=== PATIENT | female | born 1945 | race African-American/Black ===

== ENCOUNTER 2021-09-18 12:33 | Outpatient (REF) | payer MEDICARE, MEDICAID, SELFPAY ==
--- NOTE | ~2021-09-18 | XR_ITS ---
EXAMINATION: XR CHEST CLINICAL INFORMATION: Cough. COMPARISON: None TECHNIQUE: 2 views of the chest were obtained. FINDINGS: No significant abnormality is noted involving the heart, lungs, mediastinum, bony thorax or soft tissues. XR/XR chest 2V IMPRESSION: Unremarkable chest examination.
== END 2021-09-18 12:34 | disposition home or self-care (01) ==
LOC: HO.XRAY 12:33
PROVIDERS: PCP Internal Medicine; Visit Provider Nurse Practitioner Family
DX: R06.2 Wheezing (principal); R05.8 Other specified cough
CPT/HCPCS: 71046

== ENCOUNTER → 2021-10-18 09:46 | Outpatient (BNVA) | payer MEDICARE, MEDICAID, SELFPAY | PROVIDERS: PCP Internal Medicine; Referring Provider Internal Medicine; Visit Provider Internal Medicine Cardiovascular Disease | DX: I42.1 Obstructive hypertrophic cardiomyopathy (principal); I10 Essential (primary) hypertension; R06.02 Shortness of breath | CPT/HCPCS: 93005; 99212 ==

== ENCOUNTER 2021-11-29 10:54 | Outpatient (REF) | payer MEDICARE, MEDICAID, SELFPAY ==
[2021-11-29 11:15] LABS: MANUAL DIFF FLAG NO
[2021-11-29 12:16] LABS: Basophils Absolute Auto 0.1 X10*3/uL (0.0-0.2); Basophils Percent Auto 0.8 % (0-2); Eosinophils Absolute Auto 0.2 X10*3/uL (0.0-0.4); Eosinophils Percent Auto 2.6 % (0-4); Hematocrit 37.2 % (37.0-47.0); Hemoglobin 11.7 g/dl (12.0-16.0); Imm Gran Abs Auto 0.03 X10*3/uL (0.00-0.03); Imm Gran Pct Auto 0.3 % (0.0-0.4); Lymphocytes Absolute Auto 3.6 X10*3/uL (1.2-4.9); Lymphocytes Percent Auto 39.6 % (20-40); Mean Corpuscular HGB Conc 31.5 g/dl (31.0-35.0); Mean Corpuscular Volume 95.4 fL (80.0-98.0); Mean Platelet Volume 10.6 fL (9.4-12.3); Monocytes Absolute Auto 0.7 X10*3/uL (0.1-1.2); Monocytes Percent Auto 7.7 % (2-11); Neutrophils Absolute Auto 4.5 x10*3/uL (2.0-8.3); Platelet Count 288 X10*3/uL (160-400); Red Cell Distribution Width 12.4 % (11.0-16.0); White Blood Count 9.1 X10*3/uL (4.8-10.8)
[2021-11-29 12:46] LABS: Anion Gap 13 (12-20); Blood Urea Nitrogen 21 mg/dL (9-16); Calcium 9.8 mg/dL (8.4-10.2); Carbon Dioxide 27 mmol/L (22-29); Chloride 106 mmol/L (96-108); Estimated Glomerular Filt Rate 57; Glucose Random 111 mg/dL (60-115); Sodium 142 mmol/L (135-145)
[2021-11-29 12:59] LABS: Thyroid Stimulating Hormone 1.14 uIU/mL (0.32-4.0)
== END 2021-11-29 10:55 | disposition home or self-care (01) ==
LOC: HO.LAB 10:54
PROVIDERS: PCP Internal Medicine; Visit Provider Internal Medicine
DX: R51.9 Headache, unspecified (principal); E03.9 Hypothyroidism, unspecified; Z13.0 Encounter for screening for diseases of the blood and blood-forming organs and certain disorders involving the immune mechanism
CPT/HCPCS: 36415; 80048; 84443; 85025

== ENCOUNTER → 2021-12-04 09:09 | Outpatient (REF) | payer MEDICARE, MEDICAID, SELFPAY ==
--- NOTE | 2021-12-04 09:13 | CA_ITS ---
Transthoracic Echocardiogram Patient (Last, First, Middle): Sara Deluna L Gender: Female Date of : 1945 Age: 76 Procedure Date: 12/04/2021 Procedure Type: Transthoracic Echocardiogram Location: OP Height: 167.64 cm Weight: 102.06 kg BSA: 2.10 m2 Heart Rate: 71 bpm BP: 156 / 78 mmHg Meat Molder: NETO Referring MD: Varinder Joshi MD Research Intern: Varinder Joshi MD Symptoms: I42.1 - Obstructive hypertrophic cardiomyopathy Study Quality: Adequate ECG Rhythm: Sinus Conclusions: - 1. Normal LV systolic function with mild LVH with impaired relaxation filling pattern 2. Mildly dilated left atrium 3. Trivial aortic regurgitation mild mitral regurgitation 4. Upper limits of normal RV systolic pressure 5. No gross pericardial effusion Findings Left Ventricle Normal left ventricular size and systolic function. There is mildly increased left ventricular wall thickness. The visually estimated ejection fraction is between 55-60%. Spectral Doppler is indicative of an impaired relaxation filling pattern. E/E prime ratio is between 8 and 15 consistent with indeterminate filling pressures. Right Ventricle Normal right ventricular cavity size and systolic function. Atria The left atrium is mildly dilated. There is lipomatous hypertrophy of the interatrial septum. There is no evidence of interatrial shunt. The right atrium is normal in size. Aortic Valve There is mild calcification of the aortic valve. There is no aortic valve stenosis. There is trace (trivial) aortic valve regurgitation. Mitral Valve There is mild anterior and posterior mitral leaflet thickening. There is mild mitral valve regurgitation. There is no mitral valve stenosis. Pulmonic Valve The pulmonic valve was not well visualized. Tricuspid Valve Normal tricuspid valve structure. There is mild tricuspid valve regurgitation. The right ventricular systolic pressure is normal. Normal right atrial pressure. There is no evidence of pulmonary hypertension. Great Vessels All visible segments of the aorta are normal in size. The pulmonary artery was not well visualized. Venous The inferior vena cava is normal in size and collapses greater than 50% with inspiration. Pericardium/Pleural There is no evidence of pericardial effusion. Measurements 2D Linear Measurements IVSd: 1.38 0.6-0.9/0.6-1.0 cm LVIDd: 4.72 3.9-5.3/4.2-5.9 cm LVIDd Index: 2.25 2.4-3.2/2.2-3.1 cm/m2 LVIDs: 3.25 2.0-3.6 cm LVPWd: 1.05 0.7-1.1 cm LA Diam: 4.30 2.7-3.8/3.0-4.0 cm LAIDs Index: 2.05 1.5-2.3 cm/m2 LV Mass: 270.79 67-162/88-224 g LV Mass Index: 128.95 43-95/49-115 g/m2 LVOT Diam: 1.80 3.0+(-)1.3 cm 2D Systolic Function EF 4C: 59.90 >55% Mitral Valve MV Pk E: 0.93 MV PK A: 0.97 MV Decel Time: 227.00 E/A: 1.00 E'Lateral: 7.07 E'Medial: 7.83 E/E' Med: 11.90 E/E' Lat: 13.20 PHT: 67.00 MVA PHT: 3.28 Decel Sabine: 4.11 Aortic Valve AoV Pk Elkin: 1.58 AoV Mn Elkin: 1.11 AoV VTI: 0.36 AoV Pk Grad: 10.00 Aov Mn Grad: 6.00 GINA Cont.VTI: 2.34 LVOT LVOT Pk Elkin: 1.50 LVOT Mn Elkin: 1.13 LVOT VTI: 0.33 LVOT Pk Grad: 9.00 LVOT Mn Grad: 6.00 LVOT Diam: 1.80 LVOT Area: 2.54 Diastolic Function MV Pk E: 0.93 MV Pk A: 0.97 E/A: 1.00 E'Medial: 7.83 E/E' Med: 11.90 E' Laterial: 7.07 E/E' Lat: 13.20 Right Ventricle TAPSE (mm): 32.30 TVS' Elkin: 11.50 Tricuspid Valve TR Pk Elkin: 2.95 TR Pk Grad: 35.00 RA Press: 3.00 RVSP: 38.00 Great Vessels Aorta Sinus of Valsalva: 3.00 2.0-3.5 cm Ao Asc: 3.40 2.1-3.4 cm Pulmonary Veins Pulm Vein S/D 1.10 Pulmonary Valve PV Pk Elkin: 1.22 Peak PV Grad: 6.00 Updated in Other Vendor System with Status of Final Varinder Joshi MD electronically signed on 12/05/2021 4:15:59 PM with status of Final
== END ==
LOC: HO.CARD 09:09
PROVIDERS: Visit Provider Internal Medicine Cardiovascular Disease
DX: I42.1 Obstructive hypertrophic cardiomyopathy (principal)
CPT/HCPCS: 93306

== ENCOUNTER 2022-01-08 19:40 | Inpatient (IN) | payer MEDICARE, MEDICAID, SELFPAY ==
--- NOTE | ~2022-01-08 | XR_ITS ---
EXAMINATION: XR CHEST CLINICAL INFORMATION: Shortness of breath, wheezing. COMPARISON: 09/18/2021 chest radiographs. TECHNIQUE: Frontal view of the chest was obtained. FINDINGS: No significant abnormality is noted involving the heart, lungs, mediastinum, bony thorax or soft tissues. XR/XR chest 1V IMPRESSION: No acute cardiopulmonary process.
--- NOTE | ~2022-01-08 | CT_ITS ---
EXAMINATION: CT HEAD WITHOUT CONTRAST CLINICAL INFORMATION: Headache COMPARISON: 06.18.2015 TECHNIQUE: Contiguous axial imaging was performed from the skull base to vertex without intravenous administration of contrast. This CT examination was performed using dose optimization techniques as appropriate, variously including the following: *Automated exposure control *Adjustment of mA and/or kV according to patient size (this includes techniques or standardized protocols for targeted exams where dose is matched to indication/reason for exam; i.e. extremities or head) *Use of iterative reconstruction technique DLP: 894 mGy-cm FINDINGS: There is no evidence of acute intracranial hemorrhage or territorial infarction. No abnormal mass effect or midline shift is seen. [place] to white matter differentiation is well preserved. No extra-axial fluid collections are identified. The ventricles are normal in size. There is no abnormal attenuation within the brain parenchyma. The osseous structures and soft tissues are normal. The mastoid air cells and visualized portions of the paranasal sinuses are well aerated. There are stable calcifications associated with the lens of the left globe. CT/CT head/brain wo con IMPRESSION: No acute intracranial pathology.
--- NOTE | ~2022-01-08 | CT_ITS ---
EXAMINATION: CT SOFT TISSUE NECK WITHOUT CONTRAST CLINICAL INFORMATION: Stridor. Lump in throat. COMPARISON: CT facial bones dated 08/22/2019 TECHNIQUE: Helical imaging was performed in the axial plane with generation of coronal and sagittal reformatted images. This CT examination was performed using dose optimization techniques as appropriate, variously including the following: *Automated exposure control *Adjustment of mA and/or kV according to patient size (this includes techniques or standardized protocols for targeted exams where dose is matched to indication/reason for exam; i.e. extremities or head) *Use of iterative reconstruction technique DLP: 693 mGy-cm FINDINGS: Mild prominence of the bilateral palatine tonsils, and nasopharyngeal tonsillar tissue as well as fullness of the soft palate narrowing the nasopharyngeal airway. Oropharynx widely patent. Epiglottis is thin. Partial effacement of the right pyriform sinus which appears to be related to a retropharyngeal right internal carotid artery. Appearance is unchanged from prior. Larynx and laryngeal structures are unremarkable. Subglottic trachea widely patent, although there is respiratory motion artifact within the upper thoracic trachea. No cervical adenopathy is identified. The parotid glands are homogeneous in attenuation. The submandibular glands are normal. No contour abnormality or pathologic enhancement is seen within the oral cavity or pharyngeal mucosal space. The parapharyngeal fat is preserved. No extra mucosal soft tissue mass or fluid collection is seen. No retropharyngeal fluid collection is seen. The thyroid gland is normal. The superior mediastinum is unremarkable. The lung apices are clear. The temporomandibular joints are normal. . No acute osseous abnormalities are seen. CT/CT soft tissue neck wo con IMPRESSION: * No neck mass. * There is prominence of the palatine tonsils, nasopharyngeal tonsillar tissue and soft palate similar appearance to prior. * Laryngeal structures and airway widely patent.
--- NOTE | ~2022-01-08 | CT_ITS ---
EXAMINATION: CT ABDOMEN AND PELVIS WITHOUT CONTRAST CLINICAL INFORMATION: Middle and lower abdominal pain/tenderness COMPARISON: CTA chest 11/04/2017 TECHNIQUE: Multidetector volumetric imaging was performed from the superior aspect of the liver through the pubic symphysis. Sagittal and coronal reformatted images were obtained on the technologist's workstation. This CT examination was performed using dose optimization techniques as appropriate, variously including the following: *Automated exposure control *Adjustment of mA and/or kV according to patient size (this includes techniques or standardized protocols for targeted exams where dose is matched to indication/reason for exam; i.e. extremities or head) *Use of iterative reconstruction technique DLP: 704 mGy-cm FINDINGS: LUNG BASES: 1.7 cm groundglass nodule in the right lower lobe abutting the major fissure (series 4 image 17), appears slightly more conspicuous compared to CT of the chest from 2017. Small pericardial fluid. LIVER, GALLBLADDER, AND BILIARY TREE: The liver is normal in size, shape, and attenuation. No focal hepatic lesion or biliary ductal dilatation is present. The gallbladder is unremarkable with no evidence of radiopaque gallstones, gallbladder wall thickening, or obvious pericholecystic inflammatory changes. PANCREAS: Unremarkable. SPLEEN: Unremarkable. ADRENAL GLANDS: Unremarkable. KIDNEYS AND URETERS: The kidneys are normal in size, shape, and attenuation. No hydronephrosis, hydroureter, or calculi seen. No perinephric stranding. BLADDER: Unremarkable. GASTROINTESTINAL TRACT: Sigmoid diverticulosis. Normal caliber of the large and small bowel. The appendix is unremarkable. ABDOMINAL WALL: No significant hernia is appreciated. LYMPH NODES: Normal. VASCULAR: Unremarkable. PELVIC VISCERA: Partially calcified fibroid near the uterine fundus. OSSEOUS STRUCTURES: No acute osseous abnormality. Lower lumbar facet arthropathy. CT/CT abdomen pelvis wo con IMPRESSION: 1. No acute abnormality in the abdomen or pelvis. 2. 1.7 cm pulmonary groundglass nodule in the right lower lobe appears more conspicuous compared to CT of the chest from 11/04/2017 and is suspicious for a low-grade neoplastic process. Recommend repeat CT of the chest in 6-12 months. 3. Fundal uterine fibroid 4. Sigmoid diverticulosis without evidence of diverticulitis
[2022-01-08 20:52] VITALS: BP 219/87; PULSE 73; RESP 15; TEMP 36.4; O2SAT 91; BMI 34.4
[2022-01-08 21:00] VITALS: PULSE 73; RESP 18; O2SAT 96
--- NOTE | 2022-01-08 21:10 | ECG_ITS ---
Test Reason : SOB Blood Pressure : / mmHG Vent. Rate : 076 BPM Atrial Rate : 076 BPM P-R Int : 162 ms QRS Dur : 088 ms QT Int : 386 ms P-R-T Axes : 066 060 108 degrees QTc Int : 434 ms Normal sinus rhythm Nonspecific ST and T wave abnormality Abnormal ECG When compared with ECG of 22-AUG-2019 19:08, Premature atrial complexes are no longer Present Referred By: Kia Eckert Electronically Signed By:DEMETRIO CADE
[2022-01-08 21:25] LABS: COVID-19 Test Negative (Negative)
[2022-01-08] MEDS: Albuterol Sulfate (0.083%) 2.5 MG/3 ML VIAL.NEB 10 MG INHALE ×3 (21:25→23:22)
[2022-01-08 21:26] VITALS: PULSE 76; RESP 20; O2SAT 98
--- NOTE | 2022-01-08 21:27 | ED.SOB ---
HPI - SOB/Dyspnea General Chief Complaint: Dyspnea Stated Complaint: asthma, dr clifford Time Seen by Provider: 01/08/22 21:09 Source: patient and RN notes reviewed Mode of arrival: ambulatory Limitations: no limitations History of Present Illness HPI Narrative: This is a 76-year-old female, with a past medical history of asthma, hypertension, hypertensive heart disease, mild hypertrophic obstructive cardiomyopathy, premature atrial contraction, who presents to the emergency department with complaints of shortness of breath and wheezing x3 days. She has been around her grandchildren who have been sick recently. She denies known history of heart failure. She reports that she has been using her albuterol inhaler and nebulizers without relief. She reports that she developed chest pain yesterday. She endorses a headache since yesterday, which she reports is on the crown of her head. She denies any fevers or chills. Denies any weakness, nausea, vomiting or diarrhea. She states that she also has had left sided abdominal pain. No bloody or black stool. No other complaints or concerns at this time. MD elicited complaint: shortness of breath, cough, chest pain and asthma attack Pertinent past history: asthma Onset (ago): day(s) Timing: constant and progressively worsening Severity: moderate Exacerbating factors: nothing Relieving factors: nothing Known history of: asthma Associated symptoms: chest pain, cough and wheezing Treatment prior to arrival: none Related Data Home oxygen amount: none Previous Rx's Medication Instructions Recorded ipratropium 0.5 mg-albuterol 3 mg 3 ml inhalation Q4H PRN DX: 11/22/20 (2.5 mg base)/3 mL nebulization wheezing R06.2 Asthma J45.909 #90 soln mL fluticasone propionate 50 1 spray intranasal DAILY #16 mL 07/03/21 mcg/actuation nasal spray,suspension paroxetine HCl 40 mg tablet 40 mg PO DAILY #90 tabs 07/10/21 Ventolin HFA 90 mcg/actuation 2 puff inhalation Q4-6H PRN 08/02/21 aerosol inhaler (albuterol sulfate) shortness of breath or wheezing #18 grams lorazepam 1 mg tablet 1 mg PO BID PRN anxiety #60 tabs 08/23/21 albuterol sulfate 1.25 mg/3 mL 1.25 mg (3 mL) inhalation QID #75 09/18/21 solution for nebulization mL tramadol 50 mg tablet 50 mg PO BID PRN pain #60 tabs 10/30/21 diltiazem HCl 360 mg capsule,24 360 mg PO DAILY 30 days #30 caps 11/05/21 hr,extended release hydralazine 100 mg tablet 100 mg PO BID #60 tabs 11/05/21 docusate sodium 100 mg capsule 100 mg PO DAILY #90 caps 11/26/21 fluticasone 500 mcg-salmeterol 50 1 ea inhalation BID #180 ea 11/26/21 mcg/dose blistr powdr for inhalation (Advair Diskus) methylprednisolone 4 mg tablets in See Rx Instructions PO PER PKG DIR 11/29/21 a dose pack (Medrol (Owen)) #21 ea blood pressure test kit-large #1 ea 11/30/21 ([employer] Arm BP Monitor kit) omeprazole 20 mg capsule,delayed 20 mg PO QAM #90 caps 12/11/21 release Allergies Allergy/AdvReac Type Severity Reaction Status Date / Time Penicillins [PENICILLINS] Allergy Mild ITCHINESS Verified 11/29/21 10:24 aspirin [ASPIRIN] Allergy Unknown VOMITING Verified 11/29/21 10:24 Review of Systems Review of Systems: Constitutional: No Fever, No Chills ENT/Mouth: No sore throat, No Rhinorrhea, No Swallowing Difficulty Eyes: No Eye Pain, No Swelling, No Redness Cardiovascular: +Chest Pain, +SOB, No Orthopnea, No Edema Respiratory:+Cough, No Sputum, +Wheezing, + dyspnea Gastrointestinal: No Nausea, No Vomiting, No Diarrhea, No abdominal Pain, No Hematochezia, No Melena Genitourinary: No Dysuria, No Urinary Frequency, No Hematuria Musculoskeletal: No joint pain, No Myalgias Skin: No Skin Lesions, No rash Neuro: No Weakness, No Numbness, No Dizziness, No Headache Psych: No Anxiety/Panic, No Depression Heme/Lymph: No Bruising, No Lymphadenopathy Endocrine: No Polyuria, No Polydipsia PMFSH Past Medical History Medical History Asthma Fatigue HTN (hypertension) Hypertensive heart disease Mild HOCM (hypertrophic obstructive cardiomyopathy) PAC (premature atrial contraction) Surgical History History of left cataract surgery History of tubal ligation History of umbilical hernia repair Family History Family History Father No problems noted. Mother No problems noted. Social History Social History Housing: Apartment Alcohol intake: never Patient Tobacco Use Status: Never used Tobacco e-Cigarette/Vaping Use: Never Used Second Hand Smoke Exposure: No Advance Directives: No Advance Directives Information Provided: No service: No Current occupational status: retired Cognitive needs: No Hearing needs: No Vision needs: No Physical Exam Vital Signs: Vital Signs: Last Vital Signs Temp 97.5 F 01/08/22 20:52 Pulse 63 01/08/22 23:20 Resp 20 01/09/22 00:10 BP 166/59 H 01/08/22 21:55 Pulse Ox 96 01/08/22 21:55 O2 Del Method 01/08/22 20:52 BMI result Body Mass Index 34.4 Appearance: Alert. Oriented X3. Audible wheezing, appears uncomfortable, in distress. Eyes: Pupils equal, round and reactive to light. ENT: Pharynx normal. No tonsillar erythema edema or exudates. Tolerating oral secretions. No trismus, or drooling. Neck: Normal inspection. Neck supple. CVS: Normal heart rate and rhythm. Pulses normal. S1S2 regular. Respiratory: In respiratory distress, only able to speak in 2-3 word sentences. Tight, expiratory wheezes heard throughout all anterior and posterior lung esteves bilaterally Abdomen: Soft and nontender. +BS x4 Skin: Skin warm and dry. Normal skin color. Normal skin turgor. No rashes. Extremities: No lower extremity edema. Neuro: Oriented X 3. No motor deficit. No sensory deficit. Course Course Course Narrative: 76-year-old female, with a past medical history of asthma, presenting today with 3 day history of shortness of breath and wheezing. Patient is hypertensive at 219/86, reports that she took her hydrochlorothiazide today. Oxygen saturation 91% on room air. Patient has audible wheezes and have tight expiratory wheezes throughout all lung esteves. Respiratory paged, albuterol 10mg nebulizer, magnesium 2g ml IV and solumedrol 125mg IV ordered. Lebatalol 20mg IV ordered. Differential diagnoses include asthma exacerbation, pneumonia, COVID-19, ACS, CHF. EKG, chest x-ray, BMP, BNP, VBG, COVID-19, CBC, liver panel, magnesium, troponin ordered. Reevaluation(s) Reevaluation #1: Patient re-evaluated. Blood pressure improved to 166/59. O2 saturation 96% on room air. 10 mg albuterol updraft has been completed, patient still has audible wheezes at bedside, with prolonged expiratory wheezes in all lung esteves. Second albuterol 10mg updraft ordered. Chest x-ray reviewed as no acute cardiopulmonary process. CBC shows no leukocytosis, Venous blood gas pH 7.44, otherwise unremarkable, chemistry shows mild hypernatremia at 146 and a BUN at 18 otherwise unremarkable. Troponin is less than 3.5, BNP is 10. COVID-19 testing is negative. EKG is still pending. No current chest pain. Time: 23:09 Reevaluation #2: Patient getting another nebulizer. Continues to saturate well but have diffuse expiratory wheezing throughout. ?stridor with audible upper airway sounds. She admits to sensation of right sided neck swelling, for a long time. She is also now c/o middle and lower abdominal pain. She is tender on examination. BP back up to 240 systolic. Continues to report mild headache. Will treat with additional IV labetalol and dose of her home PO hydralazine. Will plan to get CT scans of her neck, abdomen and head as well. Plan for admission once imaging is back. Daughter updated with plan of care. Time: 00:04 MDM - SOB/Dyspnea Lab Data Result diagrams: 01/08/22 21:23 01/08/22 21:23 Labs: Lab Results 01/08/22 01/08/22 01/08/22 Range/Units 21:02 21:23 21:23 WBC 8.4 (4.8-10.8) X10*3/uL RBC 4.40 (4.20-5.50) X10*6/uL Hgb 12.8 (12.0-16.0) g/dl Hct 40.8 (37.0-47.0) % MCV 92.7 (80.0-98.0) fL MCH 29.1 (27.0-33.0) pg MCHC 31.4 (31.0-35.0) g/dl RDW 12.4 (11.0-16.0) % Plt Count 273 (160-400) X10*3/uL MPV 9.7 (9.4-12.3) fL Immature Gran % (Auto) 0.2 (0.0-0.4) % Neut % (Auto) 56.2 (45-73) % Lymph % (Auto) 31.7 (20-40) % [place] % (Auto) 8.1 (2-11) % Eos % (Auto) 3.3 (0-4) % Baso % (Auto) 0.5 (0-2) % Lymph # (Auto) 2.7 (1.2-4.9) X10*3/uL [place] # (Auto) 0.7 (0.1-1.2) X10*3/uL Eos # (Auto) 0.3 (0.0-0.4) X10*3/uL Baso # (Auto) 0.0 (0.0-0.2) X10*3/uL Abs Immat Gran (auto) 0.02 (0.00-0.03) X10*3/uL Absolute Neuts (auto) 4.7 (2.0-8.3) x10*3/uL Absolute Nucleated RBC 0.000 (0.0-0.012) X10*3/uL Nucleated RBC % (auto) 0.0 (0.0-0.2) /100WBC VBG pH (7.32-7.43) VBG pCO2 mmHg VBG pO2 mmHg VBG HCO3 (22-26) mmol/L VBG O2 Saturation % VBG Base Excess mmol/L Sodium 146 H (135-145) mmol/L Potassium 4.3 (3.3-5.1) mmol/L Chloride 108 (96-108) mmol/L Carbon Dioxide 29 (22-29) mmol/L Anion Gap 13 (12-20) BUN 18 H (9-16) mg/dL Creatinine 0.98 (0.5-1.4) mg/dL Estim Creat Clear Calc 59.2 Estimated GFR 55 Random Glucose 113 (60-115) mg/dL Calcium 9.6 (8.4-10.2) mg/dL Magnesium 2.2 (1.6-2.6) mg/dL Total Bilirubin 0.3 (0.0-1.0) mg/dL Direct Bilirubin 0.2 (0.0-0.5) mg/dL AST 13 (5-31) U/L ALT 14 (0-31) U/L Alkaline Phosphatase 89 (39-117) U/L Troponin I High Sens (<3.5-17.0) ng/L B-Natriuretic Peptide (<100) pg/mL Total Protein 7.7 (6.5-8.0) g/dL Albumin 4.6 (3.5-5.0) g/dL Lipase 19 (8-78) U/L COVID-19 (BOBBY) Negative (Negative) COVID-19 Clin Com See Note 01/08/22 01/08/22 01/08/22 Range/Units 21:23 21:23 21:39 WBC (4.8-10.8) X10*3/uL RBC (4.20-5.50) X10*6/uL Hgb (12.0-16.0) g/dl Hct (37.0-47.0) % MCV (80.0-98.0) fL MCH (27.0-33.0) pg MCHC (31.0-35.0) g/dl RDW (11.0-16.0) % Plt Count (160-400) X10*3/uL MPV (9.4-12.3) fL Immature Gran % (Auto) (0.0-0.4) % Neut % (Auto) (45-73) % Lymph % (Auto) (20-40) % [place] % (Auto) (2-11) % Eos % (Auto) (0-4) % Baso % (Auto) (0-2) % Lymph # (Auto) (1.2-4.9) X10*3/uL [place] # (Auto) (0.1-1.2) X10*3/uL Eos # (Auto) (0.0-0.4) X10*3/uL Baso # (Auto) (0.0-0.2) X10*3/uL Abs Immat Gran (auto) (0.00-0.03) X10*3/uL Absolute Neuts (auto) (2.0-8.3) x10*3/uL Absolute Nucleated RBC (0.0-0.012) X10*3/uL Nucleated RBC % (auto) (0.0-0.2) /100WBC VBG pH 7.44 H (7.32-7.43) VBG pCO2 39 mmHg VBG pO2 102 mmHg VBG HCO3 26 (22-26) mmol/L VBG O2 Saturation 99.0 % VBG Base Excess 2.6 mmol/L Sodium (135-145) mmol/L Potassium (3.3-5.1) mmol/L Chloride (96-108) mmol/L Carbon Dioxide (22-29) mmol/L Anion Gap (12-20) BUN (9-16) mg/dL Creatinine (0.5-1.4) mg/dL Estim Creat Clear Calc Estimated GFR Random Glucose (60-115) mg/dL Calcium (8.4-10.2) mg/dL Magnesium (1.6-2.6) mg/dL Total Bilirubin (0.0-1.0) mg/dL Direct Bilirubin (0.0-0.5) mg/dL AST (5-31) U/L ALT (0-31) U/L Alkaline Phosphatase (39-117) U/L Troponin I High Sens < 3.5 (<3.5-17.0) ng/L B-Natriuretic Peptide 10 (<100) pg/mL Total Protein (6.5-8.0) g/dL Albumin (3.5-5.0) g/dL Lipase (8-78) U/L COVID-19 (BOBBY) (Negative) COVID-19 Clin Com Critical Care Time Critical Care Time Critical Care Time: Yes Total Critical Care Time: 44 Attestation: I have personally provided critical care time exclusive of time spent on separately billable procedures. Time includes review of lab data, radiology results, discussion with consultants, and monitoring for potential decompensation. Intervention performed as documented. Discharge Plan Discharge Clinical Impression: Acute asthma exacerbation, Hypertensive urgency Patient Disposition: Admitted As Inpatient
[2022-01-08 21:28] LABS: MANUAL DIFF FLAG NO
[2022-01-08 21:29] LABS: Basophils Percent Auto 0.5 % (0-2); Eosinophils Absolute Auto 0.3 X10*3/uL (0.0-0.4); Eosinophils Percent Auto 3.3 % (0-4); Hematocrit 40.8 % (37.0-47.0); Hemoglobin 12.8 g/dl (12.0-16.0); Imm Gran Abs Auto 0.02 X10*3/uL (0.00-0.03); Imm Gran Pct Auto 0.2 % (0.0-0.4); Lymphocytes Absolute Auto 2.7 X10*3/uL (1.2-4.9); Lymphocytes Percent Auto 31.7 % (20-40); Mean Corpuscular HGB Conc 31.4 g/dl (31.0-35.0); Mean Corpuscular Hemoglobin 29.1 pg (27.0-33.0); Mean Corpuscular Volume 92.7 fL (80.0-98.0); Mean Platelet Volume 9.7 fL (9.4-12.3); Monocytes Absolute Auto 0.7 X10*3/uL (0.1-1.2); Monocytes Percent Auto 8.1 % (2-11); Neutrophils Absolute Auto 4.7 x10*3/uL (2.0-8.3); Neutrophils Percent Auto 56.2 % (45-73); Platelet Count 273 X10*3/uL (160-400); Red Cell Distribution Width 12.4 % (11.0-16.0); White Blood Count 8.4 X10*3/uL (4.8-10.8)
[2022-01-08] MEDS: methylPREDNISolone Sod Succ 125 MG/2 ML VIAL IVPUSH (21:37)
[2022-01-08] MEDS: Magnesium Sulfate/H2O 2 GM/50 ML PIGGYBACK IV (21:37)
[2022-01-08 21:43] LABS: VBG Base Excess 2.6 mmol/L; VBG HCO3 26 mmol/L (22-26); VBG pCO2 39 mmHg; VBG pH 7.44 (7.32-7.43); VBG pO2 102 mmHg
[2022-01-08 21:44] LABS: Alanine Aminotransferase 14 U/L (0-31); Albumin Level 4.6 g/dL (3.5-5.0); Alkaline Phosphatase 89 U/L (39-117); Anion Gap 13 (12-20); Aspartate Amino Transferase 13 U/L (5-31); Bilirubin Direct 0.2 mg/dL (0.0-0.5); Bilirubin Total 0.3 mg/dL (0.0-1.0); Blood Urea Nitrogen 18 mg/dL (9-16); Calcium 9.6 mg/dL (8.4-10.2); Carbon Dioxide 29 mmol/L (22-29); Chloride 108 mmol/L (96-108); Creatinine Clr Calc Pharmacy 59.2; Estimated Glomerular Filt Rate 55; Glucose Random 113 mg/dL (60-115); Magnesium 2.2 mg/dL (1.6-2.6); Potassium 4.3 mmol/L (3.3-5.1); Sodium 146 mmol/L (135-145); Total Protein 7.7 g/dL (6.5-8.0)
[2022-01-08 21:45] LABS: Venous Blood Gas Refer to POC result
[2022-01-08 21:50] LABS: B Type Natriuretic Peptide 10 pg/mL (<100)
[2022-01-08 21:55] VITALS: BP 166/59; PULSE 63; RESP 18; O2SAT 96
[2022-01-08 22:21] LABS: Troponin-I High Sensitivity < 3.5 ng/L (<3.5-17.0)
[2022-01-08 23:20] VITALS: PULSE 63; RESP 18; O2SAT 97
[2022-01-09] VITALS (24 sets, daily range): BP systolic 147–245; BP diastolic 47–103; PULSE 72–98; RESP 14–22; TEMP 36.7–37.1; O2SAT 92–98
[2022-01-09] MEDS: fentaNYL citrate/PF 100 MCG/2 ML VIAL 50 MCG IVPUSH ×2 (00:10→04:28)
[2022-01-09 00:24] LABS: Lipase 19 U/L (8-78)
[2022-01-09] MEDS: hydrALAZINE HCl 50 MG TABLET 100 MG PO (00:24)
--- NOTE | 2022-01-09 01:11 | PC.NURSE ---
RN to RN report given to Lionel. Relocated to ED Bed 9 from EM 4. Plan for admission. Medication reconciliation completed.
[2022-01-09] MEDS: hydrALAZINE HCl 20 MG/ML VIAL 5 MG IVPUSH (04:28)
--- NOTE | 2022-01-09 04:40 | PC.NURSE ---
RN to bedside to medicate pt with stat dose of fentanyl and PRN dose of hydralazine per MAR. Pt found to be more hypertensive than before with BP 240/90 (Right) and 219/71 (Left). Pt continues to endorse presence of frontal headache with blurred vision, conversing in full and complete sentences without distress noted. Pt's neuro's are intact. Both ER MD and Hospitalist made aware; new orders obtained from Dr Fleming with request to hold admission while she speaks with ICU team.
--- NOTE | 2022-01-09 04:55 | PC.NURSE ---
ICU provider at bedside upon RN's arrival to medicate with 20mg Labetolol per AUG. Per ICU provider, plan is to hold off on IVP labetolol at this time. RN will continue to monitor
--- NOTE | 2022-01-09 05:29 | P.HPCC_ITS ---
History of Present Illness Date of Service: 01/09/22 Attending physician on admission: Franki Edouard Chief Complaint: Shortness of breath The patient is a 76 -year-old female with past medical history of hypertension, hypertrophic obstructive cardiomyopathy, asthma, hyperlipidemia, anxiety/de pression, and obesity Stented to the emergency room with shortness of breath and wheezing x3 days.? ? She reported using her rescue inhaler? in the last few days without relief, as well as exposure to grand kids who were sick recently.? She also stated chest pain? that started yesterday? as well as headache. She denies any fevers or chills.? Denies any weakness, nausea, vomiting or diarrhea. She s tates that she also has had left sided abdominal pain. No bloody or black stool.? In the? emergency room? initial blood pressure was 245/103.? Laboratory data with no significant? abnormality. Head/ Abdominal CT with no significant findings.? Patient reports compliance with medication regimen at home, but from previous office visits? patient has had poor? blood? pressure control in the past year.? She received total of 30 labetalol and IV and po hydralazine in the ED with no significant improvement in BP.? patient will be admitted to the ICU for blood pressure management requiring? Guero dean Review of Systems Constitutional: Constitutional: Reports as per HPI ENT: Reports as per HPI Cardiovascular: Cardiovascular: Reports as per HPI, Reports no additional cardiovascular complaints and Reports dyspnea Respiratory: Respiratory: Reports as per HPI, Reports cough and Reports dyspnea Musculoskeletal: Musculoskeletal: Reports no additional musculoskeletal complaints Neurologic: Reports system reviewed and no additional complaints, except as documented PMF Past Medical History Medical History Asthma Fatigue HTN (hypertension) Hypertensive heart disease Mild HOCM (hypertrophic obstructive cardiomyopathy) PAC (premature atrial contraction) Family History Family History Father No problems noted. Mother No problems noted. Surgical History Surgical History History of left cataract surgery History of tubal ligation History of umbilical hernia repair Social History Social History Housing: Apartment Alcohol intake: never Patient Tobacco Use Status: Never used Tobacco e-Cigarette/Vaping Use: Never Used Second Hand Smoke Exposure: No Advance Directives: No Advance Directives Information Provided: No service: No Current occupational status: retired Cognitive needs: No Hearing needs: No Vision needs: No Meds Allergies Allergy/AdvReac Type Severity Reaction Status Date / Time Penicillins [PENICILLINS] Allergy Mild ITCHINESS Verified 01/09/22 01:15 aspirin [ASPIRIN] Allergy Unknown VOMITING Verified 01/09/22 01:15 Active Medications: Current Medications Acetaminophen (Acetaminophen 325 Mg Tablet) 650 mg PO Q6H PRN PRN Reason: Pain, Mild (Pain Scale 1-3) Albuterol/Ipratropium (Albuterol/Iprat 2.5/0.5mg 3 Ml Ampul.Neb) 3 ml INHALE RQ4H PRN PRN Reason: Shortness of Breath/Wheezing Albuterol/Ipratropium (Albuterol/Iprat 2.5/0.5mg 3 Ml Ampul.Neb) 3 ml INHALE RQ4H WHILE AWAKE MILDRED Docusate Sodium (Docusate Sodium 100 Mg Capsule) 100 mg PO DAILY PRN PRN Reason: Constipation Enoxaparin Sodium (Enoxaparin Sodium 40 Mg/0.4 Ml Syringe) 40 mg SUBCUT Q24H MILDRED Nicardipine HCl 25 mg/ Sodium (Chloride) 260 mls @ 0 mls/hr IVCONT .Q0M MILDRED; Protocol Methylprednisolone Sodium Succinate (Methylprednisolone Sod Succ 40 Mg/Ml Vial) 40 mg IVPUSH Q12H MILDRED Ondansetron HCl (Ondansetron Hcl 4 Mg/2 Ml Vial) 4 mg IVPUSH Q8H PRN PRN Reason: Nausea and Vomiting Pharmacy Consult (Consult Rx Perform Med Rec) 1 each MISCELLANE ONCE PRN PRN Reason: Consult order Home Medications Medication Instructions Recorded Confirmed Last Taken Type albuterol sulfate 1.25 mg/3 mL 3 ml inhalation QID 01/09/22 01/09/22 01/08/22 History solution for nebulization albuterol sulfate 90 mcg/actuation 2 puff PO Q4-6H PRN wheezing 01/09/22 01/09/22 01/08/22 History aerosol inhaler (Ventolin HFA) diltiazem HCl 360 mg capsule,24 1 cap PO DAILY PRN Hypertension 01/09/22 01/09/22 01/08/22 History hr,extended release (Tiadylt ER) docusate sodium 100 mg capsule 1 cap PO DAILY 01/09/22 01/09/22 01/08/22 History fluticasone 500 mcg-salmeterol 50 1 puff inhalation BID 01/09/22 01/09/22 01/08/22 History mcg/dose blistr powdr for inhalation (Advair Diskus) fluticasone propionate 50 1 spray intranasal DAILY 01/09/22 01/09/22 01/08/22 History mcg/actuation nasal spray,suspension hydralazine 100 mg tablet 1 tab PO BID 01/09/22 01/09/22 01/08/22 History hydrochlorothiazide 25 mg tablet 1 tab PO DAILY 01/09/22 01/09/22 01/08/22 History lorazepam 1 mg tablet 1 tab PO BID PRN anxiety 01/09/22 01/09/22 01/08/22 History lovastatin 20 mg tablet 1 tab PO BEDTIME 01/09/22 01/09/22 01/08/22 History omeprazole 20 mg capsule,delayed 1 cap PO QAM 01/09/22 01/09/22 01/08/22 History release tramadol 50 mg tablet 1 tab PO BID PRN pain 01/09/22 01/09/22 01/08/22 History Physical Exam Vital Signs: Vital Signs: Last Vital Signs Temp 97.5 F 01/08/22 20:52 Pulse 92 01/09/22 04:34 Resp 16 01/09/22 04:34 BP 219/71 H 01/09/22 04:34 Pulse Ox 98 01/09/22 04:34 O2 Del Method 01/09/22 04:34 O2 Flow Rate 4 01/09/22 00:00 BMI result Body Mass Index 34.4 Constitutional: Alert, in no distress. Sitting comfortably on the hospital bed. Mental Status: Oriented to person, place and time. Head: Normocephalic. Eyes: Right eye twitching and eye floaters (chronic), Pupils are equal, round and reactive to light. Extraocular muscles intact. Ear, Nose and Throat: Oropharynx clear, mucous membranes moist Trachea midline. Neck: Supple, Full range of motion. Respiratory: Significant exp wheezesin upper lobes. satting 93% on room air. Cardiovascular: Sinus. S1 S2 regular. No murmurs, rubs or gallops. Gastrointestinal: Abdomen soft, non-tender, non-distended. Normal bowel sounds. No pulsatile mass. No hepatosplenomegaly. Genitourinary: No costovertebral angle tenderness. Neurologic: No focal neurological deficits. Moves all extremities spontaneously. Sensation intact bilaterally. Skin: No rashes or lesions. No petechiae or purpura. Trace pitting edema BLE Musculoskeletal: No cyanosis or clubbing.? Normal range of motion. Psychiatric: Normal mood and affect Results Labs CBC and Chem 7: 01/08/22 21:23 01/08/22 21:23 Labs: Laboratory Results - last 24 hr 01/08/22 01/08/22 01/08/22 21:02 21:23 21:23 MCV 92.7 MCH 29.1 MCHC 31.4 RDW 12.4 Plt Count 273 MPV 9.7 Immature Gran % (Auto) 0.2 Neut % (Auto) 56.2 Lymph % (Auto) 31.7 [place] % (Auto) 8.1 Eos % (Auto) 3.3 Baso % (Auto) 0.5 Lymph # (Auto) 2.7 [place] # (Auto) 0.7 Eos # (Auto) 0.3 Baso # (Auto) 0.0 Abs Immat Gran (auto) 0.02 Absolute Neuts (auto) 4.7 Absolute Nucleated RBC 0.000 Nucleated RBC % (auto) 0.0 VBG pH VBG pCO2 VBG pO2 VBG HCO3 VBG O2 Saturation VBG Base Excess Anion Gap 13 Estim Creat Clear Calc 59.2 Estimated GFR 55 Random Glucose 113 Calcium 9.6 Magnesium 2.2 Total Bilirubin 0.3 Direct Bilirubin 0.2 AST 13 ALT 14 Alkaline Phosphatase 89 B-Natriuretic Peptide Total Protein 7.7 Albumin 4.6 Lipase 19 COVID-19 (BOBBY) Negative COVID-19 Clin Com See Note 01/08/22 01/08/22 21:23 21:39 MCV MCH MCHC RDW Plt Count MPV Immature Gran % (Auto) Neut % (Auto) Lymph % (Auto) [place] % (Auto) Eos % (Auto) Baso % (Auto) Lymph # (Auto) [place] # (Auto) Eos # (Auto) Baso # (Auto) Abs Immat Gran (auto) Absolute Neuts (auto) Absolute Nucleated RBC Nucleated RBC % (auto) VBG pH 7.44 H VBG pCO2 39 VBG pO2 102 VBG HCO3 26 VBG O2 Saturation 99.0 VBG Base Excess 2.6 Anion Gap Estim Creat Clear Calc Estimated GFR Random Glucose Calcium Magnesium Total Bilirubin Direct Bilirubin AST ALT Alkaline Phosphatase B-Natriuretic Peptide 10 Total Protein Albumin Lipase COVID-19 (BOBBY) COVID-19 Clin Com Imaging Radiologist's Impressions: Impressions Chest X-Ray 01/08/22 22:02 IMPRESSION: No acute cardiopulmonary process. Head CT 01/09/22 00:55 IMPRESSION: No acute intracranial pathology. Soft Tissue Neck CT 01/09/22 00:55 IMPRESSION: * No neck mass. * There is prominence of the palatine tonsils, nasopharyngeal tonsillar tissue and soft palate similar appearance to prior. * Laryngeal structures and airway widely patent. Abdomen/Pelvis CT 01/09/22 01:03 IMPRESSION: 1. No acute abnormality in the abdomen or pelvis. 2. 1.7 cm pulmonary groundglass nodule in the right lower lobe appears more conspicuous compared to CT of the chest from 11/04/2017 and is suspicious for a low-grade neoplastic process. Recommend repeat CT of the chest in 6-12 months. 3. Fundal uterine fibroid 4. Sigmoid diverticulosis without evidence of diverticulitis Assessment and Plan (1) Hypertensive emergency: Status: Acute (2) Acute asthma exacerbation: Status: Acute Plan 76-year-old female with history of poorly controlled hypertension, hypertrophic obstructive cardiomyopathy, hyperlipidemia, asthma, anxiety/depression, and obesity who admotted for? hypertension? emergency? and asthma exacerbation?? Neuro:? No acute issues? Cardiac:??? Hypertensive Emergency-? patient reports? compliance with blood pressure? medication,? but unsure as to what medication she takes at home,? states her son helps her? with medications.? EKG and troponin negative.? Abdominal CT with no evidence of dissection. Will start patient on cardene drip. SBP goal <180.? Avoid? dropping blood pressure quickly.? Pulmonary:?? ?Asthma? exacerbation-? patient with significant wheezing,? reports improvement after hour long treatment,? Solu-Medrol and magnesium. This is likely to viral source.?Will add viral panel. Will continue systemic glucocorticoids and nebulized bronchodilators? Renal: No acute issues.?? ID: No acute issues.?? GI:? No acute issues.?? Heme/Onc:? No acute issues. Psych:? No acute issues. Miscellaneous:? No acute issues. ? Prophylaxis: ? Lovenox,? does not require GI prophylaxis Diet: ? Cardiac diet CODE: FULL code Critical care time:? x 60 minutes Critical Care Time Critical Care Time (minutes): 60
[2022-01-09] MEDS: methylPREDNISolone Sod Succ 40 MG/ML VIAL IVPUSH (06:00)
[2022-01-09] MEDS: niCARdipine HCL 25 MG in 0.9 % Sodium Chloride 250 ML 52 MG IVCONT (06:02)
[2022-01-09 06:04] LABS: MANUAL DIFF FLAG NO
[2022-01-09 06:06] LABS: Basophils Percent Auto 0.3 % (0-2); Hematocrit 41.2 % (37.0-47.0); Hemoglobin 13.1 g/dl (12.0-16.0); Imm Gran Abs Auto 0.11 X10*3/uL (0.00-0.03); Lymphocytes Absolute Auto 1.2 X10*3/uL (1.2-4.9); Lymphocytes Percent Auto 10.5 % (20-40); Mean Corpuscular HGB Conc 31.8 g/dl (31.0-35.0); Mean Corpuscular Volume 91.2 fL (80.0-98.0); Mean Platelet Volume 10.2 fL (9.4-12.3); Monocytes Absolute Auto 0.1 X10*3/uL (0.1-1.2); Monocytes Percent Auto 0.5 % (2-11); Neutrophils Absolute Auto 9.8 x10*3/uL (2.0-8.3); Neutrophils Percent Auto 87.7 % (45-73); Platelet Count 296 X10*3/uL (160-400); Red Blood Count 4.52 X10*6/uL (4.20-5.50); Red Cell Distribution Width 12.5 % (11.0-16.0); White Blood Count 11.2 X10*3/uL (4.8-10.8)
--- NOTE | 2022-01-09 06:08 | PC.NURSE ---
Pt reports continued headache 02/23 despite previous emt/paramedic. RN to make ICU dr aware and request additional pain medication
[2022-01-09] MEDS: Enoxaparin Sodium 40 MG/0.4 ML SYRINGE SUBCUT (06:27)
[2022-01-09] MEDS: Acetaminophen 325 MG TABLET 650 MG PO ×3 (06:28→21:58)
--- NOTE | 2022-01-09 07:15 | PHA.MEDREC ---
Pharmacy Consult ? Medication Reconciliation Pharmacy has reviewed the medication reconciliation completed by Dolly. Per RN patient reports taking dilitiazem PRN while the prescription states daily. Ora Rock, WuD
[2022-01-09 08:18] LABS: Anion Gap 17 (12-20); Blood Urea Nitrogen 19 mg/dL (9-16); Calcium 9.7 mg/dL (8.4-10.2); Carbon Dioxide 23 mmol/L (22-29); Chloride 108 mmol/L (96-108); Creatinine Clr Calc Pharmacy 63.8; Estimated Glomerular Filt Rate > 60; Glucose Random 181 mg/dL (60-115); Magnesium 2.4 mg/dL (1.6-2.6); Phosphorus 1.8 mg/dL (2.7-4.5); Potassium 4.1 mmol/L (3.3-5.1); Sodium 144 mmol/L (135-145)
[2022-01-09] MEDS: Albuterol/Iprat 2.5/0.5MG 3 ML AMPUL.NEB INHALE ×3 (08:30→18:53)
[2022-01-09] MEDS: niCARdipine HCL 25 MG in 0.9 % Sodium Chloride 250 ML 125.01 MG IVCONT (08:44)
--- NOTE | 2022-01-09 10:06 | MHC.CM.PN ---
Met with pt to discuss d/c planning: pt resides with her adult grandson who assists her with transportation, housekeeping and appointments. She also has a dtr nearby. Pt does not have services at this time. She uses a cane and feels she would benefit from home O2. IMM in chart, HCP offered but declined: [facility] x 3. Grandson to transport home: New [facility] referral placed for likely home O2 and skilled assessments. CM to follow.
[2022-01-09] MEDS: fentaNYL citrate/PF 100 MCG/2 ML VIAL 25 MCG IVPUSH (10:46)
[2022-01-09] MEDS: Lactulose 20 GM/30 ML SOLUTION 30 GM PO ×2 (10:47→20:56)
[2022-01-09] MEDS: predniSONE 20 MG TABLET 40 MG PO (10:47)
[2022-01-09] MEDS: lisinopriL 20 MG TABLET PO ×2 (10:47→12:50)
[2022-01-09] MEDS: amLODIPine Besylate 10 MG TABLET PO (10:47)
--- NOTE | 2022-01-09 15:12 | PM.EVENT ---
Event Note Date of Service: 01/09/22 Event Note: Chart reviewed patient examined discussed with ICU attending. Will assume care on telemetry. Assessment unchanged since a.m.
[2022-01-09] MEDS: Spironolactone 25 MG TABLET PO (17:04)
--- NOTE | 2022-01-09 17:21 | PC.NURSE ---
1645-report given to EUGENIA Saenz 1718-[place] transferred [place] [facility] [place] Personal belongings with pt upon transport. pt on hospital monitor.
[2022-01-09] MEDS: hydrALAZINE HCl 20 MG/ML VIAL 10 MG IVPUSH (21:58)
[2022-01-10] VITALS (8 sets, daily range): BP systolic 160–188; BP diastolic 58–76; PULSE 84–103; RESP 16–20; TEMP 36.6–36.9; O2SAT 96–99
[2022-01-10] MEDS: hydrALAZINE HCl 50 MG TABLET 100 MG PO ×3 (00:35→20:28)
[2022-01-10] MEDS: LORazepam 1 MG TABLET PO ×2 (00:38→20:37)
[2022-01-10 06:02] LABS: MANUAL DIFF FLAG NO
[2022-01-10 06:04] LABS: Basophils Percent Auto 0.1 % (0-2); Hemoglobin 12.2 g/dl (12.0-16.0); Imm Gran Abs Auto 0.15 X10*3/uL (0.00-0.03); Imm Gran Pct Auto 0.8 % (0.0-0.4); Lymphocytes Absolute Auto 1.7 X10*3/uL (1.2-4.9); Lymphocytes Percent Auto 8.7 % (20-40); Mean Corpuscular HGB Conc 32.1 g/dl (31.0-35.0); Mean Corpuscular Hemoglobin 29.8 pg (27.0-33.0); Mean Corpuscular Volume 92.9 fL (80.0-98.0); Mean Platelet Volume 10.4 fL (9.4-12.3); Monocytes Absolute Auto 1.2 X10*3/uL (0.1-1.2); Monocytes Percent Auto 6.1 % (2-11); Neutrophils Absolute Auto 16.7 x10*3/uL (2.0-8.3); Neutrophils Percent Auto 84.3 % (45-73); Platelet Count 274 X10*3/uL (160-400); Red Blood Count 4.09 X10*6/uL (4.20-5.50); White Blood Count 19.8 X10*3/uL (4.8-10.8)
[2022-01-10] MEDS: Omeprazole 20 MG CAPSULE.DR PO (06:04)
[2022-01-10] MEDS: Enoxaparin Sodium 40 MG/0.4 ML SYRINGE SUBCUT (06:04)
[2022-01-10 06:36] LABS: Venous Blood Gas Refer to POC result
[2022-01-10 06:37] LABS: VBG Base Excess 2.5 mmol/L; VBG HCO3 26 mmol/L (22-26); VBG pCO2 36 mmHg; VBG pH 7.46 (7.32-7.43); VBG pO2 80 mmHg
[2022-01-10 06:58] LABS: Albumin Level 4.1 g/dL (3.5-5.0); Anion Gap 16 (12-20); Blood Urea Nitrogen 24 mg/dL (9-16); Calcium 9.5 mg/dL (8.4-10.2); Carbon Dioxide 21 mmol/L (22-29); Chloride 108 mmol/L (96-108); Creatinine Clr Calc Pharmacy 68.3; Estimated Glomerular Filt Rate > 60; Glucose Random 124 mg/dL (60-115); Magnesium 2.3 mg/dL (1.6-2.6); Phosphorus 3.1 mg/dL (2.7-4.5); Potassium 4.5 mmol/L (3.3-5.1); Sodium 140 mmol/L (135-145)
[2022-01-10] MEDS: Albuterol/Iprat 2.5/0.5MG 3 ML AMPUL.NEB INHALE ×3 (07:41→19:37)
[2022-01-10] MEDS: Fluticasone/Vilanterol 200/25 BLST.W.DEV 1 PUFF INHALE (07:41)
[2022-01-10] MEDS: Docusate Sodium 100 MG CAPSULE PO (09:45)
[2022-01-10] MEDS: Fluticasone Propionate Nasal 16 GM SPRAY 1 SPRAY NOSTRIL-B (09:46)
[2022-01-10] MEDS: amLODIPine Besylate 10 MG TABLET PO (09:46)
[2022-01-10] MEDS: Spironolactone 25 MG TABLET PO (09:46)
[2022-01-10] MEDS: hydroCHLOROthiazide 25 MG TABLET PO (09:46)
[2022-01-10] MEDS: lisinopriL 40 MG TABLET PO (09:47)
[2022-01-10] MEDS: predniSONE 20 MG TABLET 40 MG PO (09:47)
--- NOTE | 2022-01-10 13:51 | P.PNIM_ITS ---
Subjective Subjective Date of Service: 01/10/22 Interval History: No acute issues overnight. BP more control. Still with some shortness of breath Review of Systems Denies chest pain Denies shortness of breath Denies nausea vomiting diarrhea Denies fever chills Physical Exam Vital Signs: Vital Signs: Last Vital Signs Temp 98.0 F 01/10/22 11:38 Pulse 84 01/10/22 11:38 Resp 20 01/10/22 11:38 BP 167/62 H 01/10/22 11:38 Pulse Ox 98 01/10/22 11:38 O2 Del Method 01/10/22 11:38 O2 Flow Rate 4 01/09/22 00:00 BMI result Body Mass Index 34.4 Const: Other: Awake alert oriented x3 no acute distress Resp: Other: Scattered expiratory wheezes all esteves with good aeration to bases Cardio: Other: No S4; positive S1-S2; no S3 murmurs rubs or gallops GI: Other: Soft nontender nondistended normoactive bowel sounds Extrem: Other: Trace edema bilaterally Objective Data Active Medications Acetaminophen (Acetaminophen 325 Mg Tablet) 650 mg PO Q6H PRN PRN Reason: Pain, Mild (Pain Scale 1-3) Last Admin: 01/09/22 21:58 Dose: 650 mg Documented By: FELIX Albuterol Sulfate (Albuterol Sulfate (0.042%) 1.25 Mg/3 Ml Vial.Neb) 1.25 mg INHALE RQID [facility] Last Admin: 01/10/22 11:59 Dose: Not Given Documented By: GABRIELA Non-Admin Reason: See Note Albuterol/Ipratropium (Albuterol/Iprat 2.5/0.5mg 3 Ml Ampul.Neb) 3 ml INHALE RQ4H WHILE AWAKE [facility] Last Admin: 01/10/22 11:59 Dose: Not Given Documented By: GABRIELA Non-Admin Reason: Patient Asleep Amlodipine Besylate (Amlodipine Besylate 10 Mg Tablet) 10 mg PO DAILY [facility]; Protocol Last Admin: 01/10/22 09:46 Dose: 10 mg Documented By: JENNIFER Diltiazem HCl (Diltiazem Hcl Cd 180 Mg Cap.Er.24h) 360 mg PO DAILY PRN; Protocol PRN Reason: Hypertension Docusate Sodium (Docusate Sodium 100 Mg Capsule) 100 mg PO DAILY [facility] Last Admin: 01/10/22 09:45 Dose: 100 mg Documented By: JENNIFER Enoxaparin Sodium (Enoxaparin Sodium 40 Mg/0.4 Ml Syringe) 40 mg SUBCUT Q24H [facility] Last Admin: 01/10/22 06:04 Dose: 40 mg Documented By: JHONATHAN Fluticasone Propionate (Fluticasone Propionate Nasal 16 Gm [place]) 1 spray NOSTRIL-B DAILY [facility] Last Admin: 01/10/22 09:46 Dose: 1 spray Documented By: JENNIFER Fluticasone/Vilanterol (Fluticasone/Vilanterol 200/25 Blst.W.Dev) 1 puff INHALE RDAILY [facility] Last Admin: 01/10/22 07:41 Dose: 1 puff Documented By: GABRIELA Hydralazine HCl (Hydralazine Hcl 20 Mg/Ml Vial) 5 mg IVPUSH Q6H PRN; Protocol PRN Reason: SBP>180 Hydralazine HCl (Hydralazine Hcl 50 Mg Tablet) 100 mg PO BID [facility]; Protocol Last Admin: 01/10/22 09:45 Dose: 100 mg Documented By: JENNIFER Hydrochlorothiazide (Hydrochlorothiazide 25 Mg Tablet) 25 mg PO DAILY [facility]; Protocol Last Admin: 01/10/22 09:46 Dose: 25 mg Documented By: JENNIFER Lactulose (Lactulose 20 Gm/30 Ml Solution) 30 gm PO BID [facility] Last Admin: 01/10/22 09:49 Dose: Not Given Documented By: JENNIFER Non-Admin Reason: 3 loose stools since last night Lisinopril (Lisinopril 40 Mg Tablet) 40 mg PO DAILY [facility]; Protocol Last Admin: 01/10/22 09:47 Dose: 40 mg Documented By: JENNIFER Lorazepam (Lorazepam 1 Mg Tablet) 1 mg PO BID PRN PRN Reason: anxiety Last Admin: 01/10/22 00:38 Dose: 1 mg Documented By: JHONATHAN Omeprazole (Omeprazole 20 Mg Capsule.) 20 mg PO DAILY@0630 [facility] Last Admin: 01/10/22 06:04 Dose: 20 mg Documented By: JHONATHAN Ondansetron HCl (Ondansetron Hcl 4 Mg/2 Ml Vial) 4 mg IVPUSH Q8H PRN PRN Reason: Nausea and Vomiting Pharmacy Consult (Consult Rx Perform Med Rec) 1 each MISCELLANE ONCE PRN PRN Reason: Consult order Pravastatin Sodium (Pravastatin Sodium 20 Mg Tablet) 20 mg PO BEDTIME MILDRED Prednisone (Prednisone 20 Mg Tablet) 40 mg PO DAILY [facility] Last Admin: 01/10/22 09:47 Dose: 40 mg Documented By: JENNIFER Spironolactone (Spironolactone 25 Mg Tablet) 25 mg PO DAILY [facility]; Protocol Last Admin: 01/10/22 09:46 Dose: 25 mg Documented By: JENNIFER Tramadol HCl (Tramadol Hcl 50 Mg Tablet) 50 mg PO BID PRN PRN Reason: Pain, Severe (Pain Scale 7-10) Labs CBC & Chem 7: 01/10/22 05:53 01/10/22 05:53 Labs: Laboratory Results - last 24 hr 01/10/22 01/10/22 01/10/22 05:53 05:53 06:00 MCV 92.9 MCH 29.8 MCHC 32.1 RDW 13.0 Plt Count 274 MPV 10.4 Immature Gran % (Auto) 0.8 H Neut % (Auto) 84.3 H Lymph % (Auto) 8.7 L [place] % (Auto) 6.1 Eos % (Auto) 0.0 Baso % (Auto) 0.1 Lymph # (Auto) 1.7 [place] # (Auto) 1.2 Eos # (Auto) 0.0 Baso # (Auto) 0.0 Abs Immat Gran (auto) 0.15 H Absolute Neuts (auto) 16.7 H Absolute Nucleated RBC 0.000 Nucleated RBC % (auto) 0.0 VBG pH 7.46 H VBG pCO2 36 VBG pO2 80 VBG HCO3 26 VBG O2 Saturation 96.0 VBG Base Excess 2.5 Anion Gap 16 Estim Creat Clear Calc 68.3 Estimated GFR > 60 Random Glucose 124 H Calcium 9.5 Phosphorus 3.1 Magnesium 2.3 Albumin 4.1 Assessment and Plan (1) HTN (hypertension): Status: Acute (2) Asthma exacerbation: Status: Acute Plan 76-year-old female with known past medical history of hypertension hypertrophic obstructive cardiomyopathy and asthma presents with worsening shortness of breath over the last several days. She stated her rescue inhaler was on effective so she sought treatment in the emergency room. In the emergency room she was given a DuoNeb with good results however found to have a pressure of 245/103. Labs and imaging unremarkable. Admitted to ICU on Cardene drip; successfully weaned and transferred to floor on orals. 1. Hypertension -acceptable control on Cipriano/calcium channel ana/Aldactone -adjust as indicated 2. Acute asthma exacerbation -will continue IV steroids for 24 hours -no need for antibiotics as patient is not making speak -continue DuoNebs as ordered Full code Lovenox Will require ongoing hospitalization for IV steroids and nebulized treatments Quality Stroke Does the patient have a stroke diagnosis?: No VTE Prior VTE?: No VTE Risk Level:: Medical - moderate - high VTE Device Contraindication: Treatment Not Indicated VTE Drug Contraindication: N/A - Med Ordered
--- NOTE | 2022-01-10 13:55 | P.CDIC_ITS ---
CDI Concurrent Query Documentation Clarification: PHYSICIAN'S DOCUMENTATION REQUEST Date of Query: 01/10/22 1354 Patient Name: Sara Deluna Admit Date: 01/09/22 Dear Doctor, Please review the following and provide your response in the progress notes. Clinical Indicators: The diagnosis of asthma was documented in the record on 01/09/22. Additional clinical indicators from the record include: Risk Factors/Clinical Indicators/Treatments Per H&P: Acute Asthma exacerbation Treated with Duoneb, Prednisone, Albuterol, Breo Based on the above, please clarify in the Progress Notes further specificity regarding the type and acuity of the asthma: Type: * Mild intermittent - less than 2x/week * Mild persistent - more than 2x/week but not daily * Moderate persistent - daily and may restrict physical activity * Severe persistent - throughout the day with frequent attacks, limiting activities * Exercise induced * Chronic obstructive asthma and indicate if with acute lower respiratory infection * Asthma with underlying COPD and indicate if with acute lower respiratory infection * Other ? please specify * Unable to determine Acuity: * With acute exacerbation * With status asthmaticus * Uncomplicated * Unable to determine Use of terms such as suspected, likely, concern for, or probable (associated with a specific diagnosis that is being evaluated, monitored, or treated as if it exists) are acceptable and can be coded in the inpatient setting, when documented at the time of discharge. Thank you, Anna Blake RN Extension: [phone] Please use your independent medical judgment in providing your response. THIS QUERY IS PART OF THE PERMANENT MEDICAL RECORD Provider Response: Other Other Diagnosis: Mild persistent asthma with acute exacerbation
--- NOTE | 2022-01-10 13:55 | MHC.CDI.CONC ---
CDI Concurrent Query Documentation Clarification: PHYSICIAN'S DOCUMENTATION REQUEST Date of Query: 01/10/22 1356 Patient Name: Sara Deluna Admit Date: 01/09/22 Dear Doctor, Please review the following and provide your response in the progress notes. Clinical Indicators: The diagnosis of asthma was documented in the record on 01/09/22. Additional clinical indicators from the record include: Risk Factors/Clinical Indicators/Treatments Per H&P: Acute Asthma exacerbation Treated with Duoneb, Prednisone, Albuterol, Breo Based on the above, please clarify in the Progress Notes further specificity regarding the type and acuity of the asthma: Type: Mild intermittent - less than 2x/week Mild persistent - more than 2x/week but not daily Moderate persistent - daily and may restrict physical activity Severe persistent - throughout the day with frequent attacks, limiting activities Exercise induced Chronic obstructive asthma and indicate if with acute lower respiratory infection Asthma with underlying COPD and indicate if with acute lower respiratory infection Other ? please specify Unable to determine Acuity: With acute exacerbation With status asthmaticus Uncomplicated Unable to determine Use of terms such as suspected, likely, concern for, or probable (associated with a specific diagnosis that is being evaluated, monitored, or treated as if it exists) are acceptable and can be coded in the inpatient setting, when documented at the time of discharge. Thank you, Anna Blake RN Extension: [phone] Please use your independent medical judgment in providing your response. THIS QUERY IS PART OF THE PERMANENT MEDICAL RECORD Provider Response: Other Other Diagnosis: Mild persistent asthma with acute exacerbation
[2022-01-10] MEDS: Acetaminophen 325 MG TABLET 650 MG PO (16:32)
[2022-01-10] MEDS: Pravastatin Sodium 20 MG TABLET PO (20:28)
[2022-01-10] MEDS: Lactulose 20 GM/30 ML SOLUTION 30 GM PO (20:32)
[2022-01-11] VITALS (10 sets, daily range): BP systolic 155–182; BP diastolic 62–80; PULSE 90–100; RESP 15–20; TEMP 36.1–37.1; O2SAT 94–100
[2022-01-11] MEDS: Acetaminophen 325 MG TABLET 650 MG PO ×3 (05:40→18:02)
[2022-01-11] MEDS: Omeprazole 20 MG CAPSULE.DR PO (05:40)
[2022-01-11] MEDS: Enoxaparin Sodium 40 MG/0.4 ML SYRINGE SUBCUT (05:45)
[2022-01-11 08:48] LABS: MANUAL DIFF FLAG NO
[2022-01-11 08:50] LABS: Basophils Percent Auto 0.1 % (0-2); Hematocrit 37.8 % (37.0-47.0); Imm Gran Abs Auto 0.12 X10*3/uL (0.00-0.03); Imm Gran Pct Auto 0.7 % (0.0-0.4); Lymphocytes Absolute Auto 3.3 X10*3/uL (1.2-4.9); Lymphocytes Percent Auto 18.4 % (20-40); Mean Corpuscular HGB Conc 31.7 g/dl (31.0-35.0); Mean Corpuscular Hemoglobin 29.2 pg (27.0-33.0); Mean Platelet Volume 10.5 fL (9.4-12.3); Monocytes Absolute Auto 1.1 X10*3/uL (0.1-1.2); Monocytes Percent Auto 6.3 % (2-11); Neutrophils Absolute Auto 13.5 x10*3/uL (2.0-8.3); Neutrophils Percent Auto 74.5 % (45-73); Platelet Count 263 X10*3/uL (160-400); Red Blood Count 4.11 X10*6/uL (4.20-5.50); Red Cell Distribution Width 13.2 % (11.0-16.0)
[2022-01-11 09:21] LABS: Alanine Aminotransferase 17 U/L (0-31); Albumin Level 3.9 g/dL (3.5-5.0); Alkaline Phosphatase 72 U/L (39-117); Anion Gap 14 (12-20); Aspartate Amino Transferase 21 U/L (5-31); Bilirubin Total 0.4 mg/dL (0.0-1.0); Blood Urea Nitrogen 30 mg/dL (9-16); Calcium 9.1 mg/dL (8.4-10.2); Carbon Dioxide 27 mmol/L (22-29); Chloride 105 mmol/L (96-108); Estimated Glomerular Filt Rate > 60; Glucose Fasting 105 mg/dL (60-99); Potassium 3.8 mmol/L (3.3-5.1); Sodium 142 mmol/L (135-145); Total Protein 6.5 g/dL (6.5-8.0)
[2022-01-11] MEDS: lisinopriL 40 MG TABLET PO (10:01)
[2022-01-11] MEDS: hydroCHLOROthiazide 25 MG TABLET PO (10:01)
[2022-01-11] MEDS: Docusate Sodium 100 MG CAPSULE PO (10:01)
[2022-01-11] MEDS: amLODIPine Besylate 10 MG TABLET PO (10:01)
[2022-01-11] MEDS: Lactulose 20 GM/30 ML SOLUTION 30 GM PO (10:01)
[2022-01-11] MEDS: predniSONE 20 MG TABLET 40 MG PO (10:01)
[2022-01-11] MEDS: hydrALAZINE HCl 50 MG TABLET 100 MG PO ×2 (10:01→22:21)
[2022-01-11] MEDS: Spironolactone 25 MG TABLET PO (10:01)
[2022-01-11] MEDS: Fluticasone Propionate Nasal 16 GM SPRAY 1 SPRAY NOSTRIL-B (10:07)
[2022-01-11] MEDS: Albuterol/Iprat 2.5/0.5MG 3 ML AMPUL.NEB INHALE ×3 (11:17→20:10)
--- NOTE | 2022-01-11 15:20 | P.PNIM_ITS ---
Subjective Subjective Date of Service: 01/11/22 Interval History: Slowly improving overall Review of Systems Denies chest pain Denies shortness of breath Denies nausea vomiting diarrhea Denies fever chills Physical Exam Vital Signs: Vital Signs: Last Vital Signs Temp 98.7 F 01/11/22 11:08 Pulse 92 01/11/22 11:18 Resp 20 01/11/22 11:18 BP 155/80 H 01/11/22 11:08 Pulse Ox 97 01/11/22 11:08 O2 Del Method 01/11/22 11:08 O2 Flow Rate 4 01/09/22 00:00 BMI result Body Mass Index 34.4 Const: Other: Awake alert oriented x3 no acute distress Resp: Other: Scattered expiratory wheezes all esteves with good aeration to bases Cardio: Other: No S4; positive S1-S2; no S3 murmurs rubs or gallops GI: Other: Soft nontender nondistended normoactive bowel sounds Extrem: Other: Trace edema bilaterally Objective Data Active Medications Acetaminophen (Acetaminophen 325 Mg Tablet) 650 mg PO Q6H PRN PRN Reason: Pain, Mild (Pain Scale 1-3) Last Admin: 01/11/22 10:16 Dose: 650 mg Documented By: MICHAELLE Albuterol/Ipratropium (Albuterol/Iprat 2.5/0.5mg 3 Ml Ampul.Neb) 3 ml INHALE RQ4H WHILE AWAKE [facility] Last Admin: 01/11/22 11:17 Dose: 3 ml Documented By: RUTH Amlodipine Besylate (Amlodipine Besylate 10 Mg Tablet) 10 mg PO DAILY [facility]; Protocol Last Admin: 01/11/22 10:01 Dose: 10 mg Documented By: MICHAELLE Diltiazem HCl (Diltiazem Hcl Cd 180 Mg Cap.Er.24h) 360 mg PO DAILY PRN; Protocol PRN Reason: Hypertension Docusate Sodium (Docusate Sodium 100 Mg Capsule) 100 mg PO DAILY [facility] Last Admin: 01/11/22 10:01 Dose: 100 mg Documented By: MICHAELLE Enoxaparin Sodium (Enoxaparin Sodium 40 Mg/0.4 Ml Syringe) 40 mg SUBCUT Q24H [facility] Last Admin: 01/11/22 05:45 Dose: 40 mg Documented By: RAJ Fluticasone Propionate (Fluticasone Propionate Nasal 16 Gm [place]) 1 spray NOSTRIL-B DAILY [facility] Last Admin: 01/11/22 10:07 Dose: 1 spray Documented By: MICHAELLE Fluticasone/Vilanterol (Fluticasone/Vilanterol 200/25 Blst.W.Dev) 1 puff INHALE RDAILY [facility] Last Admin: 01/11/22 07:38 Dose: Not Given Documented By: RUTH Non-Admin Reason: Patient Asleep Hydralazine HCl (Hydralazine Hcl 20 Mg/Ml Vial) 5 mg IVPUSH Q6H PRN; Protocol PRN Reason: SBP>180 Hydralazine HCl (Hydralazine Hcl 50 Mg Tablet) 100 mg PO BID [facility]; Protocol Last Admin: 01/11/22 10:01 Dose: 100 mg Documented By: MICHAELLE Hydrochlorothiazide (Hydrochlorothiazide 25 Mg Tablet) 25 mg PO DAILY [facility]; Protocol Last Admin: 01/11/22 10:01 Dose: 25 mg Documented By: MICHAELLE Lactulose (Lactulose 20 Gm/30 Ml Solution) 30 gm PO BID [facility] Last Admin: 01/11/22 10:01 Dose: 30 gm Documented By: MICHAELLE Lisinopril (Lisinopril 40 Mg Tablet) 40 mg PO DAILY [facility]; Protocol Last Admin: 01/11/22 10:01 Dose: 40 mg Documented By: MICHAELLE Lorazepam (Lorazepam 1 Mg Tablet) 1 mg PO BID PRN PRN Reason: anxiety Last Admin: 01/10/22 20:37 Dose: 1 mg Documented By: RAJ Omeprazole (Omeprazole 20 Mg Capsule.Dr) 20 mg PO DAILY@0630 [facility] Last Admin: 01/11/22 05:40 Dose: 20 mg Documented By: RAJ Ondansetron HCl (Ondansetron Hcl 4 Mg/2 Ml Vial) 4 mg IVPUSH Q8H PRN PRN Reason: Nausea and Vomiting Pharmacy Consult (Consult Rx Perform Med Rec) 1 each MISCELLANE ONCE PRN PRN Reason: Consult order Pravastatin Sodium (Pravastatin Sodium 20 Mg Tablet) 20 mg PO BEDTIME [facility] Last Admin: 01/10/22 20:28 Dose: 20 mg Documented By: RAJ Prednisone (Prednisone 20 Mg Tablet) 40 mg PO DAILY [facility] Last Admin: 01/11/22 10:01 Dose: 40 mg Documented By: MICHAELLE Spironolactone (Spironolactone 25 Mg Tablet) 25 mg PO DAILY [facility]; Protocol Last Admin: 01/11/22 10:01 Dose: 25 mg Documented By: MICHAELLE Tramadol HCl (Tramadol Hcl 50 Mg Tablet) 50 mg PO BID PRN PRN Reason: Pain, Severe (Pain Scale 7-10) Labs CBC & Chem 7: 01/11/22 08:33 01/11/22 08:33 Labs: Laboratory Results - last 24 hr 01/11/22 01/11/22 08:33 08:33 MCV 92.0 MCH 29.2 MCHC 31.7 RDW 13.2 Plt Count 263 MPV 10.5 Immature Gran % (Auto) 0.7 H Neut % (Auto) 74.5 H Lymph % (Auto) 18.4 L [place] % (Auto) 6.3 Eos % (Auto) 0.0 Baso % (Auto) 0.1 Lymph # (Auto) 3.3 [place] # (Auto) 1.1 Eos # (Auto) 0.0 Baso # (Auto) 0.0 Abs Immat Gran (auto) 0.12 H Absolute Neuts (auto) 13.5 H Absolute Nucleated RBC 0.000 Nucleated RBC % (auto) 0.0 Anion Gap 14 Estim Creat Clear Calc 66.0 Estimated GFR > 60 Fasting Glucose 105 H Calcium 9.1 Total Bilirubin 0.4 AST 21 D ALT 17 Alkaline Phosphatase 72 Total Protein 6.5 Albumin 3.9 Assessment and Plan (1) Hypertensive emergency: Status: Acute (2) Acute asthma exacerbation: Status: Acute Plan 76-year-old female with known past medical history of hypertension hypertrophic obstructive cardiomyopathy and asthma presents with worsening shortness of breath over the last several days. She stated her rescue inhaler was on effective so she sought treatment in the emergency room. In the emergency room she was given a DuoNeb with good results however found to have a pressure of 245/103. Labs and imaging unremarkable. Admitted to ICU on Cardene drip; marshall ccessfully weaned and transferred to floor on orals. 1. Hypertension -acceptable control on Cipriano/calcium channel ana/Aldactone -adjust as indicated 2. Acute asthma exacerbation -will continue IV steroids -no need for antibiotics as patient is not making sputum -continue DuoNebs as ordered Full code Lovenox Will require ongoing hospitalization for IV steroids and nebulized treatments Quality Stroke Does the patient have a stroke diagnosis?: No VTE Prior VTE?: No VTE Risk Level:: Medical - moderate - high VTE Device Contraindication: Treatment Not Indicated VTE Drug Contraindication: N/A - Med Ordered
[2022-01-11] MEDS: Pravastatin Sodium 20 MG TABLET PO (22:21)
[2022-01-12] VITALS: BP 156/78; PULSE 103; RESP 18; TEMP 36.3; O2SAT 98
[2022-01-12] MEDS: Acetaminophen 325 MG TABLET 650 MG PO ×2 (02:08→09:11)
[2022-01-12 04:00] VITALS: BP 164/68; PULSE 96; RESP 20; TEMP 36.6; O2SAT 97
[2022-01-12 06:24] LABS: MANUAL DIFF FLAG NO
[2022-01-12 06:30] LABS: Basophils Percent Auto 0.1 % (0-2); Eosinophils Percent Auto 0.1 % (0-4); Hematocrit 39.3 % (37.0-47.0); Hemoglobin 12.6 g/dl (12.0-16.0); Imm Gran Abs Auto 0.09 X10*3/uL (0.00-0.03); Imm Gran Pct Auto 0.6 % (0.0-0.4); Lymphocytes Absolute Auto 3.8 X10*3/uL (1.2-4.9); Lymphocytes Percent Auto 26.7 % (20-40); Mean Corpuscular HGB Conc 32.1 g/dl (31.0-35.0); Mean Corpuscular Hemoglobin 29.4 pg (27.0-33.0); Mean Corpuscular Volume 91.6 fL (80.0-98.0); Mean Platelet Volume 10.6 fL (9.4-12.3); Monocytes Absolute Auto 1.1 X10*3/uL (0.1-1.2); Monocytes Percent Auto 7.7 % (2-11); Neutrophils Absolute Auto 9.3 x10*3/uL (2.0-8.3); Neutrophils Percent Auto 64.8 % (45-73); Platelet Count 263 X10*3/uL (160-400); Red Blood Count 4.29 X10*6/uL (4.20-5.50); White Blood Count 14.4 X10*3/uL (4.8-10.8)
[2022-01-12] MEDS: Omeprazole 20 MG CAPSULE.DR PO (06:37)
[2022-01-12] MEDS: traMADoL HCL 50 MG TABLET PO (06:37)
[2022-01-12] MEDS: Enoxaparin Sodium 40 MG/0.4 ML SYRINGE SUBCUT (06:37)
[2022-01-12 07:03] LABS: Alanine Aminotransferase 17 U/L (0-31); Albumin Level 3.9 g/dL (3.5-5.0); Alkaline Phosphatase 72 U/L (39-117); Anion Gap 16 (12-20); Aspartate Amino Transferase 19 U/L (5-31); Bilirubin Total 0.6 mg/dL (0.0-1.0); Blood Urea Nitrogen 24 mg/dL (9-16); Calcium 9.1 mg/dL (8.4-10.2); Carbon Dioxide 26 mmol/L (22-29); Chloride 103 mmol/L (96-108); Creatinine Clr Calc Pharmacy 78.5; Estimated Glomerular Filt Rate > 60; Glucose Fasting 100 mg/dL (60-99); Potassium 3.8 mmol/L (3.3-5.1); Sodium 141 mmol/L (135-145); Total Protein 6.7 g/dL (6.5-8.0)
[2022-01-12 07:57] VITALS: BP 155/83; PULSE 84; RESP 20; TEMP 36.9; O2SAT 96
[2022-01-12] MEDS: hydrALAZINE HCl 50 MG TABLET 100 MG PO (09:07)
[2022-01-12] MEDS: lisinopriL 40 MG TABLET PO (09:07)
[2022-01-12] MEDS: amLODIPine Besylate 10 MG TABLET PO (09:07)
[2022-01-12] MEDS: predniSONE 20 MG TABLET 40 MG PO (09:07)
[2022-01-12] MEDS: Docusate Sodium 100 MG CAPSULE PO (09:07)
[2022-01-12] MEDS: Spironolactone 25 MG TABLET PO (09:07)
[2022-01-12] MEDS: hydroCHLOROthiazide 25 MG TABLET PO (09:07)
[2022-01-12] MEDS: Lactulose 20 GM/30 ML SOLUTION 30 GM PO (09:07)
--- NOTE | 2022-01-12 09:09 | PM.DS ---
DS: Providers Provider Date of Service: 01/12/22 Date of admission: 01/09/22 04:13 Primary care physician: Claude Hatch MD DS: Diagnosis Discharge Diagnosis (1) Hypertensive emergency: Status: Acute (2) Acute asthma exacerbation: Status: Acute DS: Summary Hospital Course Hospital Course: Chief Complaint: Shortness of breath The patient is a 76 -year-old female with past medical history of hypertension, hypertrophic obstructive cardiomyopathy, asthma, hyperlipidemia, anxiety/depression, and obesity Stented to the emergency room with shortness of breath and wheezing x3 days.? ? She reported using her rescue inhaler? in the last few days without relief, as well as exposure to grand kids who were sick recently.? She also stated chest pain? that started yesterday? as well as headache. She denies any fevers or chills.? Denies any weakness, nausea, vomiting or diarrhea. She states that she also has had left sided abdominal pain. No bloody or black stool.? In the? emergency room? initial blood pressure was 245/103.? Laboratory data with no significant? abnormality. Head/ Abdominal CT with no significant findings.? Patient reports compliance with medication regimen at home, but from previous office visits? patient has had poor? blood? pressure control in the past year.? She received total of 30 labetalol and IV and po hydralazine in the ED with no significant improvement in BP.? patient will be admitted to the ICU for blood pressure management requiring? Cardene drip Hospital course: She presented and foud to have accelerated HTN with BP 245/103 along with asthma exacerbation. She was admitted through ICU and put on cardene drip to better control blood press, she was on IV Solumedrol and bronchodilatros for exacerbation of asthma. Blood pressure was better and she was sent to med floors. with blood pressure overall still better. Norvasc 10 mg daily, lisinopril 5 mg daily Have been added to her existing medications of diltiazem/hydrochlorothiazide 360/25, hydralazine 100 mg p.o. b.i.d. present blood pressure is 155/83 without any associated symptoms. She will continue these medication and follow up with primary care physician for further adjustment. For asthma she was on IV Solu-Medrol that was transitioned to oral prednisone and will be treated with prednisone for total of 5 days. To continue her usual inhalers. She doesn't qualify for home O2. She will be sent home with visiting nurse service. Time Spent with Patient Time attestation: Total time spent providing and/or coordinating discharge services: Discharge coordination time: Greater than 30 minutes Quality: Safe Use of Opioids Does Pt have an Active Cancer Diagnosis on the Problem List?: No Quality: Stroke Does the patient have a stroke diagnosis?: No Physical Exam Vital Signs: Vital Signs: Last Vital Signs Temp 98.5 F 01/12/22 07:57 Pulse 84 01/12/22 07:57 Resp 20 01/12/22 07:57 BP 155/83 H 01/12/22 07:57 Pulse Ox 96 01/12/22 07:57 O2 Del Method 01/12/22 07:57 O2 Flow Rate 4 01/09/22 00:00 BMI result Body Mass Index 34.4 DS: Data Data Completed and Pending Labs on day of discharge: Laboratory Results - last 24 hr 01/11/22 01/12/22 01/12/22 08:33 06:00 06:00 WBC 14.4 H RBC 4.29 Hgb 12.6 Hct 39.3 MCV 91.6 MCH 29.4 MCHC 32.1 RDW 13.0 Plt Count 263 MPV 10.6 Immature Gran % (Auto) 0.6 H Neut % (Auto) 64.8 Lymph % (Auto) 26.7 [place] % (Auto) 7.7 Eos % (Auto) 0.1 Baso % (Auto) 0.1 Lymph # (Auto) 3.8 [place] # (Auto) 1.1 Eos # (Auto) 0.0 Baso # (Auto) 0.0 Abs Immat Gran (auto) 0.09 H Absolute Neuts (auto) 9.3 H Absolute Nucleated RBC 0.000 Nucleated RBC % (auto) 0.0 Sodium 142 141 Potassium 3.8 3.8 Chloride 105 103 Carbon Dioxide 27 26 Anion Gap 14 16 BUN 30 H 24 H Creatinine 0.88 0.74 Estim Creat Clear Calc 66.0 78.5 Estimated GFR > 60 > 60 Fasting Glucose 105 H 100 H Calcium 9.1 9.1 Total Bilirubin 0.4 0.6 AST 21 D 19 ALT 17 17 Alkaline Phosphatase 72 72 Total Protein 6.5 6.7 Albumin 3.9 3.9 Discharge Plan Discharge Anticipated Discharge Date/Time: 01/12/22 09:00 Patient Disposition: Home Health Service Discharge Diagnosis: Asthama exacerbation, Hypertension urgency Referrals: Jen ARNETT [Outside] - 1 Week Claude Hatch MD [Primary Care Provider] - 1 Week Discharge Medications: New amlodipine 10 mg Tablet 10 mg PO DAILY Qty: 30 0RF Protocol: Hold for SBP< HOLD for SBP < : 90 lisinopril 40 mg Tablet 40 mg PO DAILY Qty: 30 0RF Protocol: Hold for SBP< HOLD for SBP < : 90 prednisone 20 mg Tablet 40 mg PO DAILY Qty: 2 0RF Continued albuterol sulfate 1.25 mg/3 mL solution for nebulization 3 ml inhalation QID diltiazem HCl [Tiadylt ER] 360 mg capsule,extended release 24 hr 1 cap PO DAILY PRN (Reason: Hypertension) tramadol 50 mg tablet 1 tab PO BID PRN (Reason: pain) hydralazine 100 mg tablet 1 tab PO BID fluticasone propion-salmeterol [Advair Diskus] 500-50 mcg/dose blister with device 1 puff inhalation BID docusate sodium 100 mg capsule 1 cap PO DAILY omeprazole 20 mg capsule,delayed release(DR/EC) 1 cap PO QAM hydrochlorothiazide 25 mg tablet 1 tab PO DAILY lorazepam 1 mg tablet 1 tab PO BID PRN (Reason: anxiety) lovastatin 20 mg tablet 1 tab PO BEDTIME albuterol sulfate [Ventolin HFA] 90 mcg/actuation HFA aerosol inhaler 2 puff PO Q4-6H PRN (Reason: wheezing) fluticasone propionate 50 mcg/actuation spray,suspension 1 spray intranasal DAILY Discharge Orders: Discharge Order (Routine); Ordered 01/12/22 Ordered By: Kj Robins Diet: Advance to usual diet Activity on Discharge: As tolerated Stand Alone Forms: Patient Portal Discharge page Care Plan Goals: Blood pressure control and asthma control Health Concerns: Asthma, difficult to control high blood pressure Plan of Treatment: use inhalers as directed take your blood pressure medication as directed and follow up with your Doctor in a week to reassess your blood pressure, call for appointment Please Note that Norvasc 10 mg daily and Lisinopril 40 mg daily have been added to your blood pressure medicines Assessment: As above
[2022-01-12] MEDS: LORazepam 1 MG TABLET PO (09:11)
[2022-01-12] MEDS: Fluticasone Propionate Nasal 16 GM SPRAY 1 SPRAY NOSTRIL-B (09:15)
[2022-01-12] MEDS: Albuterol/Iprat 2.5/0.5MG 3 ML AMPUL.NEB INHALE (11:24)
[2022-01-12 11:25] VITALS: PULSE 103; PULSE 113; O2SAT 96; O2SAT 97
[2022-01-12 11:26] VITALS: PULSE 103; RESP 20; O2SAT 97
--- NOTE | 2022-01-12 11:36 | MHC.CM.PN ---
CM MET WITH PT RE DC PLANNING PT REPORTS SHE WAS HOPING TO GET HOME O2 BECAUSE WHEN IT IS VERY HOT IN HER APT, IT IS DIFFICULT TO BREATH. CM EXPLAINED SHE DID NOT QUALIFY FOR HOME O2. PT REPORTS SHE DOES HAVE AN AC BUT IT DOES NOT ALWAYS COOL IT DOWN ENOUGH. DISCUSSED USING A FAN IN [place]. PT REPORTS SHE WILL BE OK. PT ALSO AWARE HER PRESCRIPTIONS WERE SENT TO HER PREFERRED PHARMACY ON FILE AND [facility] WAS NOTIFIED OF DC VIA [facility]. SHE REPORTS BEING CONCERNED ABOUT HAVING HER BP CHECKED. SHE IS NOW AWARE THEY CAN ALSO PROVIDE TEACHINGS FOR HER TO BE ABLE TO CHECK HER BP HERSELF PT WILL DC HOME TODAY WITH [facility] FAMILY WILL TRANSPORT
[2022-01-12 12:00] VITALS: BP 149/67; PULSE 101; RESP 18; TEMP 36.3; O2SAT 97
== END 2022-01-12 15:11 | disposition home health service (06) | DRG 202 ==
LOC: HO.ED 01-09 01:06 → HO.EDOVER 01-09 04:48 → HO.ICU 01-09 05:15 → HO.IMC 01-09 14:15
PROVIDERS: Hospitalist; Internal Medicine; Internal Medicine Pulmonary Disease; Physician Assistant; Admitting Provider Internal Medicine; Emergency Provider Emergency Medicine Emergency Medical Services; PCP Internal Medicine; Visit Provider Internal Medicine
DX: J45.31 Mild persistent asthma with (acute) exacerbation (principal); I16.1 Hypertensive emergency; I42.1 Obstructive hypertrophic cardiomyopathy; I11.9 Hypertensive heart disease without heart failure; E78.5 Hyperlipidemia, unspecified; E66.9 Obesity, unspecified; Z68.34 Body mass index [BMI] 34.0-34.9, adult; F32.A Depression, unspecified; F41.9 Anxiety disorder, unspecified; Z20.822 Contact with and (suspected) exposure to COVID-19; Z88.0 Allergy status to penicillin; Z88.6 Allergy status to analgesic agent; Z88.8 Allergy status to other drugs, medicaments and biological substances; Z79.51 Long term (current) use of inhaled steroids; Z79.899 Other long term (current) drug therapy
CPT/HCPCS: 36415; 70450; 70490; 71045; 74176; 80048; 80053; 80076; 82040; 82803; 83690; 83735; 83880; 84100; 84484; 85025; 87635; 93005; 94640; 94644; 94645; 96365; 96366; 96375; 96376; 99284; 99285; J1650; J2920; J2930; J3010; J3475

== ENCOUNTER 2022-01-22 18:19 | Observation (INO) | payer MEDICARE, MEDICAID, SELFPAY ==
--- NOTE | ~2022-01-22 | CT_ITS ---
EXAMINATION: CT ABDOMEN AND PELVIS WITHOUT CONTRAST CLINICAL INFORMATION: Abdominal pain COMPARISON: 01/09/2022 TECHNIQUE: Multidetector volumetric imaging was performed from the superior aspect of the liver through the pubic symphysis. Sagittal and coronal reformatted images were obtained on the technologist's workstation. This CT examination was performed using dose optimization techniques as appropriate, variously including the following: *Automated exposure control *Adjustment of mA and/or kV according to patient size (this includes techniques or standardized protocols for targeted exams where dose is matched to indication/reason for exam; i.e. extremities or head) *Use of iterative reconstruction technique DLP: 587 mGy-cm FINDINGS: LUNG BASES: Groundglass opacity noted in the right lower lobe. This is not fully imaged. This is also seen on the previous. Normal heart size. LIVER, GALLBLADDER, AND BILIARY TREE: The liver is normal in size, shape, and attenuation. No focal hepatic lesion or biliary ductal dilatation is present. Normal distended gallbladder without wall thickening. Possible sludge in the gallbladder lumen. PANCREAS: Mild fatty atrophy. No ductal dilatation or focal abnormality. SPLEEN: Unremarkable. ADRENAL GLANDS: Unremarkable. KIDNEYS AND URETERS: The kidneys are normal in size, shape, and attenuation. No hydronephrosis, hydroureter, or calculi seen. No perinephric stranding. BLADDER: Decompressed with no gross abnormality. GASTROINTESTINAL TRACT: The stomach is unremarkable. Normal caliber small bowel. There is no obstruction. Normal appendix. No colonic wall thickening or inflammatory change. Moderate stool burden. Prominent diverticulosis at the sigmoid colon without diverticulitis. No free air or free fluid. ABDOMINAL WALL: No significant hernia is appreciated. LYMPH NODES: Normal. VASCULAR: Normal caliber aorta with mild atherosclerotic calcification. PELVIC VISCERA: The uterus and adnexa are unremarkable. OSSEOUS STRUCTURES: No acute or suspicious osseous abnormality. Mild degenerative change of the spine. CT/CT abdomen pelvis wo con IMPRESSION: No acute finding in the abdomen or pelvis. No inflammatory changes. Colonic diverticulosis without diverticulitis. Partially imaged groundglass nodular opacity in the right lower lobe, also seen on previous CT. According to the UPDATED 2017 Fleischner Society recommendations, the advised follow-up imaging for a single pure ground-glass nodule measuring 6 mm or greater is: CT at 6-12 months to confirm persistence, then CT every 2 years until 5 years if it persists. Fleischner guidelines were followed.
[2022-01-22 18:24] VITALS: BP 149/60; BP 160/74; PULSE 82; PULSE 88; RESP 20; TEMP 36.9; O2SAT 96; O2SAT 98; BMI 34.2
--- NOTE | 2022-01-22 18:50 | ED_ITS ---
HPI - General Adult General Chief complaint: Skin/Abscess/Foreign Body Stated complaint: LT SIDE FACE SWELLING /NUMB Time Seen by Provider: 01/22/22 18:27 Source: patient and EMS Mode of arrival: EMS Limitations: no limitations History of Present Illness HPI narrative: Patient comes to the emergency room complaining of a swollen lip. Patient states that this morning, patient had a bit of numbness in the upper lip, states that it felt like she had a Novocain injection. Approximately 6 hours ago, patient saw herself in the mirror, and noticed that her lip was very swollen. Patient denies any difficulty breathing, no wheezing. Patient states that she was discharged from this hospital approximately 11 days ago and was started on lisinopril for the 1st time. Related Data Home Medications Medication Instructions Recorded Confirmed albuterol sulfate 1.25 mg/3 mL 3 ml inhalation QID 01/09/22 01/09/22 solution for nebulization albuterol sulfate 90 mcg/actuation 2 puff PO Q4-6H PRN wheezing 01/09/22 01/09/22 aerosol inhaler (Ventolin HFA) diltiazem HCl 360 mg capsule,24 1 cap PO DAILY PRN Hypertension 01/09/22 01/09/22 hr,extended release (Tiadylt ER) docusate sodium 100 mg capsule 1 cap PO DAILY 01/09/22 01/09/22 fluticasone 500 mcg-salmeterol 50 1 puff inhalation BID 01/09/22 01/09/22 mcg/dose blistr powdr for inhalation (Advair Diskus) hydralazine 100 mg tablet 1 tab PO BID 01/09/22 01/09/22 hydrochlorothiazide 25 mg tablet 1 tab PO DAILY 01/09/22 01/09/22 lorazepam 1 mg tablet 1 tab PO BID PRN anxiety 01/09/22 01/09/22 lovastatin 20 mg tablet 1 tab PO BEDTIME 01/09/22 01/09/22 omeprazole 20 mg capsule,delayed 1 cap PO QAM 01/09/22 01/09/22 release tramadol 50 mg tablet 1 tab PO BID PRN pain 01/09/22 01/09/22 Previous Rx's Medication Instructions Recorded amlodipine 10 mg tablet 10 mg PO DAILY #30 tabs 01/12/22 lisinopril 40 mg tablet 40 mg PO DAILY #30 tabs 01/12/22 prednisone 20 mg tablet 40 mg PO DAILY #2 tabs 01/12/22 fluticasone propionate 50 1 spray intranasal DAILY #16 grams 01/20/22 mcg/actuation nasal spray,suspension lubiprostone 8 mcg capsule 8 mcg PO DAILY #30 caps 01/21/22 Allergies Allergy/AdvReac Type Severity Reaction Status Date / Time Penicillins [PENICILLINS] Allergy Mild ITCHINESS Verified 01/09/22 07:25 aspirin [ASPIRIN] Allergy Unknown VOMITING Verified 01/09/22 01:15 Lisinopril AdvReac Severe Angioedema Uncoded 01/22/22 18:52 Review of Systems Review of Systems: Constitutional : No Weight loss, No Fever, No Chills, No Night Sweats, No Fatigue, No Malaise ENT/Mouth : Complaining of upper lip swelling No Hearing loss, No Ear Pain, No Nasal Congestion, No Sinus Pain, No Hoarseness, No sore throat, No Rhinorrhea, No Swallowing Difficulty Eyes: No Eye Pain, No Swelling, No Redness, No Foreign Body, No Discharge, No Vision Changes Cardiovascular : No Chest Pain, No SOB, No Dyspnea on Exertion, No Orthopnea, No Edema, No Palpitations Respiratory : No Cough, No Sputum, No Wheezing, No Smoke Exposure, No Dyspnea Gastrointestinal : No Nausea, No Vomiting, No Diarrhea, No Constipation, No abdominal Pain, No Hematochezia, No Melena Genitourinary : no irregular bleeding, No Dysuria, No Urinary Frequency, No Hematuria, No Urinary Incontinence, No Urgency, No Flank Pain, No Urinary Flow Changes, No Hesitancy Musculoskeletal : No joint pain, No Myalgias, No Joint Swelling Skin : No Skin Lesions, No rash Neuro : No Weakness, No Numbness, No Paresthesias, No Loss of Consciousness, No Dizziness, No Headache Psych : No Anxiety/Panic, No Depression, No SI/HI/AH/VH, No Social Issues, Heme/Lymph: No Bruising, No Bleeding,No Lymphadenopathy Endocrine : No Polyuria, No Polydipsia, No Temperature Intolerance [facility] Past Medical History Medical History Asthma Fatigue HTN (hypertension) Hypertensive heart disease Mild HOCM (hypertrophic obstructive cardiomyopathy) PAC (premature atrial contraction) Surgical History History of left cataract surgery History of tubal ligation History of umbilical hernia repair Family History Family History Father No problems noted. Mother No problems noted. Social History Social History (Updated 01/09/22 @ 07:38 by Marion Chamberlain RN) Household Members: Family Household Members Other:: grandson Housing: Apartment Do you presently have visiting nurse or other home services: No Alcohol intake: never Patient Tobacco Use Status: Never used Tobacco e-Cigarette/Vaping Use: Never Used Second Hand Smoke Exposure: No Advance Directives: No Advance Directives Information Provided: No service: No Current occupational status: retired Cognitive needs: No Hearing needs: No Vision needs: No Physical Exam ED Vital Signs: Vital Signs - 24 hr 01/22/22 18:24 01/22/22 20:24 Temperature 98.4 F 97.5 F Pulse Rate 82 66 Respiratory Rate 20 20 Blood Pressure 149/60 H 170/66 H Pulse Oximetry 96 97 Oxygen Delivery Method Room Air Room Air BMI result Body Mass Index 34.2 Const Other: Appearance: Alert. Oriented X3. No acute distress. Eyes: Pupils equal, round and reactive to light. ENT: Pharynx normal. Uvula is not edematous, tongue within normal limits. There is significant swelling of the left upper lip Neck: Normal inspection. Neck supple. No lymph nodes noted. No crepitus CVS: Normal heart rate and rhythm. Pulses normal. Normal S1 and S2 Respiratory: No respiratory distress. Breath sounds normal. No Wheezing. No rales Abdomen: Soft and nontender. No rigidity. No distention. Skin: Skin warm and dry. Normal skin color. Normal skin turgor. Extremities: No lower extremity edema. No Lacerations. No Rash Neuro: Oriented X 3. No motor deficit. No sensory deficit. Moving all extremities. No slurred speech. CN 2 through 12 grossly intact Psych: calm, cooperative, normal affect Course Course Course Narrative: Patient received 1 dose of diphenhydramine, famotidine methylprednisolone IV. Patient is a hard stick, labs pending. I discussed the patient with Dr. Fleming, patient being admitted for observation Critical Care Time Critical Care Time Critical Care Time: Yes Total Critical Care Time: 30 Attestation: I have personally provided critical care time. Time includes review of lab data, radiology results, discussion with consultants, and monitoring for potential decompensation. Intervention performed as documented. Discharge Plan Discharge Clinical Impression: Angioedema Patient Disposition: Admitted as Observation Prescriptions: No Action fluticasone propionate 50 mcg/actuation spray,suspension 1 spray intranasal DAILY Qty: 16 0RF lubiprostone 8 mcg capsule 8 mcg PO DAILY Qty: 30 2RF albuterol sulfate 1.25 mg/3 mL solution for nebulization 3 ml inhalation QID diltiazem HCl [Tiadylt ER] 360 mg capsule,extended release 24 hr 1 cap PO DAILY PRN (Reason: Hypertension) tramadol 50 mg tablet 1 tab PO BID PRN (Reason: pain) hydralazine 100 mg tablet 1 tab PO BID fluticasone propion-salmeterol [Advair Diskus] 500-50 mcg/dose blister with device 1 puff inhalation BID docusate sodium 100 mg capsule 1 cap PO DAILY omeprazole 20 mg capsule,delayed release(DR/EC) 1 cap PO QAM hydrochlorothiazide 25 mg tablet 1 tab PO DAILY lorazepam 1 mg tablet 1 tab PO BID PRN (Reason: anxiety) lovastatin 20 mg tablet 1 tab PO BEDTIME albuterol sulfate [Ventolin HFA] 90 mcg/actuation HFA aerosol inhaler 2 puff PO Q4-6H PRN (Reason: wheezing) amlodipine 10 mg Tablet 10 mg PO DAILY Qty: 30 0RF Protocol: Hold for SBP< HOLD for SBP < : 90 lisinopril 40 mg Tablet 40 mg PO DAILY Qty: 30 0RF Protocol: Hold for SBP< HOLD for SBP < : 90 prednisone 20 mg Tablet 40 mg PO DAILY Qty: 2 0RF
--- NOTE | 2022-01-22 19:20 | PC.NURSE ---
This RN made two attempts to obtain IV access with no success. Plan to ask charge nurse to attempt IV access. Pt is CAOx4 and in no apparent distress. Swelling persists on the left side of pt's mouth.
[2022-01-22] MEDS: methylPREDNISolone Sod Succ 125 MG/2 ML VIAL IVPUSH (19:38)
[2022-01-22] MEDS: Famotidine/PF 20 MG/2 ML VIAL IVPUSH (19:40)
[2022-01-22] MEDS: diphenhydrAMINE HCL 50 MG/ML VIAL IVPUSH (19:42)
[2022-01-22 20:24] VITALS: BP 170/66; PULSE 66; RESP 20; TEMP 36.4; O2SAT 97
[2022-01-22 20:52] VITALS: PULSE 84; RESP 18
--- NOTE | 2022-01-22 20:55 | PM.IMHP ---
History of Present Illness Date of Service: 01/22/22 Chief Complaint: swollen lip Birgit is a pleasant 6-year-old female with past medical history of HTN, hypertrophic obstructive cardiomyopathy, asthma, HLD, anxiety depression, obesity who was initially seen in the hospital at the end of December for hypertensive emergency with BP was found in the 240s over 100s. At that time patient was discharged on multiple antihypertensives including Norvasc, lisinopril, hydralazine as well as combination diltiazem hydrochlorothiazide pill. She reports that she was doing well until today when she started developing tingling on her lips and developed swelling of her upper left lip. She denies having any trouble swallowing, no difficulty breathing, no previous similar episode. No chest pain, no palpitations, no abdominal pain nausea or vomiting, no diarrhea constipation, no urinary symptoms and no lower extremity edema. No numbness tingling, no headache or change in vision. On arrival to the ED patient hemodynamically stable with no significant abnormal vitals blood pressure is found to be 149/60 Labs are significant for WBC of 9.5, creatinine of 1.41 with a baseline around 0.7, UA negative Patient given Solu-Medrol IV, Pepcid and Benadryl with no significant improvement therefore showed be admitted for further management Review of Systems Review of Systems: Yes all other systems are reviewed and are negative [facility] Medical History Asthma Fatigue HTN (hypertension) Hypertensive heart disease Mild HOCM (hypertrophic obstructive cardiomyopathy) PAC (premature atrial contraction) Family History Father No problems noted. Mother No problems noted. Surgical History History of left cataract surgery History of tubal ligation History of umbilical hernia repair Social History Household Members: Family Household Members Other:: grandson Housing: Apartment Do you presently have visiting nurse or other home services: No Alcohol intake: never Patient Tobacco Use Status: Never used Tobacco e-Cigarette/Vaping Use: Never Used Second Hand Smoke Exposure: No Advance Directives: No Advance Directives Information Provided: No service: No Current occupational status: retired Cognitive needs: No Hearing needs: No Vision needs: No Meds Allergies Allergy/AdvReac Type Severity Reaction Status Date / Time Penicillins [PENICILLINS] Allergy Mild ITCHINESS Verified 01/09/22 07:25 aspirin [ASPIRIN] Allergy Unknown VOMITING Verified 01/09/22 01:15 Lisinopril AdvReac Severe Angioedema Uncoded 01/22/22 18:52 Active Medications: Current Medications Pharmacy Consult (Consult Rx Perform Med Rec) 1 each MISCELLANE ONCE PRN PRN Reason: Consult order Home Medications Medication Instructions Recorded Confirmed Last Taken Type albuterol sulfate 1.25 mg/3 mL 3 ml inhalation QID 01/09/22 01/22/22 01/22/22 History solution for nebulization albuterol sulfate 90 mcg/actuation 2 puff PO Q4-6H PRN wheezing 01/09/22 01/22/22 01/08/22 History aerosol inhaler (Ventolin HFA) diltiazem HCl 360 mg capsule,24 1 cap PO DAILY PRN Hypertension 01/09/22 01/22/22 01/22/22 History hr,extended release (Tiadylt ER) docusate sodium 100 mg capsule 1 cap PO DAILY 01/09/22 01/22/22 01/22/22 History fluticasone 500 mcg-salmeterol 50 1 puff inhalation BID 01/09/22 01/22/22 01/22/22 History mcg/dose blistr powdr for inhalation (Advair Diskus) hydralazine 100 mg tablet 1 tab PO BID 01/09/22 01/22/22 01/22/22 History hydrochlorothiazide 25 mg tablet 1 tab PO DAILY 01/09/22 01/22/22 01/22/22 History lorazepam 1 mg tablet 1 tab PO BID PRN anxiety 01/09/22 01/22/22 01/08/22 History lovastatin 20 mg tablet 1 tab PO BEDTIME 01/09/22 01/22/22 01/21/22 History omeprazole 20 mg capsule,delayed 1 cap PO QAM 01/09/22 01/22/22 01/22/22 History release tramadol 50 mg tablet 1 tab PO BID PRN pain 01/09/22 01/22/22 01/22/22 History Physical Exam Vital Signs and Narrative: Vital Signs: Last Vital Signs Temp 97.5 F 01/22/22 20:24 Pulse 66 01/22/22 20:24 Resp 20 01/22/22 20:24 BP 170/66 H 01/22/22 20:24 Pulse Ox 97 01/22/22 20:24 O2 Del Method 01/22/22 20:24 BMI result Body Mass Index 34.2 Const: General: cooperative and no acute distress Orientation/consciousness: patient oriented x3 HEENT: Other: left lip edema, no drooling, Eyes: General: appearance normal, both eyes and all related structures Resp: Other: no respiratory distress, no stridor Effort & Inspection: normal respiratory effort Auscultation: clear to auscultation bilaterally Cardio: Rate: regular rate Rhythm: regular rhythm GI: Palpation (GI): Soft to palpation Auscultation: normal bowel sounds Skin: General skin exam: no rashes or lesions noted Neuro: General: patient oriented x3 Cognition (Neuro): normal cognition Extrem: General: Yes normal to inspection and Yes no pedal edema Results Labs CBC and Chem 7: 01/22/22 20:59 01/22/22 20:59 Assessment and Plan (1) Angioedema: Status: Acute (2) NUSRAT (acute kidney injury): Status: Acute Plan 76-year-old female with recently admitted for hypertensive emergency with lip swelling after recently being placed on lisinopril # angioedema - likely secondary to lisinopril - discontinue lisinopril - does not have any other symptoms at this time, no stridor, no difficulty swallowing, no shortness of breath - although less likely to be effective will order p.r.n. Benadryl, Pepcid and IV steroids - will monitor for any worsening symptoms, low threshold to transfer to ICU # NUSRAT - possibly prerenal - treat with IV fluids - follow BMP # hypertension - stable - will continue all her other meds except lisinopril # hyperlipidemia - continue statin # GERD - continue omeprazole DVT prophylaxis: Lovenox Quality Stroke Does the patient have a stroke diagnosis?: No VTE Prior VTE?: No VTE Risk Level:: Medical - low VTE Device Contraindication: Treatment Not Indicated VTE Drug Contraindication: Treatment Not Indicated
[2022-01-22 21:07] LABS: MANUAL DIFF FLAG NO
[2022-01-22 21:08] LABS: Basophils Percent Auto 0.4 % (0-2); Eosinophils Absolute Auto 0.1 X10*3/uL (0.0-0.4); Eosinophils Percent Auto 0.6 % (0-4); Hematocrit 39.8 % (37.0-47.0); Hemoglobin 12.6 g/dl (12.0-16.0); Imm Gran Abs Auto 0.03 X10*3/uL (0.00-0.03); Imm Gran Pct Auto 0.3 % (0.0-0.4); Lymphocytes Absolute Auto 1.9 X10*3/uL (1.2-4.9); Mean Corpuscular HGB Conc 31.7 g/dl (31.0-35.0); Mean Corpuscular Hemoglobin 29.4 pg (27.0-33.0); Mean Corpuscular Volume 92.8 fL (80.0-98.0); Mean Platelet Volume 10.1 fL (9.4-12.3); Monocytes Absolute Auto 0.4 X10*3/uL (0.1-1.2); Monocytes Percent Auto 4.6 % (2-11); Neutrophils Absolute Auto 7.1 x10*3/uL (2.0-8.3); Neutrophils Percent Auto 74.1 % (45-73); Platelet Count 289 X10*3/uL (160-400); Red Blood Count 4.29 X10*6/uL (4.20-5.50); Red Cell Distribution Width 12.7 % (11.0-16.0); White Blood Count 9.5 X10*3/uL (4.8-10.8)
[2022-01-22 21:24] LABS: Alanine Aminotransferase 10 U/L (0-31); Albumin Level 4.6 g/dL (3.5-5.0); Alkaline Phosphatase 72 U/L (39-117); Anion Gap 16 (12-20); Aspartate Amino Transferase 11 U/L (5-31); Bilirubin Direct 0.2 mg/dL (0.0-0.5); Bilirubin Total 0.5 mg/dL (0.0-1.0); Blood Urea Nitrogen 27 mg/dL (9-16); Calcium 9.7 mg/dL (8.4-10.2); Carbon Dioxide 28 mmol/L (22-29); Chloride 102 mmol/L (96-108); Creatinine Clr Calc Pharmacy 41.1; Estimated Glomerular Filt Rate 36; Glucose Random 119 mg/dL (60-115); Sodium 142 mmol/L (135-145); Total Protein 7.3 g/dL (6.5-8.0)
--- NOTE | 2022-01-22 21:37 | PHA.MEDREC ---
Pharmacy Consult ? Medication Reconciliation Pharmacy has completed the medication reconciliation. lisinopril stopped
[2022-01-22] MEDS: 0.9 % Sodium Chloride Flush 3 ML SYRINGE IVFLUSH (23:34)
[2022-01-22] MEDS: Lactated Ringers 1,000 ML 100 ML IVCONT (23:35)
[2022-01-22] MEDS: diphenhydrAMINE HCL 50 MG/ML VIAL 25 MG IVPUSH (23:42)
[2022-01-23] VITALS (10 sets, daily range): BP systolic 150–178; BP diastolic 55–80; PULSE 82–95; RESP 16–20; TEMP 36.3–36.8; O2SAT 93–99
[2022-01-23 04:41] LABS: Appearance Urine HAZY; Color Urine YELLOW; Glucose Urine UA NEG (NEG); Leukocyte Esterase Urine NEG (NEG); Nitrite Urine NEG (NEG); PH 5.5 (5.0-8.0); Specific Gravity - Urine >= 1.030 (1.005-1.025); Urine Blood NEG (NEG); Urine Ketones NEG (NEG); Urine Protein NEG (NEG-TRACE)
--- NOTE | 2022-01-23 04:42 | P.CONCC_ITS ---
History of Present Illness Data of Consult Service Date: 01/23/22 Requesting physician: Chandan Fleming Primary Care Provider: Nonstaff Physician HPI Reason for consult: worsening angioedema HPI: ?76-year-old female with underlying history of hypertension who was admitted on the december in this hospital in ICU due to hypertensive emergency, placed on Lisinopril, obesity, mild hypertrophic obstructive cardiomyopathy, PACs, constipation, anxiety, hyperlipidemia, GERD, asthma, COVID-19, chronic pain syndrome. ? Patient had Rachna Serna in the emergency room with complaints of swollen lips which had started yesterday morning which she noticed when she looked herself on the mirror; in the emergency room her overall workup was unremarkable with exception of elevated BUN and creatinine of 27 and 1.411 her baseline is 0.7, patient had been treated with Solu-Medrol, Pepcid and Benadryl in the ED then admitted but placed in the observation unit, was reported by nursing personnel to be getting worse swelling of her upper lip right side).? I was called for a consult due to concerns of worsening angioedema. ? During my interview, the charge nurse from the ED who had seen the patient earlier, states that the right aspect of her upper lip looks more swollen but otherwise the left side of her face looks the same, the patient denies any trouble swallowing, trouble breathing, there has not been any audible wheezing, her O2 sat is 96% on room air and there is no respiratory distress or tachypnea. Currently patient has no additional complaints including no chest tightness, chest pain, throat pain, trouble swallowing, speaking, difficulty breathing, sensation of swelling in any other part of her body. ?Her only concern is that she has not had a bowel movement a few days. ? As above, otherwise the patient denies any prior history of strokes, cold intol erance, migraine headaches, head trauma, no eyes, ears or nose problems, no problems swallowing or with phonation, no thyroid disease, denies any history of chest pain, palpitations, coronary disease, sputum production, pneumonia, bronchitis, abdominal pain, nausea, vomiting, diarrhea, abdominal surgeries, melena, hematochezia, hematemesis, hematuria, kidney stones, liver problems, immunocompromise state of any kind, no history of DVT or PE, leg edema, fractures or extremity surgeries all other review of systems were reviewed and they were all negative. ? Past Medical History:? As above ? Past Surgical History: Umbilical herniorrhaphy Tubal ligation Cataract surgery left eye ? Family history:? Reviewed and noncontributory ? Social History:? Patient lives in an apartment with her family, denies history of tobacco, alcohol or drug use.? Does not use any assistive device for ambulation. ? CODE STATUS: FULL CODE ? Allergies: ?Lisinopril (angioedema), penicillin (itching S), aspirin (vomiting) ? Home Medications: See Med Rec ? PHYSICAL EXAM: VS: ?154/60, 88, 19, 95% room air General:? Obese, Alert oriented x3 no acute distress.? Speaking full sentences.? Speech is well articulated, thought process is coherent, there is no issues with phonation of her words,.? Following all commands. Skin: ?The left side of the face is mildly swollen at the level of the cheek, upper and lower lip, however there is now a involvement of the right part of the upper lip as well according to nursing personnel this is new.? There is no neck edema, no blistering, rash, erythema or hardness to touch.? The remainder of the skin is Intact, no lesions, edema, erythema, clubbing or cyanosis.? No ulcers. HEENT:? Head is normocephalic, atraumatic, pupils equal round reactive to light accommodation bilaterally.? Extraocular movements appear intact.? Buccal mucosa is moist, tongue protrudes midline without deviation and there is no swelling of the tongue, the patient is able to open her mouth without any problems in a very wide manner. ?Neck is supple without lymphadenopathy.? There is no stridor, no neck bruits. Cardiac:? Clear S1-S2, no murmurs rubs or gallops. Pulmonary:? Clear to auscultation, no wheezes, rales or rhonchi. Abdomen:? Protuberant, positive bowel sounds in all 4 quadrants.? Soft, nontender, no rebound or guarding.? Musculoskeletal:? Moving all 4 extremities upon request a major joints, there is no crepitus or tenderness.? The strength is 5/5 bilaterally and throughout all 4 extremities.? There is no leg edema , no calf tenderness , no leg asymmetry.? Gait not assessed at this point. Neurologic:? As above, cranial nerves 2-12 are grossly intact.? No focal deficits noted. Motor strength as above.? Vascular:? 2+ pulses upper and lower extremities distally. ? SIGNIFICANT LABORATORY DATA:? White blood cells 9.5, hemoglobin 12.6, hematocrit 39.8, platelets 289, sodium 142, potassium 4.0, chloride 102, carbon dioxide 28, BUN 27, creatinine 1.41 (0.74) random glucose 119, LFTs within normal limits, urinalysis negative.? I do not see a new COVID test, however 1 from 01/08/2022 was negative. ? REVIEW OF IMAGES: CT abdomen pelvis without contrast IMPRESSION: No acute finding in the abdomen or pelvis. No inflammatory changes. Colonic diverticulosis without diverticulitis. ? Partially imaged groundglass nodular opacity in the right lower lobe, also seen on previous CT. According to the UPDATED 2017 Fleischner Society recommendations, the advised follow-up imaging for a single pure ground-glass nodule measuring 6 mm or greater is: CT at 6-12 months to confirm persistence, then CT every 2 years until 5 years if it persists.? ? Fleischner guidelines were followed. ? ASSESSMENT AND PLAN: 1. Angioedema most likely due to lisinopril 2. Essential hypertension 3. Obesity 4. Asymptomatic asthma 5. Acute on Chronic history of constipation 6. Acute kidney injury likely due to volume depletion and worsened by Lisinopril 7. Right lung nodular opacity in need of outpatient follow-up ? PLAN OF CARE: 1.At this time I do not think the patient needs ICU level of care, the patient does not have any out of all wheezing, respiratory distress, tachypnea, stridor and there is no neck or airway compromise. 2.The patient can continue to be treated by the Internal Medicine Services, will order Solu-Medrol every 6 hours for 24 hours, Pepcid IV b.i.d. and Benadryl. 3.If necessary to treat her blood pressure; simply resume amlodipine, hydralazine and diltiazem. 4.I would recommend not restarting hydrochlorothiazide for this medication can also cause anaphylaxis although this is less likely the case at this point. ?However this is within the list of her current medications and lisinopril is listed as a previous med, this needs to be clarified to be effective on the discontinuation of the suspected medications to be the cause of her problem. 5. IV hydration repeat laboratories in the morning. I will add a C1 esterase inhibitor test and she could have further angioedema testing as an outpatient. 6.I have instructed nursing personnel to monitor closely and to call me if the patient does develop any of the above-mentioned signs or symptoms.? The patient was also informed to call nursing personnel she was to develop any trouble breathing, chest tightness, throat tightness, trouble swallowing. 7. Place her on a bowel regimen which may include Dulcolax ? GI prophylaxis on Pepcid IV DVT prophylaxis ; pneumatic stockings and early ambulation ? Critical care time used for critical evaluation of this patient, diagnosis, treatment and coordination of care, review her records and documentation TOTAL CRITICAL CARE TIME 75 MIN . Patient's care was discussed in detail with Dr. Seth.? He is aware of all the above as well as the plan of care for this patient. [facility] Past Medical History Medical History Asthma Fatigue HTN (hypertension) Hypertensive heart disease Mild HOCM (hypertrophic obstructive cardiomyopathy) PAC (premature atrial contraction) Family History Family History Father No problems noted. Mother No problems noted. Surgical History Surgical History History of left cataract surgery History of tubal ligation History of umbilical hernia repair Social History Social History (Updated 01/09/22 @ 07:38 by Marion Chamberlain RN) Household Members: Family Household Members Other:: grandson Housing: Apartment Do you presently have visiting nurse or other home services: No Alcohol intake: never Patient Tobacco Use Status: Never used Tobacco e-Cigarette/Vaping Use: Never Used Second Hand Smoke Exposure: No Advance Directives: No Advance Directives Information Provided: No service: No Current occupational status: retired Cognitive needs: No Hearing needs: No Vision needs: No Meds Allergies Allergy/AdvReac Type Severity Reaction Status Date / Time Penicillins [PENICILLINS] Allergy Mild ITCHINESS Verified 01/09/22 07:25 aspirin [ASPIRIN] Allergy Unknown VOMITING Verified 01/09/22 01:15 Lisinopril AdvReac Severe Angioedema Uncoded 01/22/22 18:52 Active Medications: Current Medications Acetaminophen (Acetaminophen 325 Mg Tablet) 650 mg PO Q6H PRN PRN Reason: Pain, Mild (Pain Scale 1-3) Diphenhydramine HCl (Diphenhydramine Hcl 50 Mg/Ml Vial) 25 mg IVPUSH Q6H PRN PRN Reason: swelling,itching Last Admin: 01/22/22 23:42 Dose: 25 mg Famotidine (Famotidine/Pf 20 Mg/2 Ml Vial) 20 mg IVPUSH BID [facility] Lactated Ringer's (Lr) 1,000 mls @ 100 mls/hr IVCONT .Q10H [facility] Last Admin: 01/22/22 23:35 Dose: 100 mls/hr Ondansetron HCl (Ondansetron Hcl 4 Mg/2 Ml Vial) 4 mg IVPUSH Q8H PRN PRN Reason: Nausea and Vomiting Pharmacy Consult (Consult Rx Perform Med Rec) 1 each MISCELLANE ONCE PRN PRN Reason: Consult order Polyethylene Glycol (Polyethylene Glycol 3350 17 Gm Powd.Pack) 17 gm PO DAILY [facility] Last Admin: 01/22/22 23:36 Dose: Not Given Sodium Chloride (0.9 % Sodium Chloride Flush 3 Ml Syringe) 3 ml IVFLUSH QSHIFT [facility] Last Admin: 01/22/22 23:34 Dose: 3 ml Home Medications Medication Instructions Recorded Confirmed Last Taken Type albuterol sulfate 1.25 mg/3 mL 3 ml inhalation QID 01/09/22 01/22/22 01/22/22 History solution for nebulization albuterol sulfate 90 mcg/actuation 2 puff PO Q4-6H PRN wheezing 01/09/22 2 01/08/22 History aerosol inhaler (Ventolin HFA) diltiazem HCl 360 mg capsule,24 1 cap PO DAILY PRN Hypertension 01/09/22 01/22/22 01/22/22 History hr,extended release (Tiadylt ER) docusate sodium 100 mg capsule 1 cap PO DAILY 01/09/22 01/22/22 01/22/22 History fluticasone 500 mcg-salmeterol 50 1 puff inhalation BID 01/09/22 01/22/22 01/22/22 History mcg/dose blistr powdr for inhalation (Advair Diskus) hydralazine 100 mg tablet 1 tab PO BID 01/09/22 01/22/22 01/22/22 History hydrochlorothiazide 25 mg tablet 1 tab PO DAILY 01/09/22 01/22/22 01/22/22 History lorazepam 1 mg tablet 1 tab PO BID PRN anxiety 01/09/22 01/22/22 01/08/22 History lovastatin 20 mg tablet 1 tab PO BEDTIME 01/09/22 01/22/22 01/21/22 History omeprazole 20 mg capsule,delayed 1 cap PO QAM 01/09/22 01/22/22 01/22/22 History release tramadol 50 mg tablet 1 tab PO BID PRN pain 01/09/22 01/22/22 01/22/22 History Physical Exam Vital Signs: Vital Signs: Last Vital Signs Temp 97.5 F 01/22/22 20:24 Pulse 84 01/22/22 20:52 Resp 18 01/22/22 20:52 BP 170/66 H 01/22/22 20:24 Pulse Ox 97 01/22/22 20:24 O2 Del Method 01/22/22 20:24 BMI result Body Mass Index 34.2 Results Labs CBC & Chem 7: 01/22/22 20:59 01/22/22 20:59 Labs: Short CBC 01/22/22 Range/Units 20:59 WBC 9.5 (4.8-10.8) X10*3/uL Hgb 12.6 (12.0-16.0) g/dl Hct 39.8 (37.0-47.0) % Plt Count 289 (160-400) X10*3/uL BMP 01/22/22 20:59 Sodium 142 Potassium 4.0 Chloride 102 Carbon Dioxide 28 BUN 27 H Creatinine 1.41 H Calcium 9.7 D Liver Function 01/22/22 Range/Units 20:59 Total Bilirubin 0.5 (0.0-1.0) mg/dL Direct Bilirubin 0.2 (0.0-0.5) mg/dL AST 11 D (5-31) U/L ALT 10 (0-31) U/L Alkaline Phosphatase 72 (39-117) U/L Albumin 4.6 (3.5-5.0) g/dL
[2022-01-23] MEDS: diphenhydrAMINE HCL 50 MG/ML VIAL 25 MG IVPUSH (04:43)
[2022-01-23] MEDS: methylPREDNISolone Sod Succ 125 MG/2 ML VIAL 60 MG IVPUSH ×3 (04:53→17:56)
[2022-01-23] MEDS: Famotidine/PF 20 MG/2 ML VIAL IVPUSH ×2 (04:54→20:10)
[2022-01-23] MEDS: Acetaminophen 325 MG TABLET 650 MG PO ×2 (05:00→18:03)
--- NOTE | 2022-01-23 06:14 | PM.EVENT ---
Event Note Date of Service: 01/23/22 Event Note: this a.m. patient is developing worsening swelling of her upper lip, she continues to have no other symptoms including no stridor, no wheezing, no difficulty swallowing or breathing. A consulted ICU, they evaluated the patient, at this time patient will remain in IMC, she is being given another dose of Solu-Medrol, Pepcid IV as well as Benadryl in being closely monitored. ICU aware of patient
--- NOTE | 2022-01-23 06:40 | PC.NURSE ---
ASSUMED CARE OF PT AT 0300. AT 0420 PT RANG CALL KELLEY AND C/O INCREASED SWELLING OF UPPER LIP. IT WAS PREVIOUSLY NOT TO BE SWOLLEN ON THE LEFT SIDE AND INCREASED TO THE WHOLE UPPER LIP. DR FERNANDO NOTIFIED AND ICU BOBO CLANCY CONSULTED AND AT BEDSIDE TO EVALUATE PT. NO RESP DISTRESS. TONGUE IS NOT SWOLLEN. PT ABLE TO TAKE SIPS OF WATER WITHOUT DIFFICULTY. BENEDRYL 25MG IV, PEPCID 20 MG IV AND SOLUMEDROL 60 MG IV GIVEN. AT THAT TIME. NO INCREASE IN SWELLING NOTED. PT IN BED WITH HOB UP 30 DEGREES.
[2022-01-23 07:10] LABS: MANUAL DIFF FLAG NO
[2022-01-23 07:16] LABS: Basophils Percent Auto 0.1 % (0-2); Hematocrit 37.5 % (37.0-47.0); Hemoglobin 11.8 g/dl (12.0-16.0); Imm Gran Abs Auto 0.05 X10*3/uL (0.00-0.03); Imm Gran Pct Auto 0.5 % (0.0-0.4); Lymphocytes Absolute Auto 1.1 X10*3/uL (1.2-4.9); Lymphocytes Percent Auto 10.3 % (20-40); Mean Corpuscular HGB Conc 31.5 g/dl (31.0-35.0); Mean Corpuscular Hemoglobin 29.2 pg (27.0-33.0); Mean Corpuscular Volume 92.8 fL (80.0-98.0); Mean Platelet Volume 10.9 fL (9.4-12.3); Monocytes Absolute Auto 0.1 X10*3/uL (0.1-1.2); Monocytes Percent Auto 0.6 % (2-11); Neutrophils Absolute Auto 9.1 x10*3/uL (2.0-8.3); Neutrophils Percent Auto 88.5 % (45-73); Platelet Count 276 X10*3/uL (160-400); Red Blood Count 4.04 X10*6/uL (4.20-5.50); Red Cell Distribution Width 12.6 % (11.0-16.0); White Blood Count 10.3 X10*3/uL (4.8-10.8)
[2022-01-23] MEDS: hydroCHLOROthiazide 25 MG TABLET PO (07:21)
[2022-01-23] MEDS: Omeprazole 20 MG CAPSULE.DR PO (07:21)
[2022-01-23] MEDS: amLODIPine Besylate 10 MG TABLET PO (07:22)
[2022-01-23] MEDS: Docusate Sodium 100 MG CAPSULE PO (07:22)
[2022-01-23] MEDS: hydrALAZINE HCl 50 MG TABLET 100 MG PO ×2 (07:22→20:09)
[2022-01-23 07:30] LABS: Anion Gap 16 (12-20); Blood Urea Nitrogen 28 mg/dL (9-16); Calcium 9.9 mg/dL (8.4-10.2); Carbon Dioxide 25 mmol/L (22-29); Chloride 102 mmol/L (96-108); Creatinine Clr Calc Pharmacy 47.1; Estimated Glomerular Filt Rate 42; Glucose Random 152 mg/dL (60-115); Potassium 4.4 mmol/L (3.3-5.1); Sodium 139 mmol/L (135-145)
[2022-01-23] MEDS: Lactated Ringers 1,000 ML 100 ML IVCONT ×2 (07:44→17:57)
[2022-01-23] MEDS: 0.9 % Sodium Chloride Flush 3 ML SYRINGE IVFLUSH (07:45)
--- NOTE | 2022-01-23 07:49 | HO.PM.IMPN ---
Subjective Subjective Date of Service: 01/23/22 Interval History: F/u on angioedema from lisinopril Interval history: She states that swelling on lip is better, she still has swellon on right side of her lip, no sob Review of Systems no chest pain no trouble breathing Physical Exam Vital Signs: Vital Signs: Last Vital Signs Temp 97.4 F 01/23/22 07:44 Pulse 93 01/23/22 07:44 Resp 20 01/23/22 07:44 BP 165/80 H 01/23/22 07:44 Pulse Ox 93 01/23/22 07:44 O2 Del Method 01/23/22 07:44 BMI result Body Mass Index 34.2 Const: Other: General: AO X 3, no acute distress HEENT: swellong of righ sided of the mouth, no oral sweeling, talking in full sentences Resp: CTA bilateral CVS: S1,S2,RRR GI: +BS, NT, no distention Skin: No rash Neuro: motor grossly intact Psych: appropriate affect Objective Data Active Medications Acetaminophen (Acetaminophen 325 Mg Tablet) 650 mg PO Q6H PRN PRN Reason: Pain, Mild (Pain Scale 1-3) Last Admin: 01/23/22 05:00 Dose: 650 mg Documented By: RENETTA Albuterol Sulfate (Albuterol Sulfate (0.042%) 1.25 Mg/3 Ml Vial.Neb) 1.25 mg INHALE QID [facility] Albuterol Sulfate (Albuterol Sulfate 90 Mcg 8 Gm Inhaler) 2 puff INHALE Q4H PRN PRN Reason: wheezing Amlodipine Besylate (Amlodipine Besylate 10 Mg Tablet) 10 mg PO DAILY [facility]; Protocol Last Admin: 01/23/22 07:22 Dose: 10 mg Documented By: LASHAY Diltiazem HCl (Diltiazem Hcl Cd 180 Mg Cap.Er.24h) 360 mg PO DAILY PRN; Protocol PRN Reason: Hypertension Diphenhydramine HCl (Diphenhydramine Hcl 50 Mg/Ml Vial) 25 mg IVPUSH Q6H PRN PRN Reason: swelling,itching Last Admin: 01/23/22 04:43 Dose: 25 mg Documented By: RENETTA Comments: give now per Dr Fleming Docusate Sodium (Docusate Sodium 100 Mg Capsule) 100 mg PO DAILY [facility] Last Admin: 01/23/22 07:22 Dose: 100 mg Documented By: LASHAY Famotidine (Famotidine/Pf 20 Mg/2 Ml Vial) 20 mg IVPUSH BID [facility] Last Admin: 01/23/22 07:26 Dose: Not Given Documented By: LASHAY Non-Admin Reason: See Note Fluticasone Propionate (Fluticasone Propionate Nasal 16 Gm [place]) 1 spray NOSTRIL-B DAILY [facility] Fluticasone/Vilanterol (Fluticasone/Vilanterol 200/25 Blst.W.Dev) 1 puff INHALE BID [facility] Hydralazine HCl (Hydralazine Hcl 50 Mg Tablet) 100 mg PO BID [facility]; Protocol Last Admin: 01/23/22 07:22 Dose: 100 mg Documented By: LASHAY Hydrochlorothiazide (Hydrochlorothiazide 25 Mg Tablet) 25 mg PO DAILY [facility]; Protocol Last Admin: 01/23/22 07:21 Dose: 25 mg Documented By: LASHAY Lactated Ringer's (Lr) 1,000 mls @ 100 mls/hr IVCONT .Q10H [facility] Last Admin: 01/23/22 07:44 Dose: 100 mls/hr Documented By: LASHAY Lorazepam (Lorazepam 1 Mg Tablet) 1 mg PO BID PRN PRN Reason: anxiety Methylprednisolone Sodium Succinate (Methylprednisolone Sod Succ 125 Mg/2 Ml Vial) 60 mg IVPUSH Q6H [facility] Stop: 01/24/22 00:01 Last Admin: 01/23/22 04:53 Dose: 60 mg Documented By: RENETTA Omeprazole (Omeprazole 20 Mg Capsule.) 20 mg PO DAILY [facility] Last Admin: 01/23/22 07:21 Dose: 20 mg Documented By: LASHAY Ondansetron HCl (Ondansetron Hcl 4 Mg/2 Ml Vial) 4 mg IVPUSH Q8H PRN PRN Reason: Nausea and Vomiting Pharmacy Consult (Consult Rx Perform Med Rec) 1 each MISCELLANE ONCE PRN PRN Reason: Consult order Polyethylene Glycol (Polyethylene Glycol 3350 17 Gm Powd.Pack) 17 gm PO DAILY [facility] Last Admin: 01/22/22 23:36 Dose: Not Given Documented By: RAKAN Non-Admin Reason: Patient Refused Pravastatin Sodium (Pravastatin Sodium 20 Mg Tablet) 20 mg PO BEDTIME [facility] Sodium Chloride (0.9 % Sodium Chloride Flush 3 Ml Syringe) 3 ml IVFLUSH QSHIFT [facility] Last Admin: 01/23/22 07:45 Dose: 3 ml Documented By: LASHAY Tramadol HCl (Tramadol Hcl 50 Mg Tablet) 50 mg PO BID PRN PRN Reason: Pain, Severe (Pain Scale 7-10) Labs CBC & Chem 7: 01/23/22 06:17 01/23/22 06:17 Labs: Laboratory Results - last 24 hr 01/22/22 01/22/22 01/23/22 20:59 20:59 04:20 MCV 92.8 MCH 29.4 MCHC 31.7 RDW 12.7 Plt Count 289 MPV 10.1 Immature Gran % (Auto) 0.3 Neut % (Auto) 74.1 H Lymph % (Auto) 20.0 [place] % (Auto) 4.6 Eos % (Auto) 0.6 Baso % (Auto) 0.4 Lymph # (Auto) 1.9 [place] # (Auto) 0.4 Eos # (Auto) 0.1 Baso # (Auto) 0.0 Abs Immat Gran (auto) 0.03 Absolute Neuts (auto) 7.1 Absolute Nucleated RBC 0.000 Nucleated RBC % (auto) 0.0 Anion Gap 16 Estim Creat Clear Calc 41.1 Estimated GFR 36 Random Glucose 119 H Calcium 9.7 D Total Bilirubin 0.5 Direct Bilirubin 0.2 AST 11 D ALT 10 Alkaline Phosphatase 72 Total Protein 7.3 Albumin 4.6 Urine Color YELLOW Urine Appearance HAZY Urine pH 5.5 Ur Specific [place] >= 1.030 H Urine Protein NEG Urine Glucose (UA) NEG Urine Ketones NEG Urine Blood NEG Urine Nitrite NEG Ur Leukocyte Esterase NEG 01/23/22 01/23/22 06:17 06:17 MCV 92.8 MCH 29.2 MCHC 31.5 RDW 12.6 Plt Count 276 MPV 10.9 Immature Gran % (Auto) 0.5 H Neut % (Auto) 88.5 H Lymph % (Auto) 10.3 L [place] % (Auto) 0.6 L Eos % (Auto) 0.0 Baso % (Auto) 0.1 Lymph # (Auto) 1.1 L [place] # (Auto) 0.1 Eos # (Auto) 0.0 Baso # (Auto) 0.0 Abs Immat Gran (auto) 0.05 H Absolute Neuts (auto) 9.1 H Absolute Nucleated RBC 0.000 Nucleated RBC % (auto) 0.0 Anion Gap 16 Estim Creat Clear Calc 47.1 Estimated GFR 42 Random Glucose 152 H Calcium 9.9 Total Bilirubin Direct Bilirubin AST ALT Alkaline Phosphatase Total Protein Albumin Urine Color Urine Appearance Urine pH Ur Specific [place] Urine Protein Urine Glucose (UA) Urine Ketones Urine Blood Urine Nitrite Ur Leukocyte Esterase Assessment and Plan (1) Angioedema: Status: Acute Plan 76-year-old female with recently admitted for? hypertensive emergency with lip swelling after recently? being placed on lisinopril #? angioedema-? likely secondary to lisinopril -avoid Lisinopril or ARBS or other ACEi -Benedryl or Steroid PRN #? NUSRAT--Pre renal, improving, continue IVF. BS Cr <1, Presently 1.23 #? hypertension--difficult to control -Continue Norvas 10 -HCTZ 25 -Hydralazine 100 bid -Restart cardizem 240 -Nephrology consult given complexity of her BP management #? hyperlipidemia -? continue statin #? GERD -? continue omeprazole ?DVT prophylaxis: Lovenox Need for inpatient: Angioedema that is lifethreatening needs close monitroing for detelioration, also need adjustment of BP mes and hydration for renal failure Quality Stroke Does the patient have a stroke diagnosis?: No VTE Prior VTE?: No VTE Risk Level:: Medical - low VTE Device Contraindication: Treatment Not Indicated VTE Drug Contraindication: Treatment Not Indicated
[2022-01-23] MEDS: dilTIAZem HCL CD 180 MG CAP.ER.24H 360 MG PO (08:15)
[2022-01-23] MEDS: polyethylene glycoL 3350 17 GM POWD.PACK PO (08:16)
[2022-01-23] MEDS: Albuterol Sulfate (0.042%) 1.25 MG/3 ML VIAL.NEB INHALE ×3 (09:11→15:51)
[2022-01-23] MEDS: Fluticasone/Vilanterol 200/25 BLST.W.DEV 1 PUFF INHALE ×2 (09:11→20:10)
[2022-01-23] MEDS: Fluticasone Propionate Nasal 16 GM SPRAY 1 SPRAY NOSTRIL-B (10:07)
[2022-01-23] MEDS: LORazepam 1 MG TABLET PO ×2 (11:31→20:10)
--- NOTE | 2022-01-23 11:47 | PC.NURSE ---
alert, nad, denies sob, upper lip swollen still but pt feels improvement, steady gait to bathroom,
--- NOTE | 2022-01-23 12:13 | MHC.CM.PN ---
met with pt in ed overflow pt explins that she lives alone has hvns and oca sercveis daily she is vaccinated x 3 pt has a ride home when dcd ..dr mercado is her md dc plan home with hvns and contract technician
[2022-01-23] MEDS: Spironolactone 25 MG TABLET 12.5 MG PO (17:54)
[2022-01-23] MEDS: traMADoL HCL 50 MG TABLET PO (20:10)
[2022-01-23] MEDS: Pravastatin Sodium 20 MG TABLET PO (20:13)
[2022-01-24] MEDS: methylPREDNISolone Sod Succ 125 MG/2 ML VIAL 60 MG IVPUSH (01:14)
[2022-01-24 03:18] VITALS: BP 170/70; PULSE 92; RESP 16; TEMP 36.7; O2SAT 95
[2022-01-24] MEDS: Acetaminophen 325 MG TABLET 650 MG PO (03:34)
[2022-01-24] MEDS: Lactated Ringers 1,000 ML 100 ML IVCONT (03:53)
[2022-01-24 08:15] VITALS: BP 155/73; PULSE 87; RESP 16; O2SAT 94
[2022-01-24] MEDS: hydroCHLOROthiazide 25 MG TABLET PO (08:25)
[2022-01-24] MEDS: polyethylene glycoL 3350 17 GM POWD.PACK PO (08:25)
[2022-01-24] MEDS: Docusate Sodium 100 MG CAPSULE PO (08:25)
[2022-01-24] MEDS: dilTIAZem HCL CD 180 MG CAP.ER.24H 360 MG PO (08:25)
[2022-01-24] MEDS: amLODIPine Besylate 10 MG TABLET PO (08:25)
[2022-01-24] MEDS: Omeprazole 20 MG CAPSULE.DR PO (08:25)
[2022-01-24] MEDS: Spironolactone 25 MG TABLET 12.5 MG PO (08:26)
[2022-01-24] MEDS: Famotidine/PF 20 MG/2 ML VIAL IVPUSH ×2 (08:26→20:10)
[2022-01-24] MEDS: hydrALAZINE HCl 50 MG TABLET 100 MG PO ×2 (08:26→20:11)
--- NOTE | 2022-01-24 08:44 | PC.NURSE ---
Pt is A&Ox4, no complaints of pain at this time, states she has not had a BM in 1 week until yesterday. Pt is in SR w/PAC's and occasional PVC's on monitor. VS as charted, medicated as per MAR orders. Call paredes within reach. Will continue to monitor.
[2022-01-24 09:42] LABS: Anion Gap 18 (12-20); Blood Urea Nitrogen 28 mg/dL (9-16); Calcium 9.5 mg/dL (8.4-10.2); Carbon Dioxide 22 mmol/L (22-29); Chloride 102 mmol/L (96-108); Creatinine Clr Calc Pharmacy 54.7; Estimated Glomerular Filt Rate 50; Glucose Random 189 mg/dL (60-115); Potassium 4.4 mmol/L (3.3-5.1); Sodium 138 mmol/L (135-145)
[2022-01-24] MEDS: Albuterol Sulfate (0.042%) 1.25 MG/3 ML VIAL.NEB INHALE ×3 (10:30→20:34)
--- NOTE | 2022-01-24 10:32 | PM.PNNEP ---
Subjective Subjective Date of Service: 01/26/22 Interval history: F/u on HTN and angioedema from lisinopril Physical Exam Vital Signs: Vital Signs: Last Vital Signs Temp 98.0 F 01/24/22 03:18 Pulse 87 01/24/22 08:15 Resp 16 01/24/22 08:15 BP 155/73 H 01/24/22 08:15 Pulse Ox 94 01/24/22 08:15 O2 Del Method 01/24/22 08:15 BMI result Body Mass Index 34.2 Const: General: cooperative and no acute distress HEENT: Other: left lip edema, no drooling, Eyes: General: appearance normal, both eyes and all related structures Resp: Other: no respiratory distress, no stridor Effort & Inspection: normal respiratory effort Auscultation: clear to auscultation bilaterally Cardio: Rate: regular rate Rhythm: regular rhythm GI: Palpation (GI): Soft to palpation Auscultation: normal bowel sounds Skin: General skin exam: no rashes or lesions noted Neuro: Cognition (Neuro): normal cognition Extrem: General: Yes normal to inspection and Yes no pedal edema Objective Data Labs CBC & Chem 7: 01/23/22 06:17 01/25/22 06:16 Labs: Laboratory Results - last 24 hr 01/24/22 09:12 Sodium 138 Potassium 4.4 Chloride 102 Carbon Dioxide 22 Anion Gap 18 BUN 28 H Creatinine 1.06 Estim Creat Clear Calc 54.7 Estimated GFR 50 Random Glucose 189 H Calcium 9.5 Procedures Date of Service Date of Service: 01/24/22 Assessment & Plan Assessment and plan (1) Angioedema: Status: Acute Plan 76-year-old female with recently admitted for? hypertensive emergency with lip swelling after recently? being placed on lisinopril #? angioedema-? likely secondary to lisinopril -avoid Lisinopril or ARBS or other ACEi -Benedryl or Steroid PRN #? NUSRAT--Pre renal, improving, continue IVF. BS Cr <1, Presently 1.23 #? Hypertension--difficult to control -Continue Norvas 10 -HCTZ 25 -Hydralazine 100 bid cardizem 240 Added Spironolactone 12.5 mg BID Can increase dose to 25 mg BID and watch K Time Spent With Patient Time: Total time spent is greater than 50% in coordination of care (as documented) at patient's floor/unit and/or counseling patient: Progress Note: Quality Stroke Does the patient have a stroke diagnosis?: No
--- NOTE | 2022-01-24 10:55 | CONS_ITS ---
DATE OF SERVICE: 01/23/2022 REASON FOR CONSULTATION: I was called to see this patient to assist in the management of acute kidney injury and resistant hypertension. HISTORY OF PRESENT ILLNESS: To summarize, Ms. Deluna is a 76-year-old woman with a history of hypertrophic cardiomyopathy, hypertension, asthma, had essentially normal renal function. Back in December, she was admitted with hypertensive urgency. Medications were adjusted and lisinopril was added. She comes back again with swelling of the lips and is currently diagnosed with angioedema. At the time of admission, serum creatinine was 1.4, which was higher than the baseline of 0.7. Lisinopril was discontinued. She was treated medically with Solu-Medrol and the lip swelling is gradually improving. This consultation has been requested for management of the resistant hypertension. ONGOING MEDICAL PROBLEMS: Include asthma, hypertension, hypertensive cardiomyopathy. FAMILY HISTORY: Not significant to this admission. PAST SURGICAL HISTORY: Includes cataract surgery, tubal ligation, umbilical hernia repair. SOCIAL HISTORY: Lives with family. No history of any smoking or alcohol abuse. ALLERGIES: TO ASPIRIN, LISINOPRIL, AND PENICILLIN. LISINOPRIL HAS CAUSED ANGIOEDEMA, WHICH IS A NEW FEATURE. CURRENT MEDICATIONS: Reviewed. REVIEW OF SYSTEMS: Possible lip swelling. No shortness of breath. No nausea, vomiting, abdominal pain, or constipation. No urinary symptoms. No fever. No rash. All other systems were reviewed and negative. PHYSICAL EXAMINATION: GENERAL: Patient is an elderly woman. She is comfortable with swollen lips. NECK: Supple. No JVD. LUNGS: Air entry equal. No rales. HEART: S1, S2 heard. No gallop or rub. ABDOMEN: Obese, soft, nontender. EXTREMITIES: No edema. No rash. No clubbing. VITAL SIGNS: Blood pressure today was 164/80, pulse 86 per minute. LABORATORY DATA: Hemoglobin 11.8. BUN 28, creatinine 1.23, potassium 4.4, CO2 of 25. IMPRESSION: 1. A 76-year-old woman with acute kidney injury due to hypoperfusion in the setting of resistant hypertension and the recent addition of RENZO inhibitor. 2. Angioedema due to lisinopril. 3. Resistant hypertension. RECOMMENDATIONS: To avoid RENZO inhibitors and ARBs. I would add spironolactone 12.5 mg b.i.d. We can still gradually increase hydralazine to 20 mg p.o. t.i.d. and titrate the dose as needed to achieve a target blood pressure of around 130 mmHg. Avoid hypotension. Once she is hemodynamically stabilized, serum creatinine should return to baseline. Further workup will be based on the outcome of the above investigations. We will follow along with the team. Lowell Carbajal MD BPA/MODL / [id number]
[2022-01-24 11:48] VITALS: BP 176/75; PULSE 98; RESP 19; O2SAT 96
--- NOTE | 2022-01-24 13:44 | P.PNIM_ITS ---
Subjective Subjective Date of Service: 01/24/22 Interval History: seen and examined this morning Follow-up for NUSRAT, uncontrolled HTN, angioedema facial, lip swelling improving no difficulty swallowing, no shortness of breath, no drooling reporting some left side abdominal pain, denies nausea, vomiting, diarrhea Review of Systems Review of Systems: Yes all other systems are reviewed and are negative Constitutional Constitutional: Denies chills and Denies fever(s) Cardiovascular Cardiovascular: Denies chest pain, Denies palpitations and Denies dyspnea Respiratory Respiratory: Denies cough and Denies dyspnea Gastrointestinal Gastrointestinal: Denies abdominal pain, Denies nausea and Denies vomiting Endocrine Endocrine: Denies palpitations Physical Exam Vital Signs: Vital Signs: Last Vital Signs Temp 98.0 F 01/24/22 03:18 Pulse 98 01/24/22 11:48 Resp 19 01/24/22 11:48 BP 176/75 H 01/24/22 11:48 Pulse Ox 96 01/24/22 11:48 O2 Del Method 01/24/22 11:48 BMI result Body Mass Index 34.2 Const: General: cooperative, comfortable, no acute distress, alert and awake Nutritional Appearance: overweight Orientation/consciousness: patient oriented x3 HEENT: Other: no drooling, lip swelling seems to be improving Resp: Effort & Inspection: normal respiratory effort and able to speak in complete sentences Auscultation: clear to auscultation bilaterally Cardio: Rate: regular rate Heart sounds: S1 normal heart sound present and S2 normal heart sound present GI: Inspection: No distended Palpation (GI): Soft to palpation Neuro: General: patient oriented x3 and CN's II-XI intact bilaterally Extrem: Other: able to move all 4 extremities spontaneous General: Yes no pedal edema Objective Data Active Medications Acetaminophen (Acetaminophen 325 Mg Tablet) 650 mg PO Q6H PRN PRN Reason: Pain, Mild (Pain Scale 1-3) Last Admin: 01/24/22 03:34 Dose: 650 mg Documented By: MEGHNA Albuterol Sulfate (Albuterol Sulfate (0.042%) 1.25 Mg/3 Ml Vial.Neb) 1.25 mg INHALE QID [facility] Last Admin: 01/24/22 10:30 Dose: 1.25 mg Documented By: RUTH Albuterol Sulfate (Albuterol Sulfate 90 Mcg 8 Gm Inhaler) 2 puff INHALE Q4H PRN PRN Reason: wheezing Amlodipine Besylate (Amlodipine Besylate 10 Mg Tablet) 10 mg PO DAILY [facility]; Protocol Last Admin: 01/24/22 08:25 Dose: 10 mg Documented By: RENNY-RAMJORGE Diltiazem HCl (Diltiazem Hcl Cd 180 Mg Cap.Er.24h) 360 mg PO DAILY [facility]; Protocol Last Admin: 01/24/22 08:25 Dose: 360 mg Documented By: SHARYN Diphenhydramine HCl (Diphenhydramine Hcl 50 Mg/Ml Vial) 25 mg IVPUSH Q6H PRN PRN Reason: swelling,itching Last Admin: 01/23/22 04:43 Dose: 25 mg Documented By: RENETTA Comments: give now per Dr Fleming Docusate Sodium (Docusate Sodium 100 Mg Capsule) 100 mg PO DAILY [facility] Last Admin: 01/24/22 08:25 Dose: 100 mg Documented By: RENNY-FOUZIA Famotidine (Famotidine/Pf 20 Mg/2 Ml Vial) 20 mg IVPUSH BID [facility] Last Admin: 01/24/22 08:26 Dose: 20 mg Documented By: SHARYN Fluticasone Propionate (Fluticasone Propionate Nasal 16 Gm [place]) 1 spray NOSTRIL-B DAILY [facility] Last Admin: 01/24/22 08:36 Dose: Not Given Documented By: SHARYN Non-Admin Reason: Patient Refused Fluticasone/Vilanterol (Fluticasone/Vilanterol 200/25 Blst.W.Dev) 1 puff INHALE BID [facility] Last Admin: 01/24/22 08:06 Dose: Not Given Documented By: RUTH Non-Admin Reason: Patient Asleep Hydralazine HCl (Hydralazine Hcl 50 Mg Tablet) 100 mg PO BID [facility]; Protocol Last Admin: 01/24/22 08:26 Dose: 100 mg Documented By: RENNY-FOUZIA Hydrochlorothiazide (Hydrochlorothiazide 25 Mg Tablet) 25 mg PO DAILY [facility]; Protocol Last Admin: 01/24/22 08:25 Dose: 25 mg Documented By: SHARYN Lorazepam (Lorazepam 1 Mg Tablet) 1 mg PO BID PRN PRN Reason: anxiety Last Admin: 01/23/22 20:10 Dose: 1 mg Documented By: GENA Omeprazole (Omeprazole 20 Mg Capsule.) 20 mg PO DAILY [facility] Last Admin: 01/24/22 08:25 Dose: 20 mg Documented By: SHARYN Ondansetron HCl (Ondansetron Hcl 4 Mg/2 Ml Vial) 4 mg IVPUSH Q8H PRN PRN Reason: Nausea and Vomiting Pharmacy Consult (Consult Rx Perform Med Rec) 1 each MISCELLANE ONCE PRN PRN Reason: Consult order Polyethylene Glycol (Polyethylene Glycol 3350 17 Gm Powd.Pack) 17 gm PO DAILY [facility] Last Admin: 01/24/22 08:25 Dose: 17 gm Documented By: SHARYN Pravastatin Sodium (Pravastatin Sodium 20 Mg Tablet) 20 mg PO BEDTIME [facility] Last Admin: 01/23/22 20:13 Dose: 20 mg Documented By: GENA Sodium Chloride (0.9 % Sodium Chloride Flush 3 Ml Syringe) 3 ml IVFLUSH QSHIFT [facility] Last Admin: 01/24/22 07:22 Dose: Not Given Documented By: SHARYN Non-Admin Reason: IV Running Spironolactone (Spironolactone 25 Mg Tablet) 12.5 mg PO BID@0900,1800 [facility]; Protocol Last Admin: 01/24/22 08:26 Dose: 12.5 mg Documented By: SHARYN Tramadol HCl (Tramadol Hcl 50 Mg Tablet) 50 mg PO BID PRN PRN Reason: Pain, Severe (Pain Scale 7-10) Last Admin: 01/23/22 20:10 Dose: 50 mg Documented By: GENA Labs CBC & Chem 7: 01/23/22 06:17 01/24/22 09:12 Labs: Laboratory Results - last 24 hr 01/24/22 09:12 Anion Gap 18 Estim Creat Clear Calc 54.7 Estimated GFR 50 Random Glucose 189 H Calcium 9.5 Assessment and Plan (1) NUSRAT (acute kidney injury): Status: Acute (2) Angioedema: Status: Acute Plan 76-year-old female with recently admitted for? hypertensive emergency with lip swelling after recently? being placed on lisinopril angioedema-? likely secondary to lisinopril -avoid Lisinopril or ARBS or other ACEi -Benadryl or Steroid PRN NUSRAT--Pre renal, improving Creatinine 1.06 -nephrology following hypertension-difficult to control, improving but still elevated -Continue Norvasc 10 -HCTZ 25 -Hydralazine 100 bid -Restart cardizem 240 -Increase aldactone to 25 mg BID -Nephrology following given complexity of her BP management -Lisinopril d/c for angioedema abdominal pain CT scan on admission shows no acute abdominal pathology hyperlipidemia -? continue statin GERD -? continue omeprazole Pulmonary groundglass nodule of RLL seen on CT abdomen/pelvis- seen on previous imaging - recommend outpatient follow-up DVT prophylaxis: DAHIANA mitchell attending - dr. shelley Need for inpatient: Angioedema that is life threatening needs close monitroing for detelioration, also need adjustment of BP mes and hydration for renal failure Quality Stroke Does the patient have a stroke diagnosis?: No VTE Prior VTE?: No VTE Risk Level:: Medical - low VTE Device Contraindication: Treatment Not Indicated VTE Drug Contraindication: Treatment Not Indicated
[2022-01-24 14:54] VITALS: PULSE 86; RESP 18; O2SAT 96
[2022-01-24] MEDS: Spironolactone 25 MG TABLET PO (18:41)
[2022-01-24 18:42] VITALS: BP 160/65; PULSE 84; RESP 20; TEMP 36.6; O2SAT 97
[2022-01-24] MEDS: LORazepam 1 MG TABLET PO (20:11)
[2022-01-24] MEDS: traMADoL HCL 50 MG TABLET PO (20:11)
[2022-01-24] MEDS: Pravastatin Sodium 20 MG TABLET PO (20:13)
[2022-01-24 20:35] VITALS: PULSE 78; RESP 16; O2SAT 96
--- NOTE | 2022-01-24 20:35 | PC.NURSE ---
Pt walks to restroom with assistance and cane.
[2022-01-25 00:22] VITALS: BP 185/81; PULSE 85; RESP 16; O2SAT 96
[2022-01-25] MEDS: diphenhydrAMINE HCL 50 MG/ML VIAL 25 MG IVPUSH (01:42)
--- NOTE | 2022-01-25 02:10 | PC.NURSE ---
Pt having difficulty sleeping, Pt given 25 mg Benedryl Iv, see MAR
[2022-01-25 02:16] LABS: COVID-19 Test Negative (Negative); IDNOW Serial# 16C4AD1C
[2022-01-25 04:00] VITALS: BP 173/74; PULSE 93; RESP 15; TEMP 36.7; O2SAT 97
[2022-01-25 07:22] LABS: Anion Gap 15 (12-20); Blood Urea Nitrogen 28 mg/dL (9-16); Calcium 9.3 mg/dL (8.4-10.2); Carbon Dioxide 26 mmol/L (22-29); Chloride 104 mmol/L (96-108); Creatinine Clr Calc Pharmacy 59.1; Estimated Glomerular Filt Rate 55; Glucose Random 149 mg/dL (60-115); Potassium 4.3 mmol/L (3.3-5.1); Sodium 141 mmol/L (135-145)
[2022-01-25] MEDS: Fluticasone/Vilanterol 200/25 BLST.W.DEV 1 PUFF INHALE (08:08)
[2022-01-25] MEDS: Albuterol Sulfate (0.042%) 1.25 MG/3 ML VIAL.NEB INHALE ×2 (08:08→11:16)
[2022-01-25 08:10] VITALS: PULSE 71; RESP 16; O2SAT 94
[2022-01-25 08:24] VITALS: BP 147/67; PULSE 78; RESP 16; O2SAT 96
[2022-01-25] MEDS: hydrALAZINE HCl 50 MG TABLET 100 MG PO (09:06)
[2022-01-25] MEDS: Docusate Sodium 100 MG CAPSULE PO (09:07)
[2022-01-25] MEDS: Spironolactone 25 MG TABLET PO (09:07)
[2022-01-25] MEDS: dilTIAZem HCL CD 180 MG CAP.ER.24H 360 MG PO (09:07)
[2022-01-25] MEDS: Omeprazole 20 MG CAPSULE.DR PO (09:07)
[2022-01-25] MEDS: amLODIPine Besylate 10 MG TABLET PO (09:07)
[2022-01-25] MEDS: hydroCHLOROthiazide 25 MG TABLET PO (09:07)
[2022-01-25] MEDS: polyethylene glycoL 3350 17 GM POWD.PACK PO (09:14)
[2022-01-25] MEDS: Famotidine/PF 20 MG/2 ML VIAL IVPUSH (09:15)
--- NOTE | 2022-01-25 09:45 | PC.NURSE ---
PATIENT'S DAUGHTER MARIAA CALLS AND LEAVES CALLBACK NUMBER [phone]
[2022-01-25 11:20] VITALS: PULSE 71; RESP 15; O2SAT 98
[2022-01-25 11:39] VITALS: BP 178/65; PULSE 88; RESP 16; O2SAT 97
--- NOTE | 2022-01-25 12:13 | PM.DS ---
DS: Providers Provider Date of Service: 01/25/22 Date of admission: 01/22/22 20:52 Date of discharge: 01/25/22 Primary care physician: Nonstaff Physician Consults: 01/23/22 09:37 Consult to Nephrology Routine Consulting Provider: Lowell Carbajal Reason for consultation: difficult to control HTN Has provider been notified: Yes Attending physician on discharge: Taco Oconnell Discharging clinician: Malia Rangel DS: Diagnosis Discharge Diagnosis (1) NUSRAT (acute kidney injury): Status: Acute (2) Angioedema: Status: Acute DS: Summary Hospital Course Hospital Course: From H&P on day of admission Birgit is a pleasant 6-year-old female with past medical history of HTN, hypertrophic obstructive cardiomyopathy, asthma, HLD, anxiety depression, obesity who? was initially seen in the hospital at the end of December for hypertensive emergency with BP was found in the 240s over 100s.? At that time patient was discharged on? multiple antihypertensives including Norvasc, lisinopril, hydralazine as well as combination diltiazem hydrochlorothiazide pill.? She reports that she was doing well until today when she started developing tingling on her lips and developed swelling of her upper left lip.? She denies having any trouble swallowing, no difficulty breathing, no previous similar episode.? No chest pain, no palpitations, no abdominal pain nausea or vomiting, no diarrhea constipation, no urinary symptoms and no lower extremity edema.? No numbness tingling, no headache or change in vision.? On arrival to the ED patient hemodynamically stable with no significant abnormal vitals blood pressure is found to be 149/60 Labs are significant for? WBC of 9.5, creatinine of 1.41 with a baseline around 0.7, UA negative Patient given Solu-Medrol IV, Pepcid and Benadryl with no significant improvement therefore showed be admitted for further management angioedema-? likely secondary to lisinopril. lisinopril was discontinued. She was treated with Benadryl, Solu-Medrol, Pepcid With improvement in facial/ lip swelling. She had no difficulty breathing or hypoxia. She had no drooling or difficulty swallowing. She was advised to avoid Lisinopril or ARBS or other ACEi moving forward. NUSRAT--Pre renal, improved With IV fluid. Creatinine trended down from 1.4 to 0.98 hypertension- lisinopril was discontinued for angioedema. She was started on Aldactone which was titrated to 25 mg b.i.d.. She was followed by Nephrology due to difficult to control blood pressure. Blood pressure is improving but she will need ongoing outpatient blood pressure monitoring. Time Spent with Patient Time attestation: Total time spent providing and/or coordinating discharge services: Discharge coordination time: Greater than 30 minutes Quality: Safe Use of Opioids Does Pt have an Active Cancer Diagnosis on the Problem List?: No Quality: Stroke Does the patient have a stroke diagnosis?: No Physical Exam Vital Signs: Vital Signs: Last Vital Signs Temp 98.0 F 01/25/22 04:00 Pulse 88 01/25/22 11:39 Resp 16 01/25/22 11:39 BP 178/65 H 01/25/22 11:39 Pulse Ox 97 01/25/22 11:39 O2 Del Method 01/25/22 11:39 BMI result Body Mass Index 34.2 Const: General: cooperative, comfortable, no acute distress, alert and awake Nutritional Appearance: overweight Orientation/consciousness: patient oriented x3 Resp: Effort & Inspection: normal respiratory effort and able to speak in complete sentences Auscultation: clear to auscultation bilaterally Cardio: Rate: regular rate Heart sounds: S1 normal heart sound present and S2 normal heart sound present GI: Inspection: No distended Palpation (GI): Soft to palpation Neuro: General: patient oriented x3 and CN's II-XI intact bilaterally Extrem: Other: able to move all 4 extremities spontaneous General: Yes no pedal edema DS: Data Data Completed and Pending Labs on day of discharge: Laboratory Results - last 24 hr 01/25/22 01/25/22 01:57 06:16 Sodium 141 Potassium 4.3 Chloride 104 Carbon Dioxide 26 Anion Gap 15 BUN 28 H Creatinine 0.98 Estim Creat Clear Calc 59.1 Estimated GFR 55 Random Glucose 149 H Calcium 9.3 COVID-19 (BOBBY) Negative COVID-19 Clin Com See Note Discharge Plan Discharge Patient Disposition: Home, Self-Care Referrals: Jen ARNETT [Outside] - 1 Week Physician,Nonstaff [Primary Care Provider] - 1 Week Discharge Medications: New spironolactone 25 mg Tablet 25 mg PO BID@0900,1800 30 Days Qty: 60 0RF Protocol: Hold for SBP< HOLD for SBP < : 90 Continued fluticasone propionate 50 mcg/actuation spray,suspension 1 spray intranasal DAILY Qty: 16 0RF lubiprostone 8 mcg capsule 8 mcg PO DAILY Qty: 30 2RF albuterol sulfate 1.25 mg/3 mL solution for nebulization 3 ml inhalation QID diltiazem HCl [Tiadylt ER] 360 mg capsule,extended release 24 hr 1 cap PO DAILY PRN (Reason: Hypertension) tramadol 50 mg tablet 1 tab PO BID PRN (Reason: pain) hydralazine 100 mg tablet 1 tab PO BID fluticasone propion-salmeterol [Advair Diskus] 500-50 mcg/dose blister with device 1 puff inhalation BID docusate sodium 100 mg capsule 1 cap PO DAILY omeprazole 20 mg capsule,delayed release(DR/EC) 1 cap PO QAM hydrochlorothiazide 25 mg tablet 1 tab PO DAILY lorazepam 1 mg tablet 1 tab PO BID PRN (Reason: anxiety) lovastatin 20 mg tablet 1 tab PO BEDTIME albuterol sulfate [Ventolin HFA] 90 mcg/actuation HFA aerosol inhaler 2 puff PO Q4-6H PRN (Reason: wheezing) amlodipine 10 mg Tablet 10 mg PO DAILY Qty: 30 0RF Protocol: Hold for SBP< HOLD for SBP < : 90 Discharge Orders: Discharge Order (Routine); Ordered 01/25/22 Ordered By: Malia Rangel Activity on Discharge: As tolerated Stand Alone Forms: Patient Portal Discharge page Care Plan Goals: see below Health Concerns: Angioedema related to lisinopril Uncontrolled blood pressure NUSRAT Plan of Treatment: Do NOT take lisinopril or any similar medication (RENZO inhibitor or ARB) start taking spironolactone as perscribed Kidney function has improved close to baseline call to schedule follow-up appointment with PCP Assessment: see discharge summary Discharge Date/Time: 01/25/22 14:18
--- NOTE | 2022-01-25 12:18 | MHC.CM.PN ---
PT TO [facility] HOME TODAY WITH RESUMPTION OF [employer] AND [facility] [facility] FAMILY TO TRANSPORT
--- NOTE | 2022-01-25 12:31 | PM.PNNEP ---
Subjective Subjective Date of Service: 01/26/22 Interval history: events noted Physical Exam Vital Signs: Vital Signs: Last Vital Signs Temp 98.0 F 01/25/22 04:00 Pulse 88 01/25/22 11:39 Resp 16 01/25/22 11:39 BP 178/65 H 01/25/22 11:39 Pulse Ox 97 01/25/22 11:39 O2 Del Method 01/25/22 11:39 BMI result Body Mass Index 34.2 Const: General: cooperative and no acute distress HEENT: Other: left lip edema, no drooling, Eyes: General: appearance normal, both eyes and all related structures Resp: Other: no respiratory distress, no stridor Effort & Inspection: normal respiratory effort Auscultation: clear to auscultation bilaterally Cardio: Rate: regular rate Rhythm: regular rhythm GI: Palpation (GI): Soft to palpation Auscultation: normal bowel sounds Skin: General skin exam: no rashes or lesions noted Neuro: Cognition (Neuro): normal cognition Extrem: General: Yes normal to inspection and Yes no pedal edema Objective Data Labs CBC & Chem 7: 01/23/22 06:17 01/25/22 06:16 Labs: Laboratory Results - last 24 hr 01/25/22 01/25/22 01:57 06:16 Sodium 141 Potassium 4.3 Chloride 104 Carbon Dioxide 26 Anion Gap 15 BUN 28 H Creatinine 0.98 Estim Creat Clear Calc 59.1 Estimated GFR 55 Random Glucose 149 H Calcium 9.3 COVID-19 ([facility]OBBY) Negative COVID-19 Clin Com See Note Procedures Date of Service Date of Service: 01/25/22 Assessment & Plan Assessment and plan (1) Angioedema: Status: Acute Plan 76-year-old female with recently admitted for? hypertensive emergency with lip swelling after recently? being placed on lisinopril #? angioedema-? likely secondary to lisinopril -avoid Lisinopril or ARBS or other ACEi -Benedryl or Steroid PRN #? NUSRAT--Pre renal, improving, continue IVF. BS Cr <1, Presently 1.23 #? Hypertension--difficult to control -Continue Norvas 10 -HCTZ 25 -Hydralazine 100 bid cardizem 240 added Spironolactone 12.5 mg BID and increased dose to 25 mg BID on 8/11/22 and watch K DC lplanning Needs OP follow up - will arrange Time Spent With Patient Time: Total time spent is greater than 50% in coordination of care (as documented) at patient's floor/unit and/or counseling patient: Progress Note: Quality Stroke Does the patient have a stroke diagnosis?: No
[2022-01-29 23:51] LABS: C1 Esterase Inhibitor >100 % (>=68)
== END 2022-01-25 14:18 | disposition home or self-care (01) ==
LOC: HO.ED 20:49 → HO.EDOVER 21:03
PROVIDERS: Physician Assistant Medical; Admitting Provider Internal Medicine; Emergency Provider Emergency Medicine; PCP Internal Medicine; Visit Provider Physician Assistant Medical
DX: T78.3XXA Angioneurotic edema, initial encounter (principal); N17.9 Acute kidney failure, unspecified; I11.9 Hypertensive heart disease without heart failure; J45.909 Unspecified asthma, uncomplicated; I49.1 Atrial premature depolarization; I42.1 Obstructive hypertrophic cardiomyopathy; E78.5 Hyperlipidemia, unspecified; Z20.822 Contact with and (suspected) exposure to COVID-19; E66.9 Obesity, unspecified; Z68.34 Body mass index [BMI] 34.0-34.9, adult; R91.1 Solitary pulmonary nodule; Z79.899 Other long term (current) drug therapy; Z79.02 Long term (current) use of antithrombotics/antiplatelets
CPT/HCPCS: 36415; 74176; 80048; 80076; 81003; 85025; 86161; 87635; 94640; 96361; 96374; 96375; 96376; 99219; 99285; J1200; J2930

== ENCOUNTER → 2022-07-02 12:24 | Outpatient (BNVA) | payer MEDICARE, MEDICAID, SELFPAY | PROVIDERS: PCP Internal Medicine; Referring Provider Internal Medicine; Visit Provider Internal Medicine Cardiovascular Disease | DX: I11.9 Hypertensive heart disease without heart failure (principal); Z79.899 Other long term (current) drug therapy | CPT/HCPCS: 99212 ==

== ENCOUNTER 2022-12-11 13:55 | Outpatient (REF) | payer MEDICARE, MEDICAID, SELFPAY ==
[2022-12-11 14:17] LABS: MANUAL DIFF FLAG NO
[2022-12-11 14:34] LABS: Basophils Percent Auto 0.6 % (0-2); Eosinophils Absolute Auto 0.1 X10*3/uL (0.0-0.4); Eosinophils Percent Auto 1.5 % (0-4); Imm Gran Abs Auto 0.02 X10*3/uL (0.00-0.03); Imm Gran Pct Auto 0.3 % (0.0-0.4); Lymphocytes Absolute Auto 2.3 X10*3/uL (1.2-4.9); Lymphocytes Percent Auto 34.8 % (20-40); Mean Corpuscular HGB Conc 30.8 g/dl (31.0-35.0); Mean Corpuscular Volume 94.2 fL (80.0-98.0); Monocytes Absolute Auto 0.5 X10*3/uL (0.1-1.2); Monocytes Percent Auto 7.3 % (2-11); Neutrophils Absolute Auto 3.6 x10*3/uL (2.0-8.3); Neutrophils Percent Auto 55.5 % (45-73); Platelet Count 295 X10*3/uL (160-400); Red Blood Count 4.14 X10*6/uL (4.20-5.50); Red Cell Distribution Width 12.7 % (11.0-16.0); White Blood Count 6.6 X10*3/uL (4.8-10.8)
[2022-12-11 15:09] LABS: Alanine Aminotransferase 7 U/L (0-31); Albumin Level 4.4 g/dL (3.5-5.0); Alkaline Phosphatase 73 U/L (39-117); Anion Gap 14 (12-20); Aspartate Amino Transferase 12 U/L (5-31); Bilirubin Total 0.9 mg/dL (0.0-1.0); Blood Urea Nitrogen 16 mg/dL (9-16); Calcium 10.4 mg/dL (8.4-10.2); Carbon Dioxide 27 mmol/L (22-29); Chloride 107 mmol/L (96-108); Cholesterol 222 mg/dL; Estimated Glomerular Filt Rate > 60; Glucose Fasting 111 mg/dL (60-99); HDL Cholesterol 53 mg/dL; LDL Cholesterol Calculated 150 mg/dl; Potassium 4.1 mmol/L (3.3-5.1); Sodium 144 mmol/L (135-145); Total Protein 7.4 g/dL (6.5-8.0); Triglycerides 96 mg/dL
[2022-12-11 15:23] LABS: Thyroid Stimulating Hormone 1.26 uIU/mL (0.32-4.0)
== END 2022-12-11 13:56 | disposition home or self-care (01) ==
LOC: HO.LAB 13:55
PROVIDERS: PCP Internal Medicine; Visit Provider Internal Medicine
DX: D64.9 Anemia, unspecified (principal); N28.9 Disorder of kidney and ureter, unspecified; E78.5 Hyperlipidemia, unspecified; E03.9 Hypothyroidism, unspecified
CPT/HCPCS: 36415; 80053; 80061; 84443; 85025

== ENCOUNTER 2022-12-26 14:41 | Outpatient (AMB) | payer MEDICARE, MEDICAID, SELFPAY ==
--- NOTE | 2022-12-26 14:51 | A.OFFVIS_ITS ---
Intake Vital Signs 12/26/22 14:52 Height 5 ft 6 in Weight 200 lb 9.93 oz BMI 32.4 BP 140/78 H Blood Pressure Location Lt brachial Position Sitting Pulse 59 Intake Visit Reasons: 6 mth f/up Intake Note: 6 month follow-up with ekg Video Presentation Operator Required: No Allergies Penicillins [PENICILLINS] Allergy (Mild, Verified 12/11/22 13:29) ITCHINESS aspirin [ASPIRIN] Allergy (Unknown, Verified 12/11/22 13:29) VOMITING Lisinopril Adverse Reaction (Severe, Uncoded 12/11/22 13:29) Angioedema Medication List - Last Reconciled 12/26/22 by Varinder Joshi MD albuterol sulfate 90 mcg/actuation (Ventolin HFA) 2 puffs PO Q4-6H PRN albuterol sulfate 1.25 mg (3 mL) inhalation QID benzonatate 100 mg PO TID PRN commode (bedside commode) As directed diaper,brief,adult,disposable Change as needed diltiazem HCl ER (Tiadylt ER) 360 mg PO DAILY docusate sodium 1 cap PO DAILY fluticasone propion-salmeterol 500-50 mcg/dose (Advair Diskus) 1 ea PO BID fluticasone propionate 50 mcg/actuation 1 spray intranasal DAILY hydralazine 100 mg PO BID hydroxyzine HCl 25 mg PO QID PRN labetalol 100 mg PO BID lorazepam 1 mg PO Q12H PRN lovastatin 20 mg PO BEDTIME lubiprostone 8 mcg PO DAILY omeprazole 20 mg PO QAM polyethylene glycol 3350 (Miralax) 17 grams PO DAILY Shower Chair As directed spironolactone 25 mg See Protocol PO BID@0900,1800 30 days tobramycin 0.3% 1 drp ophthalmic (eye) Q4H tramadol 50 mg PO BID PRN underpads (Bed Underpads) As directed HPI HPI Comments History of Present Illness Details Sara comes for follow-up. She has been taking all her medications. She does complain of getting fatigued and tired. However she is taking all medication. Blood pressure is much better control. Denies any orthopnea, PND, leg edema. Does get exertional shortness of breath. No exertional chest pain. No lightheadedness, syncope. She is to undergo extraction of multiple teeth in near future [facility] Medical History Asthma Fatigue HTN (hypertension) Hypertensive heart disease Mild HOCM (hypertrophic obstructive cardiomyopathy) PAC (premature atrial contraction) Surgical History History of left cataract surgery History of tubal ligation History of umbilical hernia repair Family History Father No problems noted. Mother No problems noted. Social History Household Members: Family Household Members Other:: grandson Housing: Apartment Do you presently have visiting nurse or other home services: No Alcohol intake: never Patient Tobacco Use Status: Never used Tobacco e-Cigarette/Vaping Use: Never Used Second Hand Smoke Exposure: No service: No Current occupational status: retired Cognitive needs: Yes (cane) Hearing needs: No Vision needs: Yes Review of Systems Const Denies chills, Denies fatigue, Denies fever(s), Denies frequent falls, Denies weakness, Denies weight gain and Denies weight loss ENT Denies dizziness Card Denies chest pain, Denies leg edema, Denies lightheadedness, Denies palpitations, Denies dyspnea, Denies dyspnea on exertion, Denies orthopnea and Denies other (loss of consciousness) Resp Denies cough, Denies dyspnea and Denies dyspnea on exertion GI Denies hematochezia and Denies change in stool character Musc Denies abnormal gait, Denies muscle weakness, Denies numbness, Denies radiating pain into limb and Denies tingling Neuro Denies abnormal gait, Denies dizziness, Denies frequent falls, Denies numbness, Denies tingling and Denies weakness Endo Denies fatigue and Denies palpitations Physical Exam Vital Signs: Last Vital Signs Pulse 59 12/26/22 14:52 BP 140/78 H 12/26/22 14:52 BMI result Body Mass Index 32.4 Const General: cooperative, comfortable, no acute distress, alert and awake Nutritional Appearance: obese Orientation/consciousness: patient oriented x3 Limitations: ambulation with cane Neck Neck: Yes trachea midline, Yes supple and Yes no JVD Resp Effort & Inspection: normal respiratory effort Auscultation: wheezes expiratory wheezes ( right lower posterior lung field) and diminished lung sounds Cardio Jugular venous distension: no JVD Palpation: normal PMI Rate: regular rate Rhythm: regular rhythm Heart sounds: S1 normal heart sound present, S2 normal heart sound present, no click, no gallops and Murmur heart sound present systolic GI Auscultation: normal bowel sounds Neuro General: patient oriented x3 and no focal motor deficits Extrem General: No clubbing, No cyanosis and Yes pedal edema Office Procedures EKG Details: EKG shows normal sinus rhythm nonspecific ST T wave changes [id number], Complete Assessment & Plan Assessment & Plan (1) Hypertensive heart disease: Code(s): I11.9 - Hypertensive heart disease without heart failure Plan: Hypertensive heart disease with mild obstructive physiology at the mid cavitary level related hypertensive heart disease. Clinically doing well without any signs of heart failure. Continue aggressive control blood pressure. Currently on multiple antihypertensives and doing well from the same perspective. Advised to monitor blood pressure at home maintain a log. Target goal blood pressure less than 140/84. Signs and symptoms of heart failure were discussed. She understands and agrees. Continue maintain activity level as tolerated. Advised low-salt diet. (2) Preoperative cardiovascular examination: Code(s): Z01.810 - Encounter for preprocedural cardiovascular examination Plan: Preoperative cardiovascular risk stratification prior to dental extraction. This is considered low risk surgery. She is currently optimized from cardiac perspective to undergo this procedure. Advised to continue all her medications in the preoperative phase to avoid hypertensive urgency during the procedure. She understands agrees. Will follow up in the clinic in 1 year's time after an echocardiogram. Thank you for allowing me to partake in her care Coding Level of Care Code Est Pt Level 4 (95640) Diagnoses Hypertensive heart disease I11.9 Preoperative cardiovascular examination Z01.810 CPT Codes EKG - CPT: [id number], Complete ([id number])
[2022-12-26 14:52] VITALS: BP 140/78; PULSE 59; BMI 32.4
== END 2022-12-26 15:21 | disposition home or self-care (01) ==
PROVIDERS: Visit Provider Internal Medicine Cardiovascular Disease
DX: I11.9 Hypertensive heart disease without heart failure (principal); Z01.810 Encounter for preprocedural cardiovascular examination
CPT/HCPCS: 93010; 99214

== ENCOUNTER → 2022-12-26 14:41 | Outpatient (BNVA) | payer MEDICARE, MEDICAID, SELFPAY | PROVIDERS: Visit Provider Internal Medicine Cardiovascular Disease | DX: Z01.810 Encounter for preprocedural cardiovascular examination (principal); I11.9 Hypertensive heart disease without heart failure | CPT/HCPCS: 93005; 99212 ==

== ENCOUNTER 2023-01-14 13:17 | Outpatient (AMB) | payer MEDICARE, MEDICAID, SELFPAY ==
--- NOTE | 2023-01-14 13:19 | A.OFFPC_ITS ---
Vital Signs 01/14/23 13:20 Height 5 ft 6 in Weight 199 lb 8 oz BMI 32.2 BP 130/62 Blood Pressure Location Lt brachial Position Sitting Pulse 73 Pulse Source Pulse Oximeter Pulse Oximetry (%) 97 Oxygen Delivery Method Room Air Intake Visit Reasons: fatigue and dizziness at times Intake Note: Patient is here today for fatigue and dizziness at times Computer Network Specialist Required: No Drill Operator Automatic: Not Required per policy Accompanied by: Self / Same As Patient Allergies Penicillins [PENICILLINS] Allergy (Mild, Verified 01/14/23 13:20) ITCHINESS aspirin [ASPIRIN] Allergy (Unknown, Verified 01/14/23 13:20) VOMITING Lisinopril Adverse Reaction (Severe, Uncoded 01/14/23 13:20) Angioedema Medication List - Last Reconciled 01/14/23 by Claude Hatch MD albuterol sulfate 90 mcg/actuation (Ventolin HFA) 2 puffs PO Q4-6H PRN albuterol sulfate 1.25 mg (3 mL) inhalation QID benzonatate 100 mg PO TID PRN commode (bedside commode) As directed diaper,brief,adult,disposable Change as needed diltiazem HCl ER (Tiadylt ER) 360 mg PO DAILY docusate sodium 1 cap PO DAILY fluticasone propion-salmeterol 500-50 mcg/dose (Advair Diskus) 1 ea PO BID fluticasone propionate 50 mcg/actuation 1 spray intranasal DAILY hydralazine 100 mg PO BID hydroxyzine HCl 25 mg PO QID PRN labetalol 100 mg PO BID lorazepam 1 mg PO Q12H PRN lovastatin 20 mg PO BEDTIME lubiprostone 8 mcg PO DAILY omeprazole 20 mg PO QAM polyethylene glycol 3350 (Miralax) 17 grams PO DAILY Shower Chair As directed spironolactone 25 mg See Protocol PO BID@0900,1800 30 days tobramycin 0.3% 1 drp ophthalmic (eye) Q4H tramadol 50 mg PO BID PRN underpads (Bed Underpads) As directed Tobacco use date assessed: 01/14/23 Fall risk assessment: No Falls in past year Last assessed Fall Risk: 01/14/23 HPI fatigue and dizziness at times HPI Details vertigo for a few weeks PFSH Medical History Asthma Fatigue HTN (hypertension) Hypertensive heart disease Mild HOCM (hypertrophic obstructive cardiomyopathy) PAC (premature atrial contraction) Surgical History History of left cataract surgery History of tubal ligation History of umbilical hernia repair Family History Father No problems noted. Mother No problems noted. Social History Household Members: Family Household Members Other:: grandson Housing: Apartment Do you presently have visiting nurse or other home services: No Alcohol intake: never Patient Tobacco Use Status: Never used Tobacco e-Cigarette/Vaping Use: Never Used Second Hand Smoke Exposure: No service: No Current occupational status: retired Cognitive needs: Yes (cane) Hearing needs: No Vision needs: Yes Questionnaire PHQ-9 Over the last 2 weeks, how often have you been bothered by any of the following problems? Depression Screening Interpretation: Negative Source: Developed by Drs. Jay Boggs, Jeanie Sheridan, Tal Marquis and colleagues, with an educational naty from [employer]. Thrive Questionnaire Date Thrive assessed: 07/02/22 Currently or been in a relationship where the following occur: no concerns reported CARMENCITA-7 AMB Questionnaire CARMENCITA-7 Date CARMENCITA - 7 assessed: 07/02/22 Source: Developed by Drs. Jay Boggs, Jeanie Sheridan, Tal Marquis and colleagues, with an educational naty from [employer]. Review of Systems Const Denies chills, Denies headache(s) and Denies weight loss ENT Denies headache(s) Card Denies chest pain, Denies syncope, Denies irregular heart rhythm and Denies dyspnea Resp Denies chest congestion, Denies cough and Denies dyspnea GI Denies abdominal pain, Denies change in stool character, Denies nausea and Denies vomiting Musc Denies deformity and Denies joint swelling Neuro Denies syncope and Denies headache(s) Physical exam (Primary Care) Vital Signs: Last Vital Signs Pulse 73 01/14/23 13:20 BP 130/62 01/14/23 13:20 Pulse Ox 97 01/14/23 13:20 Oxygen Delivery Method Room Air 01/14/23 13:20 BMI result Body Mass Index 32.2 Tobacco/Smoking Status: Tobacco use Status Tobacco use date assessed 01/14/23 01/14/23 13:24 Patient Tobacco Use Status Never used Tobacco 01/14/23 13:24 e-Cigarette/Vaping Use Never Used 01/14/23 13:24 Depression Screening Interpretation: Negative Thrive Assessment: Date of Thrive Assessment Date Thrive assessed 07/02/22 01/14/23 13:24 Currently or been in a relationship where the following occur: no concerns reported Const General: cooperative, comfortable and no acute distress Resp Effort & Inspection: normal respiratory effort Auscultation: clear to auscultation bilaterally and tactile fremitus present tactile fremitus present: tactile fremitus present Cardio Jugular venous distension: no JVD Rate: regular rate Rhythm: regular rhythm Assessment and Plan Assessment & Plan (1) Vertigo: Code(s): R42 - Dizziness and giddiness Plan: take rx Medications: New meclizine 25 mg PO BID-QID PRN 30 tabs 2RF dizziness Coding Level of Care Code Est Pt Level 3 (34471) Diagnoses Vertigo R42
[2023-01-14 13:20] VITALS: BP 130/62; PULSE 73; O2SAT 97; BMI 32.2
== END 2023-01-14 13:36 | disposition home or self-care (01) ==
PROVIDERS: PCP Internal Medicine; Visit Provider Internal Medicine
DX: R42 Dizziness and giddiness (principal)
CPT/HCPCS: 99213

== ENCOUNTER 2023-03-13 13:29 | Outpatient (AMB) | payer MEDICARE, MEDICAID, SELFPAY ==
[2023-03-13 13:31] VITALS: BP 144/70; PULSE 70; O2SAT 99; BMI 32.3
--- NOTE | 2023-03-13 13:31 | MHC.PC.OV ---
Vital Signs 03/13/23 13:31 Height 5 ft 6 in Weight 200 lb BMI 32.3 BP 144/70 H Blood Pressure Location Lt brachial Position Sitting Pulse 70 Pulse Source Pulse Oximeter Pulse Oximetry (%) 99 Oxygen Delivery Method Room Air Intake Visit Reasons: 3mth f/u Senior Data Quality Analyst: Not Required per policy Accompanied by: Self / Same As Patient Allergies Penicillins [PENICILLINS] Allergy (Mild, Verified 03/13/23 13:31) ITCHINESS aspirin [ASPIRIN] Allergy (Unknown, Verified 03/13/23 13:31) VOMITING Lisinopril Adverse Reaction (Severe, Uncoded 03/13/23 13:31) Angioedema Medication List - Last Reconciled 03/13/23 by Claude Hatch MD albuterol sulfate 1.25 mg (3 mL) inhalation QID albuterol sulfate 90 mcg/actuation (Ventolin HFA) 2 puffs PO Q4-6H PRN benzonatate 100 mg PO TID PRN commode (bedside commode) As directed diaper,brief,adult,disposable Change as needed diltiazem HCl ER (Tiadylt ER) 360 mg PO DAILY docusate sodium 100 mg PO DAILY fluticasone propion-salmeterol 500-50 mcg/dose (Advair Diskus) 1 ea PO BID fluticasone propionate 50 mcg/actuation 1 spray intranasal DAILY hydralazine 100 mg PO BID hydroxyzine HCl 25 mg PO QID PRN labetalol 100 mg PO BID lorazepam 1 mg PO Q12H PRN lovastatin 20 mg PO BEDTIME lubiprostone 8 mcg PO DAILY meclizine 25 mg PO BID-QID PRN omeprazole 20 mg PO QAM polyethylene glycol 3350 (Miralax) 17 grams PO DAILY Shower Chair As directed spironolactone 25 mg See Protocol PO BID@0900,1800 30 days tobramycin 0.3% 1 drp ophthalmic (eye) Q4H tramadol 50 mg PO BID PRN underpads (Bed Underpads) As directed Tobacco use date assessed: 01/14/23 Fall risk assessment: No Falls in past year Last assessed Fall Risk: 03/13/23 Dental Screening Dental Screen Date: 03/13/23 Did you have a dental visit in the last 12 months?: No Did you have a dental problem in the last 6 months where you did not have access to dental care?: No Was dental information given to patient?: Patient has dentist HPI 3mth f/u HPI Details HTN on Rx; doing well; compliant [facility] Medical History Fatigue PAC (premature atrial contraction) HTN (hypertension) Hypertensive heart disease Mild HOCM (hypertrophic obstructive cardiomyopathy) Asthma Surgical History History of left cataract surgery History of umbilical hernia repair History of tubal ligation Family History Father No problems noted. Mother No problems noted. Social History Household Members: Family Household Members Other:: grandson Housing: Apartment Do you presently have visiting nurse or other home services: No Alcohol intake: never Patient Tobacco Use Status: Never used Tobacco e-Cigarette/Vaping Use: Never Used Second Hand Smoke Exposure: No service: No Current occupational status: retired Cognitive needs: Yes (cane) Hearing needs: No Vision needs: Yes Questionnaire PHQ-9 Over the last 2 weeks, how often have you been bothered by any of the following problems? 1. Little interest or pleasure in doing things: not at all 2. Feeling down, depressed, or hopeless: not at all 3. Trouble falling or staying asleep, or sleeping too much: not at all 4. Feeling tired or having little energy: not at all 5. Poor appetite or overeating: not at all 6. Feeling bad about yourself - or that you are a failure or have let yourself or your family down: not at all 7. Trouble concentrating on things, such as reading the newspaper or watching television: not at all 8. Moving or speaking so slowly that other people could have noticed. Or the opposite - being so fidgety or restless that you have been moving around a lot more than usual: not at all 9. Thoughts that you would be better off or of hurting yourself in some way: not at all Total score: 0 Depression Screening Interpretation: Negative Source: Developed by Drs. Jay Boggs, Tal Flores and colleagues, with an educational naty from [employer]. Thrive Questionnaire Date Thrive assessed: 07/02/22 AUDIT C Alcohol Use Questionnaire (AUDIT-C) 1. How often do you have a drink containing alcohol?: Never 3. How often do you have six or more drinks on one occasion?: Never Total Score: 0 Score Reviewed/Action Taken: Yes CARMENCITA-7 AMB Questionnaire CARMENCITA-7 Date CARMENCITA - 7 assessed: 07/02/22 Source: Developed by Drs. Jay Boggs, Tal Flores and colleagues, with an educational naty from [employer]. Review of Systems Const Denies chills, Denies headache(s) and Denies weight loss ENT Denies headache(s) Card Denies chest pain, Denies syncope, Denies irregular heart rhythm and Denies dyspnea Resp Denies chest congestion, Denies cough and Denies dyspnea GI Denies abdominal pain, Denies change in stool character, Denies nausea and Denies vomiting Musc Denies deformity and Denies joint swelling Neuro Denies syncope and Denies headache(s) Physical exam (Primary Care) Vital Signs: Last Vital Signs Pulse 70 03/13/23 13:31 BP 144/70 H 03/13/23 13:31 Pulse Ox 99 03/13/23 13:31 Oxygen Delivery Method Room Air 03/13/23 13:31 BMI result Body Mass Index 32.3 Tobacco/Smoking Status: Tobacco use Status Tobacco use date assessed 01/14/23 03/13/23 13:36 Patient Tobacco Use Status Never used Tobacco 03/13/23 13:36 e-Cigarette/Vaping Use Never Used 03/13/23 13:36 PHQ-9: PHQ-9 Score PHQ-9: Total score 0 03/13/23 13:37 Depression Screening Interpretation: Negative Thrive Assessment: Date of Thrive Assessment Date Thrive assessed 07/02/22 03/13/23 13:36 Const General: cooperative, comfortable, no acute distress and alert Neck Neck: Yes no lymphadenopathy Thyroid: Thyroid normal Resp Effort & Inspection: normal respiratory effort Auscultation: clear to auscultation bilaterally Percussion: percussion normal Cardio Jugular venous distension: no JVD Palpation: normal PMI Rate: regular rate Rhythm: regular rhythm Heart sounds: S1 normal heart sound present and S2 normal heart sound present GI Inspection: Yes normal to inspection Palpation (GI): No hepatosplenomegaly present Skin General skin exam: no rashes or lesions noted Extrem General: Yes no clubbing, cyanosis or edema Assessment and Plan Assessment & Plan (1) HTN (hypertension): Code(s): I10 - Essential (primary) hypertension Plan: stable; same rx Orders: Orders Comprehensive [place]. Panel Fast Today N28.9 - Disorder of kidney and ureter, unspecified Complete Blood Count Auto Diff Today D64.9 - Anemia, unspecified Thyroid Stimulating Hormone Today E03.9 - Hypothyroidism, unspecified Lipid Panel Today E78.5 - Hyperlipidemia, unspecified Medications: New azithromycin take 500 mg today (day 1), then 250 mg for 4 days (days 2-5) PO 6 tabs 0RF Refilled albuterol sulfate 90 mcg/actuation (Ventolin HFA) 2 puffs PO Q4-6H PRN 8.5 grams 7RF wheezing Coding Level of Care Code Est Pt Level 3 (85387) Diagnoses HTN (hypertension) I10
== END 2023-03-13 13:42 | disposition home or self-care (01) ==
PROVIDERS: PCP Internal Medicine; Visit Provider Internal Medicine
DX: I10 Essential (primary) hypertension (principal)
CPT/HCPCS: 99213

== ENCOUNTER 2023-07-16 11:26 | Outpatient (AMB) | payer MEDICARE, MEDICAID, SELFPAY ==
[2023-07-16 11:28] VITALS: BP 142/80; PULSE 57; O2SAT 98; BMI 34.4
--- NOTE | 2023-07-16 11:28 | A.OFFPC_ITS ---
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 Required: No Solder Sprayer: Not Required per policy Accompanied by: Self / Same As Patient Allergies Penicillins [PENICILLINS] Allergy (Mild, Verified 07/16/23 11:29) ITCHINESS aspirin [ASPIRIN] Allergy (Unknown, Verified 07/16/23 11:29) VOMITING Lisinopril Adverse Reaction (Severe, Uncoded 07/16/23 11:29) Angioedema Medication List - Last Reconciled 07/16/23 by Claude Hatch MD albuterol sulfate 90 mcg/actuation (Ventolin HFA) 2 puffs PO Q4-6H PRN albuterol sulfate 1.25 mg (3 mL) inhalation QID benzonatate 100 mg PO TID PRN commode (bedside commode) As directed diaper,brief,adult,disposable Change as needed diltiazem HCl ER (Tiadylt ER) 360 mg PO DAILY docusate sodium 100 mg PO DAILY fluticasone propion-salmeterol 500-50 mcg/dose (Advair Diskus) 1 ea PO BID fluticasone propionate 50 mcg/actuation 1 spray intranasal DAILY hydralazine 100 mg PO BID hydroxyzine HCl 25 mg PO QID PRN labetalol 100 mg PO BID lorazepam 1 mg PO Q12H PRN lovastatin 20 mg PO BEDTIME lubiprostone 8 mcg PO DAILY meclizine 25 mg PO BID-QID PRN omeprazole 20 mg PO QAM polyethylene glycol 3350 (Miralax) 17 grams PO DAILY Shower Chair As directed spironolactone 25 mg See Protocol PO BID@0900,1800 30 days tobramycin 0.3% 1 drp ophthalmic (eye) Q4H tramadol 50 mg PO BID PRN underpads (Bed Underpads) As directed Tobacco use date assessed: 07/16/23 Fall risk assessment: No Falls in past year Last assessed Fall Risk: 07/16/23 Dental Screening Dental Screen Date: 07/16/23 Did you have a dental visit in the last 12 months?: Yes Did you have a dental problem in the last 6 months where you did not have access to dental care?: No Was dental information given to patient?: Patient has dentist HPI 3 month f/u ( meds) HPI Details asthma htn and anxiety on rx; doing well and compliant [facility] Medical History Fatigue PAC (premature atrial contraction) HTN (hypertension) Hypertensive heart disease Mild HOCM (hypertrophic obstructive cardiomyopathy) Asthma Surgical History History of left cataract surgery History of umbilical hernia repair History of tubal ligation Family History Father No problems noted. Mother No problems noted. Social History Household Members: Family Household Members Other:: grandson Housing: Apartment Do you presently have visiting nurse or other home services: No Alcohol intake: never Patient Tobacco Use Status: Never used Tobacco e-Cigarette/Vaping Use: Never Used Second Hand Smoke Exposure: No service: No Current occupational status: retired Cognitive needs: Yes (cane) Hearing needs: No Vision needs: Yes Questionnaire PHQ-9 Over the last 2 weeks, how often have you been bothered by any of the following problems? 1. Little interest or pleasure in doing things: nearly every day 2. Feeling down, depressed, or hopeless: nearly every day 3. Trouble falling or staying asleep, or sleeping too much: more than half the days 4. Feeling tired or having little energy: more than half the days 5. Poor appetite or overeating: more than half the days 6. Feeling bad about yourself - or that you are a failure or have let yourself or your family down: more than half the days 7. Trouble concentrating on things, such as reading the newspaper or watching television: several days 8. Moving or speaking so slowly that other people could have noticed. Or the opposite - being so fidgety or restless that you have been moving around a lot more than usual: not at all 9. Thoughts that you would be better off or of hurting yourself in some way: not at all Total score: 15 Source: Developed by Drs. Jay Boggs, Tal Flores and colleagues, with an educational naty from [employer]. Thrive Questionnaire Date Thrive assessed: 07/16/23 I am a: Patient What is your living situation today?: I have a steady place to live Within the past 12 months, did the food you bought not last and you didn't have the money to get more?: Never true Within the past 12 months, did you worry whether your food would run out before you got money to buy more?: Never true Do you have trouble paying for medicines?: No Do you have trouble getting transportation to medical appointments?: No Do you have trouble paying your heating and electricity bill?: No Do you have trouble taking care of your child, family member or friend?: No Do you have trouble with day-to-day activities such as bathing, preparing meals, shopping, managing finances, etc.?: No Are you currently unemployed and looking for a job?: No Are you interested in more education?: No Please select the resources that you would like help with: None THRIVE Score: 0 AUDIT C Alcohol Use Questionnaire (AUDIT-C) 1. How often do you have a drink containing alcohol?: Never 3. How often do you have six or more drinks on one occasion?: Never Total Score: 0 Score Reviewed/Action Taken: Yes CARMENCITA-7 AMB Questionnaire CARMENCITA-7 Date CARMENCITA - 7 assessed: 07/16/23 Feeling nervous, anxious, or on edge: 0 = Not at all Not being able to stop or control worryin = Not at all Worrying too much about different things: 0 = Not at all Trouble relaxin = Not at all Being so restless that it is hard to sit still: 0 = Not at all Becoming easily annoyed or irritable: 0 = Not at all Feeling afraid as if something awful might happen: 0 = Not at all Total CARMENCITA-7 score (0-4 normal; 5-9 mild; 10-14 moderate; 15-21 severe): 0 Source: Developed by Drs. Jay Boggs, Tal Flores and colleagues, with an educational naty from [employer]. Review of Systems Const Denies chills, Denies headache(s) and Denies weight loss ENT Denies headache(s) Card Denies chest pain, Denies syncope, Denies irregular heart rhythm and Denies dyspnea Resp Denies chest congestion, Denies cough and Denies dyspnea GI Denies abdominal pain, Denies change in stool character, Denies nausea and Denies vomiting Musc Denies deformity and Denies joint swelling Neuro Denies syncope and Denies headache(s) Physical exam (Primary Care) Vital Signs: Last Vital Signs Pulse 57 07/16/23 11:28 BP 142/80 H 07/16/23 11:28 Pulse Ox 98 07/16/23 11:28 Oxygen Delivery Method Room Air 07/16/23 11:28 BMI result Body Mass Index 34.4 Tobacco/Smoking Status: Tobacco use Status Tobacco use date assessed 07/16/23 07/16/23 11:30 Patient Tobacco Use Status Never used Tobacco 07/16/23 11:30 e-Cigarette/Vaping Use Never Used 07/16/23 11:30 PHQ-9: PHQ-9 Score PHQ-9: Total score 15 07/16/23 11:36 Thrive Assessment: Date of Thrive Assessment Date Thrive assessed 07/16/23 07/16/23 11:30 Const General: cooperative, comfortable, no acute distress and alert Neck Neck: Yes no lymphadenopathy Thyroid: Thyroid normal Resp Effort & Inspection: normal respiratory effort Auscultation: clear to auscultation bilaterally Percussion: percussion normal Cardio Jugular venous distension: no JVD Palpation: normal PMI Rate: regular rate Rhythm: regular rhythm Heart sounds: S1 normal heart sound present and S2 normal heart sound present GI Inspection: Yes normal to inspection Palpation (GI): No hepatosplenomegaly present Skin General skin exam: no rashes or lesions noted Extrem General: Yes no clubbing, cyanosis or edema Assessment and Plan Assessment & Plan (1) Asthma: Code(s): J45.909 - Unspecified asthma, uncomplicated Plan: stable; same rx (2) HTN (hypertension): Code(s): I10 - Essential (primary) hypertension Plan: stable; same rx (3) Anxiety: Code(s): F41.9 - Anxiety disorder, unspecified Plan: stable; same rx Orders: Orders Lipid Panel Today E78.5 - Hyperlipidemia, unspecified Complete Blood Count Auto Diff Today D64.9 - Anemia, unspecified Comprehensive [place]. Panel Fast Today N28.9 - Disorder of kidney and ureter, unspecified Medications: New azithromycin take 500 mg today (day 1), then 250 mg for 4 days (days 2-5) PO 6 tabs 0RF Refilled albuterol sulfate 90 mcg/actuation (Ventolin HFA) 2 puffs PO Q4-6H PRN 8.5 grams 7RF wheezing albuterol sulfate 1.25 mg (3 mL) inhalation QID 90 mL 3RF J45.909 - Unspecified asthma, uncomplicated, R06.2 - Wheezing Coding Level of Care Code Est Pt Level 4 (60512) Diagnoses Asthma J45.909 HTN (hypertension) I10 Anxiety F41.9
== END 2023-07-16 11:46 | disposition home or self-care (01) ==
PROVIDERS: PCP Internal Medicine; Visit Provider Internal Medicine
DX: J45.909 Unspecified asthma, uncomplicated (principal); I10 Essential (primary) hypertension; F41.9 Anxiety disorder, unspecified
CPT/HCPCS: 99214

== ENCOUNTER 2023-09-08 10:37 | Outpatient (AMB) | payer MEDICARE, MEDICAID, SELFPAY ==
[2023-09-08 10:43] VITALS: BP 160/80; PULSE 60; O2SAT 97; BMI 33.2
--- NOTE | 2023-09-08 10:43 | A.OFFPC_ITS ---
Vital Signs 09/08/23 10:43 Height 5 ft 6 in Weight 206 lb BMI 33.2 BP 160/80 H Blood Pressure Location Lt brachial Position Sitting Pulse 60 Pulse Source Pulse Oximeter Pulse Oximetry (%) 97 Oxygen Delivery Method Room Air Intake Visit Reasons: bilateral eye blockage Press Operator Instant Print Shop Required: No Dot Net Developer: Not Required per policy Accompanied by: Self / Same As Patient Allergies Penicillins [PENICILLINS] Allergy (Mild, Verified 09/08/23 10:43) ITCHINESS aspirin [ASPIRIN] Allergy (Unknown, Verified 09/08/23 10:43) VOMITING Lisinopril Adverse Reaction (Severe, Uncoded 09/08/23 10:43) Angioedema Tobacco use date assessed: 07/16/23 Fall risk assessment: No Falls in past year Last assessed Fall Risk: 09/08/23 Dental Screening Dental Screen Date: 09/08/23 Did you have a dental visit in the last 12 months?: No Did you have a dental problem in the last 6 months where you did not have access to dental care?: No Was dental information given to patient?: Patient has dentist HPI bilateral eye blockage HPI Details bilat ear blockage for a week [facility] Medical History Fatigue PAC (premature atrial contraction) HTN (hypertension) Hypertensive heart disease Mild HOCM (hypertrophic obstructive cardiomyopathy) Asthma Surgical History History of left cataract surgery History of umbilical hernia repair History of tubal ligation Family History Father No problems noted. Mother No problems noted. Social History Household Members: Family Household Members Other:: grandson Housing: Apartment Do you presently have visiting nurse or other home services: No Alcohol intake: never Patient Tobacco Use Status: Never used Tobacco e-Cigarette/Vaping Use: Never Used Second Hand Smoke Exposure: No service: No Current occupational status: retired Cognitive needs: Yes (cane) Hearing needs: No Vision needs: Yes Questionnaire Thrive Questionnaire Date Thrive assessed: 07/16/23 CARMENCITA-7 AMB Questionnaire CARMENCITA-7 Date CARMENCITA - 7 assessed: 07/16/23 Source: Developed by Drs. Jay Boggs, Jeanie Sheridan, Tal Marquis and colleagues, with an educational naty from [employer]. Review of Systems Const Denies chills, Denies headache(s) and Denies weight loss ENT Denies headache(s) Card Denies chest pain, Denies syncope, Denies irregular heart rhythm and Denies dyspnea Resp Denies chest congestion, Denies cough and Denies dyspnea GI Denies abdominal pain, Denies change in stool character, Denies nausea and Denies vomiting Musc Denies deformity and Denies joint swelling Neuro Denies syncope and Denies headache(s) Physical exam (Primary Care) Vital Signs: Last Vital Signs Pulse 60 09/08/23 10:43 BP 160/80 H 09/08/23 10:43 Pulse Ox 97 09/08/23 10:43 Oxygen Delivery Method Room Air 09/08/23 10:43 BMI result Body Mass Index 33.2 Tobacco/Smoking Status: Tobacco use Status Tobacco use date assessed 07/16/23 09/08/23 10:50 Patient Tobacco Use Status Never used Tobacco 09/08/23 10:50 e-Cigarette/Vaping Use Never Used 09/08/23 10:50 Thrive Assessment: Date of Thrive Assessment Date Thrive assessed 07/16/23 09/08/23 10:50 Const General: cooperative, comfortable, no acute distress and alert HENMT Other: bilat cerumen impactions Neck Neck: Yes no lymphadenopathy Thyroid: Thyroid normal Resp Effort & Inspection: normal respiratory effort Auscultation: clear to auscultation bilaterally Percussion: percussion normal Cardio Jugular venous distension: no JVD Palpation: normal PMI Rate: regular rate Rhythm: regular rhythm Heart sounds: S1 normal heart sound present and S2 normal heart sound present GI Inspection: Yes normal to inspection Palpation (GI): No hepatosplenomegaly present Skin General skin exam: no rashes or lesions noted Extrem General: Yes no clubbing, cyanosis or edema Assessment and Plan Assessment & Plan (1) Impacted cerumen of both ears: Code(s): H61.23 - Impacted cerumen, bilateral Plan: refer Orders: Referrals Ear/Nose/Throat Referral H61.23 - Impacted cerumen, bilateral Coding Level of Care Code Est Pt Level 3 (99154) Diagnoses Impacted cerumen of both ears H61.23
== END 2023-09-08 11:00 | disposition home or self-care (01) ==
PROVIDERS: PCP Internal Medicine; Visit Provider Internal Medicine
DX: H61.23 Impacted cerumen, bilateral (principal)
CPT/HCPCS: 99213

== ENCOUNTER → 2023-12-04 15:03 | Outpatient (REF) | payer MEDICARE, MEDICAID, SELFPAY ==
--- NOTE | 2023-12-04 15:06 | CA_ITS ---
Transthoracic Echocardiogram Patient (Last, First, Middle): Sara Deluna L Gender: Female Date of : 1945 Age: 78 Procedure Date: 12/04/2023 Procedure Type: Transthoracic Echocardiogram Location: OP Height: 170.18 cm Weight: 95.26 kg BSA: 2.06 m2 Heart Rate: bpm BP: 168 / 92 mmHg Hyperbaric Tech: TO Referring MD: Varinder Joshi MD Hot Metal Charger: Varinder Joshi MD Symptoms: I11.9 - Hypertensive heart disease without heart failure Study Quality: Fair ECG Rhythm: Sinus Conclusions: - 1. Normal LV ejection fraction of 60-65% with mild LVH with impaired relaxation filling pattern 2. Mildly dilated left atrium 3. Trivial to mild aortic regurgitation 4. Upper limits of normal RV systolic pressure 5. No gross pericardial effusion Findings Left Ventricle Normal left ventricular size and systolic function. There is mildly increased left ventricular wall thickness. The visually estimated ejection fraction is between 60-65%. Spectral Doppler is indicative of an impaired relaxation filling pattern. E/E prime ratio is between 8 and 15 consistent with indeterminate filling pressures. Peak GLS is -19.5%, within normal limits. Right Ventricle Normal right ventricular cavity size and systolic function. Atria The left atrium is mildly dilated. There is no evidence of interatrial shunt. The right atrium is normal in size. Aortic Valve There is mild calcification of the aortic valve. There is no aortic valve stenosis. There is mild aortic valve regurgitation. Mitral Valve There is mild anterior and posterior mitral leaflet thickening. There is trace mitral valve regurgitation. There is no mitral valve stenosis. Pulmonic Valve The pulmonic valve is likely normal. Tricuspid Valve Normal tricuspid valve structure. There is mild tricuspid valve regurgitation. Normal right atrial pressure. There is no evidence of pulmonary hypertension. Great Vessels All visible segments of the aorta are normal in size. The pulmonary artery was not well visualized. There is no dilatation of the ascending aorta measuring 3.30 cm. Venous The inferior vena cava is normal in size and collapses greater than 50% with inspiration. Pericardium/Pleural There is no evidence of pericardial effusion. Prior Study Comparison No significant change compared to prior study dated: 12/04/2021. Measurements 2D Linear Measurements IVSd: 1.33 0.6-0.9/0.6-1.0 cm LVIDd: 5.13 3.9-5.3/4.2-5.9 cm LVIDd Index: 2.49 2.4-3.2/2.2-3.1 cm/m2 LVIDs: 3.26 2.0-3.6 cm LVPWd: 1.05 0.7-1.1 cm LA Diam: 3.60 2.7-3.8/3.0-4.0 cm LAIDs Index: 1.75 1.5-2.3 cm/m2 LV Mass: 300.10 67-162/88-224 g LV Mass Index: 145.68 43-95/49-115 g/m2 LVOT Diam: 2.00 3.0+(-)1.3 cm 2D Systolic Function EF 4C: 63.20 >55% EF 2C: 65.40 >55% EF BiP: 63.60 >55% Mitral Valve MV Pk E: 0.76 MV PK A: 1.06 MV Decel Time: 212.00 E/A: 0.70 E'Lateral: 7.72 E'Medial: 5.00 E/E' Med: 15.30 E/E' Lat: 9.90 PHT: 62.00 MVA PHT: 3.55 Decel [place]: 3.59 Aortic Valve AoV Pk [place]: 1.59 AoV Mn [place]: 1.13 AoV VTI: 0.36 AoV Pk Grad: 10.00 Aov Mn Grad: 6.00 GINA Cont.VTI: 2.28 LVOT LVOT Pk [place]: 1.08 LVOT Mn [place]: 0.79 LVOT VTI: 0.26 LVOT Pk Grad: 5.00 LVOT Mn Grad: 3.00 LVOT Diam: 2.00 LVOT Area: 3.14 Diastolic Function MV Pk E: 0.76 MV Pk A: 1.06 E/A: 0.70 E'Medial: 5.00 E/E' Med: 15.30 E' Laterial: 7.72 E/E' Lat: 9.90 Right Ventricle TAPSE (mm): 28.50 TVS' [place]: 12.10 Tricuspid Valve TR Pk [place]: 2.89 TR Pk Grad: 33.00 RA Press: 3.00 RVSP: 36.00 Great Vessels Aorta Sinus of Valsalva: 3.54 2.0-3.5 cm Ao Asc: 3.30 2.1-3.4 cm Updated in Other Vendor System with Status of Final Varinder Joshi MD electronically signed on 12/04/2023 4:28:53 PM with status of Final
[2023-12-04 16:13] LABS: MANUAL DIFF FLAG NO
[2023-12-04 16:28] LABS: Basophils Percent Auto 0.5 % (0-2); Eosinophils Absolute Auto 0.2 X10*3/uL (0.0-0.4); Eosinophils Percent Auto 2.4 % (0-4); Hematocrit 37.9 % (37.0-47.0); Hemoglobin 12.3 g/dl (12.0-16.0); Imm Gran Abs Auto 0.02 X10*3/uL (0.00-0.03); Imm Gran Pct Auto 0.3 % (0.0-0.4); Lymphocytes Absolute Auto 3.1 X10*3/uL (1.2-4.9); Mean Corpuscular HGB Conc 32.5 g/dl (31.0-35.0); Mean Corpuscular Volume 92.4 fL (80.0-98.0); Mean Platelet Volume 9.9 fL (9.4-12.3); Monocytes Absolute Auto 0.5 X10*3/uL (0.1-1.2); Monocytes Percent Auto 6.8 % (2-11); Neutrophils Absolute Auto 3.7 x10*3/uL (2.0-8.3); Platelet Count 275 X10*3/uL (160-400); Red Cell Distribution Width 12.4 % (11.0-16.0); White Blood Count 7.5 X10*3/uL (4.8-10.8)
[2023-12-04 16:54] LABS: Alanine Aminotransferase 9 U/L (0-31); Albumin Level 4.2 g/dL (3.5-5.0); Alkaline Phosphatase 88 U/L (39-117); Anion Gap 12 (12-20); Aspartate Amino Transferase 15 U/L (5-31); Bilirubin Total 0.5 mg/dL (0.0-1.0); Blood Urea Nitrogen 22 mg/dL (9-16); Calcium 9.9 mg/dL (8.4-10.2); Carbon Dioxide 31 mmol/L (22-29); Chloride 106 mmol/L (96-108); Cholesterol 283 mg/dL (<200); Estimated Glomerular Filt Rate 60; Glucose Fasting 97 mg/dL (60-99); HDL Cholesterol 49 mg/dL (>40); LDL Cholesterol Calculated 213 mg/dL (<100); Potassium 4.6 mmol/L (3.3-5.1); Sodium 144 mmol/L (135-145); Total Protein 7.5 g/dL (6.5-8.0); Triglycerides 106 mg/dL (<150)
[2023-12-04 17:10] LABS: Thyroid Stimulating Hormone 1.16 uIU/mL (0.32-4.0)
== END ==
LOC: HO.CARD 15:03
PROVIDERS: PCP Internal Medicine; Visit Provider Internal Medicine Cardiovascular Disease
DX: I11.9 Hypertensive heart disease without heart failure (principal); E78.5 Hyperlipidemia, unspecified; N28.9 Disorder of kidney and ureter, unspecified; D64.9 Anemia, unspecified; E03.9 Hypothyroidism, unspecified
CPT/HCPCS: 36415; 80053; 80061; 84443; 85025; 93306; 93356

== ENCOUNTER → 2023-12-04 15:06 | Outpatient (BNV) | payer MEDICARE, MEDICAID, SELFPAY | PROVIDERS: PCP Internal Medicine; Visit Provider Internal Medicine Cardiovascular Disease | DX: I35.1 Nonrheumatic aortic (valve) insufficiency (principal); I36.1 Nonrheumatic tricuspid (valve) insufficiency | CPT/HCPCS: 93306; 93356 ==

== ENCOUNTER 2023-12-09 14:11 | Outpatient (AMB) | payer MEDICARE, MEDICAID, SELFPAY ==
[2023-12-09 14:12] VITALS: BP 140/58; PULSE 67; O2SAT 97; BMI 33.7
--- NOTE | 2023-12-09 14:12 | MHC.PC.OV ---
Vital Signs 12/09/23 14:12 Height 5 ft 6 in Weight 209 lb BMI 33.7 BP 140/58 H Blood Pressure Location Lt brachial Position Sitting Pulse 67 Pulse Source Pulse Oximeter Pulse Oximetry (%) 97 Oxygen Delivery Method Room Air Intake Visit Reasons: 3mth f/u Math Instructor Required: No Retail Stock Clerk: Not Required per policy Accompanied by: Self / Same As Patient Allergies Penicillins [PENICILLINS] Allergy (Mild, Verified 12/09/23 14:13) ITCHINESS aspirin [ASPIRIN] Allergy (Unknown, Verified 12/09/23 14:13) VOMITING Lisinopril Adverse Reaction (Severe, Uncoded 12/09/23 14:13) Angioedema Tobacco use date assessed: 07/16/23 Fall risk assessment: No Falls in past year Last assessed Fall Risk: 12/09/23 Dental Screening Dental Screen Date: 09/08/23 HPI 3mth f/u HPI Details asthma on rx; stable PFSH Medical History Fatigue PAC (premature atrial contraction) HTN (hypertension) Hypertensive heart disease Mild HOCM (hypertrophic obstructive cardiomyopathy) Asthma Surgical History History of left cataract surgery History of umbilical hernia repair History of tubal ligation Family History Father No problems noted. Mother No problems noted. Social History Household Members: Family Household Members Other:: grandson Housing: Apartment Do you presently have visiting nurse or other home services: No Alcohol intake: never Patient Tobacco Use Status: Never used Tobacco e-Cigarette/Vaping Use: Never Used Second Hand Smoke Exposure: No service: No Current occupational status: retired Cognitive needs: Yes (cane) Hearing needs: No Vision needs: Yes Questionnaire Thrive Questionnaire Date Thrive assessed: 07/16/23 CARMENCITA-7 AMB Questionnaire CARMENCITA-7 Date CARMENCITA - 7 assessed: 07/16/23 Source: Developed by Drs. Jay Boggs, Jeanie Sheridan, Tal Marquis and colleagues, with an educational naty from [employer]. Review of Systems Const Denies chills, Denies headache(s) and Denies weight loss ENT Denies headache(s) Card Denies chest pain, Denies syncope, Denies irregular heart rhythm and Denies dyspnea Resp Denies chest congestion, Denies cough and Denies dyspnea GI Denies abdominal pain, Denies change in stool character, Denies nausea and Denies vomiting Musc Denies deformity and Denies joint swelling Neuro Denies syncope and Denies headache(s) Physical exam (Primary Care) Vital Signs: Last Vital Signs Pulse 67 12/09/23 14:12 BP 140/58 H 12/09/23 14:12 Pulse Ox 97 12/09/23 14:12 Oxygen Delivery Method Room Air 12/09/23 14:12 BMI result Body Mass Index 33.7 Tobacco/Smoking Status: Tobacco use Status Tobacco use date assessed 07/16/23 12/09/23 14:18 Patient Tobacco Use Status Never used Tobacco 12/09/23 14:18 e-Cigarette/Vaping Use Never Used 12/09/23 14:18 Thrive Assessment: Date of Thrive Assessment Date Thrive assessed 07/16/23 12/09/23 14:18 Const General: cooperative, comfortable, no acute distress and alert Neck Neck: Yes no lymphadenopathy Thyroid: Thyroid normal Resp Effort & Inspection: normal respiratory effort Auscultation: clear to auscultation bilaterally Percussion: percussion normal Cardio Jugular venous distension: no JVD Palpation: normal PMI Rate: regular rate Rhythm: regular rhythm Heart sounds: S1 normal heart sound present and S2 normal heart sound present GI Inspection: Yes normal to inspection Palpation (GI): No hepatosplenomegaly present Skin General skin exam: no rashes or lesions noted Extrem General: Yes no clubbing, cyanosis or edema Assessment and Plan Assessment & Plan (1) Asthma: Code(s): J45.909 - Unspecified asthma, uncomplicated Plan: stable; same rx Coding Level of Care Code Est Pt Level 3 (42095) Diagnoses Asthma J45.909
== END 2023-12-09 14:34 | disposition home or self-care (01) ==
PROVIDERS: PCP Internal Medicine; Visit Provider Internal Medicine
DX: J45.909 Unspecified asthma, uncomplicated (principal)
CPT/HCPCS: 99213

== ENCOUNTER 2023-12-30 14:46 | Outpatient (AMB) | payer MEDICARE, MEDICAID, SELFPAY ==
--- NOTE | 2023-12-30 15:18 | MHC.OFFVIS ---
Vital Signs 12/30/23 15:19 Height 5 ft 6 in Weight 205 lb 0.478 oz BMI 33.1 BP 120/80 Blood Pressure Location Lt brachial Position Sitting Pulse 71 Intake Visit Reasons: 1 yr f/up Intake Note: 1 year follow-up with ekg feeling good Machine Heel Seat Fitter Required: No Allergies Penicillins [PENICILLINS] Allergy (Mild, Verified 12/09/23 14:13) ITCHINESS aspirin [ASPIRIN] Allergy (Unknown, Verified 12/09/23 14:13) VOMITING Lisinopril Adverse Reaction (Severe, Uncoded 12/09/23 14:13) Angioedema Medication List - Last Reconciled 12/30/23 by Varinder Joshi MD albuterol sulfate 90 mcg/actuation (Ventolin HFA) 2 puffs PO Q4-6H PRN albuterol sulfate 1.25 mg (3 mL) inhalation QID atorvastatin 40 mg PO BEDTIME 90 days commode (bedside commode) As directed diaper,brief,adult,disposable Change as needed diltiazem HCl ER (Tiadylt ER) 360 mg PO DAILY docusate sodium 100 mg PO DAILY fluticasone propion-salmeterol 500-50 mcg/dose (Advair Diskus) 1 ea PO BID fluticasone propionate 50 mcg/actuation 1 spray intranasal DAILY hydralazine 100 mg PO BID hydroxyzine HCl 25 mg PO QID PRN labetalol 100 mg PO BID lorazepam 1 mg PO Q12H PRN omeprazole 20 mg PO QAM polyethylene glycol 3350 (Miralax) 17 grams PO DAILY Shower Chair As directed spironolactone 25 mg See Protocol PO BID@0900,1800 30 days tramadol 50 mg PO BID PRN underpads (Bed Underpads) As directed HPI Comments Details: Sara comes for follow-up of her annual hypertensive heart disease. She has been taking all her medication. Most recent LDL significantly elevated at 215. She is currently on atorvastatin 40 mg which was started seems like recently. She has not had any follow-up lipid panel since then. She describes symptoms of exertional shortness of breath associated sometimes with chest tightness or pressure especially when she is rushing to do something or when she is very stressed out. Symptoms then subside within 5-10 minutes. She denies any progressive symptoms otherwise. Denies any heart failure symptoms. No lightheadedness, syncope. Denies any prolonged palpitation irregular heartbeat. [facility] Medical History Fatigue PAC (premature atrial contraction) HTN (hypertension) Hypertensive heart disease Mild HOCM (hypertrophic obstructive cardiomyopathy) Asthma Surgical History History of left cataract surgery History of umbilical hernia repair History of tubal ligation Family History Father No problems noted. Mother No problems noted. Social History Household Members: Family Household Members Other:: grandson Housing: Apartment Do you presently have visiting nurse or other home services: No Alcohol intake: never Patient Tobacco Use Status: Never used Tobacco e-Cigarette/Vaping Use: Never Used Second Hand Smoke Exposure: No service: No Current occupational status: retired Cognitive needs: Yes (cane) Hearing needs: No Vision needs: Yes Review of Systems Const Denies chills, Denies fatigue, Denies fever(s), Denies frequent falls, Denies weakness, Denies weight gain and Denies weight loss ENT Denies dizziness Card Denies chest pain, Denies leg edema, Denies lightheadedness, Denies palpitations, Denies dyspnea, Denies dyspnea on exertion, Denies orthopnea and Denies other (loss of consciousness) Resp Denies cough, Denies dyspnea and Denies dyspnea on exertion GI Denies hematochezia and Denies change in stool character Musc Denies abnormal gait, Denies muscle weakness, Denies numbness, Denies radiating pain into limb and Denies tingling Neuro Denies abnormal gait, Denies dizziness, Denies frequent falls, Denies numbness, Denies tingling and Denies weakness Endo Denies fatigue and Denies palpitations Physical Exam Vital Signs: Last Vital Signs Pulse 71 12/30/23 15:19 BP 120/80 12/30/23 15:19 BMI result Body Mass Index 33.1 Const General: cooperative, comfortable, no acute distress, alert and awake Nutritional Appearance: obese Orientation/consciousness: patient oriented x3 Limitations: ambulation with cane Neck Neck: Yes trachea midline, Yes supple and Yes no JVD Resp Effort & Inspection: normal respiratory effort Auscultation: wheezes expiratory wheezes ( right lower posterior lung field) and diminished lung sounds Cardio Jugular venous distension: no JVD Palpation: normal PMI Rate: regular rate Rhythm: regular rhythm Heart sounds: S1 normal heart sound present, S2 normal heart sound present, no click, no gallops and Murmur heart sound present systolic GI Auscultation: normal bowel sounds Neuro General: patient oriented x3 and no focal motor deficits Extrem General: No clubbing, No cyanosis and Yes pedal edema Office Procedures EKG Details: EKG shows sinus rhythm with marked sinus arrhythmia otherwise normal EKG at 71 beats per minute [id number], Complete Assessment & Plan Assessment & Plan (1) SOB (shortness of breath) on exertion: Code(s): R06.02 - Shortness of breath Category: Medical Plan: Patient with increased symptoms of exertional as well as stress-induced shortness of breath with chest discomfort. Concern for obstructive coronary artery disease given her multiple risk factors, age, marked hyperlipidemia as well as difficult control hypertension. Advise myocardial perfusion imaging with Lexiscan in near future. She is not able to exercise on the treadmill. Further treatment based on the findings. May require cardiac catheterization if continues to have symptoms as she has high likelihood of underlying obstructive CAD. (2) HTN (hypertension): Code(s): I10 - Essential (primary) hypertension Category: Medical Plan: Longstanding hypertension which has been difficult control. Currently well optimized on current therapy. Importance of current therapy and compliance with this was discussed. Discussed about low-salt diet. Advised to monitor blood pressure at home and maintain a log. Goal blood pressure less than 130/84. Continue participate in regular physical activity if myocardial perfusion imaging is within normal limits. (3) Hyperlipidemia: Code(s): E78.5 - Hyperlipidemia, unspecified Category: Medical Plan: Marked hyperlipidemia, currently on atorvastatin 40 mg daily was started after recent lipid panel. Advised lipid panel near future. Target goal LDL at least less than 100 mg/dL. May require additional therapy with either ezetimibe or PCSK9 inhibitor therapy. Follow up in the clinic after stress testing. Thank you for allowing me to partake in the care Orders: Orders CA lexiscan stress w gianfranco 12/30/23 R06.02 - Shortness of breath Lipid Panel 6 Weeks E78.5 - Hyperlipidemia, unspecified Coding Level of Care Code Est Pt Level 4 (05851) Diagnoses SOB (shortness of breath) on exertion R06.02 HTN (hypertension) I10 Hyperlipidemia E78.5 CPT Codes EKG - CPT: 60676-[id number], Complete ([id number])
[2023-12-30 15:19] VITALS: BP 120/80; PULSE 71; BMI 33.1
== END 2023-12-30 15:50 | disposition home or self-care (01) ==
PROVIDERS: PCP Internal Medicine; Visit Provider Internal Medicine Cardiovascular Disease
DX: R06.02 Shortness of breath (principal); I10 Essential (primary) hypertension; E78.5 Hyperlipidemia, unspecified
CPT/HCPCS: 93010; 99214

== ENCOUNTER → 2023-12-30 14:46 | Outpatient (BNVA) | payer MEDICARE, MEDICAID, SELFPAY | PROVIDERS: PCP Internal Medicine; Visit Provider Internal Medicine Cardiovascular Disease | DX: R06.02 Shortness of breath (principal); I10 Essential (primary) hypertension; E78.5 Hyperlipidemia, unspecified | CPT/HCPCS: 93005; 99212 ==

== ENCOUNTER → 2024-02-12 10:05 | Outpatient (REF) | payer MEDICARE, MEDICAID, SELFPAY ==
--- NOTE | ~2024-02-12 | NM_ITS ---
Lexiscan Myocardial perfusion study Indication: Shortness of breath Technique: The patient was brought in for a Lexiscan perfusion study on 02/12/2024 and was injected 0.4 mg of Lexiscan intravenously. Within a minute of this injection 30 mCi of sestamibi was given intravenously. Images were obtained using the SPECT gamma camera interlaced with the gating device. Images were obtained in supine position. Resting perfusion study was performed on 02/17/2024. Patient was administered 30 mCi of sestamibi intravenously at rest. Images were then obtained in supine position. Total DLP 94 mGy-cm. Images were processed with the software and compared side to side in short axis, horizontal long axis and vertical long axis views. Findings: Raw aquisition reviewed. The stress perfusion study showed no significant perfusion abnormality. Both uncorrected as well as CT attenuation corrected images were reviewed. The gated study shows normal LV systolic function with calculated LVEF of 59%. LV cavity is normal in size. The gated study shows normal wall thickening and contraction of segments. Resting study shows no significant perfusion abnormality. Gating at rest reveals normal wall motion with ejection fraction at 58%. The findings are consistent with no clear reversible or fixed perfusion abnormality. NM/NM gianfranco perf SPECT rest & str Impression: 1. Myocardial perfusion imaging study shows normal myocardial perfusion. 2. Gated LVEF is 59% during stress and 58% during rest. 3. Transient ischemic dilatation not present. EKG component of the test reported separately. Electronically signed by: Rashawn Garcia MD 02/18/2024 11:52 AM EDT
--- NOTE | 2024-02-12 10:08 | CA_ITS ---
Acquisition Time: 2024-02-12 10:10:57 Total Exercise Time: 00:02:00 Test Indications: CP, SOB Medications: SEE H Protocol: LEXISCAN Max HR: 094 BPM 66% of Pred: 142 BPM Max BP: 152/062 mmHG Max Work Load: 1.0 METS Pharmacological stress test with Lexiscan injection, while sitting and kicking her legs, without anginal symptoms, without arrythmia, with normotensive response to injection, with nondiagnostic EKG for ischemia. In recovery she was treated with Aminophylline 75mg IVP to reverse Lexiscan. Nuclear images pending. Test reviewed with Dr Joshi Referred By: Varinder Joshi Overread By: LISSETH RANGEL
== END ==
LOC: HO.CARD 10:05
PROVIDERS: PCP Internal Medicine; Visit Provider Internal Medicine Cardiovascular Disease
DX: R06.02 Shortness of breath (principal)
CPT/HCPCS: 78452; 93017; A9500; J0280; J2785

== ENCOUNTER → 2024-02-12 10:08 | Outpatient (BNV) | payer MEDICARE, MEDICAID, SELFPAY | PROVIDERS: PCP Internal Medicine; Visit Provider Nurse Practitioner Family | DX: R06.02 Shortness of breath (principal) | CPT/HCPCS: 78452; 93016; 93018 ==

== ENCOUNTER 2024-07-12 13:11 | Outpatient (AMB) | payer MEDICARE, MEDICAID, SELFPAY ==
--- NOTE | 2024-07-12 13:14 | A.OFFPC_ITS ---
Vital Signs 07/12/24 13:17 Height 5 ft 6 in Weight 213 lb 8 oz BMI 34.5 BP 140/84 H Blood Pressure Location Lt brachial Position Sitting Pulse 76 Pulse Source Pulse Oximeter Temp 97.3 F Temp Source Skin Pulse Oximetry (%) 97 Oxygen Delivery Method Room Air Intake Visit Reasons: HTN, Med review Intake Note: Patient is here to follow up on HTN, Med review. Human Performance Consultant Required: No Flat Polisher: Not Required per policy Accompanied by: Self / Same As Patient Allergies Penicillins [PENICILLINS] Allergy (Mild, Verified 07/12/24 13:16) ITCHINESS aspirin [ASPIRIN] Allergy (Unknown, Verified 07/12/24 13:16) VOMITING Lisinopril Adverse Reaction (Severe, Uncoded 07/12/24 13:16) Angioedema Medication List - Last Reconciled 07/12/24 by Claude Hatch MD albuterol sulfate 90 mcg/actuation (Ventolin HFA) 2 puffs PO Q4-6H PRN albuterol sulfate 1.25 mg (3 mL) inhalation QID atorvastatin 40 mg PO BEDTIME 90 days azithromycin take 500 mg today (day 1), then 250 mg for 4 days (days 2-5) PO clotrimazole-betamethasone 1-0.05 % 1 appl topical BID 2 weeks commode (bedside commode) As directed diaper,brief,adult,disposable Change as needed diltiazem HCl ER (Tiadylt ER) 360 mg PO DAILY docusate sodium 100 mg PO DAILY fluticasone propion-salmeterol 500-50 mcg/dose (Advair Diskus) 1 ea PO BID fluticasone propionate 50 mcg/actuation 1 spray intranasal DAILY hydralazine 100 mg PO BID hydroxyzine HCl 25 mg PO QID PRN labetalol 100 mg PO BID lidocaine HCl 2% 1 appl topical BID PRN lorazepam 1 mg PO Q12H PRN omeprazole 20 mg PO QAM polyethylene glycol 3350 (Miralax) 17 grams PO DAILY polyethylene glycol 3350 (Miralax) 17 grams PO DAILY Shower Chair As directed spironolactone 25 mg See Protocol PO BID@0900,1800 30 days tramadol 50 mg PO BID PRN underpads (Bed Underpads) As directed Tobacco use date assessed: 07/12/24 Fall risk assessment: No Falls in past year Last assessed Fall Risk: 07/12/24 Dental Screening Dental Screen Date: 07/12/24 Did you have a dental visit in the last 12 months?: Yes Did you have a dental problem in the last 6 months where you did not have access to dental care?: No Was dental information given to patient?: Patient has dentist HPI HTN, Med review HPI Details hyperlipidemia and HTN; compliant; stable on rx PFSH Medical History Fatigue PAC (premature atrial contraction) HTN (hypertension) Hypertensive heart disease Mild HOCM (hypertrophic obstructive cardiomyopathy) Asthma Surgical History History of left cataract surgery History of umbilical hernia repair History of tubal ligation Family History Father No problems noted. Mother No problems noted. Social History Household Members: Family Household Members Other:: grandson Housing: Apartment Do you presently have visiting nurse or other home services: No Alcohol intake: never Patient Tobacco Use Status: Never used Tobacco e-Cigarette/Vaping Use: Never Used Second Hand Smoke Exposure: No service: No Current occupational status: retired Cognitive needs: Yes (cane) Hearing needs: No Vision needs: Yes Questionnaire PHQ-9 Over the last 2 weeks, how often have you been bothered by any of the following problems? 1. Little interest or pleasure in doing things: not at all 2. Feeling down, depressed, or hopeless: not at all 3. Trouble falling or staying asleep, or sleeping too much: not at all 4. Feeling tired or having little energy: not at all 5. Poor appetite or overeating: not at all 6. Feeling bad about yourself - or that you are a failure or have let yourself or your family down: not at all 7. Trouble concentrating on things, such as reading the newspaper or watching television: not at all 8. Moving or speaking so slowly that other people could have noticed. Or the opposite - being so fidgety or restless that you have been moving around a lot more than usual: not at all 9. Thoughts that you would be better off or of hurting yourself in some way: not at all Total score: 0 Depression Screening Interpretation: Negative Depression Screening Done: Yes Source: Developed by Drs. Jay Boggs, Jeanie Sheridan, Tal Marquis and colleagues, with an educational naty from [employer]. Thrive Questionnaire Date Thrive assessed: 07/12/24 I am a: Patient What is your living situation today?: I have a steady place to live Within the past 12 months, did the food you bought not last and you didn't have the money to get more?: Never true Within the past 12 months, did you worry whether your food would run out before you got money to buy more?: Never true Do you have trouble paying for medicines?: No Do you have trouble getting transportation to medical appointments?: No Do you have trouble paying your heating and electricity bill?: No Do you have trouble taking care of your child, family member or friend?: No Do you have trouble with day-to-day activities such as bathing, preparing meals, shopping, managing finances, etc.?: No Are you currently unemployed and looking for a job?: No Are you interested in more education?: No Please select the resources that you would like help with: None Currently or been in a relationship where the following occur: No concerns reported THRIVE Score: 0 AUDIT C Alcohol Use Questionnaire (AUDIT-C) 1. How often do you have a drink containing alcohol?: Never Total Score: 0 CARMENCITA-7 AMB Questionnaire CARMENCITA-7 Date CARMENCITA - 7 assessed: 07/12/24 Feeling nervous, anxious, or on edge: 0 = Not at all Not being able to stop or control worryin = Not at all Worrying too much about different things: 0 = Not at all Trouble relaxin = Not at all Being so restless that it is hard to sit still: 0 = Not at all Becoming easily annoyed or irritable: 0 = Not at all Feeling afraid as if something awful might happen: 0 = Not at all Total CARMENCITA-7 score (0-4 normal; 5-9 mild; 10-14 moderate; 15-21 severe): 0 Source: Developed by Jeanie Perez Kurt Kroenke and colleagues, with an educational naty from [employer]. Review of Systems Const Denies chills, Denies headache(s) and Denies weight loss ENT Denies headache(s) Card Denies chest pain, Denies syncope, Denies irregular heart rhythm and Denies dyspnea Resp Denies chest congestion, Denies cough and Denies dyspnea GI Denies abdominal pain, Denies change in stool character, Denies nausea and Denies vomiting Musc Denies deformity and Denies joint swelling Neuro Denies syncope and Denies headache(s) Physical exam (Primary Care) Vital Signs: Last Vital Signs Temp 97.3 F 07/12/24 13:17 Pulse 76 07/12/24 13:17 BP 140/84 H 07/12/24 13:17 Pulse Ox 97 07/12/24 13:17 Oxygen Delivery Method Room Air 07/12/24 13:17 BMI result Body Mass Index 34.5 Tobacco/Smoking Status: Tobacco use Status Tobacco use date assessed 07/12/24 07/12/24 13:24 Patient Tobacco Use Status Never used Tobacco 07/12/24 13:24 e-Cigarette/Vaping Use Never Used 07/12/24 13:24 PHQ-9: PHQ-9 Score PHQ-9: Total score 0 07/12/24 13:39 Depression Screening Interpretation: Negative Thrive Assessment: Date of Thrive Assessment Date Thrive assessed 07/12/24 07/12/24 13:24 Currently or been in a relationship where the following occur: No concerns reported Const General: cooperative, comfortable, no acute distress and alert Neck Neck: Yes no lymphadenopathy Thyroid: Thyroid normal Resp Effort & Inspection: normal respiratory effort Auscultation: clear to auscultation bilaterally Percussion: percussion normal Cardio Jugular venous distension: no JVD Palpation: normal PMI Rate: regular rate Rhythm: regular rhythm Heart sounds: S1 normal heart sound present and S2 normal heart sound present GI Inspection: Yes normal to inspection Palpation (GI): No hepatosplenomegaly present Skin General skin exam: no rashes or lesions noted Extrem General: Yes no clubbing, cyanosis or edema Office Procedures Flu Questionnaire Does the patient have a severe egg allergy?: No Does the patient have severe life threatening allergies?: No Does the patient have a fever or illness today?: No Has the patient ever had Guillain-[place] Syndrome?: No Has the patient ever had any past reaction to a flu shot?: No Immunizations Fluarix Triv [id number] (PF) 45 mcg (15 mcg x 3)/0.5 mL IM syringe Performing Provider: Claude Hatch MD [facility] Administered by: Nanda Villafuerte RN on 07/12/24 13:24 Dose Route Admin Location Dispensed Lot Number Expiration Date [facility] Automation And Control Engineer 0.5 mL IM Left Deltoid 0.5 mL [id number] 12/13/24 [id number] [employer] VIS Given Date VIS Provided VIS Publication Date 07/12/24 Single Vaccine 21 Eligibility Eligibility Date Funding Source Not [facility] Eligible 07/12/24 Private Coding Level of Care Code Est Pt Level 3 (27703) Diagnoses Hyperlipidemia E78.5 Assessment & Plan Assessment & Plan (1) Hyperlipidemia: Code(s): E78.5 - Hyperlipidemia, unspecified Category: Medical Plan: stable; same rx Orders: Orders Influenza [id number] Immunization Today Z23 - Encounter for immunization Medications: New azithromycin take 500 mg today (day 1), then 250 mg for 4 days (days 2-5) PO 6 tabs 0RF polyethylene glycol 3350 (Miralax) 17 grams PO DAILY 238 grams 0RF
[2024-07-12 13:17] VITALS: BP 140/84; PULSE 76; TEMP 36.3; O2SAT 97; BMI 34.5
--- OUTSIDE RECORDS SUMMARY | 2024-07-12 17:53 | XMS_ITS | Clinical Summary ---
Author Organization [facility] Address [address] [address] Care Team Providers Care Product Expert Name Role Phone Claude Hatch MD Primary Care Provider [phone] Allergies Active Allergy Reactions Criticality Noted Date Comments Penicillin G 03/19/2022 Medications traMADol (ULTRAM) 50 MG tablet Take 50 mg by mouth 2 (two) times a day if needed 2 Active tobramycin (TOBREX) 0.3 % ophthalmic solution INSTILL 1 DROP INTO THE RIGHT EYE EVERY 4 HOURS 2 Active spironolactone (ALDACTONE) 25 MG tablet TAKE 1 TABLET BY MOUTH TWICE DAILY AT 9 AM AND 6 PM 2 Active predniSONE (DELTASONE) 20 MG tablet Take 40 mg by mouth 1 (one) time each day 2 Active omeprazole (PriLOSEC) [address] capsule Take 20 mg by mouth 2 Active LORazepam (ATIVAN) 1 MG tablet Take 1 mg by mouth every 12 (twelve) hours if needed 2 Active hydrOXYzine (ATARAX) 25 MG tablet TAKE 1 TABLET BY MOUTH 4 TIMES A DAY NEEDED FOR ITCHING 2 Active lisinopril 40 MG tablet Take 40 mg by mouth 1 (one) time each day 2 Active fluticasone (FLONASE) 50 MCG/ACT nasal spray TAKE 1 SPRAY INTRANASALLY DAILY 2 Active hydrALAZINE 100 MG tablet Take 100 mg by mouth 2 Active docusate sodium (COLACE) 100 MG capsule Take 100 mg by mouth 1 (one) time each day 2 Active Active Problems Problem Noted Date Diagnosed Date Tricuspid valve regurgitation 03/19/2022 Osteoarthritis 03/19/2022 Obesity 03/19/2022 Mixed anxiety and depressive disorder 03/19/2022 Hyperlipidemia 03/19/2022 History of diverticulitis 03/19/2022 Gastroesophageal reflux disease 03/19/2022 Benign hypertension 03/19/2022 Asthma 03/19/2022 Social History Tobacco Use Types Packs/Day Years Used Date Smoking Tobacco: Never Assessed Comments Unknown Sex and Gender Information Value Date Recorded Sex Assigned at Not on file Legal Sex Female 8:52 AM EDT Gender Identity Not on file Sexual Orientation Not on file Plan of Treatment Health Maintenance Due Date Last Done Comments Pneumococcal Vaccine: 65+ Ye ars (1 of 2 - PCV) 09/15/1951 Influenza Vaccine (#1) 2024 Hepatitis B Vaccine Aged Out No longe r eligible based on patient's age to complete this topic Insurance [place] Care Teams Product Expert Relationship Specialty Start Date End Date Claude Hatch MD [address] [place], [place] PCP - General Internal Medicine 04/22/22
== END 2024-07-12 13:42 | disposition home or self-care (01) ==
PROVIDERS: PCP Internal Medicine; Visit Provider Internal Medicine
DX: E78.5 Hyperlipidemia, unspecified (principal); Z23 Encounter for immunization

== ENCOUNTER → 2024-07-12 13:11 | Outpatient (BNVA) | payer MEDICARE, MEDICAID, SELFPAY | PROVIDERS: PCP Internal Medicine; Visit Provider Internal Medicine | DX: E78.5 Hyperlipidemia, unspecified (principal); I10 Essential (primary) hypertension; Z23 Encounter for immunization | CPT/HCPCS: 90471; 90656; 96127; 99212 ==

== ENCOUNTER 2024-10-11 12:47 | Outpatient (AMB) | payer MEDICARE, MEDICAID, SELFPAY ==
--- NOTE | 2024-10-11 13:04 | MHC.PC.OV ---
Vital Signs 10/11/24 13:07 Height 5 ft 6 in Weight 213 lb 4 oz BMI 34.4 BP 142/78 H Blood Pressure Location Lt brachial Position Sitting Pulse 63 Pulse Source Pulse Oximeter Temp 97.5 F Temp Source Temporal Artery Scan Pulse Oximetry (%) 97 Oxygen Delivery Method Room Air Intake Visit Reasons: transfer from [facility] 3 month f/u Intake Note: Patient is here today for SWETHA from Dr Hatch. Complaint of on going cough. Sr. Media Manager Required: No Lock Installer: Not Required per policy Accompanied by: Self / Same As Patient Allergies Penicillins [PENICILLINS] Allergy (Mild, Verified 10/11/24 13:20) ITCHINESS aspirin [ASPIRIN] Allergy (Unknown, Verified 10/11/24 13:20) VOMITING Lisinopril Adverse Reaction (Severe, Uncoded 10/11/24 13:20) Angioedema Medication List - Last Reconciled 10/11/24 by LEAH Peter albuterol sulfate 90 mcg/actuation (Ventolin HFA) 2 puffs PO Q4-6H PRN albuterol sulfate 1.25 mg (3 mL) inhalation QID atorvastatin 40 mg PO BEDTIME azithromycin take 500 mg today (day 1), then 250 mg for 4 days (days 2-5) PO clotrimazole-betamethasone 1-0.05 % 1 appl topical BID 2 weeks commode (bedside commode) As directed diaper,brief,adult,disposable Change as needed diltiazem HCl ER (Tiadylt ER) 360 mg PO DAILY docusate sodium 100 mg PO DAILY fluticasone propion-salmeterol 500-50 mcg/dose (Advair Diskus) 1 ea PO BID fluticasone propionate 50 mcg/actuation 1 spray intranasal DAILY hydralazine 100 mg PO BID hydroxyzine HCl 25 mg PO QID PRN labetalol 100 mg PO BID lidocaine HCl 2% 1 appl topical BID PRN 30 days lorazepam 1 mg PO Q12H PRN omeprazole 20 mg PO QAM polyethylene glycol 3350 (Miralax) 17 grams PO DAILY polyethylene glycol 3350 (Miralax) 17 grams PO DAILY Shower Chair As directed spironolactone 25 mg PO BID tramadol 50 mg PO BID PRN 30 days underpads (Bed Underpads) As directed Tobacco use date assessed: 10/11/24 Fall risk assessment: No Falls in past year Last assessed Fall Risk: 10/11/24 Dental Screening Dental Screen Date: 07/12/24 HPI transfer from [facility] 3 month f/u HPI Details The patient is a 79-year-old female presenting for management of chronic conditions. She experiences ongoing issues with blood pressure management despite being on diltiazem, hydralazine, and labetalol, and notes chronic fatigue and orthostatic dizziness. Her asthma management involves Advair, but she has not consulted a medical practice administrator. A significant smoking history, ceased 20 years ago, contributes to respiratory concerns, compounded by a persistent cough predominantly nocturnal. Hyperlipidemia is being controlled with atorvastatin. Gastroesophageal reflux disease (GERD) is managed with omeprazole, reports that she is not taking medication before eating; as a result, she occasionally experiences chest pain linked to GERD. Chronic pain manifests as pervasive body pain and specific musculoskeletal discomfort, notably in the left shoulder, coupled with joint impairments affecting functional mobility. Persistent constipation issues persist despite comprehensive management efforts. Her medical history includes a previous umbilical hernia repair. Lately, small firm, tender area noted close to umbilicus area. Anxiety management utilizes lorazepam, reports that she has been taking the medication for almost 20 years, with recent exacerbations attributed to personal stressors, contributing to her presentation today. The patient reports that she has been having trouble finding a ride to her appointment. Her chronic pain makes it hard for her to ambulate to far distance. The patient also reports low energy, more recent labs would help to evaluate this condition. [facility] Medical History Fatigue PAC (premature atrial contraction) HTN (hypertension) Hypertensive heart disease Mild HOCM (hypertrophic obstructive cardiomyopathy) Asthma Surgical History History of left cataract surgery History of umbilical hernia repair History of tubal ligation Family History Father No problems noted. Mother No problems noted. Social History Household Members: Family Household Members Other:: grandson Housing: Apartment Do you presently have visiting nurse or other home services: No Alcohol intake: never Patient Tobacco Use Status: Never used Tobacco e-Cigarette/Vaping Use: Never Used Second Hand Smoke Exposure: No service: No Current occupational status: retired Cognitive needs: Yes (cane) Hearing needs: No Vision needs: Yes Questionnaire PHQ-9 Over the last 2 weeks, how often have you been bothered by any of the following problems? 1. Little interest or pleasure in doing things: nearly every day 2. Feeling down, depressed, or hopeless: nearly every day 3. Trouble falling or staying asleep, or sleeping too much: nearly every day 4. Feeling tired or having little energy: nearly every day 5. Poor appetite or overeating: nearly every day 6. Feeling bad about yourself - or that you are a failure or have let yourself or your family down: nearly every day 7. Trouble concentrating on things, such as reading the newspaper or watching television: several days 8. Moving or speaking so slowly that other people could have noticed. Or the opposite - being so fidgety or restless that you have been moving around a lot more than usual: several days 9. Thoughts that you would be better off or of hurting yourself in some way: several days Total score: 21 Depression Screening Interpretation: Positive Depression Screening Done: Yes Source: Developed by Drs. Jay Boggs, Jeanie Sheridan, Tal Marquis and colleagues, with an educational naty from [employer]. Thrive Questionnaire Date Thrive assessed: 07/12/24 I am a: Patient What is your living situation today?: I have a steady place to live Within the past 12 months, did the food you bought not last and you didn't have the money to get more?: Never true Within the past 12 months, did you worry whether your food would run out before you got money to buy more?: Never true Do you have trouble paying for medicines?: No Do you have trouble getting transportation to medical appointments?: Yes Do you have trouble paying your heating and electricity bill?: No Do you have trouble taking care of your child, family member or friend?: No Do you have trouble with day-to-day activities such as bathing, preparing meals, shopping, managing finances, etc.?: No Are you currently unemployed and looking for a job?: Yes Are you interested in more education?: No Please select the resources that you would like help with: None Currently or been in a relationship where the following occur: No concerns reported THRIVE Score: 1 AUDIT C Alcohol Use Questionnaire (AUDIT-C) 1. How often do you have a drink containing alcohol?: Never Total Score: 0 CARMENCITA-7 AMB Questionnaire CARMENCITA-7 Date CARMENCITA - 7 assessed: 10/11/24 Feeling nervous, anxious, or on edge: 3 = Nearly every day Not being able to stop or control worryin = Several days Worrying too much about different things: 3 = Nearly every day Trouble relaxin = Nearly every day Being so restless that it is hard to sit still: 3 = Nearly every day Becoming easily annoyed or irritable: 3 = Nearly every day Feeling afraid as if something awful might happen: 3 = Nearly every day Total CARMENCITA-7 score (0-4 normal; 5-9 mild; 10-14 moderate; 15-21 severe): 19 Source: Developed by Drs. Jay Boggs, Jeanie Sheridan, Tal Marquis and colleagues, with an educational naty from [employer]. Review of Systems Const Reports headache(s) Eyes Denies loss of vision ENT Denies vertigo, Reports dizziness (when standing from a sitting position), Reports headache(s), Denies sore throat and Reports other (tickling her throat causing her to cough) Card Reports chest pain (chronic), Denies leg edema, Denies lightheadedness and Reports dyspnea on exertion Resp Reports cough (worse in the mornings), Denies hemoptysis, Reports dyspnea on exertion and Reports wheezing GI Reports abdominal pain (umbilical area), Denies melena, Reports constipation (chronic), Denies diarrhea and Denies vomiting Denies urinary frequency, Denies dysuria and Denies urinary urgency Musc Reports back pain (lower back pain), Reports arthralgias (multiple (left shoulder and bilateral knees)), Denies joint swelling, Denies numbness and Denies tingling Skin/Breast Denies breast swelling Neuro Denies Abnormal speech present, Denies behavioral changes, Denies vertigo, Reports dizziness (when standing from a sitting position), Reports headache(s), Denies loss of vision, Denies memory loss, Denies numbness and Denies tingling Psych Reports anxiety, Denies behavioral changes, Denies depression, Denies memory loss and Denies panic attacks Yared/Lymph Denies easy bleeding and Denies easy bruising Aller/Immun Reports wheezing Physical exam (Primary Care) Vital Signs: Last Vital Signs Temp 97.5 F 10/11/24 13:07 Pulse 63 10/11/24 13:07 BP 142/78 H 10/11/24 13:07 Pulse Ox 97 10/11/24 13:07 Oxygen Delivery Method Room Air 10/11/24 13:07 BMI result Body Mass Index 34.4 Tobacco/Smoking Status: Tobacco use Status Tobacco use date assessed 10/11/24 10/11/24 13:10 Patient Tobacco Use Status Never used Tobacco 10/11/24 13:06 e-Cigarette/Vaping Use Never Used 10/11/24 13:06 PHQ-9: PHQ-9 Score PHQ-9: Total score 21 10/11/24 13:38 Depression Screening Interpretation: Positive Thrive Assessment: Date of Thrive Assessment Date Thrive assessed 07/12/24 10/11/24 13:06 Currently or been in a relationship where the following occur: No concerns reported Const General: healthy appearing, no acute distress, alert and awake Nutritional Appearance: well nourished Orientation/consciousness: oriented to person, oriented to place and oriented to time HENMT Ears: Abnormal EAC present cerumen impaction General nose exam: Abnormal mucous membranes and turbinates present erythematous Eyes Conjunctivae: conjunctivae normal Sclerae: sclerae normal Pupils: Equal, round and reactive pupils present Neck Neck: Yes no lymphadenopathy and Yes no JVD Thyroid: Thyroid normal Carotids: no bruits Resp Effort & Inspection: normal respiratory effort and not tachypneic Auscultation: no crackles, no rales, no rhonchi and wheezes (scattered expiratory) Cardio Rate: regular rate Rhythm: regular rhythm Heart sounds: no murmurs and normal S1 and S2 GI Palpation (GI): Soft to palpation and Tenderness to palpation present (GI) (mild) periumbilically Auscultation: normal bowel sounds Skin General skin exam: no rashes or lesions noted and dry skin Neuro General: oriented to person, oriented to place and oriented to time Cranial nerves: Yes Equal, round and reactive pupils present Speech: No Abnormal speech present Gait exam (Neuro): Normal gait present Motor exam (neuro): no tremor noted Extrem Right upper extremity: full ROM Left upper extremity: full ROM Right lower extremity: full ROM Left lower extremity: full ROM Psych Mental Status: mental status grossly normal Speech and movement: Normal speech and movement present Affect: normal affect Attitude: cooperative Thought process: Normal thought process present Coding Level of Care Code Est Pt Level 4 (92182) Diagnoses SOB (shortness of breath) on exertion R06.02 Anxiety F41.9 Chronic midline low back pain without sciatica M54.50; G89.29 Chronicity: chronic Back pain laterality: midline Sciatica presence: without sciatica Hypertension, unspecified type I10 Hypertension type: unspecified Mild HOCM (hypertrophic obstructive cardiomyopathy) I42.1 Severe persistent asthma, unspecified whether complicated J45.50 Asthma severity: severe Asthma persistence: persistent Asthma complication type: unspecified Bilateral impacted cerumen H61.23 Periumbilical abdominal pain R10.33 Abdominal location: periumbilical Time Spent (min) 43 Assessment & Plan Assessment & Plan (1) SOB (shortness of breath) on exertion: Code(s): R06.02 - Shortness of breath Category: Medical (2) Anxiety: Code(s): F41.9 - Anxiety disorder, unspecified Category: Medical (3) Low back pain: Code(s): M54.50 - Low back pain, unspecified Category: Medical Qualifiers: Chronicity: chronic Back pain laterality: midline Sciatica presence: without sciatica Qualified Code(s): M54.50 - Low back pain, unspecified; G89.29 - Other chronic pain (4) HTN (hypertension): Code(s): I10 - Essential (primary) hypertension Category: Medical Qualifiers: Hypertension type: unspecified Qualified Code(s): I10 - Essential (primary) hypertension (5) Mild HOCM (hypertrophic obstructive cardiomyopathy): Code(s): I42.1 - Obstructive hypertrophic cardiomyopathy Category: Medical (6) Asthma: Code(s): J45.909 - Unspecified asthma, uncomplicated Category: Medical Qualifiers: Asthma severity: severe Asthma persistence: persistent Asthma complication type: unspecified Qualified Code(s): J45.50 - Severe persistent asthma, uncomplicated (7) Bilateral impacted cerumen: Code(s): H61.23 - Impacted cerumen, bilateral Category: Medical (8) Abdominal pain: Code(s): R10.9 - Unspecified abdominal pain Category: Medical Qualifiers: Abdominal location: periumbilical Qualified Code(s): R10.33 - Periumbilical pain Plan I conducted a comprehensive medication review for the management of her chronic conditions today. Essential hypertension management involves adherence to her prescribed regimen and monitoring for postural hypotension. Asthma management will benefit from a pulmonology referral relevant to medication optimization and considering her history. GERD is effectively managed with omeprazole, and continued compliance is essential, especially regarding timing relative to meals. We addressed anxiety with ongoing lorazepam therapy, and I provided reassurance concerning her familial stressors. Chronic pain and constipation were discussed with recommendations for increased fluid intake and increasing Colace dosing to improve bowel movements. Ear impaction was noted and debrox ear drops was ordered and the process was explained. The patient was noted to be wheezing with tight breath sounds, zpack and prednisone tapered were ordered. Abdominal ultrasound was ordered for the patient small firm area and c/o pain. The patient c/o of difficulty getting to her appt at times. Will apply for PT-1 for her. The patient mentioned that she needs to follow with an fleet administrative assistant but she needs to get her ride situation sorted out first because she was discharged from her eye doctor due to missed appts. Patient was informed and verbally consented to the use of an ambient scribe for clinic note documentation during this visit. Orders: Orders Complete Blood Count Auto Diff 10/11/24 F41.9 - Anxiety disorder, unspecified, I10 - Essential (primary) hypertension, R06.02 - Shortness of breath, R06.2 - Wheezing, R53.83 - Other fatigue Comprehensive [place]. Panel Fast 10/11/24 F41.9 - Anxiety disorder, unspecified, I10 - Essential (primary) hypertension, R06.02 - Shortness of breath, R06.2 - Wheezing, R53.83 - Other fatigue Glucose Fasting 10/11/24 F41.9 - Anxiety disorder, unspecified, I10 - Essential (primary) hypertension, R06.02 - Shortness of breath, R06.2 - Wheezing, R53.83 - Other fatigue Vitamin D 25-OH Total 10/11/24 F41.9 - Anxiety disorder, unspecified, I10 - Essential (primary) hypertension, R06.02 - Shortness of breath, R06.2 - Wheezing, R53.83 - Other fatigue UA CC w/rflx Micro + Cult 10/11/24 F41.9 - Anxiety disorder, unspecified, I10 - Essential (primary) hypertension, R06.02 - Shortness of breath, R06.2 - Wheezing, R53.83 - Other fatigue Lipid Panel 10/11/24 F41.9 - Anxiety disorder, unspecified, I10 - Essential (primary) hypertension, R06.02 - Shortness of breath, R06.2 - Wheezing, R53.83 - Other fatigue TSH reflex Free T4 10/11/24 F41.9 - Anxiety disorder, unspecified, I10 - Essential (primary) hypertension, R06.02 - Shortness of breath, R06.2 - Wheezing, R53.83 - Other fatigue B Type Natriuretic Peptide 10/11/24 F41.9 - Anxiety disorder, unspecified, I10 - Essential (primary) hypertension, R06.02 - Shortness of breath, R06.2 - Wheezing, R53.83 - Other fatigue US abdomen complete 10/11/24 R10.9 - Unspecified abdominal pain Medications: New carbamide peroxide 6.5% (Debrox) 5 drps otic (ears) Q12H 4 days 15 mL 0RF H61.23 - Impacted cerumen, bilateral azithromycin For 250 mg dose pack: take 500 mg today (day 1), then 250 mg for 4 days (days 2-5) PO 6 tabs 0RF prednisone 20 mg PO DAILY 5 days 5 tabs 0RF Changed From docusate sodium 100 mg PO DAILY 90 caps 7RF To docusate sodium 200 mg (2 x 100 mg) PO BID 30 days 120 caps 2RF Refilled lorazepam 1 mg PO Q12H PRN 60 tabs 0RF anxiety Discontinued azithromycin Discontinued Reason: Duplicate take 500 mg today (day 1), then 250 mg for 4 days (days 2-5) PO 6 tabs 0RF
[2024-10-11 13:07] VITALS: BP 142/78; PULSE 63; TEMP 36.4; O2SAT 97; BMI 34.4
--- OUTSIDE RECORDS SUMMARY | 2024-10-11 15:07 | XMS_ITS | Clinical Summary ---
Author Organization [facility] Address [address] [address] Care Team Providers Care Junior Recruiter Name Role Phone Claude Hatch MD Primary Care Provider [phone] Allergies Active Allergy Reactions Criticality Noted Date [...] Due Date Last Done Comments Pneumococcal Vaccine: 50+ Ye ars (1 of 2 - PCV) 1964 Influenza Vaccine (Season Ended) 2025 Hepatitis B Vaccine Aged Out No longe r eligible based on patient's age to complete this topic Insurance Medicare Medicaid [place] Medicare [place] Care Teams Junior Recruiter Relationship Specialty Start Date End Date Claude Hatch MD [address] [place], [place] PCP - General Internal Medicine 04/22/22
== END 2024-10-11 14:03 | disposition home or self-care (01) ==
LOC: HO.HMCH 12:47
DX: R06.02 Shortness of breath (principal); I42.1 Obstructive hypertrophic cardiomyopathy; J45.50 Severe persistent asthma, uncomplicated; F41.9 Anxiety disorder, unspecified; M54.50 Low back pain, unspecified; G89.29 Other chronic pain; I10 Essential (primary) hypertension; H61.23 Impacted cerumen, bilateral; R10.33 Periumbilical pain

== ENCOUNTER 2024-10-11 12:47 | Outpatient (REF) | payer MEDICARE, MEDICAID, SELFPAY ==
[2024-10-11 14:37] LABS: MANUAL DIFF FLAG NO
[2024-10-11 15:10] LABS: Basophils Absolute Auto 0.1 X10*3/uL (0.0-0.2); Basophils Percent Auto 0.8 % (0-2); Eosinophils Absolute Auto 0.2 X10*3/uL (0.0-0.4); Eosinophils Percent Auto 2.4 % (0-4); Hematocrit 38.2 % (37.0-47.0); Hemoglobin 12.2 g/dl (12.0-16.0); Imm Gran Abs Auto 0.04 X10*3/uL (0.00-0.03); Imm Gran Pct Auto 0.5 % (0.0-0.4); Lymphocytes Absolute Auto 2.9 X10*3/uL (1.2-4.9); Mean Corpuscular HGB Conc 31.9 g/dl (31.0-35.0); Mean Corpuscular Hemoglobin 28.9 pg (27.0-33.0); Mean Corpuscular Volume 90.5 fL (80.0-98.0); Mean Platelet Volume 10.7 fL (9.4-12.3); Monocytes Absolute Auto 0.5 X10*3/uL (0.1-1.2); Monocytes Percent Auto 6.1 % (2-11); Neutrophils Absolute Auto 3.9 x10*3/uL (2.0-8.3); Neutrophils Percent Auto 52.2 % (45-73); Platelet Count 282 X10*3/uL (160-400); Red Blood Count 4.22 X10*6/uL (4.20-5.50); Red Cell Distribution Width 13.1 % (11.0-16.0); White Blood Count 7.5 X10*3/uL (4.8-10.8)
[2024-10-11 15:35] LABS: Appearance Urine Clear; Color Urine Dark Yellow; Glucose Urine UA Negative (Negative); Leukocyte Esterase Urine Negative (Negative); Nitrite Urine Negative (Negative); PH 5.5 (5.0-9.0); Specific Gravity - Urine 1.025 (1.005-1.025); Urine Blood Negative (Negative); Urine Ketones Trace mg/dL (Negative); Urine Protein Trace mg/dL (Neg-Trace)
[2024-10-11 15:49] LABS: B Type Natriuretic Peptide 49 pg/mL (<100)
[2024-10-11 16:17] LABS: Alanine Aminotransferase 12 U/L (0-31); Albumin Level 4.3 g/dL (3.5-5.0); Alkaline Phosphatase 83 U/L (39-117); Anion Gap 11 (12-20); Aspartate Amino Transferase 20 U/L (5-31); Bilirubin Total 0.6 mg/dL (0.0-1.0); Blood Urea Nitrogen 16 mg/dL (9-16); Calcium 9.1 mg/dL (8.4-10.2); Carbon Dioxide 28 mmol/L (22-29); Chloride 108 mmol/L (96-108); Cholesterol 274 mg/dL (<200); Estimated Glomerular Filt Rate > 60; Glucose Fasting 96 mg/dL (60-99); HDL Cholesterol 64 mg/dL (>40); LDL Cholesterol Calculated 196 mg/dL (<100); Potassium 4.3 mmol/L (3.3-5.1); Sodium 143 mmol/L (135-145); Total Protein 7.6 g/dL (6.5-8.0); Triglycerides 73 mg/dL (<150)
[2024-10-11 16:32] LABS: TSH reflex Free T4 1.17 uIU/mL (0.32-4.0); Vitamin D 25-OH Total 26.5 ng/mL (>30)
--- OUTSIDE RECORDS SUMMARY | 2024-10-11 17:04 | XMS_ITS | Clinical Summary ---
Author Organization [facility] Address [address] [address] Care Team Providers Care Fretted String Instrument Repairer Name Role Phone Claude Hatch MD Primary Care Provider [phone] Allergies Active Allergy Reactions Criticality Noted Date [...] Medicaid [place] Medicare [place] Care Teams Fretted String Instrument Repairer Relationship Specialty Start Date End Date Claude Hatch MD [address] [place], [place] PCP - General Internal Medicine 04/22/22
== END 2024-10-11 12:48 | disposition home or self-care (01) ==
LOC: HO.LAB 12:47
DX: R06.02 Shortness of breath (principal); F41.9 Anxiety disorder, unspecified; M54.50 Low back pain, unspecified; G89.29 Other chronic pain; I10 Essential (primary) hypertension; I42.1 Obstructive hypertrophic cardiomyopathy; J45.50 Severe persistent asthma, uncomplicated; H61.23 Impacted cerumen, bilateral; R10.33 Periumbilical pain; R53.83 Other fatigue
CPT/HCPCS: 36415; 80053; 80061; 81003; 82306; 83880; 84443; 85025; 96127; 99212

== ENCOUNTER 2024-11-05 13:47 | Outpatient (REF) | payer MEDICARE, MEDICAID, SELFPAY ==
--- NOTE | ~2024-11-05 | US_ITS ---
CLINICAL HISTORY: R10.9 - Unspecified abdominal pain US abdomen complete with color Doppler Comparison: CT/SR - CT ABDOMEN PELVIS WO CON - 01/09/22 00:46 EDT Findings: Midline structures obscured by bowel gas. Normal caliber proximal abdominal aorta. IVC is patent. Liver normal size and echotexture. Right lobe cm length. No focal hepatic masses. Common duct 4.0 mm diameter. Physiologic distention of the gallbladder. Layering gallstones. No gallbladder wall thickening. No pericholecystic fluid. No sonographic Fish sign. Main portal vein antegrade. Right kidney normal size, 10.6 cm in length. Normal cortical width and echotexture. No solid or cystic renal masses. No nephrolithiasis or hydronephrosis. Left kidney normal, 11.3 cm in length. Normal cortical width and echotexture. No solid or cystic renal masses. No nephrolithiasis or hydronephrosis. Spleen measures 7.6 cm. No splenic masses. No ascites. No lymphadenopathy. Impression: 1. Cholelithiasis without evidence of cholecystitis. This document has been electronically signed by: Jerry Soto MD on 11/06/2024 16:01:29
--- OUTSIDE RECORDS SUMMARY | 2024-11-05 13:50 | XMS_ITS | Clinical Summary ---
Author Organization [facility] Facility Address [address] [address] Care Team Providers Care Investigator Name Role Phone Claude Hatch MD Primary Care Provider Allergies Active Allergy Reactions Criticality Noted Date [...] Medicaid [place] Medicare [place] Care Teams Investigator Relationship Specialty Start Date End Date Claude Hatch MD [address] [place], [place] PCP - General Internal Medicine 04/22/22
== END 2024-11-05 13:48 | disposition home or self-care (01) ==
LOC: HO.US 13:47
DX: R10.9 Unspecified abdominal pain (principal)
CPT/HCPCS: 76700

== ENCOUNTER 2024-11-12 13:06 | Outpatient (AMB) | payer MEDICARE, MEDICAID, SELFPAY ==
[2024-11-12 13:10] VITALS: BP 126/80; PULSE 79; BMI 33.4
--- NOTE | 2024-11-12 13:10 | MHC.OFFVIS ---
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 Allergies Penicillins [PENICILLINS] Allergy (Mild, Verified 10/11/24 13:20) ITCHINESS aspirin [ASPIRIN] Allergy (Unknown, Verified 10/11/24 13:20) VOMITING Lisinopril Adverse Reaction (Severe, Uncoded 10/11/24 13:20) Angioedema Medication List - Last Reconciled 11/12/24 by VELIA Russell albuterol sulfate 90 mcg/actuation (Ventolin HFA) 2 puffs PO Q4-6H PRN albuterol sulfate 1.25 mg (3 mL) inhalation QID atorvastatin 80 mg PO BEDTIME carbamide peroxide 6.5% (Debrox) 5 drps otic (ears) Q12H 4 days cholecalciferol (vitamin D3) 25 mcg PO DAILY clotrimazole-betamethasone 1-0.05 % 1 appl topical BID 2 weeks commode (bedside commode) As directed diaper,brief,adult,disposable Change as needed diltiazem HCl ER (Tiadylt ER) 360 mg PO DAILY docusate sodium 200 mg (2 x 100 mg) PO BID 30 days fluticasone propion-salmeterol 500-50 mcg/dose (Advair Diskus) 1 ea PO BID fluticasone propionate 50 mcg/actuation 1 spray intranasal DAILY hydralazine 100 mg PO BID hydroxyzine HCl 25 mg PO QID PRN labetalol 100 mg PO BID lidocaine HCl 2% 1 appl topical BID PRN 30 days lorazepam 1 mg PO Q12H PRN omeprazole 20 mg PO QAM polyethylene glycol 3350 (Miralax) 17 grams PO DAILY Shower Chair As directed spironolactone 25 mg PO BID tramadol 50 mg PO BID PRN 30 days underpads (Bed Underpads) As directed HPI HPI 1year f/u: Details: Sara is a 79-year-old female with past medical history of hypertension, hyperlipidemia, obesity, asthma, hypertensive heart disease who presents for follow-up. Her last prior visit was 12/30/2023. Today she reports she has been doing well overall since her last visit. She does have some shortness of breath at times which she relates to her asthma. She uses her nebulizer and inhalers with a affect. She recently has had a cough with some congestion and plans to discuss this with her PCP. She will get some mid chest discomfort when she is upset. This is not a new finding for her. She denies any chest discomfort brought on by physical activity such as housework or stair climbing. No heart palpitations, lightheadedness, presyncope, syncope. No PND, orthopnea. She does have chronic lower leg edema and is wearing compression stockings. She report compliance with her med locations and recently increased her atorvastatin dose as directed. [facility] Medical History Fatigue PAC (premature atrial contraction) HTN (hypertension) Hypertensive heart disease Mild HOCM (hypertrophic obstructive cardiomyopathy) Asthma Surgical History History of left cataract surgery History of umbilical hernia repair History of tubal ligation Family History Father No problems noted. Mother No problems noted. Social History Household Members: Family Household Members Other:: grandson Housing: Apartment Do you presently have visiting nurse or other home services: No Alcohol intake: never Patient Tobacco Use Status: Never used Tobacco e-Cigarette/Vaping Use: Never Used Second Hand Smoke Exposure: No service: No Current occupational status: retired Cognitive needs: Yes (cane) Hearing needs: No Vision needs: Yes Review of Systems Const All systems reviewed & are unremarkable except as noted in HPI and below Denies chills, Denies fatigue, Denies fever(s), Denies frequent falls, Denies weakness, Denies weight gain and Denies weight loss ENT Denies dizziness Card Reports chest pain, Denies leg edema, Denies lightheadedness, Denies palpitations, Denies dyspnea, Denies dyspnea on exertion, Denies orthopnea and Denies other (loss of consciousness) Resp Denies cough, Denies dyspnea and Denies dyspnea on exertion GI Denies hematochezia and Denies change in stool character Musc Denies abnormal gait, Denies muscle weakness, Denies numbness, Denies radiating pain into limb and Denies tingling Neuro Denies abnormal gait, Denies dizziness, Denies frequent falls, Denies numbness, Denies tingling and Denies weakness Endo Denies fatigue and Denies palpitations Physical Exam Vital Signs: BMI result Body Mass Index 33.4 Const General: cooperative, healthy appearing, comfortable and no acute distress Orientation/consciousness: patient oriented x3 Neck Neck: Yes normal visual inspection Resp Effort & Inspection: normal respiratory effort Auscultation: clear to auscultation bilaterally, no rales, no rhonchi and no wheezes Cardio Rate: regular rate Rhythm: regular rhythm Heart sounds: S1 normal heart sound present, S2 normal heart sound present, no gallops, no murmurs and no rubs Neuro General: patient oriented x3 Extrem General: Yes normal to inspection, No no pedal edema and No calf tenderness Psych Appearance: grossly normal Mental Status: mental status grossly normal Speech and movement: Normal speech and movement present Office Procedures EKG Details: Today, read by me, Normal sinus rhythm, nonspecific ST abnormality, rate 79, Qtc 454ms [id number], Complete Results Reviewed Results Reviewed: stress test 02/12/24 1. Myocardial perfusion imaging study shows normal myocardial perfusion. 2. Gated LVEF is 59% during stress and 58% during rest. 3. Transient ischemic dilatation not present. EKG component of the test reported separately. Echo 12/04/23 Conclusions: - 1. Normal LV ejection fraction of 60-65% with mild LVH with impaired relaxation filling pattern 2. Mildly dilated left atrium 3. Trivial to mild aortic regurgitation 4. Upper limits of normal RV systolic pressure 5. No gross pericardial effusion Assessment & Plan Assessment & Plan (1) Hypertensive heart disease: Code(s): I11.9 - Hypertensive heart disease without heart failure Category: Medical Plan: History of hypertensive heart disease with last echocardiogram 12/04/2023 showing EF 60-65%, mild LVH with impaired relaxation. She does not appear fluid overloaded on exam. Her blood pressure is currently well controlled. Reviewed low-salt diet, med compliance, benefits of weight loss and physical activity. Continue diltiazem, hydralazine, labetalol, Aldactone. Labs done 10/11/2024 shows potassium 4.3, creatinine 77. (2) HTN (hypertension): Code(s): I10 - Essential (primary) hypertension Category: Medical Qualifiers: Hypertension type: unspecified Qualified Code(s): I10 - Essential (primary) hypertension Plan: Blood pressure goal less than 130/80, currently well controlled. No med changes made. (3) Hyperlipidemia: Code(s): E78.5 - Hyperlipidemia, unspecified Category: Medical Plan: LDL goal less than 100. Labs done 10/11/2024 showed LDL 196 on atorvastatin 40 mg daily. Her dose was increased to 80 mg daily by PCP and she anticipates having a recheck cholesterol done in the near future. (4) SOB (shortness of breath) on exertion: Code(s): R06.02 - Shortness of breath Category: Medical Plan: Reports of shortness of breath at times which could be related to asthma. Also may be related to obesity and deconditioning. She does not appear fluid overloaded. A nuclear stress test was done 8 03/05/2024 showing normal myocardial perfusion imaging. (5) Obesity: Code(s): E66.9 - Obesity, unspecified Category: Medical Plan: As above Plan I have discussed with the patient the management of her asthma-related dyspnea with current medications and emotional coping strategies for non-cardiac chest discomfort. The continuation of compression therapy and diuretics was explained as essential for edema management, with a reemphasis on taking prescribed medications. We reviewed her recent cardiac workups, indicating satisfactory function, with no need for further tests presently. The increase in atorvastatin was reinforced, and the necessity of follow-up cholesterol monitoring was underscored. I have advised vigilance for any shifts in symptoms necessitating reevaluation of her cardiac status. Patient Instructions: - Continue using nebulizer and other asthma inhalation treatments as prescribed. - Wear compression stockings as directed. - Continue taking all regular medications, including atorvastatin 80 mg at bedtime. - Monitor blood pressure and cholesterol regularly. - Manage any stress to help control chest discomfort. - Call for any changes in symptoms such as new chest discomfort or increased breathing difficulties. - Follow up with primary doctor as scheduled and cardiology in 1 year Patient was informed and verbally consented to the use of an ambient scribe for clinic note documentation during this visit. Visit time spent on chart review, interview, assessment, orders, documentation. Coding Level of Care Code Est Pt Level 4 (25268) Complex EM visit Add On G2211 Diagnoses Hypertensive heart disease I11.9 Hypertension, unspecified type I10 Hypertension type: unspecified Hyperlipidemia E78.5 SOB (shortness of breath) on exertion R06.02 Obesity E66.9 CPT Codes EKG - CPT: [id number], Complete ([id number]) Time Spent (min) 28
--- OUTSIDE RECORDS SUMMARY | 2024-11-12 13:16 | XMS_ITS | Clinical Summary ---
Author Organization [facility] Facility Address [address] [address] Care Team Providers Care Sales And Training Specialist Name Role Phone Claude Hatch MD Primary [...] [place] Care Teams Sales And Training Specialist Relationship Specialty Start Date End Date Claude Hatch MD [id number] [place], [place] PCP - General Internal Medicine 04/22/22
== END 2024-11-12 13:39 | disposition home or self-care (01) ==
LOC: HO.HCS 13:07
PROVIDERS: Visit Provider Nurse Practitioner Family
DX: I11.9 Hypertensive heart disease without heart failure (principal); I10 Essential (primary) hypertension; E78.5 Hyperlipidemia, unspecified; R06.02 Shortness of breath; E66.9 Obesity, unspecified
CPT/HCPCS: 93010; 99214; G2211

== ENCOUNTER → 2024-11-12 13:06 | Outpatient (BNVA) | payer MEDICARE, MEDICAID, SELFPAY | PROVIDERS: Visit Provider Nurse Practitioner Family | DX: I11.9 Hypertensive heart disease without heart failure (principal); I10 Essential (primary) hypertension; E78.5 Hyperlipidemia, unspecified; E66.9 Obesity, unspecified; R06.02 Shortness of breath; R94.31 Abnormal electrocardiogram [ECG] [EKG]; Z68.33 Body mass index [BMI] 33.0-33.9, adult | CPT/HCPCS: 93005; 99212 ==

== ENCOUNTER 2024-11-23 16:17 | Emergency (ER) | payer MEDICARE, MEDICAID, SELFPAY ==
[2024-11-23] VITALS (15 sets, daily range): BP systolic 106–276; BP diastolic 33–97; PULSE 49–67; RESP 16–30; TEMP 36.1–36.9; O2SAT 95–98; BMI 32.4
--- NOTE | ~2024-11-23 | XR_ITS ---
CLINICAL HISTORY: Pneumonia? COughing 1 view chest x-ray Comparison: CT/SR - CT ABDOMEN PELVIS WO CON - 01/22/22 23:43 EDT Findings: No consolidation or effusion. Heart size is normal. No acute fracture. IMPRESSION: 1. No acute findings. This document has been electronically signed by: Santy Andujar MD on 11/23/2024 18:08:17
--- NOTE | 2024-11-23 17:30 | ED.GENADULT ---
HPI - General Adult General Chief complaint: Dyspnea Stated complaint: Coughing for about a month/SOB Time Seen by Provider: 11/23/24 18:17 Source: patient Limitations: no limitations History of Present Illness ED Provider: Alberta Garcia PA-C HPI narrative: 79-year-old female with a history of asthma, hypertension, hyperlipidemia, mild HOCM, obesity who presents with ongoing dry cough for a month. Cough is dry and repetitive. Denies cough and cold symptoms or fever. Denies that she has seasonal allergies. Denies shortness of breath, chest pain, unintentional weight gain or new pedal edema. Related Data Previous Rx's ?Medication ?Instructions ?Recorded Shower Chair #1 ea 03/12/22 commode (bedside commode) #1 ea 03/12/22 diaper,brief,adult,disposable #126 ea 03/22/22 underpads (Bed Underpads) #300 ea 03/22/22 labetalol 100 mg tablet 100 mg PO BID #60 tabs 11/25/22 hydralazine 100 mg tablet 100 mg PO BID #180 tabs 05/12/23 clotrimazole-betamethasone 1 1 appl topical BID 2 weeks #45 03/02/24 %-0.05 % topical cream grams omeprazole 20 mg capsule,delayed 20 mg PO QAM #90 caps 03/02/24 release fluticasone 500 mcg-salmeterol 50 1 ea PO BID #180 ea 04/26/24 mcg/dose blistr powdr for inhalation (Advair Diskus) hydroxyzine HCl 25 mg tablet 25 mg PO QID PRN itching #120 tabs 06/04/24 polyethylene glycol 3350 17 17 g PO DAILY #238 grams 07/12/24 gram/dose oral powder (Miralax) fluticasone propionate 50 1 spray intranasal DAILY #16 grams 08/27/24 mcg/actuation nasal spray,suspension albuterol sulfate 90 mcg/actuation 2 puff PO Q4-6H PRN wheezing #8.5 08/30/24 aerosol inhaler (Ventolin HFA) grams tramadol 50 mg tablet 50 mg PO BID PRN pain 30 days #60 09/07/24 tabs lidocaine HCl 2 % mucosal jelly in 1 appl topical BID PRN pain 30 09/15/24 applicator days #60 mL albuterol sulfate 1.25 mg/3 mL 1.25 mg (3 mL) inhalation QID #90 09/20/24 solution for nebulization mL spironolactone 25 mg tablet 25 mg PO BID #180 tabs 09/22/24 carbamide peroxide 6.5 % ear drops 5 drp otic (ears) Q12H 4 days #15 10/11/24 (Debrox) mL docusate sodium 100 mg capsule 200 mg (2 x 100 mg) PO BID 30 days 10/11/24 #120 caps atorvastatin 80 mg tablet 80 mg PO BEDTIME #90 tabs 10/12/24 cholecalciferol (vitamin D3) 25 25 mcg PO DAILY #90 caps 10/12/24 mcg (1,000 unit) capsule diltiazem HCl 360 mg capsule,24 360 mg PO DAILY Hypertension #30 10/13/24 hr,extended release (Tiadylt ER) caps lorazepam 1 mg tablet 1 mg PO Q12H PRN anxiety #60 tabs 11/09/24 benzonatate 200 mg capsule 200 mg PO BID PRN cough #60 caps 11/14/24 prednisone 20 mg tablet 40 mg (2 x 20 mg) PO DAILY #8 tabs 11/23/24 Allergies Allergy/AdvReac Type Severity Reaction Status Date / Time Penicillins [PENICILLINS] Allergy Mild ITCHINESS Verified 11/23/24 17:24 aspirin [ASPIRIN] Allergy Unknown VOMITING Verified 11/23/24 17:24 Lisinopril AdvReac Severe Angioedema Uncoded 11/23/24 17:24 Review of Systems Review of Systems: Yes all other systems are reviewed and are negative Constitutional: Constitutional: Denies fatigue and Denies fever(s) Cardiovascular: Cardiovascular: Denies chest pain, Denies leg edema and Denies dyspnea Respiratory: Respiratory: Denies chest congestion, Reports cough, Denies dyspnea and Denies wheezing Gastrointestinal: Gastrointestinal: Denies abdominal pain, Denies nausea and Denies vomiting Endocrine: Endocrine: Denies fatigue Allergic/Immunologic: Allergic/Immunologic: Denies wheezing PMF Past Medical History Attestation statement: The following information was validated with the patient. Medical History Fatigue PAC (premature atrial contraction) HTN (hypertension) Hypertensive heart disease Mild HOCM (hypertrophic obstructive cardiomyopathy) Asthma Surgical History History of left cataract surgery History of umbilical hernia repair History of tubal ligation Family History Family History Father No problems noted. Mother No problems noted. Social History Social History Household Members: Family Household Members Other:: grandson Housing: Apartment Do you presently have visiting nurse or other home services: No Unable to assess alcohol history related to: Unknown Alcohol intake: never Patient Tobacco Use Status: Never used Tobacco Smoked in Last 30 Days: No e-Cigarette/Vaping Use: Never Used Second Hand Smoke Exposure: No Use of substances other than those prescribed or required for medical reasons: Unknown Advance Directives: No Advance Directives Information Provided: No service: No Current occupational status: retired Cognitive needs: Yes (cane) Hearing needs: No Vision needs: Yes Physical Exam ED Vital Signs: Vital Signs - 24 hr 11/23/24 17:22 11/23/24 19:04 11/23/24 19:05 Temperature 97 F 98.4 F Pulse Rate 67 63 Respiratory Rate 20 22 H Blood Pressure 200/79 H 276/97 H Pulse Oximetry 95 98 Oxygen Delivery Method Room Air Room Air 11/23/24 19:05 11/23/24 19:06 11/23/24 19:06 Temperature Pulse Rate 62 Respiratory Rate Blood Pressure 276/97 H 276/97 H 276/97 H Pulse Oximetry Oxygen Delivery Method 11/23/24 19:07 11/23/24 19:31 11/23/24 19:59 Temperature Pulse Rate 62 62 Respiratory Rate 16 Blood Pressure 276/97 H 179/67 H 121/60 Pulse Oximetry Oxygen Delivery Method 11/23/24 20:08 11/23/24 20:45 11/23/24 21:55 Temperature 98.3 F 97.7 F Pulse Rate 59 59 53 Respiratory Rate 19 30 H 22 H Blood Pressure 108/42 L 106/33 L Pulse Oximetry 97 97 Oxygen Delivery Method Room Air Room Air 11/23/24 22:02 11/23/24 22:20 11/23/24 22:21 Temperature Pulse Rate 52 49 L 54 Respiratory Rate 24 H Blood Pressure 110/43 L 116/41 L 126/52 L Pulse Oximetry 97 Oxygen Delivery Method Room Air 11/23/24 22:23 11/23/24 22:54 Temperature Pulse Rate 66 Respiratory Rate Blood Pressure 129/43 L 119/48 L Pulse Oximetry Oxygen Delivery Method BMI result Body Mass Index 32.4 Const Other: Alert well-appearing Orientation/consciousness: patient oriented x3 HENMT Other: Unable to visualize either TM, they are obstructed with cerumen, to note no tragal tenderness, no erythema or exudate noted in either external ear canal Resp Other: Lungs clear to auscultation no wheezing Cardio Other: Normal peripheral perfusion Skin Other: Warm dry no rash Neuro General: patient oriented x3, gait normal, no focal motor deficits and CN's II-XI intact bilaterally Psych Other: Cooperative Course Course Course Narrative: RME: 79-year-old female presents to ED for 1 month of coughing and shortness of breath. Patient has audible wheezing or during triage. Patient states also bilateral ear pain and decreased hearing. ED bronchodilators EKG chest x-ray ordered. Reevaluation(s) Reevaluation #1: Patient's blood pressure dropped to 100s systolic, giving IV fluid. She is somewhat dizzy, we will wait for her orthostasis to be alleviated. She did develop wheezing, she initially had no wheezing, gave steroid and an updraft. Reevaluation #2: Patient's pressures have normalized, she is asymptomatic, we will send with home care instructions. Wheezing resolved Time: 23:39 Medications Administered Discontinued Medications Generic Name Dose Route Start Last Admin Trade Name Freq PRN Reason Stop Dose Admin Acetaminophen 975 mg 11/23/24 20:24 11/23/24 20:33 Acetaminophen 325 Mg Tablet PO 11/23/24 20:25 975 mg ONCE ONE Administration Albuterol Sulfate 5 mg/ 0 mg 11/23/24 20:40 11/23/24 20:43 Albuterol/Ipratropium 3 ml INHALE 11/23/24 20:41 1 each ONCE ONE Administration Diltiazem HCl 360 mg 11/23/24 18:25 11/23/24 19:06 Diltiazem Hcl 60 Mg Tablet PO 11/23/24 18:26 360 mg ONCE ONE Administration Protocol Hydralazine HCl 100 mg 11/23/24 18:25 11/23/24 19:06 Hydralazine Hcl 50 Mg Tablet PO 11/23/24 18:26 100 mg ONCE ONE Administration Protocol Sodium Chloride 1,000 mls @ 999 mls/hr 11/23/24 21:30 11/23/24 22:44 Ns IV 11/23/24 22:30 Infused .Q1H1M MILDRED Infusion Labetalol HCl 100 mg 11/23/24 18:25 11/23/24 19:07 Labetalol Hcl 100 Mg Tablet PO 11/23/24 18:26 100 mg ONCE ONE Administration Protocol Prednisone 40 mg 11/23/24 20:24 11/23/24 20:33 Prednisone 20 Mg Tablet PO 11/23/24 20:25 40 mg ONCE ONE Administration Spironolactone 25 mg 11/23/24 18:30 11/23/24 19:05 Spironolactone 25 Mg Tablet PO 11/23/24 18:31 25 mg ONCE ONE Administration Protocol Medical Decision Making Medical Decision Making MDM Narrative: 79-year-old female with a history of asthma, hypertension, hyperlipidemia, mild HOCM, obesity who presents with ongoing dry cough for a month. Cough is dry and repetitive. Denies cough and cold symptoms or fever. Denies that she has seasonal allergies. Denies shortness of breath, chest pain, unintentional weight gain or new pedal edema. Problem: Age, asthma, hypertension, HOCM History: Per patient I have considered the following differential diagnoses: Asthma exacerbation, viral syndrome, pneumonia, ACS, heart failure, seasonal allergies Plan: The patient is not having any chest pain, she is having an ongoing cough, troponin was ordered as well as a chest x-ray and EKG, we will obtain a delta trop, this is not ACS. Thought about new heart failure, however the patient is not volume overloaded on exam, she is not complaining of shortness of breath and chest x-ray is clear. Thought about infectious sources, pneumonia versus viral syndrome, but her symptoms have been persistent for a month. She does allude to the fact that she has ear pressure and postnasal drip, this is likely seasonal allergies. We will be sending with instructions in the use of Zyrtec or Claritin. The patient is hypertensive at this time, she states she did not take any of her medications today because she came to the emergency department. She typically takes her meds after eating in the morning around noon. We will order all of her oral medications, once her blood pressure is under control we can discharge her safely. I have independently reviewed the following tests: Labs: No leukocytosis, not anemic, no electrolyte abnormality, troponin 3.1, delta troponin , viral panel negative EKG: Sinus rhythm with PACs, rate of 69, no ischemic changes no ectopy Chest x-ray: Findings: No consolidation or effusion. Heart size is normal. No acute fracture. IMPRESSION: 1. No acute findings. Lab Data 11/23/24 17:45 11/23/24 17:45 Labs: Lab Results 11/23/24 11/23/24 Range/Units 17:45 19:14 WBC 7.1 (4.8-10.8) X10*3/uL RBC 4.22 (4.20-5.50) X10*6/uL Hgb 12.3 (12.0-16.0) g/dl Hct 38.6 (37.0-47.0) % MCV 91.5 (80.0-98.0) fL MCH 29.1 (27.0-33.0) pg MCHC 31.9 (31.0-35.0) g/dl RDW 13.2 (11.0-16.0) % Plt Count 228 (160-400) X10*3/uL MPV 10.8 (9.4-12.3) fL Immature Gran % (Auto) 0.1 (0.0-0.4) % Neut % (Auto) 50.3 (45-73) % Lymph % (Auto) 40.3 H (20-40) % [place] % (Auto) 6.5 (2-11) % Eos % (Auto) 2.1 (0-4) % Baso % (Auto) 0.7 (0-2) % Lymph # (Auto) 2.9 (1.2-4.9) X10*3/uL [place] # (Auto) 0.5 (0.1-1.2) X10*3/uL Eos # (Auto) 0.2 (0.0-0.4) X10*3/uL Baso # (Auto) 0.1 (0.0-0.2) X10*3/uL Abs Immat Gran (auto) 0.01 (0.00-0.03) X10*3/uL Absolute Neuts (auto) 3.6 (2.0-8.3) x10*3/uL Absolute Nucleated RBC 0.000 (0.0-0.012) X10*3/uL Nucleated RBC % (auto) 0.0 (0.0-0.2) /100WBC PT 12.4 (10.9-12.4) SEC INR 1.1 (0.9-1.1) APTT 27.5 (26.0-36.8) SEC Sodium 144 (135-145) mmol/L Potassium 4.0 (3.3-5.1) mmol/L Chloride 108 (96-108) mmol/L Carbon Dioxide 27 (22-29) mmol/L Anion Gap 13 (12-20) BUN 17 H (9-16) mg/dL Creatinine 0.82 (0.5-1.4) mg/dL Estim Creat Clear Calc 65.4 Estimated GFR > 60 Random Glucose 100 (60-115) mg/dL Calcium 9.7 D (8.4-10.2) mg/dL Total Bilirubin 0.9 (0.0-1.0) mg/dL AST 23 (5-31) U/L ALT 11 (0-31) U/L Alkaline Phosphatase 84 (39-117) U/L Troponin I High Sens 3.1 3.5 (<3.5-17.0) ng/L B-Natriuretic Peptide 27 (<100) pg/mL Total Protein 7.5 (6.5-8.0) g/dL Albumin 4.6 (3.5-5.0) g/dL Influenza Type A (PCR) NEGATIVE (Negative) Influenza Type B (PCR) NEGATIVE (Negative) RSV RNA Qual (PCR) NEGATIVE (Negative) SARS-CoV-2 RNA (RT-PCR) NEGATIVE (Negative) Discharge Plan Discharge Clinical Impression: Post-nasal drip, Bilateral impacted cerumen, Asthma exacerbation Patient Disposition: Home, Self-Care Instructions: Asthma (ED), Allergies (ED), Fluid In The Ear (Serous Otitis Media) (ED), Postnasal Drip (DC) Additional Instructions: All of your screening labs including 2 cardiac enzymes were normal. You were screened for influenza RSV and COVID, the viral panel was negative. There were no concerning changes on the EKG in the chest x-ray is clear. Your symptoms are secondary to seasonal allergies. Use either Zyrtec or Claritin, daily, for the rest of the summer. The antihistamine will alleviate the congestion in your nasal passages which is causing your postnasal drip. You were also found to have wax in both ears, use an [id number] wax remedy to help dislodge the wax. You are being treated for mild asthma exacerbation, use your home inhalers as needed. Take the steroid as directed, you do not require any additional medication until tomorrow. Follow up with your primary care provider as needed. Prescriptions: New prednisone 20 mg tablet 40 mg PO DAILY Qty: 8 0RF No Action (DME) bedside commode Kit See Rx Instructions .Route Qty: 1 0RF Rx Instructions: As directed (DME) Shower Chair Misc See Rx Instructions .Route Qty: 1 0RF Rx Instructions: As directed labetalol 100 mg tablet 100 mg PO BID Qty: 60 5RF hydralazine 100 mg tablet 100 mg PO BID Qty: 180 3RF omeprazole 20 mg capsule,delayed release(DR/EC) 20 mg PO QAM Qty: 90 8RF clotrimazole-betamethasone 1-0.05 % cream 1 appl topical BID 14 Days Qty: 45 0RF fluticasone propion-salmeterol [Advair Diskus] 500-50 mcg/dose blister with device 1 ea PO BID Qty: 180 1RF hydroxyzine HCl 25 mg tablet 25 mg PO QID PRN (Reason: itching) Qty: 120 2RF fluticasone propionate 50 mcg/actuation spray,suspension 1 spray intranasal DAILY Qty: 16 1RF albuterol sulfate [Ventolin HFA] 90 mcg/actuation HFA aerosol inhaler 2 puff PO Q4-6H PRN (Reason: wheezing) Qty: 8.5 3RF tramadol 50 mg tablet 50 mg PO BID PRN (Reason: pain) 30 Days Qty: 60 0RF lidocaine HCl 2 % jelly in applicator 1 appl topical BID PRN (Reason: pain) 30 Days Qty: 60 3RF albuterol sulfate 1.25 mg/3 mL solution for nebulization 1.25 mg inhalation QID Qty: 90 3RF spironolactone 25 mg tablet 25 mg PO BID Qty: 180 1RF diltiazem HCl [Tiadylt ER] 360 mg capsule,extended release 24hr 360 mg PO DAILY Qty: 30 0RF lorazepam 1 mg tablet 1 mg PO Q12H PRN (Reason: anxiety) Qty: 60 0RF benzonatate 200 mg capsule 200 mg PO BID PRN (Reason: cough) Qty: 60 0RF (DME) diaper,brief,adult,disposable Misc See Rx Instructions .Route Qty: 126 8RF Rx Instructions: Change as needed (DME) underpads [Bed Underpads] Pad See Rx Instructions .Route Qty: 300 6RF Rx Instructions: As directed polyethylene glycol 3350 [Miralax] 17 gram/dose powder 17 g PO DAILY Qty: 238 0RF docusate sodium 100 mg capsule 200 mg PO BID 30 Days Qty: 120 2RF Debrox 6.5 % drops 5 drp otic (ears) Q12H 4 Days Qty: 15 0RF atorvastatin 80 mg tablet 80 mg PO BEDTIME Qty: 90 3RF cholecalciferol (vitamin D3) 25 mcg (1,000 unit) capsule 25 mcg PO DAILY Qty: 90 2RF Print Language: Azerbaijani
--- NOTE | 2024-11-23 17:31 | ECG_ITS ---
Test Reason : SOB Blood Pressure : */* mmHG Vent. Rate : 69 BPM Atrial Rate : 69 BPM P-R Int : 132 ms QRS Dur : 90 ms QT Int : 396 ms P-R-T Axes : 69 58 87 degrees QTcB Int : 424 ms Sinus rhythm with Premature atrial complexes Otherwise normal ECG When compared with ECG of 09-Jan-2022 01:32, Premature atrial complexes are now Present Referred By: Nirav Walker Electronically Signed By: PATRICK CODY MD
[2024-11-23 17:52] LABS: MANUAL DIFF FLAG NO
[2024-11-23 17:57] LABS: Basophils Absolute Auto 0.1 X10*3/uL (0.0-0.2); Basophils Percent Auto 0.7 % (0-2); Eosinophils Absolute Auto 0.2 X10*3/uL (0.0-0.4); Eosinophils Percent Auto 2.1 % (0-4); Hematocrit 38.6 % (37.0-47.0); Hemoglobin 12.3 g/dl (12.0-16.0); Imm Gran Abs Auto 0.01 X10*3/uL (0.00-0.03); Imm Gran Pct Auto 0.1 % (0.0-0.4); Lymphocytes Absolute Auto 2.9 X10*3/uL (1.2-4.9); Lymphocytes Percent Auto 40.3 % (20-40); Mean Corpuscular HGB Conc 31.9 g/dl (31.0-35.0); Mean Corpuscular Hemoglobin 29.1 pg (27.0-33.0); Mean Corpuscular Volume 91.5 fL (80.0-98.0); Mean Platelet Volume 10.8 fL (9.4-12.3); Monocytes Absolute Auto 0.5 X10*3/uL (0.1-1.2); Monocytes Percent Auto 6.5 % (2-11); Neutrophils Absolute Auto 3.6 x10*3/uL (2.0-8.3); Neutrophils Percent Auto 50.3 % (45-73); Platelet Count 228 X10*3/uL (160-400); Red Blood Count 4.22 X10*6/uL (4.20-5.50); Red Cell Distribution Width 13.2 % (11.0-16.0); White Blood Count 7.1 X10*3/uL (4.8-10.8)
[2024-11-23 18:06] LABS: Alanine Aminotransferase 11 U/L (0-31); Albumin Level 4.6 g/dL (3.5-5.0); Alkaline Phosphatase 84 U/L (39-117); Anion Gap 13 (12-20); Aspartate Amino Transferase 23 U/L (5-31); Bilirubin Total 0.9 mg/dL (0.0-1.0); Blood Urea Nitrogen 17 mg/dL (9-16); Calcium 9.7 mg/dL (8.4-10.2); Carbon Dioxide 27 mmol/L (22-29); Chloride 108 mmol/L (96-108); Creatinine Clr Calc Pharmacy 65.4; Estimated Glomerular Filt Rate > 60; Glucose Random 100 mg/dL (60-115); INTERNATIONAL NORM RATIO 1.1 (0.9-1.1); Prothrombin Time 12.4 SEC (10.9-12.4); Sodium 144 mmol/L (135-145); Total Protein 7.5 g/dL (6.5-8.0)
[2024-11-23 18:09] LABS: Partial Thromboplastin Time 27.5 SEC (26.0-36.8)
[2024-11-23 18:12] LABS: B Type Natriuretic Peptide 27 pg/mL (<100)
[2024-11-23 18:13] LABS: Troponin-I High Sensitivity 3.1 ng/L (<3.5-17.0)
[2024-11-23 18:29] LABS: Influenza A PCR NEGATIVE (Negative); Influenza B PCR NEGATIVE (Negative); Resp Syncy Virus RNA Qual PCR NEGATIVE (Negative); SARS COV2 PCR INHOUSE NEGATIVE (Negative)
[2024-11-23] MEDS: Spironolactone 25 MG TABLET PO (19:05)
[2024-11-23] MEDS: dilTIAZem HCL 60 MG TABLET 360 MG PO (19:06)
[2024-11-23] MEDS: hydrALAZINE HCl 50 MG TABLET 100 MG PO (19:06)
[2024-11-23] MEDS: Labetalol HCL 100 MG TABLET PO (19:07)
--- OUTSIDE RECORDS SUMMARY | 2024-11-23 19:09 | XMS_ITS | Clinical Summary ---
Author Organization [facility] Facility Address [address] [address] Care Team Providers Care Shot Packer Name Role Phone Claude Hatch MD Primary Care Provider [phone] Allergies Active Allergy Reactions Criticality Noted Date [...] [place] Care Teams Shot Packer Relationship Specialty Start Date End Date Claude Hatch MD [address] [place], [place] PCP - General Internal Medicine 04/22/22
--- NOTE | 2024-11-23 19:11 | PC.NURSE ---
PT medicated per Mar, before pt was medicated this nurse went over the medication list of with Provider Radha confirmed that this patient does take these medications to manage HTN at home.
[2024-11-23 19:39] LABS: Troponin-I High Sensitivity 3.5 ng/L (<3.5-17.0)
--- NOTE | 2024-11-23 20:21 | PC.NURSE ---
Notified Provider Robin Healy pt complaining of sob and lower left back pain, Provider will re-assess pt.
[2024-11-23] MEDS: predniSONE 20 MG TABLET 40 MG PO (20:33)
[2024-11-23] MEDS: Acetaminophen 325 MG TABLET 975 MG PO (20:33)
[2024-11-23] MEDS: Albuterol Sulfate 5 MG, Albuterol/Iprat 2.5/0.5MG 3 ML 3 ML INHALE (20:43)
--- NOTE | 2024-11-23 21:00 | PC.NURSE ---
pt reposition pure wick in place, pt receiving respiratory treatment.
[2024-11-23] MEDS: 0.9 % Sodium Chloride 1,000 ML 999 ML IV (21:36)
[2024-11-24 00:07] VITALS: BP 119/47; PULSE 47; RESP 16; TEMP 36.1; O2SAT 98
--- NOTE | 2024-11-24 00:08 | PC.NURSE ---
pt a&o, no sob or chest pain, reviewed discharge instructions with pt. pt verbalized understanding, assisted pt getting dress, pt wheeled out to waiting room.Notified her sister abdulkadir ([email or web address] cruz). [phone]
[2024-11-24 00:10] VITALS: BP 119/47; PULSE 47; RESP 16; TEMP 36.1; O2SAT 98
== END 2024-11-24 00:11 | disposition home or self-care (01) ==
PROVIDERS: Physician Assistant; Physician Assistant Medical; Emergency Provider Emergency Medicine Emergency Medical Services
DX: R09.82 Postnasal drip (principal); J45.901 Unspecified asthma with (acute) exacerbation; R06.02 Shortness of breath; R05.9 Cough, unspecified; I10 Essential (primary) hypertension; Z03.818 Encounter for observation for suspected exposure to other biological agents ruled out; Z79.899 Other long term (current) drug therapy
CPT/HCPCS: 0241U; 36415; 71045; 80053; 83880; 84484; 85025; 85610; 85730; 93005; 94640; 96360; 99284; 99285

== ENCOUNTER → 2024-11-23 17:31 | Outpatient (BNV) | payer MEDICARE, MEDICAID, SELFPAY | PROVIDERS: Emergency Provider Emergency Medicine Emergency Medical Services; Visit Provider Radiology Diagnostic Radiology | DX: J18.9 Pneumonia, unspecified organism (principal); R05.1 Acute cough | CPT/HCPCS: 71045 ==

== ENCOUNTER → 2024-11-23 17:31 | Outpatient (BNV) | payer MEDICARE, MEDICAID, SELFPAY | PROVIDERS: Emergency Provider Emergency Medicine Emergency Medical Services; Visit Provider Internal Medicine Cardiovascular Disease | DX: I49.1 Atrial premature depolarization (principal) | CPT/HCPCS: 93010 ==

== ENCOUNTER 2024-12-10 06:49 | Inpatient (IN) | payer MEDICARE, MEDICAID, SELFPAY ==
[2024-12-10] VITALS (15 sets, daily range): BP systolic 156–241; BP diastolic 66–88; PULSE 55–80; RESP 16–27; TEMP 36.4–36.9; O2SAT 94–99; BMI 33.4
--- NOTE | ~2024-12-10 | XR_ITS ---
EXAMINATION: XR CHEST CLINICAL INFORMATION: Preop evaluation COMPARISON: November 23, 2024 TECHNIQUE: Frontal view of the chest was obtained. FINDINGS: There is borderline cardiomegaly. Pulmonary vascularity is unremarkable. Lungs are clear. XR/XR chest 1V IMPRESSION: Borderline cardiomegaly. Electronically signed by: Leonel Ybarra MD 12/10/2024 01:04 PM EDT
--- NOTE | ~2024-12-10 | XR_ITS ---
CLINICAL HISTORY: dyspnea 1 view chest x-ray Comparison: 11/23/2024 Findings: The lungs are clear. Borderline to mild cardiomegaly. No acute fracture. IMPRESSION: Borderline to mild cardiomegaly. This document has been electronically signed by: Sarah Lowery MD on 12/12/2024 13:45:26
--- NOTE | ~2024-12-10 | US_ITS ---
EXAMINATION: US ABDOMEN LIMITED CLINICAL INFORMATION: Right upper quadrant tenderness.. COMPARISON: None available. TECHNIQUE: Real-time imaging of the right upper quadrant abdominal viscera. FINDINGS: PANCREAS: Visualized portions are unremarkable. LIVER: The liver is normal in size. The liver contour is normal. Minimally increased parenchymal echogenicity, likely mild steatosis. No focal hepatic lesion. There is no intrahepatic biliary duct dilatation seen. GALLBLADDER: The gallbladder is distended with borderline wall thickening at 3 mm. There is a 5 mm anterior mural-based polyp present. There are gravel size layering gallstones. There is pericholecystic fluid. Positive sonographic Fish's sign. COMMON BILE DUCT: Normal in caliber measuring 0.5 cm in diameter. RIGHT KIDNEY: No hydronephrosis. No renal calculi or suspicious focal parenchymal lesions. The kidney measures 10.7 cm in maximum dimension. There is a mid pole simple cyst measuring 0.8 x 1.0 x 0.9 cm. FREE FLUID: None. US/US abdomen limited IMPRESSION: 1. Findings highly suspicious for acute calculus cholecystitis. Positive sonographic Fish's sign. Gravel size gallstones. Mild wall thickening and pericholecystic fluid. 2. Mildly increased hepatic echogenicity suggestive of mild steatosis. No suspicious liver abnormality. 3. No pathologic biliary ductal dilatation. Electronically signed by: Alvin Rod MD 12/10/2024 09:16 AM EDT
--- NOTE | 2024-12-10 06:58 | ECG_ITS ---
Test Reason : ABD PAIN Blood Pressure : */* mmHG Vent. Rate : 67 BPM Atrial Rate : 67 BPM P-R Int : 134 ms QRS Dur : 90 ms QT Int : 408 ms P-R-T Axes : 61 38 80 degrees QTcB Int : 431 ms Normal sinus rhythm Normal ECG When compared with ECG of 23-Nov-2024 17:30, Premature atrial complexes are no longer Present Referred By: Generic ED Physician Electronically Signed By: DEMETRIO CADE
--- OUTSIDE RECORDS SUMMARY | 2024-12-10 07:22 | XMS_ITS | Clinical Summary ---
Author Organization [facility] Facility Address [address] [address] Care Team Providers Care Online Journalist Name Role Phone Claude Hatch MD Primary Care Provider [phone] Allergies Active Allergy Reactions Criticality Noted Date [...] [place] Care Teams Online Journalist Relationship Specialty Start Date End Date Claude Hatch MD [address] [place], [place] PCP - General Internal Medicine 04/22/22
[2024-12-10 07:27] LABS: Hematocrit 39.8 % (37.0-47.0); Hemoglobin 12.8 g/dl (12.0-16.0); Imm Gran Abs Auto 0.05 X10*3/uL (0.00-0.03); Imm Gran Pct Auto 0.4 % (0.0-0.4); Lymphocytes Absolute Auto 3.1 X10*3/uL (1.2-4.9); Mean Corpuscular HGB Conc 32.2 g/dl (31.0-35.0); Mean Corpuscular Hemoglobin 29.8 pg (27.0-33.0); Mean Corpuscular Volume 92.6 fL (80.0-98.0); NRBC Abs Auto 0.000 X10*3/uL (0.0-0.012); NRBC Pct Auto 0.0 /100WBC (0.0-0.2); Platelet Count 165 X10*3/uL (160-400); Red Blood Count 4.30 X10*6/uL (4.20-5.50); White Blood Count 11.5 X10*3/uL (4.8-10.8)
[2024-12-10 07:47] LABS: Alanine Aminotransferase 44 U/L (0-31); Albumin Level 4.4 g/dL (3.5-5.0); Alkaline Phosphatase 103 U/L (39-117); Anion Gap 15 (12-20); Aspartate Amino Transferase 91 U/L (5-31); Blood Urea Nitrogen 16 mg/dL (9-16); Calcium 9.2 mg/dL (8.4-10.2); Carbon Dioxide 25 mmol/L (22-29); Chloride 107 mmol/L (96-108); Creatinine Clr Calc Pharmacy 65.8; Estimated Glomerular Filt Rate > 60; Lipase 21 U/L (8-78); Magnesium 2.3 mg/dL (1.6-2.6); Potassium 3.7 mmol/L (3.3-5.1); Sodium 143 mmol/L (135-145); Total Protein 7.2 g/dL (6.5-8.0)
--- NOTE | 2024-12-10 07:55 | ED.GENADULT ---
HPI - General Adult General Chief complaint: Abdominal Pain Stated complaint: abd pain Time Seen by Provider: 12/10/24 07:52 Source: RN notes reviewed and old records reviewed Mode of arrival: ambulatory Limitations: no limitations History of Present Illness ED Provider: Wilfred SUAREZ narrative: Patient is a 79-year-old female with history of HTN, HLD, hypertrophic obstructive cardiomyopathy, asthma, obesity presenting to the emergency department with complaint of right upper quadrant abdominal pain radiating to her back since 6:00 a.m.. Denies fever, nausea, vomiting, diarrhea. Denies dysuria, hematuria or other urinary symptoms. Last bowel movement was 2 days ago. Was previously told by her PCP that she had gallstones. Rates current pain at 03/25. Hypertensive but states she did not take her blood pressure medication this morning, denies headache, dizziness or lightheadedness, vision changes, chest pain. Complains of mild wheezing, states she has not used her inhalers prior to arrival this morning. MD complaint: Abdominal pain Onset (ago): hour(s) Related Data Previous Rx's ?Medication ?Instructions ?Recorded Shower Chair #1 ea 03/12/22 commode (bedside commode) #1 ea 03/12/22 diaper,brief,adult,disposable #126 ea 03/22/22 underpads (Bed Underpads) #300 ea 03/22/22 labetalol 100 mg tablet 100 mg PO BID #60 tabs 11/25/22 hydralazine 100 mg tablet 100 mg PO BID #180 tabs 05/12/23 clotrimazole-betamethasone 1 1 appl topical BID 2 weeks #45 03/02/24 %-0.05 % topical cream grams omeprazole 20 mg capsule,delayed 20 mg PO QAM #90 caps 03/02/24 release fluticasone 500 mcg-salmeterol 50 1 ea PO BID #180 ea 04/26/24 mcg/dose blistr powdr for inhalation (Advair Diskus) hydroxyzine HCl 25 mg tablet 25 mg PO QID PRN itching #120 tabs 06/04/24 polyethylene glycol 3350 17 17 g PO DAILY #238 grams 07/12/24 gram/dose oral powder (Miralax) fluticasone propionate 50 1 spray intranasal DAILY #16 grams 08/27/24 mcg/actuation nasal spray,suspension albuterol sulfate 90 mcg/actuation 2 puff PO Q4-6H PRN wheezing #8.5 08/30/24 aerosol inhaler (Ventolin HFA) grams tramadol 50 mg tablet 50 mg PO BID PRN pain 30 days #60 09/07/24 tabs lidocaine HCl 2 % mucosal jelly in 1 appl topical BID PRN pain 30 09/15/24 applicator days #60 mL albuterol sulfate 1.25 mg/3 mL 1.25 mg (3 mL) inhalation QID #90 09/20/24 solution for nebulization mL spironolactone 25 mg tablet 25 mg PO BID #180 tabs 09/22/24 carbamide peroxide 6.5 % ear drops 5 drp otic (ears) Q12H 4 days #15 10/11/24 (Debrox) mL docusate sodium 100 mg capsule 200 mg (2 x 100 mg) PO BID 30 days 10/11/24 #120 caps atorvastatin 80 mg tablet 80 mg PO BEDTIME #90 tabs 10/12/24 cholecalciferol (vitamin D3) 25 25 mcg PO DAILY #90 caps 10/12/24 mcg (1,000 unit) capsule diltiazem HCl 360 mg capsule,24 360 mg PO DAILY Hypertension #30 10/13/24 hr,extended release (Tiadylt ER) caps lorazepam 1 mg tablet 1 mg PO Q12H PRN anxiety #60 tabs 11/09/24 benzonatate 200 mg capsule 200 mg PO BID PRN cough #60 caps 11/14/24 prednisone 20 mg tablet 40 mg (2 x 20 mg) PO DAILY #8 tabs 11/23/24 Allergies Allergy/AdvReac Type Severity Reaction Status Date / Time Penicillins (PENICILLINS) Allergy Mild ITCHINESS Verified 12/10/24 06:57 aspirin (ASPIRIN) Allergy Unknown VOMITING Verified 12/10/24 06:57 Lisinopril AdvReac Severe Angioedema Uncoded 12/10/24 06:57 Review of Systems Review of Systems: As per HPI Yes all other systems are reviewed and are negative Constitutional: Constitutional: Reports as per HPI [facility] Past Medical History Medical History Fatigue PAC (premature atrial contraction) HTN (hypertension) Hypertensive heart disease Mild HOCM (hypertrophic obstructive cardiomyopathy) Asthma Surgical History History of left cataract surgery History of umbilical hernia repair History of tubal ligation Family History Family History Father No problems noted. Mother No problems noted. Social History Social History Household Members: Family Household Members Other:: grandson Housing: Apartment Do you presently have visiting nurse or other home services: No Unable to assess alcohol history related to: Unknown Alcohol intake: never Patient Tobacco Use Status: Never used Tobacco Smoked in Last 30 Days: No e-Cigarette/Vaping Use: Never Used Second Hand Smoke Exposure: No Use of substances other than those prescribed or required for medical reasons: No Advance Directives: No Advance Directives Information Provided: Yes Do you have a plan to hurt others: No Plan service: No Current occupational status: retired Cognitive needs: Yes (cane) Hearing needs: No Vision needs: Yes Physical Exam ED Vital Signs: Vital Signs - 24 hr 12/10/24 06:51 12/10/24 07:32 12/10/24 08:21 Temperature 97.8 F 97.9 F Pulse Rate 70 73 Respiratory Rate 18 26 H Blood Pressure 195/77 H 241/71 H 241/71 H Pulse Oximetry 99 98 Oxygen Delivery Method Room Air 12/10/24 08:21 12/10/24 09:13 12/10/24 09:40 Temperature 97.6 F Pulse Rate 71 55 61 Respiratory Rate 27 H 19 Blood Pressure 241/71 H 226/76 H Pulse Oximetry 97 Oxygen Delivery Method Room Air BMI result Body Mass Index 33.4 Vital signs have been reviewed and appear to be correct. Blood pressure normal. Heart rate normal. Respiratory rate normal. Temperature normal. Oxygen saturation normal. Const General: cooperative, healthy appearing and no acute distress Orientation/consciousness: oriented to person, oriented to place, oriented to time and patient oriented x3 Limitations: no limitations HENMT Head: Yes normocephalic and Yes atraumatic Ears: external ears normal General nose exam: Normal external nose present Face and sinus: Yes face symmetric Mouth: oropharynx normal and moist mucous membranes Throat: Yes uvula midline Eyes Pupils: Equal, round and reactive pupils present Neck Neck: Yes normal visual inspection and Yes supple Resp Effort & Inspection: normal respiratory effort and able to speak in complete sentences Auscultation: clear to auscultation bilaterally Cardio Rate: regular rate Rhythm: regular rhythm Heart sounds: S1 normal heart sound present and S2 normal heart sound present GI Inspection: Yes normal to inspection Palpation (GI): Soft to palpation and Tenderness to palpation present (GI) in the RUQ and Fish's sign positive Auscultation: normoactive bowel sounds General: Yes no CVA tenderness Back/Spine/Pelvis Back: no CVA tenderness Skin General skin exam: elasticity normal and turgor normal Neuro General: oriented to person, oriented to place, oriented to time, patient oriented x3, moves all extremities, no focal motor deficits and CN's II-XI intact bilaterally Cranial nerves: Yes Equal, round and reactive pupils present Cognition (Neuro): normal cognition Extrem General: Yes full ROM, Yes no pedal edema and Yes no calf tenderness Psych Mental Status: mental status grossly normal Affect: normal affect Thought process: Normal thought process present Medications Administered Discontinued Medications Generic Name Dose Route Start Last Admin Trade Name Freq PRN Reason Stop Dose Admin Albuterol Sulfate 5 mg/ 0 mg 12/10/24 09:04 12/10/24 09:13 Albuterol/Ipratropium 3 ml INHALE 12/10/24 09:05 7.5 each ONCE ONE Administration Diltiazem HCl 360 mg 12/10/24 08:02 12/10/24 08:21 Diltiazem Hcl Cd 180 Mg Cap.Er.24h PO 12/10/24 08:03 360 mg ONCE ONE Administration Protocol Hydromorphone HCl 0.5 mg 12/10/24 09:42 12/10/24 09:55 Hydromorphone Hcl 0.5 Mg/0.5 Ml Syringe IVPUSH 12/10/24 09:43 0.5 mg ONCE ONE Administration Protocol Morphine Sulfate 4 mg 12/10/24 08:13 12/10/24 08:20 Morphine Sulfate 4 Mg/Ml Cartridge IVPUSH 12/10/24 08:14 4 mg ONCE ONE Administration Protocol Ondansetron HCl 4 mg 12/10/24 08:13 12/10/24 08:20 Ondansetron Hcl 4 Mg/2 Ml Vial IVPUSH 12/10/24 08:14 4 mg ONCE ONE Administration Spironolactone 25 mg 12/10/24 08:02 12/10/24 08:21 Spironolactone 25 Mg Tablet PO 12/10/24 08:03 25 mg ONCE ONE Administration Protocol Medical Decision Making Medical Decision Making [facility] Narrative: Patient is a 79-year-old female with history of HTN, HLD, hypertrophic obstructive cardiomyopathy, asthma, obesity presenting to the emergency department with complaint of right upper quadrant abdominal pain radiating to her back since 6:00 a.m.. On exam patient is awake, A+Ox3, hypertensive, VS otherwise WNL, afebrile, normal neurological exam without focal deficits, physical exam findings as above. Given reported symptoms and physical exam findings, initial differential includes but is not limited to acute cholecystitis, choledocholithiasis, biliary colic. Labs notable for mild leukocytosis, slightly elevated transaminases with normal T bili, otherwise unremarkable. Ultrasound notable for findings concerning for acute cholecystitis including positive sonographic Fish sign, gravel size gallstones, mild wall thickening and pericholecystic fluid. My interpretation is in agreement with the radiologist's interpretation. Medicated with morphine with little relief, will try dilaudid. Case discussed with Dr. Coronel who will admit patient. Results and plan discussed with patient who is agreeable with this. Differential Diagnosis Differential Diagnoses: The differential diagnosis associated with the presentation includes as per [facility] Admission/Observation Consideration of admission/observation: Escalation of care including admission/observation considered Consult Healthcare Provider Management of the patient was discussed with: Calender Worker Helper Lab Data [facility] Lab Attestation statement: I reviewed the patient's lab results. as per [facility] 12/10/24 07:15 12/10/24 07:15 Labs: Lab Results 12/10/24 Range/Units 07:15 WBC 11.5 H (4.8-10.8) X10*3/uL RBC 4.30 (4.20-5.50) X10*6/uL Hgb 12.8 (12.0-16.0) g/dl Hct 39.8 (37.0-47.0) % MCV 92.6 (80.0-98.0) fL MCH 29.8 (27.0-33.0) pg MCHC 32.2 (31.0-35.0) g/dl RDW 13.5 (11.0-16.0) % Plt Count 165 D (160-400) X10*3/uL MPV 11.2 (9.4-12.3) fL Immature Gran % (Auto) 0.4 (0.0-0.4) % Neut % (Auto) 64.3 (45-73) % Lymph % (Auto) 27.2 (20-40) % Rawlins % (Auto) 5.7 (2-11) % Eos % (Auto) 1.9 (0-4) % Baso % (Auto) 0.5 (0-2) % Lymph # (Auto) 3.1 (1.2-4.9) X10*3/uL [place] # (Auto) 0.7 (0.1-1.2) X10*3/uL Eos # (Auto) 0.2 (0.0-0.4) X10*3/uL Baso # (Auto) 0.1 (0.0-0.2) X10*3/uL Abs Immat Gran (auto) 0.05 H (0.00-0.03) X10*3/uL Absolute Neuts (auto) 7.4 (2.0-8.3) x10*3/uL Absolute Nucleated RBC 0.000 (0.0-0.012) X10*3/uL Nucleated RBC % (auto) 0.0 (0.0-0.2) /100WBC Sodium 143 (135-145) mmol/L Potassium 3.7 (3.3-5.1) mmol/L Chloride 107 (96-108) mmol/L Carbon Dioxide 25 (22-29) mmol/L Anion Gap 15 (12-20) BUN 16 (9-16) mg/dL Creatinine 0.80 (0.5-1.4) mg/dL Estim Creat Clear Calc 65.8 Estimated GFR > 60 Random Glucose 140 H (60-115) mg/dL Calcium 9.2 (8.4-10.2) mg/dL Magnesium 2.3 (1.6-2.6) mg/dL Total Bilirubin 0.8 (0.0-1.0) mg/dL AST 91 H (5-31) U/L ALT 44 H (0-31) U/L Alkaline Phosphatase 103 (39-117) U/L Total Protein 7.2 (6.5-8.0) g/dL Albumin 4.4 (3.5-5.0) g/dL Lipase 21 (8-78) U/L Independent Interpretation I performed an independent interpretation of an: Ultrasound Interpretation: U/S c/f acute cholecystitis. Radiology Impression Discussion of test interpretation with radiology: I have reviewed the radiologist's reading. Radiologist Impression: US/US abdomen limited IMPRESSION: 1. Findings highly suspicious for acute calculus cholecystitis. Positive sonographic Fish's sign. Gravel size gallstones. Mild wall thickening and pericholecystic fluid. 2. Mildly increased hepatic echogenicity suggestive of mild steatosis. No suspicious liver abnormality. 3. No pathologic biliary ductal dilatation. External Record Review External record reviewed: Inpatient record, Office record and Outpatient record Critical Care Time Critical Care Time Critical Care Time: Yes Total Critical Care Time: 47 Attestation: I have personally provided critical care time exclusive of time spent on separately billable procedures. Time includes review of lab data, radiology results, discussion with consultants, and monitoring for potential decompensation. Intervention performed as documented. Discharge Plan Discharge Patient Disposition: Admitted As Inpatient Print Language: Vietnamese
[2024-12-10] MEDS: dilTIAZem HCL CD 180 MG CAP.ER.24H 360 MG PO (08:21)
--- NOTE | 2024-12-10 08:42 | PC.NURSE ---
Pt medicated for pain per orders; U/S at bedside
[2024-12-10] MEDS: Albuterol Sulfate 5 MG, Albuterol/Iprat 2.5/0.5MG 3 ML 3 ML INHALE (09:13)
--- NOTE | 2024-12-10 09:42 | ECG_ITS ---
Test Reason : ap,htn Blood Pressure : */* mmHG Vent. Rate : 71 BPM Atrial Rate : 71 BPM P-R Int : 140 ms QRS Dur : 80 ms QT Int : 396 ms P-R-T Axes : 66 55 89 degrees QTcB Int : 430 ms Normal sinus rhythm Nonspecific T wave abnormality Abnormal ECG When compared with ECG of 10-Dec-2024 07:03, No significant change was found Referred By: Odalis Hardin Electronically Signed By: DEMETRIO CADE
--- NOTE | 2024-12-10 10:50 | P.HPGS_ITS ---
History of Present Illness History of Present Illness Date of Service: 12/10/24 <Samuel Rajput PA-C - Last Filed: 12/10/24 13:48> 12/11/24 <Chanel Coronel MD - Last Filed: 12/11/24 13:17> Chief complaint: Acute Cholecystitis <Samuel Rajput PA-C - Last Filed: 12/10/24 13:48> Narrative: Sara Deluna is a 79 year old female with history of HTN, HLD, hypertrophic obstructive cardiomyopathy, asthma, obesity presenting to the emergency department with complaint of right upper quadrant abdominal pain radiating to her back since 6:00 a.m. Rates the pain a 10/10, minimal improvement with morphine. She reports experiencing pain like this before but not as severe. Denies nausea, vomiting, fever, chills. Reports she deals with chronic constipation, about 1 BM per week, is on home bowel regimen. She states that her PCP informed her recently that she had gallstones. Patient had US in ED showing gravel sized gallstones, positive sonogrpahic fish sign, GB distention, wall thickening, and pericholecystic fluid. Labs show leukocytosis, 11.5, mildly elevated liver enzymes, bilirubin WNL. patient is severely hypertensive in the ED, report not taking her medication this morning. Denies headache, vision changes, chest pain. Surgical history includes tubal ligation, umbilical hernia repair. Endorses history of tobacco use, 20+ years ago. Deneis alcohol or recreational drug use. Allergies to penicillin, aspirin and lisinopril. <Samuel Rajput PA-C - Last Filed: 12/10/24 13:48> Review of Systems Review of Systems: Yes all other systems are reviewed and are negative <Samuel Rajput PA-C - Last Filed: 12/10/24 13:48> [facility] Past Medical History Medical History: Medical History Fatigue PAC (premature atrial contraction) HTN (hypertension) Hypertensive heart disease Mild HOCM (hypertrophic obstructive cardiomyopathy) Asthma <Samuel Rajput PA-C - Last Filed: 12/10/24 13:48> Family History Family History: Family History Father No problems noted. Mother No problems noted. <Samuel Rajput PA-C - Last Filed: 12/10/24 13:48> Surgical History Surgical History: Surgical History History of left cataract surgery History of umbilical hernia repair History of tubal ligation <Samuel Rajput PA-C - Last Filed: 12/10/24 13:48> Social History Social History: Social History Household Members: Family Household Members Other:: grandson Housing: Apartment Do you presently have visiting nurse or other home services: No Unable to assess alcohol history related to: Unknown Alcohol intake: never Patient Tobacco Use Status: Never used Tobacco Smoked in Last 30 Days: No e-Cigarette/Vaping Use: Never Used Second Hand Smoke Exposure: No Use of substances other than those prescribed or required for medical reasons: No Currently Displaying Signs/Symptoms of Drug Intoxication Withdrawal: No Have you been hit, kicked, punched, or otherwise hurt by someone within the past year? If so, by whom?: No Do you feel safe in your current relationship?: No Current Relationship Is there a partner from a previous relationship who is making you feel unsafe now?: No Are you made to feel afraid or neglected: No Are you DNR?: No Advance Directives: No Advance Directives Information Provided: Yes Do you have a plan to hurt others: No Plan Recently lost weight without trying: No How much weight loss: Not applicable Eating poorly because of decreased appetite: Yes Nutrition screen score: 1 Nutrition Risks: Difficulty chewing Patient : No : No Poor oral hygiene: No service: No Current occupational status: retired Cognitive needs: Yes (cane) Hearing needs: No Vision needs: Yes <Samuel Rajput PA-C - Last Filed: 12/10/24 13:48> Meds Allergies/Adverse reactions: Allergies Allergy/AdvReac Type Severity Reaction Status Date / Time Penicillins (PENICILLINS) Allergy Mild ITCHINESS Verified 12/10/24 06:57 aspirin (ASPIRIN) Allergy Unknown VOMITING Verified 12/10/24 06:57 Lisinopril AdvReac Severe Angioedema Uncoded 12/10/24 06:57 <Samuel Rajput PA-C - Last Filed: 12/10/24 13:48> Home medications: Home Medications ?Medication ?Instructions ?Recorded ?Confirmed ?Last Taken ?Type albuterol sulfate 1.25 mg/3 mL 1.25 mg inhalation QID PRN 12/10/24 12/10/24 Unknown History solution for nebulization Shortness Of Breath Or Wheez ing fluticasone propionate 50 1 spray intranasal DAILY PRN Nasal 12/10/24 12/10/24 Unknown History mcg/actuation nasal Congestion spray,suspension ibuprofen 200 mg tablet (Advil) 400 mg PO Q6H PRN Pain 12/10/24 12/10/24 Unknown History omeprazole 20 mg capsule,delayed 20 mg PO DAILY@0630 0 12/10/24 12/10/24 12/08/24 History release <Samuel Rajput PA-C - Last Filed: 12/10/24 13:48> Physical Exam Vital Signs: Vital Signs: Last Vital Signs Temp 97.6 F 12/10/24 09:40 Pulse 61 12/10/24 09:40 Resp 19 12/10/24 09:40 BP 226/76 H 12/10/24 09:40 Pulse Ox 97 12/10/24 09:40 O2 Del Method Room Air 12/10/24 09:40 BMI result Body Mass Index 33.4 <BOBO Rivera Last Filed: 12/10/24 13:48> Const: General: cooperative, no acute distress, alert and awake <Samuel Rajput PA-C - Last Filed: 12/10/24 13:48> Nutritional Appearance: overweight <BOBO Rivera Last Filed: 12/10/24 13:48> Orientation/consciousness: patient oriented x3 <BOBO Rivera Last Filed: 12/10/24 13:48> Resp: Effort & Inspection: able to speak in complete sentences <Samuel Rajput PA-C - Last Filed: 12/10/24 13:48> GI: Other: umbilicus absent, umbilical hernia repair scar. <BOBO Rivera Last Filed: 12/10/24 13:48> Inspection: No distended <Samuel Rajput PA-C - Last Filed: 12/10/24 13:48> Palpation (GI): Soft to palpation, Tenderness to palpation present (GI) in the epigastrum, in the RUQ and Fish's sign positive (Positive), Guarding due to palpation present (GI) (voluntary with palpation to RUQ) and not rigid <Samuel Rajput PA-C - Last Filed: 12/10/24 13:48> Neuro: General: patient oriented x3 <BOBO Rivera Last Filed: 12/10/24 13:48> Results Results Labs: Short CBC 12/10/24 Range/Units 07:15 WBC 11.5 H (4.8-10.8) X10*3/uL Hgb 12.8 (12.0-16.0) g/dl Hct 39.8 (37.0-47.0) % Plt Count 165 D (160-400) X10*3/uL BMP 12/10/24 07:15 Sodium 143 Potassium 3.7 Chloride 107 Carbon Dioxide 25 BUN 16 Creatinine 0.80 Calcium 9.2 Liver Function 12/10/24 Range/Units 07:15 Total Bilirubin 0.8 (0.0-1.0) mg/dL AST 91 H (5-31) U/L ALT 44 H (0-31) U/L Alkaline Phosphatase 103 (39-117) U/L Albumin 4.4 (3.5-5.0) g/dL <BOBO Rivera Last Filed: 12/10/24 13:48> Assessment and Plan (1) Acute cholecystitis: Status: Acute <BOBO Rivera Last Filed: 12/10/24 13:48> 79 year old female with history of HTN, HLD, hypertrophic obstructive cardiomyopathy, asthma, obesity presenting to the emergency department with complaint of right upper quadrant abdominal pain radiating to her back since 6:00 a.m. Patient has known cholelithiasis. No associated nausea, vomiting, fever, chills. Ultrasound results reviewed, patient found to have gravel sized gallstones, gallbladder distention and wall thickening with pericholecystic fluid. Labs showing leukocytosis and elevated liver enzymes, bilirubin is WNL. Will admit the patient for likely laparoscopic cholecystectomy, possible open. Patient was significantly hypertensive on admission, 226/76, patient missed today's dose of antihypertensive. We will need hospitalist consult for perioperative evaluation and clearance given patient has hypertension, HOCM, asthma. Hospitalist consult ordered for perioperative risk stratification, managment of HTN. Patient started on flagyl and ceftriaxone IV fluids oxycodone and morphine for pain NPO, okay to take PO oxy with small sips of water Repeat am labs <Samuel Rajput PA-C - Last Filed: 12/10/24 13:48> 79 year old female with history of HTN, HLD, hypertrophic obstructive cardiomyopathy, asthma, obesity presenting to the emergency department with complaint of right upper quadrant abdominal pain radiating to her back since 6:00 a.m. Patient has known cholelithiasis. No associated nausea, vomiting, fever, chills. Ultrasound results reviewed, patient found to have gravel sized gallstones, gallbladder distention and wall thickening with pericholecystic fluid. Labs showing leukocytosis and elevated liver enzymes, bilirubin is WNL. Will admit the patient for likely laparoscopic cholecystectomy, possible open. Patient was significantly hypertensive on admission, 226/76, patient missed today's dose of antihypertensive. We will need hospitalist consult for perioperative evaluation and clearance given patient has hypertension, HOCM, asthma. Hospitalist consult ordered for perioperative risk stratification, managment of HTN. Patient started on flagyl and ceftriaxone IV fluids oxycodone and morphine for pain NPO, okay to take PO oxy with small sips of water Repeat am labs Patient is seen independently and agree with the note above. 79-year-old female with right upper quadrant pain probable biliary colic possible cholecystitis tender in the right upper quadrant with some mild guarding. Imaging reviewed. Plan to admit medical consult to improve her hypertension and when she is cleared plan to do laparoscopic cholecystectomy most likely on Friday. This was discussed with the patient and her grandson risks and benefits discussed including but limited to bleeding bowel injury other organ injury possible bile duct injury or leak and despite this she wishes to proceed. <Chanel Coronel MD - Last Filed: 12/11/24 13:17> Quality Stroke Does the patient have a stroke diagnosis?: No <Samuel Rajput PA-C - Last Filed: 12/10/24 13:48> VTE Prior VTE?: No <Samuel Rajput PA-C - Last Filed: 12/10/24 13:48> VTE Risk Level:: Surgical - high <Samuel Rajput PA-C - Last Filed: 12/10/24 13:48> VTE Device Contraindication: N/A - Device Ordered <Samuel Rajput PA-C - Last Filed: 12/10/24 13:48> VTE Drug Contraindication: Treatment Not Indicated <Samuel Rajput PA-C - Last Filed: 12/10/24 13:48> Procedures Date of Service Date of Service: 12/10/24 <Samuel Rajput PA-C - Last Filed: 12/10/24 13:48> 12/11/24 <Chanel Coronel MD - Last Filed: 12/11/24 13:17>
--- NOTE | 2024-12-10 11:29 | PHA.MEDREC ---
Addendum entered by Yazmin Alcantara RP 12/10/24 12:46: Reviewed by [facility]. Left on the medications that the pt was certian she was still on, but no recent claims for (Diltiazem, Advair, Hydralazine 100mg) Original Note: Pharmacy Consult ? Medication Reconciliation Pharmacy has completed the medication reconciliation. Spoke with pt and pt son at bedside and pt was able to confirm her medications. Pt confirm she still has Carbamide Peroxide Ear Drops, Diltiazem 360mg caps, Advair, Hydralazine 10mg tabs, Flonase, and Omeprazole 20mg caps at home she still takes and states she gets them filled at either [facility] on [facility] or [facility] on [address]. I called [facility] about those medications and they stated they have no claims for Advair or Hydrochlorothiazide, Diltiazem 260mg caps haven't been filled since 12/2023 for 90 days and Flonase was last picked up by the pt 07/22/2024 for 90. I called [facility] and they had no claims for any of these medications in at least 2+ yrs. Pt was taking the Benzonatate caps but stopped recently due to them not working well for the pt. Patient was taking Spironolactone but stopped them a few months ago due to her developing head pounding when she first starting taking them.
[2024-12-10] MEDS: Lactated Ringers 1,000 ML 80 ML IVCONT (11:54)
[2024-12-10] MEDS: metroNIDAZOLE/NS 500 MG/100 ML PIGGYBACK 100 MG IV ×2 (11:55→20:25)
--- NOTE | 2024-12-10 12:39 | HO.PM.IMCN ---
History of Present Illness Data of Consult Service Date: 12/10/24 Requesting physician: Nile Polanco Primary Care Provider: LEAH Peter HPI Reason for consult: HTN, HOCM, Perioperative risk assessment, planning lapa tobin later today. Sara Deluna it is a 79 years old woman with past medical history significant essential hypertension on diltiazem and hydralazine, hypertrophic obstructive cardiomyopathy, HFpEF, hyperlipidemia, angioedema secondary to lisinopril, obesity and asthma presents to the ED complaining of right-sided abdominal pain associated with nausea. She denied any event of diarrhea or vomiting. Patient has been found to have acute calculous cholecystitis and mild steatosis without CBD dilatation. Surgical service plan is to take patient to the hour later today for laparoscopic cholecystectomy. Patient has been hospitalized (ICU) in the past for uncontrolled hypertension. Patient has no history of chronic liver or kidney disease. She denied history of diabetes mellitus and myocardial infarction She has had tubal ligation and umbilical hernia repair surgery without complications. She is not taking anticoagulants. In the ED, she was found to have significant hypertension of 241/71. She received treatment with spironolactone 25 mg p.o. and diltiazem 360 mg p.o.. Most recent blood pressure is 194/79. Blood workup showed leukocytosis of 11.5. Hemoglobin is 12.8 (baseline) and platelets 165. There are no electrolyte imbalances. Renal function is normal. Transaminases are elevated with normal alk-phos, total bilirubin and lipase. Albumin and total protein are normal. ECG showed normal sinus rhythm without ischemic changes. ED tx: Diltiazem 360 mg p.o., spironolactone 25 mg p.o., morphine 4 mg IV, Zofran 4 mg IV DuoNeb, Dilaudid 0.5 mg IV Review of Systems Review of Systems: All 12 systems were reviewed and normal except as noted in HPI. [facility] Medical History Fatigue PAC (premature atrial contraction) HTN (hypertension) Hypertensive heart disease Mild HOCM (hypertrophic obstructive cardiomyopathy) Asthma Family History Father No problems noted. Mother No problems noted. Surgical History History of left cataract surgery History of umbilical hernia repair History of tubal ligation Social History Household Members: Family Household Members Other:: grandson Housing: Apartment Do you presently have visiting nurse or other home services: No Unable to assess alcohol history related to: Unknown Alcohol intake: never Patient Tobacco Use Status: Never used Tobacco Smoked in Last 30 Days: No e-Cigarette/Vaping Use: Never Used Second Hand Smoke Exposure: No Use of substances other than those prescribed or required for medical reasons: No Have you been hit, kicked, punched, or otherwise hurt by someone within the past year? If so, by whom?: No Do you feel safe in your current relationship?: No Current Relationship Is there a partner from a previous relationship who is making you feel unsafe now?: No Are you made to feel afraid or neglected: No Are you DNR?: No Advance Directives: No Advance Directives Information Provided: Yes Do you have a plan to hurt others: No Plan Recently lost weight without trying: No How much weight loss: Not applicable Eating poorly because of decreased appetite: Yes Nutrition screen score: 1 Nutrition Risks: Difficulty chewing Patient : No : No Poor oral hygiene: No service: No Current occupational status: retired Cognitive needs: Yes (cane) Hearing needs: No Vision needs: Yes Meds Allergies Allergy/AdvReac Type Severity Reaction Status Date / Time Penicillins (PENICILLINS) Allergy Mild ITCHINESS Verified 12/10/24 06:57 aspirin (ASPIRIN) Allergy Unknown VOMITING Verified 12/10/24 06:57 Lisinopril AdvReac Severe Angioedema Uncoded 12/10/24 06:57 Active Medications: Current Medications Acetaminophen (Acetaminophen 325 Mg Tablet) 650 mg PO Q6H PRN PRN Reason: Pain, Mild 1-3,fever,headache Albuterol Sulfate (Albuterol Sulfate (0.042%) 1.25 Mg/3 Ml Vial.Neb) 1.25 mg INHALE QID PRN PRN Reason: Shortness Of Breath Or Wheezing Albuterol Sulfate (Albuterol Sulfate 90 Mcg 8 Gm Inhaler) 2 puff INHALE Q4-6H PRN PRN Reason: Wheezing Amlodipine Besylate (Amlodipine Besylate 5 Mg Tablet) 5 mg PO DAILY [facility]; Protocol Atorvastatin Calcium (Atorvastatin Calcium 80 Mg Tablet) 80 mg PO BEDTIME [facility] Calcium Carbonate (Calcium Carbonate 750 Mg Tab.Chew) 750 mg PO Q4H PRN PRN Reason: Heartburn Carbamide Peroxide (Carbamide Peroxide 6.5% Otic 15 Ml Drpbtl) 5 drop EAR-BOTH Q12H [facility] Ceftriaxone Sodium (Ceftriaxone Sodium 2 Gm Vial) 2 gm IVPUSH Q24H [facility] Last Admin: 12/10/24 11:55 Dose: 2 gm Diltiazem HCl (Diltiazem Hcl Cd 180 Mg Cap.Er.24h) 360 mg PO DAILY [facility]; Protocol Fluticasone Propionate (Fluticasone Propionate Nasal 16 Gm [place]) 1 spray NOSTRIL-B DAILY PRN PRN Reason: Nasal Congestion Hydralazine HCl (Hydralazine Hcl 50 Mg Tablet) 100 mg PO BID [facility]; Protocol Lactated Ringer's (Lr) 1,000 mls @ 80 mls/hr IVCONT .[id number] [facility] Last Admin: 12/10/24 11:54 Dose: 80 mls/hr Metronidazole (Flagyl) 500 mg in 100 mls @ 100 mls/hr IV Q8H [facility] Last Admin: 12/10/24 11:55 Dose: 100 mls/hr Magnesium Hydroxide (Milk Of Magnesia 30 Ml Oral.Susp) 30 ml PO DAILY PRN PRN Reason: Constipation Melatonin (Melatonin 3 Mg Tablet) 6 mg PO BEDTIME PRN PRN Reason: Insomnia Morphine Sulfate (Morphine Sulfate 4 Mg/Ml Cartridge) 3 mg IVPUSH Q3H PRN; Protocol PRN Reason: Pain, Severe (Pain Scale 7-10) Non-Formulary Medication (Fluticasone Propion-Salmeterol [Advair Diskus]) 1 each PO BID [facility] Omeprazole (Omeprazole 20 Mg Capsule.Dr) 20 mg PO DAILY@0630 [facility] Ondansetron HCl (Ondansetron Hcl 4 Mg/2 Ml Vial) 4 mg IVPUSH Q8H PRN PRN Reason: Nausea and Vomiting Oxycodone HCl (Oxycodone Hcl Immed Release 5 Mg Tablet) 5 mg PO Q4H PRN PRN Reason: Pain, Moderate(Pain Scale 4-6) Sodium Chloride (0.9 % Sodium Chloride Flush 3 Ml Syringe) 3 ml IVFLUSH QSHIFT [facility] Vitamin D (Cholecalciferol (Vitamin D3) 25 Mcg Tablet) 25 mcg PO DAILY [facility] Home Medications ?Medication ?Instructions ?Recorded ?Confirmed ?Last Taken ?Type albuterol sulfate 1.25 mg/3 mL 1.25 mg inhalation QID PRN 12/10/24 12/10/24 Unknown History solution for nebulization Shortness Of Breath Or Wheezing fluticasone propionate 50 1 spray intranasal DAILY PRN Nasal 12/10/24 12/10/24 Unknown History mcg/actuation nasal Congestion spray,suspension ibuprofen 200 mg tablet (Advil) 400 mg PO Q6H PRN Pain 12/10/24 12/10/24 Unknown History omeprazole 20 mg capsule,delayed 20 mg PO DAILY@0630 12/10/24 12/10/24 12/08/24 History release Physical Exam Vital Signs and Narrative: Vital Signs: Last Vital Signs Temp 97.6 F 12/10/24 09:40 Pulse 78 12/10/24 12:12 Resp 19 12/10/24 12:12 BP 194/79 H 12/10/24 12:12 Pulse Ox 96 12/10/24 12:12 O2 Del Method Room Air 12/10/24 12:12 BMI result Body Mass Index 33.4 Constitutional - Awake and Alert, No apparent distress. Pleasant. Cooperative. HEENT - PER, EOMI Heart - Distant heart sound, no murmurs. Lungs - Normal lung expansion, Normal respiratory effort, No respiratory distress, CTA bilaterally. No wheezing. No crackles. No rhonchi. Abdomen - Nondistended, RUQ tenderness to palpation. No rebound or guarding. + BS. Extremities - no calf tenderness bilaterally, no swelling Musculoskeletal - Normal inspection, normal ROM Skin - Warm/Dry. No pallor. No guarding. Neurological - Alert & oriented x3. Moving all extremity spontaneously. Normal speech. Psychological - Depressed affect Results Labs 12/10/24 07:15 12/10/24 07:15 Labs: Laboratory Results - last 24 hr 12/10/24 07:15 MCV 92.6 MCH 29.8 MCHC 32.2 RDW 13.5 Plt Count 165 D MPV 11.2 Immature Gran % (Auto) 0.4 Neut % (Auto) 64.3 Lymph % (Auto) 27.2 [place] % (Auto) 5.7 Eos % (Auto) 1.9 Baso % (Auto) 0.5 Lymph # (Auto) 3.1 [place] # (Auto) 0.7 Eos # (Auto) 0.2 Baso # (Auto) 0.1 Abs Immat Gran (auto) 0.05 H Absolute Neuts (auto) 7.4 Absolute Nucleated RBC 0.000 Nucleated RBC % (auto) 0.0 Anion Gap 15 Estim Creat Clear Calc 65.8 Estimated GFR > 60 Random Glucose 140 H Calcium 9.2 Magnesium 2.3 Total Bilirubin 0.8 AST 91 H ALT 44 H Alkaline Phosphatase 103 Total Protein 7.2 Albumin 4.4 Lipase 21 Imaging Radiologist's Impressions: Impressions Abdomen Ultrasound 12/10/24 08:36 IMPRESSION: 1. Findings highly suspicious for acute calculus cholecystitis. Positive sonographic Fish's sign. Gravel size gallstones. Mild wall thickening and pericholecystic fluid. 2. Mildly increased hepatic echogenicity suggestive of mild steatosis. No suspicious liver abnormality. 3. No pathologic biliary ductal dilatation. Electronically signed by: Alvin Rod MD 12/10/2024 09:16 AM EDT RP Assessment and Plan (1) HTN (hypertension): Qualifiers: Hypertension type: unspecified Qualified Code(s): I10 - Essential (primary) hypertension Status: Acute (2) Mild HOCM (hypertrophic obstructive cardiomyopathy): Status: Acute (3) Hyperlipidemia: Qualifiers: Hyperlipidemia type: unspecified Qualified Code(s): E78.5 - Hyperlipidemia, unspecified Status: Acute Plan Sara Deluna it is a 79 y/o woman with PMHx of hypertrophic obstructive cardiomyopathy presents with: Acute cholecystitis. Treatment per surgical surgery. Uncontrolled hypertension. Received spironolactone and diltiazem by ED. last BP 194/79 trending down, goal before surgery SBP < 180. Labetalol 10 mg IV X1. Continue hydralazine 100 mg p.o. b.i.d., 1st dose now. Continue Cardizem 360 mg ER p.o. daily. Low-salt diet. Avoid diuretic use prior to surgery. Pain control. Check CXR. RCRI = 1 (6.0% risk of cardiac event). Proceed with planned procedure is SBP < 180. Hyperlipidemia. Continue statin. Asthma, intermittent. No symptoms. Continue home inhalers. Obesity, class 2. BMI 33.4 kg/m2. Weight loss.
--- NOTE | 2024-12-10 13:21 | PC.NURSE ---
Report gv to EUGENIA Stewart in pre-op; pt is on the surgical add-on list; pt remains NPO at this time
--- NOTE | 2024-12-10 14:43 | PC.NURSE ---
Providers notified of Pts High BP
--- NOTE | 2024-12-10 15:33 | PC.NURSE ---
22g right upper amr. asymptomatic
--- NOTE | 2024-12-10 15:35 | PC.NURSE ---
report given to evelio gautam pacu.
--- NOTE | 2024-12-10 15:47 | HO.ANESPROP2 ---
[facility] Active Problems Active Problems: All Active Problems (Updated 12/10/24 @ 15:43 by Nile Polanco MD) Acute cholecystitis (Acute) Abdominal pain (Acute) Bilateral impacted cerumen (Acute) SOB (shortness of breath) on exertion (Acute) Anxiety (Acute) Low back pain (Acute) Hyperlipidemia (Acute) HTN (hypertension) (Acute) NUSRAT (acute kidney injury) (Acute) Angioedema (Acute) Dry cough (Acute) Obesity (Acute) COVID-19 (Acute) Breast cancer screening by mammogram (Acute) Fatigue (Acute) Wheezing (Acute) Adult general medical exam (Acute) Cough (Acute) PAC (premature atrial contraction) (Acute) Hypertensive heart disease (Acute) Mild HOCM (hypertrophic obstructive cardiomyopathy) (Acute) Asthma (Acute) Past Medical History Medical History Fatigue PAC (premature atrial contraction) HTN (hypertension) Hypertensive heart disease Mild HOCM (hypertrophic obstructive cardiomyopathy) Asthma Cognitive capacity: normal Functional capacity: independent ambulation Family History Family History Father No problems noted. Mother No problems noted. Family history of problems with anesthesia: No Surgical History Surgical History History of left cataract surgery History of umbilical hernia repair History of tubal ligation History of Problems with Anesthesia: No Social History Social History Household Members: Family Household Members Other:: grandson Housing: Apartment Do you presently have visiting nurse or other home services: No Unable to assess alcohol history related to: Unknown Alcohol intake: never Patient Tobacco Use Status: Never used Tobacco Smoked in Last 30 Days: No e-Cigarette/Vaping Use: Never Used Second Hand Smoke Exposure: No Use of substances other than those prescribed or required for medical reasons: No Have you been hit, kicked, punched, or otherwise hurt by someone within the past year? If so, by whom?: No Do you feel safe in your current relationship?: No Current Relationship Is there a partner from a previous relationship who is making you feel unsafe now?: No Are you made to feel afraid or neglected: No Are you DNR?: No Advance Directives: No Advance Directives Information Provided: Yes Do you have a plan to hurt others: No Plan Recently lost weight without trying: No How much weight loss: Not applicable Eating poorly because of decreased appetite: Yes Nutrition screen score: 1 Nutrition Risks: Difficulty chewing Patient : No : No Poor oral hygiene: No service: No Current occupational status: retired Cognitive needs: Yes (cane) Hearing needs: No Vision needs: Yes Meds Allergies Allergy/AdvReac Type Severity Reaction Status Date / Time Penicillins (PENICILLINS) Allergy Mild ITCHINESS Verified 12/10/24 06:57 aspirin (ASPIRIN) Allergy Unknown VOMITING Verified 12/10/24 06:57 Lisinopril AdvReac Severe Angioedema Uncoded 12/10/24 06:57 Active Medications: Current Medications Acetaminophen (Acetaminophen 325 Mg Tablet) 650 mg PO Q6H PRN PRN Reason: Pain, Mild 1-3,fever,headache Albuterol Sulfate (Albuterol Sulfate (0.042%) 1.25 Mg/3 Ml Vial.Neb) 1.25 mg INHALE QID PRN PRN Reason: Shortness Of Breath Or Wheezing Albuterol Sulfate (Albuterol Sulfate 90 Mcg 8 Gm Inhaler) 2 puff INHALE Q4H PRN PRN Reason: Wheezing Atorvastatin Calcium (Atorvastatin Calcium 80 Mg Tablet) 80 mg PO BEDTIME [facility] Calcium Carbonate (Calcium Carbonate 750 Mg Tab.Chew) 750 mg PO Q4H PRN PRN Reason: Heartburn Carbamide Peroxide (Carbamide Peroxide 6.5% Otic 15 Ml Drpbtl) 5 drop EAR-BOTH Q12H [facility] Ceftriaxone Sodium (Ceftriaxone Sodium 2 Gm Vial) 2 gm IVPUSH Q24H [facility] Last Admin: 12/10/24 11:55 Dose: 2 gm Diltiazem HCl (Diltiazem Hcl Cd 180 Mg Cap.Er.24h) 360 mg PO DAILY [facility]; Protocol Fluticasone Propionate (Fluticasone Propionate Nasal 16 Gm [place]) 1 spray NOSTRIL-B DAILY PRN PRN Reason: Nasal Congestion Fluticasone/Vilanterol (Fluticasone/Vilanterol 200/25 Blst.W.Dev) 1 puff INHALE RDAILY [facility] Hydralazine HCl (Hydralazine Hcl 50 Mg Tablet) 100 mg PO BID [facility]; Protocol Last Admin: 12/10/24 13:59 Dose: 100 mg Hydromorphone HCl (Hydromorphone Hcl 0.5 Mg/0.5 Ml Syringe) 0.5 mg IVPUSH Q3H PRN; Protocol PRN Reason: Pain, Severe (Pain Scale 7-10) Last Admin: 12/10/24 14:20 Dose: 0.5 mg Lactated Ringer's (Lr) 1,000 mls @ 80 mls/hr IVCONT .[id number] [facility] Last Admin: 12/10/24 11:54 Dose: 80 mls/hr Metronidazole (Flagyl) 500 mg in 100 mls @ 100 mls/hr IV Q8H [facility] Last Infusion: 12/10/24 13:33 Dose: Infused Magnesium Hydroxide (Milk Of Magnesia 30 Ml Oral.Susp) 30 ml PO DAILY PRN PRN Reason: Constipation Melatonin (Melatonin 3 Mg Tablet) 6 mg PO BEDTIME PRN PRN Reason: Insomnia Omeprazole (Omeprazole 20 Mg Capsule.Dr) 20 mg PO DAILY@629 [facility] Ondansetron HCl (Ondansetron Hcl 4 Mg/2 Ml Vial) 4 mg IVPUSH Q8H PRN PRN Reason: Nausea and Vomiting Oxycodone HCl (Oxycodone Hcl Immed Release 5 Mg Tablet) 5 mg PO Q4H PRN PRN Reason: Pain, Moderate(Pain Scale 4-6) Sodium Chloride (0.9 % Sodium Chloride Flush 3 Ml Syringe) 3 ml IVFLUSH QSHIFT [facility] Last Admin: 12/10/24 15:18 Dose: Not Given Vitamin D (Cholecalciferol (Vitamin D3) 25 Mcg Tablet) 25 mcg PO DAILY [facility] Home Medications ?Medication ?Instructions ?Recorded ?Confirmed ?Last Taken ?Type albuterol sulfate 1.25 mg/3 mL 1.25 mg inhalation QID PRN 12/10/24 12/10/24 Unknown History solution for nebulization Shortness Of Breath Or Wheezing fluticasone propionate 50 1 spray intranasal DAILY PRN Nasal 12/10/24 12/10/24 Unknown History mcg/actuation nasal Congestion spray,suspension ibuprofen 200 mg tablet (Advil) 400 mg PO Q6H PRN Pain 12/10/24 12/10/24 Unknown History omeprazole 20 mg capsule,delayed 20 mg PO DAILY@62912/10/24 12/10/24 12/08/24 History release Exam Exam Date and Time: 12/10/24 Height,Weight and Vital Signs: Height 5 ft 6 in Weight 93.8 kg Last Vital Signs Temp 98.1 F 12/10/24 15:30 Pulse 79 12/10/24 15:30 Resp 16 12/10/24 15:30 BP 176/68 H 12/10/24 15:30 Pulse Ox 96 12/10/24 15:30 O2 Del Method Room Air 12/10/24 15:30 Pertinent Lab Results Pertinent Lab Results: Laboratory Tests 12/10/24 07:15 WBC 11.5 H RBC 4.30 Hgb 12.8 Hct 39.8 MCV 92.6 MCH 29.8 MCHC 32.2 RDW 13.5 Plt Count 165 D MPV 11.2 Immature Gran % (Auto) 0.4 Neut % (Auto) 64.3 Lymph % (Auto) 27.2 [place] % (Auto) 5.7 Eos % (Auto) 1.9 Baso % (Auto) 0.5 Lymph # (Auto) 3.1 [place] # (Auto) 0.7 Eos # (Auto) 0.2 Baso # (Auto) 0.1 Abs Immat Gran (auto) 0.05 H Absolute Neuts (auto) 7.4 Absolute Nucleated RBC 0.000 Nucleated RBC % (auto) 0.0 Sodium 143 Potassium 3.7 Chloride 107 Carbon Dioxide 25 Anion Gap 15 BUN 16 Creatinine 0.80 Estim Creat Clear Calc 65.8 Estimated GFR > 60 Random Glucose 140 H Calcium 9.2 Magnesium 2.3 Total Bilirubin 0.8 AST 91 H ALT 44 H Alkaline Phosphatase 103 Total Protein 7.2 Albumin 4.4 Lipase 21 Airway TM Dist: >3cm Neck ROM: Full Loose/Missing/Broken Teeth: Yes (poor dentition) Heart: rrr Lungs: cta Other: oriented Assessment and Plan Assessment Anesthesia Assessment: Anesthesia Plan Discussed and Chart Reviewed Final Anesthetic Review Family History of Problems with Anesthesia: No History of Problems with Anesthesia: No NPO: Yes ASA Class: III Final Preanesthetic Review: No Changes in Pt Med Stat, Meds/Allgs Chart Reviewed, Consent Obtained/Reviewed and Anes Risks/Benef Reviewed Patient Risk: Intermediate Procedure Risk: Low Anesthetic Plan Anesthetic Plan: GA Disposition: Standard PACU
[2024-12-10] MEDS: oxyCODONE HCl Immed Release 5 MG TABLET PO (20:34)
[2024-12-11] VITALS (12 sets, daily range): BP systolic 132–201; BP diastolic 46–82; PULSE 74–86; RESP 16–18; TEMP 36.2–37.6; O2SAT 92–99
[2024-12-11] MEDS: Lactated Ringers 1,000 ML 80 ML IVCONT ×2 (01:27→14:52)
[2024-12-11] MEDS: metroNIDAZOLE/NS 500 MG/100 ML PIGGYBACK 100 MG IV ×3 (03:30→20:02)
[2024-12-11 06:14] LABS: MANUAL DIFF FLAG NO
[2024-12-11 06:18] LABS: Hematocrit 35.6 % (37.0-47.0); Hemoglobin 11.4 g/dl (12.0-16.0); Imm Gran Abs Auto 0.03 X10*3/uL (0.00-0.03); Imm Gran Pct Auto 0.3 % (0.0-0.4); Lymphocytes Absolute Auto 2.1 X10*3/uL (1.2-4.9); Mean Corpuscular HGB Conc 32.0 g/dl (31.0-35.0); Mean Corpuscular Hemoglobin 29.5 pg (27.0-33.0); Mean Corpuscular Volume 92.2 fL (80.0-98.0); NRBC Abs Auto 0.000 X10*3/uL (0.0-0.012); NRBC Pct Auto 0.0 /100WBC (0.0-0.2); Platelet Count 235 X10*3/uL (160-400); Red Blood Count 3.86 X10*6/uL (4.20-5.50); White Blood Count 10.8 X10*3/uL (4.8-10.8)
[2024-12-11 06:33] LABS: Anion Gap 14 (12-20); Blood Urea Nitrogen 15 mg/dL (9-16); Calcium 9.1 mg/dL (8.4-10.2); Carbon Dioxide 25 mmol/L (22-29); Chloride 107 mmol/L (96-108); Creatinine Clr Calc Pharmacy 61.9; Estimated Glomerular Filt Rate > 60; Potassium 4.0 mmol/L (3.3-5.1); Sodium 142 mmol/L (135-145)
[2024-12-11] MEDS: oxyCODONE HCl Immed Release 5 MG TABLET PO (07:57)
[2024-12-11] MEDS: dilTIAZem HCL CD 180 MG CAP.ER.24H 360 MG PO (07:57)
--- NOTE | 2024-12-11 10:47 | P.CONAN_ITS ---
[facility] Active Problems Active Problems: All Active Problems Acute cholecystitis (Acute) Abdominal pain (Acute) Bilateral impacted cerumen (Acute) SOB (shortness of breath) on exertion (Acute) Anxiety (Acute) Low back pain (Acute) Hyperlipidemia (Acute) HTN (hypertension) (Acute) NUSRAT (acute kidney injury) (Acute) Angioedema (Acute) Dry cough (Acute) Obesity (Acute) COVID-19 (Acute) Breast cancer screening by mammogram (Acute) Fatigue (Acute) Wheezing (Acute) Adult general medical exam (Acute) Cough (Acute) PAC (premature atrial contraction) (Acute) Hypertensive heart disease (Acute) Mild HOCM (hypertrophic obstructive cardiomyopathy) (Acute) Asthma (Acute) Past Medical History Medical History Fatigue PAC (premature atrial contraction) HTN (hypertension) Hypertensive heart disease Mild HOCM (hypertrophic obstructive cardiomyopathy) Asthma Functional capacity: independent ambulation Family History Family History Father No problems noted. Mother No problems noted. Family history of problems with anesthesia: No Surgical History Surgical History History of left cataract surgery History of umbilical hernia repair History of tubal ligation History of Problems with Anesthesia: No Social History Social History Household Members: Family Household Members Other:: grandson Housing: Apartment Do you presently have visiting nurse or other home services: No Unable to assess alcohol history related to: Unknown Alcohol intake: never Patient Tobacco Use Status: Never used Tobacco Smoked in Last 30 Days: No e-Cigarette/Vaping Use: Never Used Second Hand Smoke Exposure: No Use of substances other than those prescribed or required for medical reasons: No Currently Displaying Signs/Symptoms of Drug Intoxication Withdrawal: No Have you been hit, kicked, punched, or otherwise hurt by someone within the past year? If so, by whom?: No Do you feel safe in your current relationship?: No Current Relationship Is there a partner from a previous relationship who is making you feel unsafe now?: No Are you made to feel afraid or neglected: No Are you DNR?: No Advance Directives: No Advance Directives Information Provided: Yes Do you have a plan to hurt others: No Plan Recently lost weight without trying: No How much weight loss: Not applicable Eating poorly because of decreased appetite: Yes Nutrition screen score: 1 Nutrition Risks: Difficulty chewing Patient : No : No Poor oral hygiene: No service: No Current occupational status: retired Cognitive needs: Yes (cane) Hearing needs: No Vision needs: Yes Meds Allergies Allergy/AdvReac Type Severity Reaction Status Date / Time Penicillins (PENICILLINS) Allergy Mild ITCHINESS Verified 12/10/24 06:57 aspirin (ASPIRIN) Allergy Unknown VOMITING Verified 12/10/24 06:57 Lisinopril AdvReac Severe Angioedema Uncoded 12/10/24 06:57 Active Medications: Current Medications Acetaminophen (Acetaminophen 325 Mg Tablet) 650 mg PO Q6H PRN PRN Reason: Pain, Mild 1-3,fever,headache Last Admin: 12/11/24 01:25 Dose: 650 mg Albuterol Sulfate (Albuterol Sulfate (0.042%) 1.25 Mg/3 Ml Vial.Neb) 1.25 mg INHALE QID PRN PRN Reason: Shortness Of Breath Or Wheezing Albuterol Sulfate (Albuterol Sulfate 90 Mcg 8 Gm Inhaler) 2 puff INHALE Q4H PRN PRN Reason: Wheezing Atorvastatin Calcium (Atorvastatin Calcium 80 Mg Tablet) 80 mg PO BEDTIME [facility] Last Admin: 12/10/24 20:26 Dose: 80 mg Calcium Carbonate (Calcium Carbonate 750 Mg Tab.Chew) 750 mg PO Q4H PRN PRN Reason: Heartburn Carbamide Peroxide (Carbamide Peroxide 6.5% Otic 15 Ml Drpbtl) 5 drop EAR-BOTH Q12H [facility] Last Admin: 12/11/24 08:01 Dose: Not Given Ceftriaxone Sodium (Ceftriaxone Sodium 2 Gm Vial) 2 gm IVPUSH Q24H [facility] Last Admin: 12/10/24 11:55 Dose: 2 gm Diltiazem HCl (Diltiazem Hcl Cd 180 Mg Cap.Er.24h) 360 mg PO DAILY [facility]; Protocol Last Admin: 12/11/24 07:57 Dose: 360 mg Fentanyl (Fentanyl Citrate/Pf 100 Mcg/2 Ml Vial) 50 mcg IVPUSH Q5M PRN PRN Reason: Pain, Moderate to Severe (Pain Scale 4-10) Stop: 12/11/24 15:48 Fluticasone Propionate (Fluticasone Propionate Nasal 16 Gm [place]) 1 spray NOSTRIL-B DAILY PRN PRN Reason: Nasal Congestion Fluticasone/Vilanterol (Fluticasone/Vilanterol 200/25 Blst.W.Dev) 1 puff INHALE RDAILY [facility] Hydralazine HCl (Hydralazine Hcl 50 Mg Tablet) 100 mg PO BID [facility]; Protocol Last Admin: 12/11/24 07:59 Dose: 100 mg Hydromorphone HCl (Hydromorphone Hcl 0.5 Mg/0.5 Ml Syringe) 0.5 mg IVPUSH Q3H PRN; Protocol PRN Reason: Pain, Severe (Pain Scale 7-10) Last Admin: 12/11/24 05:57 Dose: 0.5 mg Lactated Ringer's (Lr) 1,000 mls @ 80 mls/hr IVCONT .[id number] [facility] Last Infusion: 12/11/24 06:33 Dose: 80 mls/hr Metronidazole (Flagyl) 500 mg in 100 mls @ 100 mls/hr IV Q8H [facility] Last Infusion: 12/11/24 04:30 Dose: Infused Magnesium Hydroxide (Milk Of Magnesia 30 Ml Oral.Susp) 30 ml PO DAILY PRN PRN Reason: Constipation Melatonin (Melatonin 3 Mg Tablet) 6 mg PO BEDTIME PRN PRN Reason: Insomnia Naloxone HCl (Naloxone Hcl 0.4 Mg/Ml Vial) 0.04 mg IVPUSH Q5M PRN PRN Reason: Excessive sedation or RR < 8 Omeprazole (Omeprazole 20 Mg Capsule.Dr) 20 mg PO DAILY@0630 [facility] Last Admin: 12/11/24 05:53 Dose: 20 mg Ondansetron HCl (Ondansetron Hcl 4 Mg/2 Ml Vial) 4 mg IVPUSH Q8H PRN PRN Reason: Nausea and Vomiting Ondansetron HCl (Ondansetron Hcl 4 Mg/2 Ml Vial) 4 mg IVPUSH ONCE PRN PRN Reason: Nausea and Vomiting Stop: 12/11/24 15:48 Oxycodone HCl (Oxycodone Hcl Immed Release 5 Mg Tablet) 5 mg PO Q4H PRN PRN Reason: Pain, Moderate(Pain Scale 4-6) Last Admin: 12/11/24 07:57 Dose: 5 mg Sodium Chloride (0.9 % Sodium Chloride Flush 3 Ml Syringe) 3 ml IVFLUSH QSHIFT [facility] Last Admin: 12/11/24 07:59 Dose: Not Given Vitamin D (Cholecalciferol (Vitamin D3) 25 Mcg Tablet) 25 mcg PO DAILY [facility] Last Admin: 12/11/24 07:58 Dose: 25 mcg Home Medications ?Medication ?Instructions ?Recorded ?Confirmed ?Last Taken ?Type albuterol sulfate 1.25 mg/3 mL 1.25 mg inhalation QID PRN 12/10/24 12/10/24 Unknown History solution for nebulization Shortness Of Breath Or Wheez ing fluticasone propionate 50 1 spray intranasal DAILY PRN Nasal 12/10/24 12/10/24 Unknown History mcg/actuation nasal Congestion spray,suspension ibuprofen 200 mg tablet (Advil) 400 mg PO Q6H PRN Pain 12/10/24 12/10/24 Unknown History omeprazole 20 mg capsule,delayed 20 mg PO DAILY@0630 0 12/10/24 12/10/24 12/08/24 History release Exam Height,Weight and Vital Signs: Height 5 ft 6 in Weight 93.8 kg Last Vital Signs Temp 98.7 F 12/11/24 07:26 Pulse 74 12/11/24 07:26 Resp 16 12/11/24 07:26 BP 132/62 12/11/24 07:26 Pulse Ox 94 12/11/24 07:26 O2 Del Method Room Air 12/11/24 07:26 Pertinent Lab Results Pertinent Lab Results: Laboratory Tests 12/10/24 12/11/24 07:15 06:08 WBC 11.5 H 10.8 RBC 4.30 3.86 L Hgb 12.8 11.4 L Hct 39.8 35.6 L MCV 92.6 92.2 MCH 29.8 29.5 MCHC 32.2 32.0 RDW 13.5 13.7 Plt Count 165 D 235 D MPV 11.2 10.4 Immature Gran % (Auto) 0.4 0.3 Neut % (Auto) 64.3 75.4 H Lymph % (Auto) 27.2 19.2 L [place] % (Auto) 5.7 4.6 Eos % (Auto) 1.9 0.1 Baso % (Auto) 0.5 0.4 Lymph # (Auto) 3.1 2.1 [place] # (Auto) 0.7 0.5 Eos # (Auto) 0.2 0.0 Baso # (Auto) 0.1 0.0 Abs Immat Gran (auto) 0.05 H 0.03 Absolute Neuts (auto) 7.4 8.2 Absolute Nucleated RBC 0.000 0.000 Nucleated RBC % (auto) 0.0 0.0 Sodium 143 142 Potassium 3.7 4.0 Chloride 107 107 Carbon Dioxide 25 25 Anion Gap 15 14 BUN 16 15 Creatinine 0.80 0.85 Estim Creat Clear Calc 65.8 61.9 Estimated GFR > 60 > 60 Random Glucose 140 H 127 H Calcium 9.2 9.1 Magnesium 2.3 Total Bilirubin 0.8 AST 91 H ALT 44 H Alkaline Phosphatase 103 Total Protein 7.2 Albumin 4.4 Lipase 21 Airway Mallampati Class: IV TM Dist: >3cm Neck ROM: Full Loose/Missing/Broken Teeth: Yes, Upper and Lower Assessment and Plan Assessment Anesthesia Assessment: Anesthesia Plan Discussed and Chart Reviewed Final Anesthetic Review Family History of Problems with Anesthesia: No History of Problems with Anesthesia: No NPO: Yes ASA Class: III and Emergency Final Preanesthetic Review: No Changes in Pt Med Stat, Meds/Allgs Chart Reviewed, Consent Obtained/Reviewed and Anes Risks/Benef Reviewed Patient Risk: Intermediate Procedure Risk: Intermediate Anesthetic Plan Anesthetic Plan: GA Disposition: Standard PACU
--- NOTE | 2024-12-11 12:30 | MHC.CM.PN ---
Addendum entered by Odalis Schultz RN 12/11/24 12:42: Not active w/ [facility]. Original Note: CM ASSESSMENT COMPLETED W/ PATIENT'S SISTER IN LAW, PATIENT IS OFF UNIT TO OR. IMM DELIVERED. PATIENT LIVES IN AN APT ALONE. HAS A LEAD RADIATION THERAPIST TO ASSIST W/ ADL'S - SISTER IN LAW IS UNSURE HOW MANY HRS. PREVIOUSLY ACTIVE W/ [facility], BUT UNSURE IF SHE IS STILL ACTIVE. REFERRAL SENT TO INQUIRE. AMBULATES W/ CANE. 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 DP: GOAL IS HOME, RESUME LEAD RADIATION THERAPIST AND ?[facility]. FAMILY TRANSPORT. CM WILL CONTINUE TO FOLLOW.
--- NOTE | 2024-12-11 13:18 | P.OP_ITS ---
Operative Note Operative Note Date of Service: 12/11/24 Narrative: Preop diagnosis--cholecystitis and cholelithiasis Postop diagnosis--chronic cholecystitis and cholelithiasis Procedure--laparoscopic cholecystectomy Surgeon--Homer Poker Machine Attendant--Kenny BEARDEN Patient is a 79-year-old female who presented to the emergency room complaining of right upper quadrant pain nausea and right upper quadrant ultrasound revealed contracted gallbladder with some thickening and multiple gallstones. Her LFTs were slightly elevated. She was tender in the right upper quadrant. Admitted with IV antibiotics NPO and today undergoes laparoscopic cholecystectomy. Findings chronic cholecystitis changes and gallbladder with numerous small gravelly gallstones. Procedure-- Patient was brought to the operative room under Anesthesia guidance was intubated. She had compression stockings placed before induction received preoperative antibiotics. Her abdomen was prepped and draped in standard surgical fashion. Patient did not have an umbilicus as it had been removed from previous surgery so at the level of where her umbilicus with a been and slightly above what was noted to be a previous midline incision that is stopped at the midabdomen the area here was numbed up had a vertical incision was created and dissection carried down to the anterior abdominal wall fascia which was grasped with Florence's and transected. We easily entered into the abdominal peritoneal cavity. 0 Vicryl pursestring suture was placed on the fascia De [place] O trocar introduced and 15 mmHg pressure introduced with insufflation. Camera was inserted into the peritoneal cavity and there were many adhesions along the midline noted behind but the area that we entered in the right upper quadrant area all looked open. There was no injury to any structures on entering. Then 3 5 mm ports were placed under direct visualization 1 in the epigastric area 2 in the right upper quadrant also using local. The gallbladder was then retracted superiorly and some adhesions of omentum were taken down. In the attempt of grasping it and retracting superiorly and laterally the gallbladder which was not as thickened but thin-walled tore and a great number of small round dark gallstones spilled out. The gallbladder was long and there were changes more of chronic cholecystitis. Using blunt dissection the cystic duct cystic artery were identified and the cystic artery clipped twice down 1 up and transected and the cystic duct clipped 3 times down 1 up and transected as well. Using the hook cautery the gallbladder was removed from the liver bed. Unfortunately in the process of doing this and manipulating the gallbladder more stones spilled out. Eventually gallbladder was removed and placed in the Endo- Catch bag and removed from the midline supraumbilical area port. Pneumoperitoneum was then reestablished in the liver looked fine in the cystic duct stump and cystic artery all looked good. Now we started to tackle all the spilled stones. The patient had been positioned head up and little left side do wn. The epigastric port was converted to attend mm trocar and the 10 mm suction patternmaker pressure cast was used to suck out as many of the stones as possible. This was long and extensive and took over 30 minutes to get the areas suctioned out. A 2 6 L of fluid was used and sucked back out at the end the vast majority of the stones were removed but some smaller gravelly types stones may have been still within the peritoneal cavity. A large CHUY drain was placed and secured in the right upper quadrant and infra gallbladder fossa area. Attention was then focused to the 10 mm port sites at the epigastric area and using the Dwain Truong port and suture Passer this area was closed with a 0 Vicryl suture. All ports were now removed and the midline periumbilical type area poor was removed and the pursestring suture approximated. Some more local was used and then 4-0 Monocryl was used to close the skin edges of the ports in a running fashion. Steri- Strips were then placed and Tegaderm dressings. At The end of the case all sponge instrument needle counts were correct . Patient was extubated returned stable to recovery room. Estimated blood loss was about 15 cc. There was some bile spillage and stone spillage the vast majority of which was irrigated and suctioned out of the peritoneal cavity.
[2024-12-11] MEDS: 0.9 % Sodium Chloride Flush 3 ML SYRINGE IVFLUSH (15:01)
--- NOTE | 2024-12-11 15:07 | PC.NURSE ---
BP 152/[address] Zeng aware
--- NOTE | 2024-12-11 15:08 | P.PNIM_ITS ---
Subjective Subjective Date of Service: 12/11/24 Interval History: just back from PACU. BP was normal this AM, very high immediately postop but has improved now to 152/68 Review of Systems Review of Systems: Yes all other systems are reviewed and are negative Physical Exam 2 Vital Signs: Vital Signs: Last Vital Signs Temp 97.5 F 12/11/24 13:51 Pulse 80 12/11/24 14:56 Resp 18 12/11/24 13:51 BP 152/68 H 12/11/24 14:56 Pulse Ox 92 12/11/24 13:51 O2 Del Method Room Air 12/11/24 13:51 BMI result Body Mass Index 33.4 Gen: in no acute distress HEENT: sclera anicteric, moist mucus membranes Neck: supple Lungs: clear to auscultation bilaterally Heart: regular rate and rhythm, no murmurs Abd: lap tobin incisions, CHUY drain with serosanguinous liquid Ext: no edema Skin: warm/well-perfused Neuro: asleep comfortably Objective Data Active Medications Acetaminophen (Acetaminophen 325 Mg Tablet) 650 mg PO Q6H PRN PRN Reason: Pain, Mild 1-3,fever,headache Last Admin: 12/11/24 01:25 Dose: 650 mg Documented By: SEAN Comments: per pt request Albuterol Sulfate (Albuterol Sulfate (0.042%) 1.25 Mg/3 Ml Vial.Neb) 1.25 mg INHALE QID PRN PRN Reason: Shortness Of Breath Or Wheezing Albuterol Sulfate (Albuterol Sulfate 90 Mcg 8 Gm Inhaler) 2 puff INHALE Q4H PRN PRN Reason: Wheezing Atorvastatin Calcium (Atorvastatin Calcium 80 Mg Tablet) 80 mg PO BEDTIME [facility] Last Admin: 12/10/24 20:26 Dose: 80 mg Documented By: SEAN Calcium Carbonate (Calcium Carbonate 750 Mg Tab.Chew) 750 mg PO Q4H PRN PRN Reason: Heartburn Carbamide Peroxide (Carbamide Peroxide 6.5% Otic 15 Ml Drpbtl) 5 drop EAR-BOTH Q12H [facility] Last Admin: 12/11/24 08:01 Dose: Not Given Documented By: REMY Non-Admin Reason: med not available, pharmacy notified Ceftriaxone Sodium (Ceftriaxone Sodium 2 Gm Vial) 2 gm IVPUSH Q24H [facility] Last Admin: 12/11/24 15:00 Dose: 2 gm Documented By: REMY Diltiazem HCl (Diltiazem Hcl Cd 180 Mg Cap.Er.24h) 360 mg PO DAILY [facility]; Protocol Last Admin: 12/11/24 07:57 Dose: 360 mg Documented By: REMY Fentanyl (Fentanyl Citrate/Pf 100 Mcg/2 Ml Vial) 50 mcg IVPUSH Q5M PRN PRN Reason: Pain, Moderate to Severe (Pain Scale 4-10) Stop: 12/11/24 15:48 Fluticasone Propionate (Fluticasone Propionate Nasal 16 Gm [place]) 1 spray NOSTRIL-B DAILY PRN PRN Reason: Nasal Congestion Fluticasone/Vilanterol (Fluticasone/Vilanterol 200/25 Blst.W.Dev) 1 puff INHALE RDAILY [facility] Last Admin: 12/11/24 12:04 Dose: Not Given Documented By: OLIVIER Non-Admin Reason: Off Unit: Surgery Hydralazine HCl (Hydralazine Hcl 50 Mg Tablet) 100 mg PO BID [facility]; Protocol Last Admin: 12/11/24 07:59 Dose: 100 mg Documented By: REMY Hydromorphone HCl (Hydromorphone Hcl 0.5 Mg/0.5 Ml Syringe) 0.5 mg IVPUSH Q3H PRN; Protocol PRN Reason: Pain, Severe (Pain Scale 7-10) Last Admin: 12/11/24 05:57 Dose: 0.5 mg Documented By: SEAN Lactated Ringer's (Lr) 1,000 mls @ 80 mls/hr IVCONT .[id number] [facility] Last Admin: 12/11/24 14:52 Dose: 80 mls/hr Documented By: REMY Metronidazole (Flagyl) 500 mg in 100 mls @ 100 mls/hr IV Q8H [facility] Last Infusion: 12/11/24 14:53 Dose: Infused Documented By: REMY Magnesium Hydroxide (Milk Of Magnesia 30 Ml Oral.Susp) 30 ml PO DAILY PRN PRN Reason: Constipation Melatonin (Melatonin 3 Mg Tablet) 6 mg PO BEDTIME PRN PRN Reason: Insomnia Naloxone HCl (Naloxone Hcl 0.4 Mg/Ml Vial) 0.04 mg IVPUSH Q5M PRN PRN Reason: Excessive sedation or RR < 8 Omeprazole (Omeprazole 20 Mg Capsule.Dr) 20 mg PO DAILY@0630 [facility] Last Admin: 12/11/24 05:53 Dose: 20 mg Documented By: SEAN Ondansetron HCl (Ondansetron Hcl 4 Mg/2 Ml Vial) 4 mg IVPUSH Q8H PRN PRN Reason: Nausea and Vomiting Ondansetron HCl (Ondansetron Hcl 4 Mg/2 Ml Vial) 4 mg IVPUSH ONCE PRN PRN Reason: Nausea and Vomiting Stop: 12/11/24 15:48 Oxycodone HCl (Oxycodone Hcl Immed Release 5 Mg Tablet) 5 mg PO Q4H PRN PRN Reason: Pain, Moderate(Pain Scale 4-6) Last Admin: 12/11/24 07:57 Dose: 5 mg Documented By: REMY Oxycodone HCl (Oxycodone Hcl Immed Release 5 Mg Tablet) 5 mg PO Q4H PRN PRN Reason: Pain, Moderate(Pain Scale 4-6) Oxycodone HCl (Oxycodone Hcl Immed Release 5 Mg Tablet) 10 mg PO Q4H PRN PRN Reason: Pain, Moderate(Pain Scale 4-6) Sodium Chloride (0.9 % Sodium Chloride Flush 3 Ml Syringe) 3 ml IVFLUSH [facility] Last Admin: 12/11/24 15:01 Dose: 3 ml Documented By: REMY Vitamin D (Cholecalciferol (Vitamin D3) 25 Mcg Tablet) 25 mcg PO DAILY [facility] Last Admin: 12/11/24 07:58 Dose: 25 mcg Documented By: REMY Labs 12/11/24 06:08 12/11/24 06:08 Labs: Laboratory Results - last 24 hr 12/11/24 06:08 MCV 92.2 MCH 29.5 MCHC 32.0 RDW 13.7 Plt Count 235 D MPV 10.4 Immature Gran % (Auto) 0.3 Neut % (Auto) 75.4 H Lymph % (Auto) 19.2 L [place] % (Auto) 4.6 Eos % (Auto) 0.1 Baso % (Auto) 0.4 Lymph # (Auto) 2.1 [place] # (Auto) 0.5 Eos # (Auto) 0.0 Baso # (Auto) 0.0 Abs Immat Gran (auto) 0.03 Absolute Neuts (auto) 8.2 Absolute Nucleated RBC 0.000 Nucleated RBC % (auto) 0.0 Anion Gap 14 Estim Creat Clear Calc 61.9 Estimated GFR > 60 Random Glucose 127 H Calcium 9.1 Assessment and Plan (1) HTN (hypertension): Status: Acute Plan d2 for 79yo F with HOCM, HLD, asthma, and HTN admitted to surgical service for acute cholecystitis; Medicine consult for uncontrolled HTN HTN - improved with resumption of home meds- hydralazine + diltiazem. Hx of angioedema from lisinopril. acute cholecystitis - POD0 lap tobin, 12/10- ceftriaxone + metronidazole HLD - statin mild persistent asthma, - prn albuterol, Breo VTE ppx - enoxaparin when cleared by surgery Thank you for this consultation. We will continue to follow the patient while they are admitted to your service. Total time managing care of this patient today: 35 minutes. Quality Stroke Does the patient have a stroke diagnosis?: No VTE Prior VTE?: No VTE Risk Level:: Surgical - high VTE Device Contraindication: N/A - Device Ordered VTE Drug Contraindication: Treatment Not Indicated
[2024-12-11] MEDS: oxyCODONE HCl Immed Release 5 MG TABLET 10 MG PO (18:38)
[2024-12-11] MEDS: Carbamide Peroxide 6.5% Otic 15 ML DRPBTL 5 DROP EAR-BOTH (20:04)
--- NOTE | 2024-12-11 20:17 | PC.NURSE ---
This RN assumed care at 1900, AOX4, pt reporting to be tolerating her pain at this time. Pt S/P lap tobin POD 0, pt able to speak in full sentences, appeared to be a bit wheezy on initial assessment, then pt used incentive spirometer x10 reps, and on lung auscultation they were clear but diminished, with shallow breath's, pt encouraged to take deep breaths. BS hypoactive at this time, reports + flatus. Dsg's to abd CDI, umbilicus dsg stained, CHUY dsg also showing some staining, but draining appropriately. Will continue to Reassess.
[2024-12-12] VITALS (14 sets, daily range): BP systolic 129–180; BP diastolic 40–84; PULSE 83–96; RESP 16–18; TEMP 36.3–36.8; O2SAT 93–99
[2024-12-12] MEDS: oxyCODONE HCl Immed Release 5 MG TABLET 10 MG PO ×3 (00:33→18:07)
[2024-12-12] MEDS: metroNIDAZOLE/NS 500 MG/100 ML PIGGYBACK 100 MG IV ×3 (03:28→19:46)
[2024-12-12] MEDS: Albuterol Sulfate (0.042%) 1.25 MG/3 ML VIAL.NEB INHALE (03:36)
[2024-12-12] MEDS: Lactated Ringers 1,000 ML 80 ML IVCONT (05:55)
[2024-12-12] MEDS: dilTIAZem HCL CD 180 MG CAP.ER.24H 360 MG PO (07:44)
[2024-12-12] MEDS: Carbamide Peroxide 6.5% Otic 15 ML DRPBTL 5 DROP EAR-BOTH ×2 (07:44→20:55)
[2024-12-12] MEDS: 0.9 % Sodium Chloride Flush 3 ML SYRINGE IVFLUSH ×3 (07:45→23:19)
[2024-12-12] MEDS: Fluticasone/Vilanterol 200/25 BLST.W.DEV 1 PUFF INHALE (07:54)
[2024-12-12 08:28] LABS: Hematocrit 37.3 % (37.0-47.0); Hemoglobin 11.3 g/dl (12.0-16.0); Mean Corpuscular HGB Conc 30.3 g/dl (31.0-35.0); Mean Corpuscular Hemoglobin 29.7 pg (27.0-33.0); Mean Corpuscular Volume 98.2 fL (80.0-98.0); NRBC Abs Auto 0.000 X10*3/uL (0.0-0.012); NRBC Pct Auto 0.0 /100WBC (0.0-0.2); Platelet Count 170 X10*3/uL (160-400); Red Blood Count 3.80 X10*6/uL (4.20-5.50); White Blood Count 14.2 X10*3/uL (4.8-10.8)
[2024-12-12 08:43] LABS: Blood Urea Nitrogen 25 mg/dL (9-16); Calcium 9.3 mg/dL (8.4-10.2)
[2024-12-12 08:45] LABS: B Type Natriuretic Peptide 141 pg/mL (<100)
[2024-12-12 09:10] LABS: Anion Gap 15 (12-20); Carbon Dioxide 23 mmol/L (22-29); Chloride 106 mmol/L (96-108); Creatinine Clr Calc Pharmacy 33.7; Estimated Glomerular Filt Rate 32; Potassium 4.9 mmol/L (3.3-5.1); Sodium 139 mmol/L (135-145)
--- NOTE | 2024-12-12 10:27 | P.PNGS_ITS ---
Subjective Subjective Date of Service: 12/12/24 Interval history: Patient complaining of trouble breathing feeling some discomfort in the right upper quadrant. CHUY drain during things serosanguineous fluid. Afebrile vitals are improved Physical Exam 2 Vital Signs: Vital Signs: Last Vital Signs Temp 98.2 F 12/12/24 07:11 Pulse 85 12/12/24 07:59 Resp 16 12/12/24 07:59 BP 156/77 H 12/12/24 07:11 Pulse Ox 99 12/12/24 07:11 O2 Del Method Nasal Cannula 12/12/24 07:11 O2 Flow Rate 2 12/12/24 07:11 BMI result Body Mass Index 33.4 Const: General: cooperative, healthy appearing and comfortable HEENT: Other: Nonicteric Resp: Effort & Inspection: normal respiratory effort Cardio: Rate: regular rate Rhythm: regular rhythm GI: Other: Abdomen is soft she is tender in the right upper quadrant some guarding no peritoneal signs incisions look okay CHUY dressing with serosanguineous fluid Objective Data Active Medications Acetaminophen (Acetaminophen 325 Mg Tablet) 650 mg PO Q6H PRN PRN Reason: Pain, Mild 1-3,fever,headache Last Admin: 12/11/24 01:25 Dose: 650 mg Documented By: SEAN Comments: per pt request Albuterol Sulfate (Albuterol Sulfate (0.042%) 1.25 Mg/3 Ml Vial.Neb) 1.25 mg INHALE QID PRN PRN Reason: Shortness Of Breath Or Wheezing Last Admin: 12/12/24 03:36 Dose: 1.25 mg Documented By: CARLYN Albuterol Sulfate (Albuterol Sulfate 90 Mcg 8 Gm Inhaler) 2 puff INHALE Q4H PRN PRN Reason: Wheezing Atorvastatin Calcium (Atorvastatin Calcium 80 Mg Tablet) 80 mg PO BEDTIME [facility] Last Admin: 12/11/24 19:58 Dose: 80 mg Documented By: SEAN Calcium Carbonate (Calcium Carbonate 750 Mg Tab.Chew) 750 mg PO Q4H PRN PRN Reason: Heartburn Carbamide Peroxide (Carbamide Peroxide 6.5% Otic 15 Ml Drpbtl) 5 drop EAR-BOTH Q12H [facility] Last Admin: 12/12/24 07:44 Dose: 5 drop Documented By: REMY Ceftriaxone Sodium (Ceftriaxone Sodium 2 Gm Vial) 2 gm IVPUSH Q24H [facility] Last Admin: 12/11/24 15:00 Dose: 2 gm Documented By: REMY Diltiazem HCl (Diltiazem Hcl Cd 180 Mg Cap.Er.24h) 360 mg PO DAILY [facility]; Protocol Last Admin: 12/12/24 07:44 Dose: 360 mg Documented By: REMY Fluticasone Propionate (Fluticasone Propionate Nasal 16 Gm [place]) 1 spray NOSTRIL-B DAILY PRN PRN Reason: Nasal Congestion Fluticasone/Vilanterol (Fluticasone/Vilanterol 200/25 Blst.W.Dev) 1 puff INHALE RDAILY [facility] Last Admin: 12/12/24 07:54 Dose: 1 puff Documented By: OLIVIER Hydralazine HCl (Hydralazine Hcl 50 Mg Tablet) 100 mg PO BID [facility]; Protocol Last Admin: 12/12/24 07:44 Dose: 100 mg Documented By: REMY Hydromorphone HCl (Hydromorphone Hcl 0.5 Mg/0.5 Ml Syringe) 0.5 mg IVPUSH Q3H PRN; Protocol PRN Reason: Pain, Severe (Pain Scale 7-10) Last Admin: 12/12/24 03:27 Dose: 0.5 mg Documented By: PAL Lactated Ringer's (Lr) 1,000 mls @ 80 mls/hr IVCONT .[id number] [facility] Last Admin: 12/12/24 05:55 Dose: 80 mls/hr Documented By: PAL Metronidazole (Flagyl) 500 mg in 100 mls @ 100 mls/hr IV Q8H [facility] Last Infusion: 12/12/24 04:45 Dose: Infused Documented By: PAL Magnesium Hydroxide (Milk Of Magnesia 30 Ml Oral.Susp) 30 ml PO DAILY PRN PRN Reason: Constipation Melatonin (Melatonin 3 Mg Tablet) 6 mg PO BEDTIME PRN PRN Reason: Insomnia Naloxone HCl (Naloxone Hcl 0.4 Mg/Ml Vial) 0.04 mg IVPUSH Q5M PRN PRN Reason: Excessive sedation or RR < 8 Omeprazole (Omeprazole 20 Mg Capsule.Dr) 20 mg PO DAILY@0630 [facility] Last Admin: 12/12/24 05:53 Dose: 20 mg Documented By: PAL Ondansetron HCl (Ondansetron Hcl 4 Mg/2 Ml Vial) 4 mg IVPUSH Q8H PRN PRN Reason: Nausea and Vomiting Last Admin: 12/12/24 09:52 Dose: 4 mg Documented By: REMY Oxycodone HCl (Oxycodone Hcl Immed Release 5 Mg Tablet) 5 mg PO Q4H PRN PRN Reason: Pain, Moderate(Pain Scale 4-6) Last Admin: 12/11/24 07:57 Dose: 5 mg Documented By: REMY Oxycodone HCl (Oxycodone Hcl Immed Release 5 Mg Tablet) 5 mg PO Q4H PRN PRN Reason: Pain, Moderate(Pain Scale 4-6) Oxycodone HCl (Oxycodone Hcl Immed Release 5 Mg Tablet) 10 mg PO Q4H PRN PRN Reason: Pain, Moderate(Pain Scale 4-6) Last Admin: 12/12/24 08:01 Dose: 10 mg Documented By: REMY Sodium Chloride (0.9 % Sodium Chloride Flush 3 Ml Syringe) 3 ml IVFLUSH [facility] Last Admin: 12/12/24 07:45 Dose: 3 ml Documented By: REMY Vitamin D (Cholecalciferol (Vitamin D3) 25 Mcg Tablet) 25 mcg PO DAILY [facility] Last Admin: 12/12/24 07:44 Dose: 25 mcg Documented By: REMY Labs 12/12/24 07:49 12/12/24 07:49 Labs: Laboratory Results - last 24 hr 12/12/24 07:49 MCV 98.2 H D MCH 29.7 MCHC 30.3 L RDW 14.3 Plt Count 170 D MPV 11.5 Absolute Nucleated RBC 0.000 Nucleated RBC % (auto) 0.0 Anion Gap 15 Estim Creat Clear Calc 33.7 Estimated GFR 32 Random Glucose 117 H Calcium 9.3 B-Natriuretic Peptide 141 H Procedures Date of Service Date of Service: 12/12/24 Progress Note: A&P Assessment and plan (1) Acute cholecystitis: Status: Acute Assessment and Plan: 79-year-old female postop day 1 status post laparoscopic cholecystectomy for some cholecystitis and biliary colic cholelithiasis. Postoperatively her hemodynamics are better although she is saying she feels little pain and trouble taking a deep breath. Her vitals are improved. We will plan on continuing her antibiotics and re-evaluating her labs tomorrow. CHUY drain will stay on board. We will advance her diet to . Time Spent With Patient Time: Total time managing care of this patient today ____ minutes. Quality Stroke Does the patient have a stroke diagnosis?: No VTE Prior VTE?: No VTE Risk Level:: Surgical - high VTE Device Contraindication: N/A - Device Ordered VTE Drug Contraindication: Treatment Not Indicated
[2024-12-12] MEDS: Lactated Ringers 1,000 ML 125 ML IVCONT (11:24)
--- NOTE | 2024-12-12 11:38 | P.PNIM_ITS ---
Subjective Subjective Date of Service: 12/12/24 Interval History: c/o dyspnea but no wheeze; not hypoxic c/o RUQ pain Review of Systems Review of Systems: Yes all other systems are reviewed and are negative Physical Exam 2 Vital Signs: Vital Signs: Last Vital Signs Temp 98.2 F 12/12/24 07:11 Pulse 85 12/12/24 07:59 Resp 16 12/12/24 07:59 BP 156/77 H 12/12/24 07:11 Pulse Ox 95 12/12/24 11:23 O2 Del Method Room Air 12/12/24 11:23 O2 Flow Rate 2 12/12/24 07:11 BMI result Body Mass Index 33.4 Gen: in no acute distress HEENT: sclera anicteric, moist mucus membranes Neck: supple Lungs: clear to auscultation bilaterally Heart: regular rate and rhythm, no murmurs Abd: soft, lap tobin incisions intact, CHUY drain with serosanguinous drainage Ext: no edema Skin: warm/well-perfused Neuro: alert and oriented x3, no focal findings Psych: appropriate affect Objective Data Active Medications Acetaminophen (Acetaminophen 325 Mg Tablet) 650 mg PO Q6H PRN PRN Reason: Pain, Mild 1-3,fever,headache Last Admin: 12/11/24 01:25 Dose: 650 mg Documented By: SEAN Comments: per pt request Albuterol Sulfate (Albuterol Sulfate 90 Mcg 8 Gm Inhaler) 2 puff INHALE Q4H PRN PRN Reason: Wheezing Albuterol Sulfate (Albuterol Sulfate (0.042%) 1.25 Mg/3 Ml Vial.Neb) 2.5 mg INHALE Q4H PRN PRN Reason: Shortness Of Breath Or Wheezing Atorvastatin Calcium (Atorvastatin Calcium 80 Mg Tablet) 80 mg PO BEDTIME [facility] Last Admin: 12/11/24 19:58 Dose: 80 mg Documented By: SEAN Calcium Carbonate (Calcium Carbonate 750 Mg Tab.Chew) 750 mg PO Q4H PRN PRN Reason: Heartburn Carbamide Peroxide (Carbamide Peroxide 6.5% Otic 15 Ml Drpbtl) 5 drop EAR-BOTH Q12H [facility] Last Admin: 12/12/24 07:44 Dose: 5 drop Documented By: REMY Ceftriaxone Sodium (Ceftriaxone Sodium 2 Gm Vial) 2 gm IVPUSH Q24H [facility] Last Admin: 12/11/24 15:00 Dose: 2 gm Documented By: REMY Diltiazem HCl (Diltiazem Hcl Cd 180 Mg Cap.Er.24h) 360 mg PO DAILY [facility]; Protocol Last Admin: 12/12/24 07:44 Dose: 360 mg Documented By: REMY Fluticasone Propionate (Fluticasone Propionate Nasal 16 Gm [place]) 1 spray NOSTRIL-B DAILY PRN PRN Reason: Nasal Congestion Fluticasone/Vilanterol (Fluticasone/Vilanterol 200/25 Blst.W.Dev) 1 puff INHALE RDAILY [facility] Last Admin: 12/12/24 07:54 Dose: 1 puff Documented By: OLIVIER Hydralazine HCl (Hydralazine Hcl 50 Mg Tablet) 100 mg PO BID [facility]; Protocol Last Admin: 12/12/24 07:44 Dose: 100 mg Documented By: REMY Hydromorphone HCl (Hydromorphone Hcl 0.5 Mg/0.5 Ml Syringe) 0.5 mg IVPUSH Q3H PRN; Protocol PRN Reason: Pain, Severe (Pain Scale 7-10) Last Admin: 12/12/24 03:27 Dose: 0.5 mg Documented By: PAL Metronidazole (Flagyl) 500 mg in 100 mls @ 100 mls/hr IV Q8H [facility] Last Infusion: 12/12/24 04:45 Dose: Infused Documented By: PAL Lactated Ringer's (Lr) 1,000 mls @ 125 mls/hr IVCONT .Q8H [facility] Stop: 12/12/24 18:44 Last Admin: 12/12/24 11:24 Dose: 125 mls/hr Documented By: REMY Magnesium Hydroxide (Milk Of Magnesia 30 Ml Oral.Susp) 30 ml PO DAILY PRN PRN Reason: Constipation Melatonin (Melatonin 3 Mg Tablet) 6 mg PO BEDTIME PRN PRN Reason: Insomnia Naloxone HCl (Naloxone Hcl 0.4 Mg/Ml Vial) 0.04 mg IVPUSH Q5M PRN PRN Reason: Excessive sedation or RR < 8 Omeprazole (Omeprazole 20 Mg Capsule.Dr) 20 mg PO DAILY@0630 [facility] Last Admin: 12/12/24 05:53 Dose: 20 mg Documented By: PAL Ondansetron HCl (Ondansetron Hcl 4 Mg/2 Ml Vial) 4 mg IVPUSH Q8H PRN PRN Reason: Nausea and Vomiting Last Admin: 12/12/24 09:52 Dose: 4 mg Documented By: REMY Oxycodone HCl (Oxycodone Hcl Immed Release 5 Mg Tablet) 5 mg PO Q4H PRN PRN Reason: Pain, Moderate(Pain Scale 4-6) Last Admin: 12/11/24 07:57 Dose: 5 mg Documented By: REMY Oxycodone HCl (Oxycodone Hcl Immed Release 5 Mg Tablet) 5 mg PO Q4H PRN PRN Reason: Pain, Moderate(Pain Scale 4-6) Oxycodone HCl (Oxycodone Hcl Immed Release 5 Mg Tablet) 10 mg PO Q4H PRN PRN Reason: Pain, Moderate(Pain Scale 4-6) Last Admin: 12/12/24 08:01 Dose: 10 mg Documented By: REMY Sodium Chloride (0.9 % Sodium Chloride Flush 3 Ml Syringe) 3 ml IVFLUSH [facility] Last Admin: 12/12/24 07:45 Dose: 3 ml Documented By: REMY Vitamin D (Cholecalciferol (Vitamin D3) 25 Mcg Tablet) 25 mcg PO DAILY [facility] Last Admin: 12/12/24 07:44 Dose: 25 mcg Documented By: REMY Labs 12/12/24 07:49 12/12/24 07:49 Labs: Laboratory Results - last 24 hr 12/12/24 07:49 MCV 98.2 H D MCH 29.7 MCHC 30.3 L RDW 14.3 Plt Count 170 D MPV 11.5 Absolute Nucleated RBC 0.000 Nucleated RBC % (auto) 0.0 Anion Gap 15 Estim Creat Clear Calc 33.7 Estimated GFR 32 Random Glucose 117 H Calcium 9.3 B-Natriuretic Peptide 141 H Assessment and Plan (1) HTN (hypertension): Status: Acute Plan d3 for 79yo F with HOCM, HLD, asthma, and HTN admitted to surgical service for acute cholecystitis; Medicine consult for uncontrolled HTN NUSRAT - suspect prerenal; increase isotonic fluid resuscitation rate and recheck SCr in AM asthma - continue albuterol nebs and Breo; check CXR HTN - improved with resumption of home meds- hydralazine + diltiazem. Hx of angioedema from lisinopril. acute cholecystitis - POD#1 lap tobin, 12/10- ceftriaxone + metronidazole HLD - statin VTE ppx - enoxaparin when cleared by surgery Thank you for this consultation. We will continue to follow the patient while they are admitted to your service. Total time managing care of this patient today: 35 minutes. Quality Stroke Does the patient have a stroke diagnosis?: No VTE Prior VTE?: No VTE Risk Level:: Surgical - high VTE Device Contraindication: N/A - Device Ordered VTE Drug Contraindication: Treatment Not Indicated
--- NOTE | 2024-12-12 12:18 | PC.NURSE ---
BP elevated 176/75 pulse 86 ,c/o pain and SOB,will medicate for pain,called for nebulizer tx,dr. Zeng notified
[2024-12-12] MEDS: Albuterol Sulfate (0.042%) 1.25 MG/3 ML VIAL.NEB 2.5 MG INHALE (12:31)
[2024-12-13] VITALS (9 sets, daily range): BP systolic 160–184; BP diastolic 54–70; PULSE 82–100; RESP 14–22; TEMP 36.3–37.4; O2SAT 93–96
[2024-12-13] MEDS: metroNIDAZOLE/NS 500 MG/100 ML PIGGYBACK 100 MG IV ×3 (03:10→19:09)
[2024-12-13] MEDS: oxyCODONE HCl Immed Release 5 MG TABLET PO ×3 (03:15→19:16)
[2024-12-13] MEDS: Albuterol Sulfate (0.042%) 1.25 MG/3 ML VIAL.NEB 2.5 MG INHALE (03:40)
[2024-12-13 06:00] LABS: MANUAL DIFF FLAG NO
[2024-12-13 06:04] LABS: Hematocrit 34.4 % (37.0-47.0); Hemoglobin 10.5 g/dl (12.0-16.0); Imm Gran Abs Auto 0.06 X10*3/uL (0.00-0.03); Imm Gran Pct Auto 0.5 % (0.0-0.4); Lymphocytes Absolute Auto 3.1 X10*3/uL (1.2-4.9); Mean Corpuscular HGB Conc 30.5 g/dl (31.0-35.0); Mean Corpuscular Hemoglobin 29.2 pg (27.0-33.0); Mean Corpuscular Volume 95.8 fL (80.0-98.0); NRBC Abs Auto 0.000 X10*3/uL (0.0-0.012); NRBC Pct Auto 0.0 /100WBC (0.0-0.2); Platelet Count 207 X10*3/uL (160-400); Red Blood Count 3.59 X10*6/uL (4.20-5.50); White Blood Count 13.3 X10*3/uL (4.8-10.8)
[2024-12-13 06:21] LABS: Alanine Aminotransferase 101 U/L (0-31); Albumin Level 3.8 g/dL (3.5-5.0); Alkaline Phosphatase 75 U/L (39-117); Anion Gap 13 (12-20); Aspartate Amino Transferase 63 U/L (5-31); Blood Urea Nitrogen 25 mg/dL (9-16); Calcium 8.9 mg/dL (8.4-10.2); Carbon Dioxide 26 mmol/L (22-29); Chloride 109 mmol/L (96-108); Creatinine Clr Calc Pharmacy 43.9; Estimated Glomerular Filt Rate 43; Potassium 4.5 mmol/L (3.3-5.1); Sodium 143 mmol/L (135-145); Total Protein 6.6 g/dL (6.5-8.0)
--- NOTE | 2024-12-13 07:09 | PM.PNGS ---
Subjective Subjective Date of Service: 12/13/24 <Leonie Liban - Last Filed: 12/13/24 07:27> 12/13/24 <Samuel Rajput PA-C - Last Filed: 12/13/24 08:42> Interval history: Sara Deluna is a 79 y/o F POD 3 for cholecystectomy due to acute cholecystitis and a PMH of HOCM. No acute overnight events. Patient reports improving pain at 5/10 scale managed on IV dilaudid. No nausea, vomiting, or chills reported this AM. Chills reported. No bowel movements. Passing flatulence, ambulating. Using spirometry 3x/day. CHUY drained 1x last night. Tolerating a regular diet. <Leonie Liban - Last Filed: 12/13/24 07:27> Sara Deluna is a 79 y/o F POD 3 for cholecystectomy due to acute cholecystitis and a PMH of HOCM. No acute overnight events. Patient reports improving pain at 5/10 scale managed on IV dilaudid. No nausea, vomiting, or chills reported this AM. Chills reported. No bowel movements. Passing flatulence, ambulating. Using spirometry 3x/day. CHUY drained 1x last night. Tolerating a regular diet. Patient states she felt short of breath after going to the bathroom, has history of asthma, states she often get SOB when ambulating at home. <Samuel Rajput PA-C - Last Filed: 12/13/24 08:42> Physical Exam Vital Signs: Vital Signs: Last Vital Signs Temp 97.3 F 12/13/24 03:47 Pulse 97 12/13/24 03:47 Resp 18 12/13/24 03:47 BP 160/54 H 12/13/24 03:47 Pulse Ox 93 12/13/24 03:47 O2 Del Method Room Air 12/13/24 03:47 O2 Flow Rate 2 12/12/24 07:11 BMI result Body Mass Index 33.4 <Leonie [place] - Last Filed: 12/13/24 07:27> Const: General: no acute distress <Leonie [place] - Last Filed: 12/13/24 07:27> Orientation/consciousness: patient oriented x3 <Leonie [place] - Last Filed: 12/13/24 07:27> HEENT: Head: Yes normal to inspection <Leonie [place] - Last Filed: 12/13/24 07:27> Chest: Chest palpation & inspection: normal inspection of the chest <Leonie [place] - Last Filed: 12/13/24 07:27> Resp: Effort & Inspection: normal respiratory effort <Leonie Liban - Last Filed: 12/13/24 07:27> Effort & Inspection: audible wheezes and no cough <Samuel Rajput PA-C - Last Filed: 12/13/24 08:42> GI: Other: Soft, tender to palpation, non-distended. Dressings intact without blood strikethrough. CHUY tube in place with less than 25 mL of serous fluid. <Leonie Liban - Last Filed: 12/13/24 07:27> Other: Soft, tender to palpation, non-distended. Dressings intact without blood strikethrough. CHUY tube in place with less than 25 mL of serous fluid. <Samuel Rajput PA-C - Last Filed: 12/13/24 08:42> Inspection: No distended <Samuel Rajput PA-C - Last Filed: 12/13/24 08:42> Palpation (GI): Soft to palpation, Tenderness to palpation present (GI) in the epigastrum and in the RUQ and no guarding <Samuel Rajput PA-C - Last Filed: 12/13/24 08:42> Neuro: General: patient oriented x3 <Leonie [place] - Last Filed: 12/13/24 07:27> Extrem: Other: Non-pitting edema of the ankles <Leonie Liban - Last Filed: 12/13/24 07:27> Psych: Mental Status: mental status grossly normal <Leonie [place] - Last Filed: 12/13/24 07:27> Objective Data Active Medications Acetaminophen (Acetaminophen 325 Mg Tablet) 650 mg PO Q6H PRN PRN Reason: Pain, Mild 1-3,fever,headache Last Admin: 12/13/24 03:14 Dose: 650 mg Documented By: MANDY Albuterol Sulfate (Albuterol Sulfate 90 Mcg 8 Gm Inhaler) 2 puff INHALE Q4H PRN PRN Reason: Wheezing Albuterol Sulfate (Albuterol Sulfate (0.042%) 1.25 Mg/3 Ml Vial.Neb) 2.5 mg INHALE Q4H PRN PRN Reason: Shortness Of Breath Or Wheezing Last Admin: 12/13/24 03:40 Dose: 2.5 mg Documented By: STACIE Atorvastatin Calcium (Atorvastatin Calcium 80 Mg Tablet) 80 mg PO BEDTIME [facility] Last Admin: 12/12/24 20:54 Dose: 80 mg Documented By: MANDY Calcium Carbonate (Calcium Carbonate 750 Mg Tab.Chew) 750 mg PO Q4H PRN PRN Reason: Heartburn Carbamide Peroxide (Carbamide Peroxide 6.5% Otic 15 Ml Drpbtl) 5 drop EAR-BOTH Q12H [facility] Last Admin: 12/12/24 20:55 Dose: 5 drop Documented By: MANDY Ceftriaxone Sodium (Ceftriaxone Sodium 2 Gm Vial) 2 gm IVPUSH Q24H [facility] Last Admin: 12/12/24 11:38 Dose: 2 gm Documented By: REMY Diltiazem HCl (Diltiazem Hcl Cd 180 Mg Cap.Er.24h) 360 mg PO DAILY [facility]; Protocol Last Admin: 12/12/24 07:44 Dose: 360 mg Documented By: REMY Fluticasone Propionate (Fluticasone Propionate Nasal 16 Gm [place]) 1 spray NOSTRIL-B DAILY PRN PRN Reason: Nasal Congestion Fluticasone/Vilanterol (Fluticasone/Vilanterol 200/25 Blst.W.Dev) 1 puff INHALE RDAILY [facility] Last Admin: 12/12/24 07:54 Dose: 1 puff Documented By: OLIVIER Hydralazine HCl (Hydralazine Hcl 50 Mg Tablet) 100 mg PO BID [facility]; Protocol Last Admin: 12/12/24 20:55 Dose: 100 mg Documented By: MANDY Hydromorphone HCl (Hydromorphone Hcl 0.5 Mg/0.5 Ml Syringe) 0.5 mg IVPUSH Q3H PRN; Protocol PRN Reason: Pain, Severe (Pain Scale 7-10) Last Admin: 12/12/24 19:54 Dose: 0.5 mg Documented By: MANDY Metronidazole (Flagyl) 500 mg in 100 mls @ 100 mls/hr IV Q8H [facility] Last Infusion: 12/13/24 04:10 Dose: Infused Documented By: MANDY Magnesium Hydroxide (Milk Of Magnesia 30 Ml Oral.Susp) 30 ml PO DAILY PRN PRN Reason: Constipation Melatonin (Melatonin 3 Mg Tablet) 6 mg PO BEDTIME PRN PRN Reason: Insomnia Naloxone HCl (Naloxone Hcl 0.4 Mg/Ml Vial) 0.04 mg IVPUSH Q5M PRN PRN Reason: Excessive sedation or RR < 8 Omeprazole (Omeprazole 20 Mg Capsule.Dr) 20 mg PO DAILY@629 [facility] Last Admin: 12/13/24 05:39 Dose: 20 mg Documented By: MANDY Ondansetron HCl (Ondansetron Hcl 4 Mg/2 Ml Vial) 4 mg IVPUSH Q8H PRN PRN Reason: Nausea and Vomiting Last Admin: 12/12/24 09:52 Dose: 4 mg Documented By: REMY Oxycodone HCl (Oxycodone Hcl Immed Release 5 Mg Tablet) 5 mg PO Q4H PRN PRN Reason: Pain, Moderate(Pain Scale 4-6) Last Admin: 12/13/24 03:15 Dose: 5 mg Documented By: MANDY Oxycodone HCl (Oxycodone Hcl Immed Release 5 Mg Tablet) 5 mg PO Q4H PRN PRN Reason: Pain, Moderate(Pain Scale 4-6) Oxycodone HCl (Oxycodone Hcl Immed Release 5 Mg Tablet) 10 mg PO Q4H PRN PRN Reason: Pain, Moderate(Pain Scale 4-6) Last Admin: 12/12/24 18:07 Dose: 10 mg Documented By: REMY Sodium Chloride (0.9 % Sodium Chloride Flush 3 Ml Syringe) 3 ml IVFLUSH QSHIFT [facility] Last Admin: 12/12/24 23:19 Dose: 3 ml Documented By: MANDY Vitamin D (Cholecalciferol (Vitamin D3) 25 Mcg Tablet) 25 mcg PO DAILY [facility] Last Admin: 12/12/24 07:44 Dose: 25 mcg Documented By: REMY <Leonie Louie - Last Filed: 12/13/24 07:27> Labs CBC & Chem 7: 12/13/24 05:30 12/13/24 05:30 <Leonie Louie - Last Filed: 12/13/24 07:27> Labs: Laboratory Results - last 24 hr 12/12/24 12/13/24 12/13/24 07:49 05:30 05:30 MCV 98.2 H D 95.8 MCH 29.7 29.2 MCHC 30.3 L 30.5 L RDW 14.3 14.2 Plt Count 170 D 207 MPV 11.5 10.9 Immature Gran % (Auto) 0.5 H Neut % (Auto) 68.1 Lymph % (Auto) 23.0 [place] % (Auto) 7.8 Eos % (Auto) 0.4 Baso % (Auto) 0.2 Lymph # (Auto) 3.1 [place] # (Auto) 1.0 Eos # (Auto) 0.1 Baso # (Auto) 0.0 Abs Immat Gran (auto) 0.06 H Absolute Neuts (auto) 9.1 H Absolute Nucleated RBC 0.000 0.000 Nucleated RBC % (auto) 0.0 0.0 Anion Gap 15 Cancelled 13 Estim Creat Clear Calc 33.7 Cancelled Estimated GFR 32 Random Glucose 117 H Calcium 9.3 Total Bilirubin AST ALT Alkaline Phosphatase B-Natriuretic Peptide 141 H Total Protein Albumin 12/13/24 12/13/24 12/13/24 05:30 05:30 05:30 MCV MCH MCHC RDW Plt Count MPV Immature Gran % (Auto) Neut % (Auto) Lymph % (Auto) [place] % (Auto) Eos % (Auto) Baso % (Auto) Lymph # (Auto) [place] # (Auto) Eos # (Auto) Baso # (Auto) Abs Immat Gran (auto) Absolute Neuts (auto) Absolute Nucleated RBC Nucleated RBC % (auto) Anion Gap Estim Creat Clear Calc 43.9 Estimated GFR Cancelled 43 Random Glucose Cancelled 139 H Calcium Cancelled Total Bilirubin AST ALT Alkaline Phosphatase B-Natriuretic Peptide Total Protein Albumin 12/13/24 05:30 MCV MCH MCHC RDW Plt Count MPV Immature Gran % (Auto) Neut % (Auto) Lymph % (Auto) [place] % (Auto) Eos % (Auto) Baso % (Auto) Lymph # (Auto) [place] # (Auto) Eos # (Auto) Baso # (Auto) Abs Immat Gran (auto) Absolute Neuts (auto) Absolute Nucleated RBC Nucleated RBC % (auto) Anion Gap Estim Creat Clear Calc Estimated GFR Random Glucose Calcium 8.9 Total Bilirubin 0.6 AST 63 H ALT 101 H Alkaline Phosphatase 75 B-Natriuretic Peptide Total Protein 6.6 Albumin 3.8 <Leonie Louie - Last Filed: 12/13/24 07:27> Procedures Date of Service Date of Service: 12/13/24 <Leonie Louie - Last Filed: 12/13/24 07:27> 12/13/24 <Samuel Rajput PA-C - Last Filed: 12/13/24 08:42> Progress Note: A&P Assessment and plan (1) S/P laparoscopic cholecystectomy: Status: Acute <Leonie Louie - Last Filed: 12/13/24 07:27> Assessment and Plan: Sara Deluna is a 79 y/o F POD 3 for cholecystectomy due to acute cholecystitis with a PMH of HOCM, stable. Patient reports improving pain at 5/10 managed on IV dilaudid. No n/v or fevers. Has not passed a bowel movement. Passing flatulence and ambulating. Tolerating regular diet. Abdomen soft, tender to palpation, non-distended. Dressings dry, intact, without blood strikethrough. Ins: IV lactated ringer, IV dilaudid. Outs: CHUY drained 1x last night, with less than 25 mL of serous fluid this AM. WBC at 13.3, consistent with expected post-op inflammation. BUN at 25, possibly due to dehydration. Cr at 1.2. For plan, continue encouraging ambulation. Continue regular diet. Continue IV dilaudid for pain management. Encourage fluid intake and possibly give lactated ringer for hydration. <Leonie Louie - Last Filed: 12/13/24 07:27> Sara Deluna is a 79 y/o F POD 3 for cholecystectomy due to acute cholecystitis with a PMH of HOCM, stable. Patient reports improving pain at 5/10 managed on IV dilaudid. No n/v or fevers. Has not passed a bowel movement. Passing flatulence and ambulating. Tolerating regular diet. Abdomen soft, tender to palpation, non-distended. Dressings dry, intact, without blood strikethrough. Ins: IV lactated ringer, IV dilaudid. Outs: CHUY drained 1x last night, with less than 25 mL of serous fluid this AM. WBC at 13.3, consistent with expected post-op inflammation. BUN at 25, possibly due to dehydration. Cr at 1.2. For plan, continue encouraging ambulation. Continue regular diet. Continue IV dilaudid for pain management. Encourage fluid intake and possibly give lactated ringer for hydration. Patient seen an evaluated independently, I agree with the above assessment and plan. CHUY output decreasing, remains serosangineous, plan to remove possibly tomorrow if pt is ready for dc. patient wheezing and SOB after ambulating to bathroom. Hypertensive this morning pain control continue diet recommend ambulation and spirometry as tolerated recommend continuing albuterol and breo per hospitalist HTN mangement per hospitalist recommendation. <Samuel Rajput PA-C - Last Filed: 12/13/24 08:42> Time Spent With Patient Time: Total time managing care of this patient today ____ minutes. <Leonie Louie - Last Filed: 12/13/24 07:27> Quality Stroke Does the patient have a stroke diagnosis?: No <Leonie Louie - Last Filed: 12/13/24 07:27> VTE Prior VTE?: No <Leonie Louie - Last Filed: 12/13/24 07:27> VTE Risk Level:: Surgical - high <Leonie Louie - Last Filed: 12/13/24 07:27> VTE Device Contraindication: N/A - Device Ordered <Leonie Louie - Last Filed: 12/13/24 07:27> VTE Drug Contraindication: Treatment Not Indicated <Leonie Louie - Last Filed: 12/13/24 07:27>
[2024-12-13] MEDS: Carbamide Peroxide 6.5% Otic 15 ML DRPBTL 5 DROP EAR-BOTH ×2 (08:49→20:56)
[2024-12-13] MEDS: dilTIAZem HCL CD 180 MG CAP.ER.24H 360 MG PO (08:55)
--- NOTE | 2024-12-13 10:01 | HO.PM.IMPN ---
Subjective Subjective Date of Service: 12/13/24 Interval History: c/o dyspnea and wheezing overnight; RUQ pain improved Review of Systems Review of Systems: Yes all other systems are reviewed and are negative Physical Exam Vital Signs: Vital Signs: Last Vital Signs Temp 98.6 F 12/13/24 07:15 Pulse 82 12/13/24 08:55 Resp 16 12/13/24 07:15 BP 172/68 H 12/13/24 08:55 Pulse Ox 95 12/13/24 07:15 O2 Del Method Room Air 12/13/24 07:15 O2 Flow Rate 2 12/12/24 07:11 BMI result Body Mass Index 33.4 Gen: in no acute distress HEENT: sclera anicteric, moist mucus membranes Neck: supple Lungs: clear to auscultation bilaterally Heart: regular rate and rhythm, no murmurs Abd: soft, lap tobin incisions intact, CHUY drain with serosanguinous drainage Ext: no edema Skin: warm/well-perfused Neuro: alert and oriented x3, no focal findings Psych: appropriate affect Objective Data Active Medications Acetaminophen (Acetaminophen 325 Mg Tablet) 650 mg PO Q6H PRN PRN Reason: Pain, Mild 1-3,fever,headache Last Admin: 12/13/24 03:14 Dose: 650 mg Documented By: MANDY Albuterol Sulfate (Albuterol Sulfate 90 Mcg 8 Gm Inhaler) 2 puff INHALE Q4H PRN PRN Reason: Wheezing Albuterol Sulfate (Albuterol Sulfate (0.042%) 1.25 Mg/3 Ml Vial.Neb) 2.5 mg INHALE Q4H PRN PRN Reason: Shortness Of Breath Or Wheezing Last Admin: 12/13/24 03:40 Dose: 2.5 mg Documented By: STACIE Atorvastatin Calcium (Atorvastatin Calcium 80 Mg Tablet) 80 mg PO BEDTIME [facility] Last Admin: 12/12/24 20:54 Dose: 80 mg Documented By: MANDY Budesonide (Budesonide 0.5 Mg/2 Ml Ampul.Neb) 1 mg INHALE RBID [facility] Last Admin: 12/13/24 08:53 Dose: Not Given Documented By: ARIN Non-Admin Reason: Physician Held Med Calcium Carbonate (Calcium Carbonate 750 Mg Tab.Chew) 750 mg PO Q4H PRN PRN Reason: Heartburn Carbamide Peroxide (Carbamide Peroxide 6.5% Otic 15 Ml Drpbtl) 5 drop EAR-BOTH Q12H [facility] Last Admin: 12/13/24 08:49 Dose: 5 drop Documented By: EMILIE Ceftriaxone Sodium (Ceftriaxone Sodium 2 Gm Vial) 2 gm IVPUSH Q24H [facility] Last Admin: 12/12/24 11:38 Dose: 2 gm Documented By: REMY Diltiazem HCl (Diltiazem Hcl Cd 180 Mg Cap.Er.24h) 360 mg PO DAILY [facility]; Protocol Last Admin: 12/13/24 08:55 Dose: 360 mg Documented By: EMILIE Fluticasone Propionate (Fluticasone Propionate Nasal 16 Gm [place]) 1 spray NOSTRIL-B DAILY PRN PRN Reason: Nasal Congestion Fluticasone/Vilanterol (Fluticasone/Vilanterol 200/25 Blst.W.Dev) 1 puff INHALE RDAILY [facility] On Hold: 12/13/24 08:25 Last Admin: 12/13/24 08:53 Dose: Not Given Documented By: ARIN Non-Admin Reason: Physician Held Med Hydralazine HCl (Hydralazine Hcl 50 Mg Tablet) 100 mg PO TID [facility]; Protocol Last Admin: 12/13/24 08:56 Dose: 100 mg Documented By: EIMLIE Hydromorphone HCl (Hydromorphone Hcl 0.5 Mg/0.5 Ml Syringe) 0.5 mg IVPUSH Q3H PRN; Protocol PRN Reason: Pain, Severe (Pain Scale 7-10) Last Admin: 12/12/24 19:54 Dose: 0.5 mg Documented By: MANDY Metronidazole (Flagyl) 500 mg in 100 mls @ 100 mls/hr IV Q8H [facility] Last Infusion: 12/13/24 04:10 Dose: Infused Documented By: MANDY Magnesium Hydroxide (Milk Of Magnesia 30 Ml Oral.Susp) 30 ml PO DAILY PRN PRN Reason: Constipation Melatonin (Melatonin 3 Mg Tablet) 6 mg PO BEDTIME PRN PRN Reason: Insomnia Naloxone HCl (Naloxone Hcl 0.4 Mg/Ml Vial) 0.04 mg IVPUSH Q5M PRN PRN Reason: Excessive sedation or RR < 8 Omeprazole (Omeprazole 20 Mg Capsule.Dr) 20 mg PO DAILY@0630 [facility] Last Admin: 12/13/24 05:39 Dose: 20 mg Documented By: MANDY Ondansetron HCl (Ondansetron Hcl 4 Mg/2 Ml Vial) 4 mg IVPUSH Q8H PRN PRN Reason: Nausea and Vomiting Last Admin: 12/12/24 09:52 Dose: 4 mg Documented By: REMY Oxycodone HCl (Oxycodone Hcl Immed Release 5 Mg Tablet) 5 mg PO Q4H PRN PRN Reason: Pain, Moderate(Pain Scale 4-6) Last Admin: 12/13/24 03:15 Dose: 5 mg Documented By: MANDY Oxycodone HCl (Oxycodone Hcl Immed Release 5 Mg Tablet) 5 mg PO Q4H PRN PRN Reason: Pain, Moderate(Pain Scale 4-6) Last Admin: 12/13/24 08:50 Dose: 5 mg Documented By: EMILIE Oxycodone HCl (Oxycodone Hcl Immed Release 5 Mg Tablet) 10 mg PO Q4H PRN PRN Reason: Pain, Moderate(Pain Scale 4-6) Last Admin: 12/12/24 18:07 Dose: 10 mg Documented By: REMY Sodium Chloride (0.9 % Sodium Chloride Flush 3 Ml Syringe) 3 ml IVFLUSH QSCOFT [facility] Last Admin: 12/13/24 08:51 Dose: Not Given Documented By: EMILIE Non-Admin Reason: Previously Administered Vitamin D (Cholecalciferol (Vitamin D3) 25 Mcg Tablet) 25 mcg PO DAILY [facility] Last Admin: 12/13/24 08:50 Dose: 25 mcg Documented By: EMILIE Labs 12/13/24 05:30 12/13/24 05:30 Labs: Laboratory Results - last 24 hr 12/13/24 12/13/24 12/13/24 05:30 05:30 05:30 MCV 95.8 MCH 29.2 MCHC 30.5 L RDW 14.2 Plt Count 207 MPV 10.9 Immature Gran % (Auto) 0.5 H Neut % (Auto) 68.1 Lymph % (Auto) 23.0 [place] % (Auto) 7.8 Eos % (Auto) 0.4 Baso % (Auto) 0.2 Lymph # (Auto) 3.1 [place] # (Auto) 1.0 Eos # (Auto) 0.1 Baso # (Auto) 0.0 Abs Immat Gran (auto) 0.06 H Absolute Neuts (auto) 9.1 H Absolute Nucleated RBC 0.000 Nucleated RBC % (auto) 0.0 Anion Gap Cancelled 13 Estim Creat Clear Calc Cancelled 43.9 Estimated GFR Cancelled Random Glucose Calcium Total Bilirubin AST ALT Alkaline Phosphatase Total Protein Albumin 12/13/24 12/13/24 12/13/24 05:30 05:30 05:30 MCV MCH MCHC RDW Plt Count MPV Immature Gran % (Auto) Neut % (Auto) Lymph % (Auto) [place] % (Auto) Eos % (Auto) Baso % (Auto) Lymph # (Auto) [place] # (Auto) Eos # (Auto) Baso # (Auto) Abs Immat Gran (auto) Absolute Neuts (auto) Absolute Nucleated RBC Nucleated RBC % (auto) Anion Gap Estim Creat Clear Calc Estimated GFR 43 Random Glucose Cancelled 139 H Calcium Cancelled 8.9 Total Bilirubin 0.6 AST 63 H ALT 101 H Alkaline Phosphatase 75 Total Protein 6.6 Albumin 3.8 Assessment and Plan (1) HTN (hypertension): Status: Acute Plan d4 for 79yo F with HOCM, HLD, asthma, and HTN admitted to surgical service for acute cholecystitis; Medicine consult for uncontrolled HTN NUSRAT - suspect prerenal as she improved with LR resuscitation; hold fluids for now and recheck SCr in AM acute exacerbation ot moderate persistent asthma - continue albuterol nebs; will give short course of Pulmicort but if fails to improve consider prednisone HTN - increase hydralazine from 100 mg bid to 100 mg tid. continue diltiazem 360 mg daily. note history of angioedema from lisinopril. acute cholecystitis - POD#2 lap tobin, 12/10- ceftriaxone + metronidazole; postop management per Surgery; to consider pulling CHUY tomorrow - tolerating diet HLD - statin VTE ppx - enoxaparin when cleared by surgery Thank you for this consultation. We will continue to follow the patient while they are admitted to your service. Total time managing care of this patient today: 35 minutes. Quality Stroke Does the patient have a stroke diagnosis?: No VTE Prior VTE?: No VTE Risk Level:: Surgical - high VTE Device Contraindication: N/A - Device Ordered VTE Drug Contraindication: Treatment Not Indicated
--- NOTE | 2024-12-13 10:54 | HO.POSTANES ---
Post Anesthesia Evaluation Post Anesthesia Evaluation Date of Service: 12/13/24 Vital Signs: Vital Signs Temp Pulse Resp BP Pulse Ox O2 Del Method 12/13/24 08:55 82 172/68 H 12/13/24 07:15 98.6 F 90 16 182/70 H 95 Room Air 12/13/24 03:47 97.3 F 97 18 160/54 H 93 Room Air 12/13/24 03:42 84 18 12/12/24 23:55 97.3 F 84 18 160/40 H 94 Room Air Anesthesia: General Endotracheal-GETA Mental Status: Awake Pain Control: Satisfactory Nausea/Vomiting: None Hydration: Adequate Anesthesia-Related Issues: No Anes. Related Issues
[2024-12-13] MEDS: Furosemide 20 MG/2 ML VIAL IVPUSH (11:32)
--- NOTE | 2024-12-13 14:25 | MHC.CM.PN ---
PT NOT MEDICALLY CLEARED, DCP REMAINS HOME WITH RESUMPTION OF NITRIC ACID PLANT OPERATOR AND POSSIBLE VNA
--- NOTE | 2024-12-13 15:04 | MHC.SL.SWA ---
Speech Pathologist Impression: Mild oral phase dysphagia secondary to discomfort when chewing. Pharyngeal phase WFL, though pt endorsed hx of globus. Risk of Aspiration Due to: Weakness s/p surgery Hx of dysphagia per pt report Dysphasia Diet Status: [facility] NDD2 with THINS, aspiration precautions. REHAB THERAPIST following. Liquid Consistency and Strategies for Safe Swallow: Liquid Intake Recommendation: Thin Liquid Intake Strategies: Solid Food Consistency: Dietary Recommendations: Grnd/Mech Altered (NDD2) Additional Modifications to Solid Foods: Oral Medication Intake: Crushed with Puree Please contact the pharmacy regarding appropriate crushable or liquid drug formulations that are available whenever modified delivery is recommended. Compensatory Strategies and Precautions to be Taken for Safe Swallow: Supervision While Eating and Drinking for Safe Swallow: Direct Supervision (1:1) Foods to Avoid: Swallowing Recommended Treatments: Recommendation for Speech: Comment: Pt reported she cannot chew solids. Trials with thins and soft solids presented. No overt s/s of aspiration observed. REHAB THERAPIST provided education on physiological function of swallow and airway protection. Pt verbalized understanding and agreed with recommended diet. RN consulted, MD texted. [facility] NDD2 with thins, aspiration precautions, REHAB THERAPIST to follow for diet and treatment. Frequency/Duration: Date Range for Service Req: Timeline to reassess: Machine Zipper Trimmer Clinican/Clinical Fellow: No Supervisory Statement: I have reviewed and agree with the student/clinical fellow's documentation: N/A Speech Language Pathologist: Rhonda Burns M.S., [facility]-REHAB THERAPIST
--- NOTE | 2024-12-13 15:56 | PC.NURSE ---
Family members Charles Bernard [phone] and Angely Dorman [phone]. Patient verbalized permission to release information to these family members. Patient and family requested these phone numbers be added to patient's contact list.
--- NOTE | 2024-12-13 16:00 | CA_ITS ---
Transthoracic Echocardiogram Patient (Last, First, Middle): Sara Deluna L Gender: Female Date of : 1945 Age: 79 Procedure Date: 12/13/2024 Procedure Type: Transthoracic Echocardiogram Location: S3E Height: 167.64 cm Weight: 93.44 kg BSA: 2.03 m2 Heart Rate: bpm BP: 172 / 68 mmHg Dispensary Clerk: Referring MD: Letty Zeng MD Machine Cell Tuber: Varinder Joshi MD Symptoms: CHF Study Quality: Good ECG Rhythm: Sinus Conclusions: - 1. Normal LV ejection fraction of 65-70% with [id number] LVH with impaired relaxation filling pattern 2. Left atrium is mildly enlarged 3. Trivial aortic regurgitation 4. Moderately elevated right ventricular systolic pressure with normal right atrial pressures Findings Left Ventricle Normal left ventricular size and systolic function. There is mildly increased left ventricular wall thickness. The visually estimated ejection fraction is between 65-70%. Spectral Doppler is indicative of an impaired relaxation filling pattern. E/E prime ratio is between 8 and 15 consistent with indeterminate filling pressures. increased gradient through the LVOT which could represent obstructive physiology but without any dynamic component Right Ventricle Mildly increased right ventricular cavity size. There is normal right ventricular systolic function. Atria The left atrium is mildly dilated. Interatrial shunt cannot be excluded. The right atrium is normal in size. Aortic Valve The aortic valve was not well visualized. There is no aortic valve stenosis. There is trace (trivial) aortic valve regurgitation. Mitral Valve Normal mitral valve structure and function. There is no mitral valve regurgitation. There is no mitral valve stenosis. Pulmonic Valve The pulmonic valve is likely normal. Tricuspid Valve Normal tricuspid valve structure. There is mild tricuspid valve regurgitation. Normal right atrial pressure. Moderate pulmonary hypertension is present. Great Vessels The aorta was not well visualized. The pulmonary artery was not well visualized. Venous The inferior vena cava is normal in size and collapses greater than 50% with inspiration. Pericardium/Pleural The pericardium was not well visualized. Prior Study Comparison Changes noted compared to prior study dated: 12/04/2023. RV systolic pressure is elevated Measurements 2D Linear Measurements IVSd: 1.30 0.6-0.9/0.6-1.0 cm LVIDd: 3.93 3.9-5.3/4.2-5.9 cm LVIDd Index: 1.94 2.4-3.2/2.2-3.1 cm/m2 LVIDs: 2.28 2.0-3.6 cm LVPWd: 1.39 0.7-1.1 cm Ao Root: 3.10 2.1-3.5 cm LA Diam: 3.50 2.7-3.8/3.0-4.0 cm LAIDs Index: 1.72 1.5-2.3 cm/m2 LV Mass: 325.05 67-162/88-224 g LV Mass Index: 160.12 43-95/49-115 g/m2 LVOT Diam: 1.90 3.0+(-)1.3 cm Mitral Valve MV VTI: 0.36 MV Pk [place]: 1.25 MV Mn [place]: 0.74 MV Pk Grad: 6.00 MV Mn Grad: 3.00 MV Pk E: 0.80 MV PK A: 1.22 MV Decel Time: 260.00 E/A: 0.70 E'Lateral: 7.51 E'Medial: 6.74 E/E' Med: 11.90 E/E' Lat: 10.70 PHT: 76.00 MVA PHT: 2.89 MVA Continuity: 2.24 Decel [place]: 3.08 Aortic Valve AoV Pk [place]: 2.66 AoV Mn [place]: 1.71 AoV VTI: 0.43 AoV Pk Grad: 28.00 Aov Mn Grad: 15.00 GINA Cont.VTI: 1.90 LVOT LVOT Pk [place]: 1.67 LVOT Mn [place]: 1.26 LVOT VTI: 0.29 LVOT Pk Grad: 11.00 LVOT Mn Grad: 7.00 LVOT Diam: 1.90 LVOT Area: 2.84 Diastolic Function MV Pk E: 0.80 MV Pk A: 1.22 E/A: 0.70 E'Medial: 6.74 E/E' Med: 11.90 E' Laterial: 7.51 E/E' Lat: 10.70 Right Ventricle TAPSE (mm): 29.00 TVS' [place]: 20.00 Tricuspid Valve TR Pk [place]: 3.50 TR Pk Grad: 49.00 RA Press: 3.00 RVSP: 52.00 Great Vessels Aorta Ao Root-2D: 3.10 2.0-3.7 cm Pulmonary Valve PV Pk [place]: 1.66 Peak PV Grad: 11.00 Updated in Other Vendor System with Status of Final Varinder Joshi MD electronically signed on 12/13/2024 4:35:31 PM with status of Final
--- NOTE | 2024-12-13 16:44 | MHC.CLN ---
NUTRITION CHANGED DIET TO LOW FAT DUE TO LAP CHOLECYSTECTOMY. PER TECHNOLOGY COORDINATOR, DIET CONSISTENCY=GROUND/NDD2. ORDER UPDATED AND ALERTED DINING SERVICES.
[2024-12-13] MEDS: 0.9 % Sodium Chloride Flush 3 ML SYRINGE IVFLUSH (19:09)
[2024-12-14] VITALS (8 sets, daily range): BP systolic 121–181; BP diastolic 58–80; PULSE 75–93; RESP 16–20; TEMP 36.7–37.3; O2SAT 94–98
[2024-12-14] MEDS: metroNIDAZOLE/NS 500 MG/100 ML PIGGYBACK 100 MG IV (03:10)
[2024-12-14 05:45] LABS: Hematocrit 32.8 % (37.0-47.0); Hemoglobin 10.2 g/dl (12.0-16.0); Mean Corpuscular HGB Conc 31.1 g/dl (31.0-35.0); Mean Corpuscular Hemoglobin 29.3 pg (27.0-33.0); Mean Corpuscular Volume 94.3 fL (80.0-98.0); Red Blood Count 3.48 X10*6/uL (4.20-5.50); White Blood Count 9.5 X10*3/uL (4.8-10.8)
[2024-12-14 05:46] LABS: NRBC Abs Auto 0.000 X10*3/uL (0.0-0.012); NRBC Pct Auto 0.0 /100WBC (0.0-0.2); Platelet Count 215 X10*3/uL (160-400)
[2024-12-14 06:08] LABS: Anion Gap 14 (12-20); Blood Urea Nitrogen 16 mg/dL (9-16); Calcium 8.8 mg/dL (8.4-10.2); Carbon Dioxide 29 mmol/L (22-29); Chloride 106 mmol/L (96-108); Creatinine Clr Calc Pharmacy 68.3; Estimated Glomerular Filt Rate > 60; Magnesium 2.0 mg/dL (1.6-2.6); Potassium 3.9 mmol/L (3.3-5.1); Sodium 145 mmol/L (135-145)
[2024-12-14 06:10] LABS: B Type Natriuretic Peptide 51 pg/mL (<100)
--- NOTE | 2024-12-14 06:58 | PM.PNGS ---
Subjective Subjective Date of Service: 12/14/24 <Leonie Liban - Last Filed: 12/14/24 07:16> 12/14/24 <Samuel Rajput PA-C - Last Filed: 12/14/24 13:14> Interval history: Sara Deluna is a 79 y/o F POD #3 for lap cholecystectomy due to acute cholecystitis with a PMH of HOCM and NUSRAT. No acute overnight events. Pain rated 10/10 on PO oxycodone. Patient reports nausea and chills. No vomiting or fevers. Passing flatulence. Has not passed a bowel movement. Ambulating. Using spirometer 4x daily. Tolerating regular diet. CHUY drained 15mL 1x this morning. <Leonie Sharmatus - Last Filed: 12/14/24 07:16> Sara Deluna is a 79 y/o F POD #3 for lap cholecystectomy due to acute cholecystitis with a PMH of HOCM and NUSRAT. No acute overnight events. Pain rated 10/10 on PO oxycodone. Patient reports nausea and chills. No vomiting or fevers. Passing flatulence. Has not passed a bowel movement. Ambulating. Using spirometer 4x daily. Tolerating regular diet. CHUY drained 15mL 1x this morning. Patient was started on Lasix, reports frequent urination <Samuel Rajput PA-C - Last Filed: 12/14/24 13:14> Physical Exam Vital Signs: Vital Signs: Last Vital Signs Temp 98.0 F 12/14/24 03:54 Pulse 75 12/14/24 03:54 Resp 18 12/14/24 03:54 BP 170/60 H 12/14/24 03:54 Pulse Ox 98 12/14/24 03:54 O2 Del Method Room Air 12/14/24 03:54 O2 Flow Rate 2 12/12/24 07:11 BMI result Body Mass Index 33.4 <Leonie Canton - Last Filed: 12/14/24 07:16> Const: General: no acute distress <Leonie Liban - Last Filed: 12/14/24 07:16> Orientation/consciousness: patient oriented x3 <Leonie Liban - Last Filed: 12/14/24 07:16> HEENT: Head: Yes normal to inspection and Yes normocephalic <Leonie Liban - Last Filed: 12/14/24 07:16> Chest: Chest palpation & inspection: normal inspection of the chest <Leonie Liban - Last Filed: 12/14/24 07:16> Resp: Effort & Inspection: normal respiratory effort <Leonie Canton - Last Filed: 12/14/24 07:16> Effort & Inspection: able to speak in complete sentences <Samuel Rajput PA-C - Last Filed: 12/14/24 13:14> GI: Other: Abdomen soft, tender to palpation, non-distended. Dressings in tact with some blood strikethrough. CHUY drain at less than 25mL of serosanginous fluid. <Leonie Sharmatus - Last Filed: 12/14/24 07:16> Inspection: No distended <Samuel Rajput PA-C - Last Filed: 12/14/24 13:14> Palpation (GI): Soft to palpation, not firm, Tenderness to palpation present (GI) (Incisional), no guarding and not rigid <Samuel Rajput PA-C - Last Filed: 12/14/24 13:14> Neuro: General: patient oriented x3 <Leonie Sharmatus - Last Filed: 12/14/24 07:16> Extrem: Other: Non-pitting edema of the fingers and ankles observed <Leonie Sharmatus - Last Filed: 12/14/24 07:16> Psych: Mental Status: mental status grossly normal <Leonie Sharmatus - Last Filed: 12/14/24 07:16> Objective Data Active Medications Acetaminophen (Acetaminophen 325 Mg Tablet) 650 mg PO Q6H PRN PRN Reason: Pain, Mild 1-3,fever,headache Last Admin: 12/13/24 19:17 Dose: 650 mg Documented By: MANDY Albuterol Sulfate (Albuterol Sulfate 90 Mcg 8 Gm Inhaler) 2 puff INHALE Q4H PRN PRN Reason: Wheezing Albuterol Sulfate (Albuterol Sulfate (0.042%) 1.25 Mg/3 Ml Vial.Neb) 2.5 mg INHALE Q4H PRN PRN Reason: Shortness Of Breath Or Wheezing Last Admin: 12/13/24 03:40 Dose: 2.5 mg Documented By: STACIE Atorvastatin Calcium (Atorvastatin Calcium 80 Mg Tablet) 80 mg PO BEDTIME [facility] Last Admin: 12/13/24 20:22 Dose: 80 mg Documented By: MANDY Budesonide (Budesonide 0.5 Mg/2 Ml Ampul.Neb) 1 mg INHALE RBID [facility] Last Admin: 12/13/24 19:43 Dose: 1 mg Documented By: STACIE Calcium Carbonate (Calcium Carbonate 750 Mg Tab.Chew) 750 mg PO Q4H PRN PRN Reason: Heartburn Carbamide Peroxide (Carbamide Peroxide 6.5% Otic 15 Ml Drpbtl) 5 drop EAR-BOTH Q12H [facility] Last Admin: 12/13/24 20:56 Dose: 5 drop Documented By: MANDY Ceftriaxone Sodium (Ceftriaxone Sodium 2 Gm Vial) 2 gm IVPUSH Q24H [facility] Last Admin: 12/13/24 11:32 Dose: 2 gm Documented By: EMILIE Diltiazem HCl (Diltiazem Hcl Cd 180 Mg Cap.Er.24h) 360 mg PO DAILY [facility]; Protocol Last Admin: 12/13/24 08:55 Dose: 360 mg Documented By: EMILIE Fluticasone Propionate (Fluticasone Propionate Nasal 16 Gm [place]) 1 spray NOSTRIL-B DAILY PRN PRN Reason: Nasal Congestion Fluticasone/Vilanterol (Fluticasone/Vilanterol 200/25 Blst.W.Dev) 1 puff INHALE RDAILY [facility] On Hold: 12/13/24 08:25 Last Admin: 12/13/24 08:53 Dose: Not Given Documented By: ARIN Non-Admin Reason: Physician Held Med Furosemide (Furosemide 20 Mg/2 Ml Vial) 20 mg IVPUSH DAILY [facility]; Protocol Last Admin: 12/13/24 11:32 Dose: 20 mg Documented By: EMILIE Hydralazine HCl (Hydralazine Hcl 50 Mg Tablet) 100 mg PO TID [facility]; Protocol Last Admin: 12/13/24 20:21 Dose: 100 mg Documented By: MANDY Hydromorphone HCl (Hydromorphone Hcl 0.5 Mg/0.5 Ml Syringe) 0.5 mg IVPUSH Q3H PRN; Protocol PRN Reason: Pain, Severe (Pain Scale 7-10) Last Admin: 12/12/24 19:54 Dose: 0.5 mg Documented By: MANDY Metronidazole (Flagyl) 500 mg in 100 mls @ 100 mls/hr IV Q8H [facility] Last Infusion: 12/14/24 04:15 Dose: Infused Documented By: MANDY Lorazepam (Lorazepam 1 Mg Tablet) 1 mg PO Q12H PRN PRN Reason: Anxiety Last Admin: 12/13/24 12:12 Dose: 1 mg Documented By: EMILIE Magnesium Hydroxide (Milk Of Magnesia 30 Ml Oral.Susp) 30 ml PO DAILY PRN PRN Reason: Constipation Melatonin (Melatonin 3 Mg Tablet) 6 mg PO BEDTIME PRN PRN Reason: Insomnia Naloxone HCl (Naloxone Hcl 0.4 Mg/Ml Vial) 0.04 mg IVPUSH Q5M PRN PRN Reason: Excessive sedation or RR < 8 Omeprazole (Omeprazole 20 Mg Capsule.Dr) 20 mg PO DAILY@0630 [facility] Last Admin: 12/14/24 05:26 Dose: 20 mg Documented By: MANDY Ondansetron HCl (Ondansetron Hcl 4 Mg/2 Ml Vial) 4 mg IVPUSH Q8H PRN PRN Reason: Nausea and Vomiting Last Admin: 12/12/24 09:52 Dose: 4 mg Documented By: REMY Oxycodone HCl (Oxycodone Hcl Immed Release 5 Mg Tablet) 5 mg PO Q4H PRN PRN Reason: Pain, Moderate(Pain Scale 4-6) Last Admin: 12/13/24 19:16 Dose: 5 mg Documented By: MANDY Oxycodone HCl (Oxycodone Hcl Immed Release 5 Mg Tablet) 5 mg PO Q4H PRN PRN Reason: Pain, Moderate(Pain Scale 4-6) Last Admin: 12/13/24 08:50 Dose: 5 mg Documented By: EMILIE Oxycodone HCl (Oxycodone Hcl Immed Release 5 Mg Tablet) 10 mg PO Q4H PRN PRN Reason: Pain, Moderate(Pain Scale 4-6) Last Admin: 12/12/24 18:07 Dose: 10 mg Documented By: REMY Sodium Chloride (0.9 % Sodium Chloride Flush 3 Ml Syringe) 3 ml IVFLUSH QSHIFT [facility] Last Admin: 12/13/24 19:09 Dose: 3 ml Documented By: MANDY Vitamin D (Cholecalciferol (Vitamin D3) 25 Mcg Tablet) 25 mcg PO DAILY [facility] Last Admin: 12/13/24 08:50 Dose: 25 mcg Documented By: EMILIE <Leonie Sharmatus - Last Filed: 12/14/24 07:16> Labs CBC & Chem 7: 12/14/24 05:24 12/14/24 05:24 <Leonie Liban - Last Filed: 12/14/24 07:16> Labs: Laboratory Results - last 24 hr 12/14/24 05:24 MCV 94.3 MCH 29.3 MCHC 31.1 RDW 14.3 Plt Count 215 MPV 10.5 Absolute Nucleated RBC 0.000 Nucleated RBC % (auto) 0.0 Anion Gap 14 Estim Creat Clear Calc 68.3 Estimated GFR > 60 Random Glucose 122 H Calcium 8.8 Magnesium 2.0 B-Natriuretic Peptide 51 <Leonie Louie - Last Filed: 12/14/24 07:16> Procedures Date of Service Date of Service: 12/14/24 <Leonie Louie - Last Filed: 12/14/24 07:16> 12/14/24 <Samuel Rajput PA-C - Last Filed: 12/14/24 13:14> Progress Note: A&P Assessment and plan (1) S/P laparoscopic cholecystectomy: Status: Acute <Leonie Canton - Last Filed: 12/14/24 07:16> Assessment and Plan: Sara Deluna is a 79 y/o F POD #3 for lap cholecystectomy due to acute cholecystitis w/ a PMH of HOCM and suspected NUSRAT, stable. Pain is rated 10/10, managed on PO oxycodone. Positive for nausea and chills. Passing flatulence, has not had a bowel movement, ambulating, and tolerating regular diet. Dressings intact with some blood strikethrough. CHUY drained 15 mL of serosanginous fluid this AM. WBC of 9.5, trending downwards. BUN at 16 and Cr at 0.77, both improved. Continue oxycodone for pain management. Continue regular diet. Continue encouraging ambulation and spirometry. Continue draining and monitoring CHUY drain. Possibly recheck BMP tomorrow to monitor kidney function. <Leonie Louie - Last Filed: 12/14/24 07:16> Sara Deluna is a 79 y/o F POD #3 for lap cholecystectomy due to acute cholecystitis w/ a PMH of HOCM and suspected NUSRAT, stable. Pain is rated 10/10, managed on PO oxycodone. Positive for nausea and chills. Passing flatulence, has not had a bowel movement, ambulating, and tolerating regular diet. Dressings intact with some blood strikethrough. CHUY drained 15 mL of serosanginous fluid this AM. WBC of 9.5, trending downwards. BUN at 16 and Cr at 0.77, both improved. Continue oxycodone for pain management. Continue regular diet. Continue encouraging ambulation and spirometry. Continue draining and monitoring CHUY drain. Possibly recheck BMP tomorrow to monitor kidney function. Patient seen and examined independently, I agree with the above assessment and plan. Abdomen is soft and benign, incisional site tenderness. Incision sites are clean dry and intact. CHUY draining small volume serosanguineous fluid. Patient okay to resume Lovenox Continue antibiotics Continue regular diet, recommended small portions. Ambulation as tolerated Edema improved from yesterday. HTN management per hospitalist recommendation Plan to remove CHUY when patient will be discharged, hopefully later this week <Samuel Rajput PA-C - Last Filed: 12/14/24 13:14> Time Spent With Patient Time: Total time managing care of this patient today ____ minutes. <Leonie Louie - Last Filed: 12/14/24 07:16> Quality Stroke Does the patient have a stroke diagnosis?: No <Leonie Louie - Last Filed: 12/14/24 07:16> VTE Prior VTE?: No <Leonie Louie - Last Filed: 12/14/24 07:16> VTE Risk Level:: Surgical - high <Leonie Louie - Last Filed: 12/14/24 07:16> VTE Device Contraindication: N/A - Device Ordered <Leonie Louie - Last Filed: 12/14/24 07:16> VTE Drug Contraindication: Treatment Not Indicated <Leonie Louie - Last Filed: 12/14/24 07:16>
[2024-12-14] MEDS: 0.9 % Sodium Chloride Flush 3 ML SYRINGE IVFLUSH ×3 (07:51→19:56)
[2024-12-14] MEDS: dilTIAZem HCL CD 180 MG CAP.ER.24H 360 MG PO (07:52)
[2024-12-14] MEDS: Furosemide 20 MG/2 ML VIAL IVPUSH (07:53)
[2024-12-14] MEDS: Carbamide Peroxide 6.5% Otic 15 ML DRPBTL 5 DROP EAR-BOTH ×2 (07:53→20:03)
--- NOTE | 2024-12-14 11:46 | HO.PM.IMPN ---
Subjective Subjective Date of Service: 12/14/24 Interval History: Continues to have 8/10 abdominal pain Review of Systems Denies chest pain Denies shortness of breath Denies nausea vomiting and diarrhea Admits to abdominal pain Physical Exam Vital Signs: Vital Signs: Last Vital Signs Temp 98.2 F 12/14/24 07:37 Pulse 81 12/14/24 07:50 Resp 16 12/14/24 07:50 BP 181/74 H 12/14/24 07:37 Pulse Ox 94 12/14/24 07:37 O2 Del Method Room Air 12/14/24 07:37 O2 Flow Rate 2 12/12/24 07:11 BMI result Body Mass Index 33.4 Const: Other: Awake alert no acute distress Resp: Other: Clear to auscultation bilaterally no rales rhonchi or wheezes Cardio: Other: No S4; positive S1-S2; no S3 murmurs rubs or gallops GI: Other: Diffusely tender without rebound. Quiet bowel sounds Extrem: Other: No edema bilaterally Objective Data Active Medications Acetaminophen (Acetaminophen 325 Mg Tablet) 650 mg PO Q6H PRN PRN Reason: Pain, Mild 1-3,fever,headache Last Admin: 12/13/24 19:17 Dose: 650 mg Documented By: MANDY Albuterol Sulfate (Albuterol Sulfate 90 Mcg 8 Gm Inhaler) 2 puff INHALE Q4H PRN PRN Reason: Wheezing Albuterol Sulfate (Albuterol Sulfate (0.042%) 1.25 Mg/3 Ml Vial.Neb) 2.5 mg INHALE Q4H PRN PRN Reason: Shortness Of Breath Or Wheezing Last Admin: 12/13/24 03:40 Dose: 2.5 mg Documented By: STACIE Atorvastatin Calcium (Atorvastatin Calcium 80 Mg Tablet) 80 mg PO BEDTIME [facility] Last Admin: 12/13/24 20:22 Dose: 80 mg Documented By: MANDY Budesonide (Budesonide 0.5 Mg/2 Ml Ampul.Neb) 1 mg INHALE RBID [facility] Last Admin: 12/14/24 07:49 Dose: 1 mg Documented By: SCOVILAiden Calcium Carbonate (Calcium Carbonate 750 Mg Tab.Chew) 750 mg PO Q4H PRN PRN Reason: Heartburn Carbamide Peroxide (Carbamide Peroxide 6.5% Otic 15 Ml Drpbtl) 5 drop EAR-BOTH Q12H [facility] Last Admin: 12/14/24 07:53 Dose: 5 drop Documented By: NERIS Ceftriaxone Sodium (Ceftriaxone Sodium 2 Gm Vial) 2 gm IVPUSH Q24H [facility] Last Admin: 12/13/24 11:32 Dose: 2 gm Documented By: EMILIE Diltiazem HCl (Diltiazem Hcl Cd 180 Mg Cap.Er.24h) 360 mg PO DAILY [facility]; Protocol Last Admin: 12/14/24 07:52 Dose: 360 mg Documented By: NERIS Fluticasone Propionate (Fluticasone Propionate Nasal 16 Gm [place]) 1 spray NOSTRIL-B DAILY PRN PRN Reason: Nasal Congestion Fluticasone/Vilanterol (Fluticasone/Vilanterol 200/25 Blst.W.Dev) 1 puff INHALE RDAILY [facility] On Hold: 12/13/24 08:25 Last Admin: 12/13/24 08:53 Dose: Not Given Documented By: ARIN Non-Admin Reason: Physician Held Med Furosemide (Furosemide 20 Mg/2 Ml Vial) 20 mg IVPUSH DAILY [facility]; Protocol Last Admin: 12/14/24 07:53 Dose: 20 mg Documented By: NERIS Hydralazine HCl (Hydralazine Hcl 50 Mg Tablet) 100 mg PO TID [facility]; Protocol Last Admin: 12/14/24 07:52 Dose: 100 mg Documented By: NERIS Hydromorphone HCl (Hydromorphone Hcl 0.5 Mg/0.5 Ml Syringe) 0.5 mg IVPUSH Q3H PRN; Protocol PRN Reason: Pain, Severe (Pain Scale 7-10) Last Admin: 12/12/24 19:54 Dose: 0.5 mg Documented By: ODRISRaya Lorazepam (Lorazepam 1 Mg Tablet) 1 mg PO Q12H PRN PRN Reason: Anxiety Last Admin: 12/13/24 12:12 Dose: 1 mg Documented By: EMILIE Magnesium Hydroxide (Milk Of Magnesia 30 Ml Oral.Susp) 30 ml PO DAILY PRN PRN Reason: Constipation Melatonin (Melatonin 3 Mg Tablet) 6 mg PO BEDTIME PRN PRN Reason: Insomnia Metronidazole (Metronidazole 500 Mg Tablet) 500 mg PO Q8H [facility] Naloxone HCl (Naloxone Hcl 0.4 Mg/Ml Vial) 0.04 mg IVPUSH Q5M PRN PRN Reason: Excessive sedation or RR < 8 Omeprazole (Omeprazole 20 Mg Capsule.Dr) 20 mg PO DAILY@06 [facility] Last Admin: 12/14/24 05:26 Dose: 20 mg Documented By: MANDY Ondansetron HCl (Ondansetron Hcl 4 Mg/2 Ml Vial) 4 mg IVPUSH Q8H PRN PRN Reason: Nausea and Vomiting Last Admin: 12/12/24 09:52 Dose: 4 mg Documented By: REMY Oxycodone HCl (Oxycodone Hcl Immed Release 5 Mg Tablet) 5 mg PO Q4H PRN PRN Reason: Pain, Moderate(Pain Scale 4-6) Last Admin: 12/13/24 19:16 Dose: 5 mg Documented By: MANDY Oxycodone HCl (Oxycodone Hcl Immed Release 5 Mg Tablet) 5 mg PO Q4H PRN PRN Reason: Pain, Moderate(Pain Scale 4-6) Last Admin: 12/13/24 08:50 Dose: 5 mg Documented By: EMILIE Oxycodone HCl (Oxycodone Hcl Immed Release 5 Mg Tablet) 10 mg PO Q4H PRN PRN Reason: Pain, Moderate(Pain Scale 4-6) Last Admin: 12/12/24 18:07 Dose: 10 mg Documented By: REMY Sodium Chloride (0.9 % Sodium Chloride Flush 3 Ml Syringe) 3 ml IVFLUSH QSHIFT [facility] Last Admin: 12/14/24 07:51 Dose: 3 ml Documented By: NERIS Vitamin D (Cholecalciferol (Vitamin D3) 25 Mcg Tablet) 25 mcg PO DAILY [facility] Last Admin: 12/14/24 07:54 Dose: 25 mcg Documented By: NERIS Labs 12/14/24 05:24 12/14/24 05:24 Labs: Laboratory Results - last 24 hr 12/14/24 05:24 MCV 94.3 MCH 29.3 MCHC 31.1 RDW 14.3 Plt Count 215 MPV 10.5 Absolute Nucleated RBC 0.000 Nucleated RBC % (auto) 0.0 Anion Gap 14 Estim Creat Clear Calc 68.3 Estimated GFR > 60 Random Glucose 122 H Calcium 8.8 Magnesium 2.0 B-Natriuretic Peptide 51 Assessment and Plan (1) NUSRAT (acute kidney injury): Status: Acute (2) S/P laparoscopic cholecystectomy: Status: Acute Plan 79yo F with HOCM, HLD, asthma, and HTN admitted to surgical service for acute cholecystitis; Medicine consult for uncontrolled HTN 1.NUSRAT -appropriate response to volume -follow renal/divalent 2.Acute exacerbation/moderate persistent asthma -continue Pulmicort; good response - continue albuterol nebs 3.HTN - increase hydralazine from 100 mg bid to 100 mg tid -aggressive pain management -consider additional treatments in a.m. if persisting 4.Acute cholecystitis - POD#2 lap [place], 12/10- ceftriaxone + metronidazole; postop management per Surgery - tolerating diet enoxaparin Full code Thank you for this consultation. We will continue to follow the patient while they are admitted to your service. Quality Stroke Does the patient have a stroke diagnosis?: No VTE Prior VTE?: No VTE Risk Level:: Surgical - high VTE Device Contraindication: N/A - Device Ordered VTE Drug Contraindication: Treatment Not Indicated
--- NOTE | 2024-12-14 15:27 | MHC.SL.SWA ---
Dysphasia Diet Status: NDD2/thin Liquid Consistency and Strategies for Safe Swallow: Liquid Intake Recommendation: Thin Solid Food Consistency: Dietary Recommendations: Grnd/Mech Altered (NDD2) Oral Medication Intake: Crushed with Puree Please contact the pharmacy regarding appropriate crushable or liquid drug formulations that are available whenever modified delivery is recommended. Compensatory Strategies and Precautions to be Taken for Safe Swallow: Sitting Upright (90 deg) Small Bites and Sips Alternate Liquids/Solids Rate of Ingestion Change Supervision While Eating and Drinking for Safe Swallow: Intermittent Supervision Comment: Recommend continue w/ ground/mech altered solids (NDD2) and thin liquids. Recommend intermittent supervision. Per RN, pt tolerating pills whole w/ liquid. HYDRAULIC BLOCKER to continue to follow to upgrade diet if/when warranted. Dredge Pump Operator Clinican/Clinical Fellow: No Supervisory Statement: I have reviewed and agree with the student/clinical fellow's documentation: N/A Speech Language Pathologist: Grace Mari M.A., CCC-HYDRAULIC BLOCKER
[2024-12-14] MEDS: Milk of Magnesia 30 ML ORAL.SUSP PO (18:04)
[2024-12-15] VITALS (8 sets, daily range): BP systolic 154–188; BP diastolic 68–78; PULSE 61–97; RESP 16–18; TEMP 36.4–37.1; O2SAT 94–98
--- NOTE | 2024-12-15 06:50 | P.PNGS_ITS ---
Subjective Subjective Date of Service: 12/15/24 <Leonie Liban - Last Filed: 12/15/24 07:03> 12/15/24 <Samuel Rajput PA-C - Last Filed: 12/15/24 09:48> Interval history: Sara Deluna is a 79 y/o F POD#4 for lap cholecystectomy due to acute cholecystitis with a PMH of NUSRAT and HOCM. No acute overnight events. Pain rated 2/10, improving, managed with PO tylenol. Patient denies oxycodone due to hallucinations. Has not had bowel movement. Passing flatulence. No n/v, fever, or chills. Ambulating. Using spirometry 4x/day. WEI last drained yesterday. Tolerating ground solids due to teeth loss. <Leonie Liban - Last Filed: 12/15/24 07:03> Physical Exam 2 Vital Signs: Vital Signs: Last Vital Signs Temp 98.8 F 12/15/24 03:38 Pulse 61 12/15/24 03:38 Resp 18 12/15/24 03:38 BP 188/68 H 12/15/24 03:38 Pulse Ox 97 12/15/24 03:38 O2 Del Method Room Air 12/15/24 03:38 O2 Flow Rate 2 12/12/24 07:11 BMI result Body Mass Index 33.4 <Leonie Liban - Last Filed: 12/15/24 07:03> Const: General: no acute distress <Leonie Liban - Last Filed: 12/15/24 07:03> Orientation/consciousness: patient oriented x3 <Leonie Liban - Last Filed: 12/15/24 07:03> HEENT: Head: Yes normal to inspection <Leonie Liban - Last Filed: 12/15/24 07:03> Resp: Effort & Inspection: normal respiratory effort <Leonie Austin - Last Filed: 12/15/24 07:03> Effort & Inspection: able to speak in complete sentences <Samuel Rajput PA-C - Last Filed: 12/15/24 09:48> GI: Other: Abdomen soft, tender to palpation, non-distended. Dressings in tact with some blood strikethrough. WEI drain contains 50mL of serosanginous fluid. <Leonie Liban - Last Filed: 12/15/24 07:03> Inspection: No distended <Samuel Rajput PA-C - Last Filed: 12/15/24 09:48> Palpation (GI): Soft to palpation, Tenderness to palpation present (GI) (RUQ incision), no guarding and not rigid <Samuel Rajput PA-C - Last Filed: 12/15/24 09:48> Skin: General skin exam: no rashes or lesions noted <Leonie Liban - Last Filed: 12/15/24 07:03> Neuro: General: patient oriented x3 <Leonie Austin - Last Filed: 12/15/24 07:03> Extrem: Other: Non-pitting edema of fingers and ankles <Leonie Austin - Last Filed: 12/15/24 07:03> Psych: Mental Status: mental status grossly normal <Leonie Austin - Last Filed: 12/15/24 07:03> Objective Data Active Medications Acetaminophen (Acetaminophen 325 Mg Tablet) 650 mg PO Q6H PRN PRN Reason: Pain, Mild 1-3,fever,headache Last Admin: 12/15/24 03:58 Dose: 650 mg Documented By: DARIEN Albuterol Sulfate (Albuterol Sulfate 90 Mcg 8 Gm Inhaler) 2 puff INHALE Q4H PRN PRN Reason: Wheezing Albuterol Sulfate (Albuterol Sulfate (0.042%) 1.25 Mg/3 Ml Vial.Neb) 2.5 mg INHALE Q4H PRN PRN Reason: Shortness Of Breath Or Wheezing Last Admin: 12/13/24 03:40 Dose: 2.5 mg Documented By: STACIE Atorvastatin Calcium (Atorvastatin Calcium 80 Mg Tablet) 80 mg PO BEDTIME [facility] Last Admin: 12/14/24 19:50 Dose: 80 mg Documented By: DARIEN Budesonide (Budesonide 0.5 Mg/2 Ml Ampul.Neb) 1 mg INHALE RBID [facility] Last Admin: 12/14/24 19:20 Dose: Not Given Documented By: ELVIS Non-Admin Reason: Patient Refused Calcium Carbonate (Calcium Carbonate 750 Mg Tab.Chew) 750 mg PO Q4H PRN PRN Reason: Heartburn Carbamide Peroxide (Carbamide Peroxide 6.5% Otic 15 Ml Drpbtl) 5 drop EAR-BOTH Q12H [facility] Last Admin: 12/14/24 20:03 Dose: 5 drop Documented By: DARIEN Ceftriaxone Sodium (Ceftriaxone Sodium 2 Gm Vial) 2 gm IVPUSH Q24H [facility] Last Admin: 12/14/24 12:12 Dose: 2 gm Documented By: NERIS Diltiazem HCl (Diltiazem Hcl Cd 180 Mg Cap.Er.24h) 360 mg PO DAILY [facility]; Protocol Last Admin: 12/14/24 07:52 Dose: 360 mg Documented By: NERIS Enoxaparin Sodium (Enoxaparin Sodium 40 Mg/0.4 Ml Syringe) 40 mg SUBCUT Q24H [facility] Last Admin: 12/14/24 12:12 Dose: 40 mg Documented By: NERIS Fluticasone Propionate (Fluticasone Propionate Nasal 16 Gm [place]) 1 spray NOSTRIL-B DAILY PRN PRN Reason: Nasal Congestion Fluticasone/Vilanterol (Fluticasone/Vilanterol 200/25 Blst.W.Dev) 1 puff INHALE RDAILY [facility] On Hold: 12/13/24 08:25 Last Admin: 12/13/24 08:53 Dose: Not Given Documented By: ARIN Non-Admin Reason: Physician Held Med Furosemide (Furosemide 20 Mg/2 Ml Vial) 20 mg IVPUSH DAILY [facility]; Protocol Last Admin: 12/14/24 07:53 Dose: 20 mg Documented By: NERIS Hydralazine HCl (Hydralazine Hcl 50 Mg Tablet) 100 mg PO TID [facility]; Protocol Last Admin: 12/15/24 05:32 Dose: 100 mg Documented By: DARIEN Hydromorphone HCl (Hydromorphone Hcl 0.5 Mg/0.5 Ml Syringe) 0.5 mg IVPUSH Q3H PRN; Protocol PRN Reason: Pain, Severe (Pain Scale 7-10) Last Admin: 12/12/24 19:54 Dose: 0.5 mg Documented By: ODRISM Lorazepam (Lorazepam 1 Mg Tablet) 1 mg PO Q12H PRN PRN Reason: Anxiety Last Admin: 12/14/24 19:54 Dose: 1 mg Documented By: DARIEN Magnesium Hydroxide (Milk Of Magnesia 30 Ml Oral.Susp) 30 ml PO DAILY PRN PRN Reason: Constipation Last Admin: 12/14/24 18:04 Dose: 30 ml Documented By: NERIS Melatonin (Melatonin 3 Mg Tablet) 6 mg PO BEDTIME PRN PRN Reason: Insomnia Metronidazole (Metronidazole 500 Mg Tablet) 500 mg PO Q8H [facility] Last Admin: 12/15/24 03:58 Dose: 500 mg Documented By: DARIEN Naloxone HCl (Naloxone Hcl 0.4 Mg/Ml Vial) 0.04 mg IVPUSH Q5M PRN PRN Reason: Excessive sedation or RR < 8 Omeprazole (Omeprazole 20 Mg Capsule.Dr) 20 mg PO DAILY@0630 [facility] Last Admin: 12/15/24 05:32 Dose: 20 mg Documented By: DARIEN Ondansetron HCl (Ondansetron Hcl 4 Mg/2 Ml Vial) 4 mg IVPUSH Q8H PRN PRN Reason: Nausea and Vomiting Last Admin: 12/12/24 09:52 Dose: 4 mg Documented By: REMY Oxycodone HCl (Oxycodone Hcl Immed Release 5 Mg Tablet) 5 mg PO Q4H PRN PRN Reason: Pain, Moderate(Pain Scale 4-6) Last Admin: 12/13/24 19:16 Dose: 5 mg Documented By: MANDY Oxycodone HCl (Oxycodone Hcl Immed Release 5 Mg Tablet) 5 mg PO Q4H PRN PRN Reason: Pain, Moderate(Pain Scale 4-6) Last Admin: 12/13/24 08:50 Dose: 5 mg Documented By: EMILIE Oxycodone HCl (Oxycodone Hcl Immed Release 5 Mg Tablet) 10 mg PO Q4H PRN PRN Reason: Pain, Moderate(Pain Scale 4-6) Last Admin: 12/12/24 18:07 Dose: 10 mg Documented By: REMY Sodium Chloride (0.9 % Sodium Chloride Flush 3 Ml Syringe) [address] [facility] Last Admin: 12/14/24 19:56 Dose: 3 ml Documented By: DARIEN Vitamin D (Cholecalciferol (Vitamin D3) 25 Mcg Tablet) 25 mcg PO DAILY [facility] Last Admin: 12/14/24 07:54 Dose: 25 mcg Documented By: NERIS <Leonie Sharmatus - Last Filed: 12/15/24 07:03> Labs CBC & Chem 7: 12/14/24 05:24 12/14/24 05:24 <Leonie Liban - Last Filed: 12/15/24 07:03> Procedures Date of Service Date of Service: 12/15/24 <Leonie Louie - Last Filed: 12/15/24 07:03> 12/15/24 <Samuel Rajput PA-C - Last Filed: 12/15/24 09:48> Progress Note: A&P Assessment and plan (1) S/P laparoscopic cholecystectomy: Status: Acute <Leonie Liban - Last Filed: 12/15/24 07:03> Assessment and Plan: 79 y/o F POD #4 for lap cholecystectomy for acute cholecystitis with a PMH of NUSRAT and HOCM, improving. Patient reports pain scaled 2/10, improved from yesterday, currently managed on PO tylenol. No bowel movement. Passing flatulence, ambulating, using spirometry. No n/v, fevers, chills. Tolerating regular diet. WEI contains 50 mL of serosanginous fluid. Labs pending. Continue PO tylenol for pain management. Change dressings and drain WEI as needed. Monitor for bowel movement. <Leonie Liban - Last Filed: 12/15/24 07:03> 79 y/o F POD #4 for lap cholecystectomy for acute cholecystitis with a PMH of NUSRAT and HOCM, improving. Patient reports pain scaled 2/10, improved from yesterday, currently managed on PO tylenol. No bowel movement. Passing flatulence, ambulating, using spirometry. No n/v, fevers, chills. Tolerating regular diet. WEI contains 50 mL of serosanginous fluid. Labs pending. Continue PO tylenol for pain management. Change dressings and drain WEI as needed. Monitor for bowel movement. patient seen and examined independently, i agree with the above assesment and plan. Addomen soft and benign aside from incisional tenderness. incision sites are clean, dry and intact. WEI with increased output overnight, remains serosanguineous. Pain is controlled on PO non narcotic meds. Tolerating diet. No BM yest, passing moderate amounts of flatus. She was given milk of magnesium yesterday. Patient remains hypertensive Recommend ambulation as tolerated, spirometry bowel regimen continue with diet continue Abx wei will remain in place, plan to remove prior to d/c HTN management per hospitalist. <Samuel Rajput PA-C - Last Filed: 12/15/24 09:48> Time Spent With Patient Time: Total time managing care of this patient today ____ minutes. <Leonie Louie - Last Filed: 12/15/24 07:03> Quality Stroke Does the patient have a stroke diagnosis?: No <Leonie Louie - Last Filed: 12/15/24 07:03> VTE Prior VTE?: No <Leonie Louie - Last Filed: 12/15/24 07:03> VTE Risk Level:: Surgical - high <Leonie Louie - Last Filed: 12/15/24 07:03> VTE Device Contraindication: N/A - Device Ordered <Leonie Louie - Last Filed: 12/15/24 07:03> VTE Drug Contraindication: Treatment Not Indicated <Leonie Louie - Last Filed: 12/15/24 07:03>
[2024-12-15] MEDS: dilTIAZem HCL CD 180 MG CAP.ER.24H 360 MG PO (07:21)
[2024-12-15] MEDS: Carbamide Peroxide 6.5% Otic 15 ML DRPBTL 5 DROP EAR-BOTH (07:22)
[2024-12-15] MEDS: 0.9 % Sodium Chloride Flush 3 ML SYRINGE IVFLUSH ×3 (07:22→19:58)
[2024-12-15] MEDS: Furosemide 20 MG/2 ML VIAL IVPUSH (07:22)
--- NOTE | 2024-12-15 10:50 | MHC.SL.SWA ---
Speech Pathologist Impression: Oropharyngeal dysphagia characterized by weakness in jaw, tongue and throat mobility. Risk of Aspiration Due to: Weakness C/o jaw 'clicking' Missing dentition Dysphasia Diet Status: Recommend continue w/ ground/mech altered solids (NDD2) and thin liquids. Recommend intermittent supervision. Per RN, pt tolerating pills whole w/ liquid. FIELD SALES MANAGER to continue to follow to upgrade diet if/when warranted. Liquid Consistency and Strategies for Safe Swallow: Liquid Intake Recommendation: Thin Liquid Intake Strategies: Solid Food Consistency: Dietary Recommendations: Grnd/Mech Altered (NDD2) Additional Modifications to Solid Foods: Oral Medication Intake: Crushed with Puree Please contact the pharmacy regarding appropriate crushable or liquid drug formulations that are available whenever modified delivery is recommended. Compensatory Strategies and Precautions to be Taken for Safe Swallow: Sitting Upright (90 deg) Small Bites and Sips Alternate Liquids/Solids Rate of Ingestion Change Supervision While Eating and Drinking for Safe Swallow: Intermittent Supervision Foods to Avoid: Swallowing Recommended Treatments: Base of Tongue Exercises Pharyngeal Resistive Exer Compens. Strategy Educat. Recommendation for Speech: Comment: Recc NDD2 with thins, aspiration precautions, FIELD SALES MANAGER to follow for diet and treatment. Pt seen for dysphagia tx 12/15. MD at bedside. Pt remains weak, unable to have BM. Pt provided with education and introduction of mandibular, lingual and pharyngeal strengthening exercises; return demonstration to 50% efficiency. FIELD SALES MANAGER to return in the afternoon during lunch. Frequency/Duration: Date Range for Service Req: Timeline to reassess: Patrol Conductor Clinican/Clinical Fellow: No Supervisory Statement: I have reviewed and agree with the student/clinical fellow's documentation: N/A Speech Language Pathologist: Rhonda Burns M.S., [facility]-FIELD SALES MANAGER
--- NOTE | 2024-12-15 15:22 | P.PNIM_ITS ---
Subjective Subjective Date of Service: 12/15/24 Interval History: Continues to improve. Pain managed with Tylenol. Ambulated with PT in hallway and stairs Review of Systems Denies chest pain Denies shortness of breath Denies nausea vomiting and diarrhea Admits to abdominal pain Physical Exam 2 Vital Signs: Vital Signs: Last Vital Signs Temp 97.5 F 12/15/24 12:00 Pulse 97 12/15/24 13:13 Resp 18 12/15/24 12:00 BP 182/73 H 12/15/24 13:13 Pulse Ox 97 12/15/24 13:13 O2 Del Method Room Air 12/15/24 12:00 O2 Flow Rate 2 12/12/24 07:11 BMI result Body Mass Index 33.4 Const: Other: Awake alert no acute distress Resp: Other: Clear to auscultation bilaterally no rales rhonchi or wheezes Cardio: Other: No S4; positive S1-S2; no S3 murmurs rubs or gallops GI: Other: Diffusely tender without rebound. Quiet bowel sounds Extrem: Other: No edema bilaterally Objective Data Active Medications Acetaminophen (Acetaminophen 325 Mg Tablet) 650 mg PO Q6H PRN PRN Reason: Pain, Mild 1-3,fever,headache Last Admin: 12/15/24 03:58 Dose: 650 mg Documented By: RENNY-BRIAN Albuterol Sulfate (Albuterol Sulfate 90 Mcg 8 Gm Inhaler) 2 puff INHALE Q4H PRN PRN Reason: Wheezing Albuterol Sulfate (Albuterol Sulfate (0.042%) 1.25 Mg/3 Ml Vial.Neb) 2.5 mg INHALE Q4H PRN PRN Reason: Shortness Of Breath Or Wheezing Last Admin: 12/13/24 03:40 Dose: 2.5 mg Documented By: STACIE Amlodipine Besylate (Amlodipine Besylate 5 Mg Tablet) 5 mg PO DAILY [facility]; Protocol Last Admin: 12/15/24 08:11 Dose: 5 mg Documented By: NERIS Atorvastatin Calcium (Atorvastatin Calcium 80 Mg Tablet) 80 mg PO BEDTIME [facility] Last Admin: 12/14/24 19:50 Dose: 80 mg Documented By: RENNY-BRIAN Budesonide (Budesonide 0.5 Mg/2 Ml Ampul.Neb) 1 mg INHALE RBID [facility] Last Admin: 12/15/24 08:44 Dose: 1 mg Documented By: RABIA Calcium Carbonate (Calcium Carbonate 750 Mg Tab.Chew) 750 mg PO Q4H PRN PRN Reason: Heartburn Carbamide Peroxide (Carbamide Peroxide 6.5% Otic 15 Ml Drpbtl) 5 drop EAR-BOTH Q12H [facility] Last Admin: 12/15/24 07:22 Dose: 5 drop Documented By: NERIS Ceftriaxone Sodium (Ceftriaxone Sodium 2 Gm Vial) 2 gm IVPUSH Q24H [facility] Last Admin: 12/15/24 12:02 Dose: 2 gm Documented By: NERIS Diltiazem HCl (Diltiazem Hcl Cd 180 Mg Cap.Er.24h) 360 mg PO DAILY [facility]; Protocol Last Admin: 12/15/24 07:21 Dose: 360 mg Documented By: NERIS Enoxaparin Sodium (Enoxaparin Sodium 40 Mg/0.4 Ml Syringe) 40 mg SUBCUT Q24H [facility] Last Admin: 12/15/24 12:02 Dose: 40 mg Documented By: NERIS Fluticasone Propionate (Fluticasone Propionate Nasal 16 Gm [place]) 1 spray NOSTRIL-B DAILY PRN PRN Reason: Nasal Congestion Fluticasone/Vilanterol (Fluticasone/Vilanterol 200/25 Blst.W.Dev) 1 puff INHALE RDAILY [facility] On Hold: 12/13/24 08:25 Last Admin: 12/13/24 08:53 Dose: Not Given Documented By: ARIN Non-Admin Reason: Physician Held Med Furosemide (Furosemide 20 Mg/2 Ml Vial) 20 mg IVPUSH DAILY [facility]; Protocol Last Admin: 12/15/24 07:22 Dose: 20 mg Documented By: NERIS Hydralazine HCl (Hydralazine Hcl 50 Mg Tablet) 100 mg PO TID [facility]; Protocol Last Admin: 12/15/24 05:32 Dose: 100 mg Documented By: RENNY-DESSK Hydromorphone HCl (Hydromorphone Hcl 0.5 Mg/0.5 Ml Syringe) 0.5 mg IVPUSH Q3H PRN; Protocol PRN Reason: Pain, Severe (Pain Scale 7-10) Last Admin: 12/12/24 19:54 Dose: 0.5 mg Documented By: MANDY Lorazepam (Lorazepam 1 Mg Tablet) 1 mg PO Q12H PRN PRN Reason: Anxiety Last Admin: 12/14/24 19:54 Dose: 1 mg Documented By: DARIEN Magnesium Hydroxide (Milk Of Magnesia 30 Ml Oral.Susp) 30 ml PO DAILY PRN PRN Reason: Constipation Last Admin: 12/14/24 18:04 Dose: 30 ml Documented By: NERIS Melatonin (Melatonin 3 Mg Tablet) 6 mg PO BEDTIME PRN PRN Reason: Insomnia Metronidazole (Metronidazole 500 Mg Tablet) 500 mg PO Q8H [facility] Last Admin: 12/15/24 12:02 Dose: 500 mg Documented By: NERIS Naloxone HCl (Naloxone Hcl 0.4 Mg/Ml Vial) 0.04 mg IVPUSH Q5M PRN PRN Reason: Excessive sedation or RR < 8 Omeprazole (Omeprazole 20 Mg Capsule.Dr) 20 mg PO DAILY@0630 [facility] Last Admin: 12/15/24 05:32 Dose: 20 mg Documented By: DARIEN Ondansetron HCl (Ondansetron Hcl 4 Mg/2 Ml Vial) 4 mg IVPUSH Q8H PRN PRN Reason: Nausea and Vomiting Last Admin: 12/12/24 09:52 Dose: 4 mg Documented By: REMY Oxycodone HCl (Oxycodone Hcl Immed Release 5 Mg Tablet) 5 mg PO Q4H PRN PRN Reason: Pain, Moderate(Pain Scale 4-6) Last Admin: 12/13/24 19:16 Dose: 5 mg Documented By: MANDY Oxycodone HCl (Oxycodone Hcl Immed Release 5 Mg Tablet) 5 mg PO Q4H PRN PRN Reason: Pain, Moderate(Pain Scale 4-6) Last Admin: 12/13/24 08:50 Dose: 5 mg Documented By: EMILIE Oxycodone HCl (Oxycodone Hcl Immed Release 5 Mg Tablet) 10 mg PO Q4H PRN PRN Reason: Pain, Moderate(Pain Scale 4-6) Last Admin: 12/12/24 18:07 Dose: 10 mg Documented By: REMY Sodium Chloride (0.9 % Sodium Chloride Flush 3 Ml Syringe) 3 ml [facility]USH [facility] Last Admin: 12/15/24 07:22 Dose: 3 ml Documented By: NERIS Vitamin D (Cholecalciferol (Vitamin D3) 25 Mcg Tablet) 25 mcg PO DAILY [facility] Last Admin: 12/15/24 07:22 Dose: 25 mcg Documented By: NERIS Labs 12/14/24 05:24 12/14/24 05:24 Assessment and Plan (1) S/P laparoscopic cholecystectomy: Status: Acute (2) HTN (hypertension): Status: Acute (3) NUSRAT (acute kidney injury): Status: Acute Plan 79yo F with HOCM, HLD, asthma, and HTN admitted to surgical service for acute cholecystitis; Medicine consult for uncontrolled HTN 1.NUSRAT -appropriate response to volume... Back to baseline -follow renal/divalent 2.Acute exacerbation/moderate persistent asthma -continue Pulmicort; good response - continue albuterol nebs... No need for steroids at this time 3.HTN - increase hydralazine from 100 mg bid to 100 mg tid -aggressive pain management -resume amlodipine 4.Acute cholecystitis - POD#3 lap tobin, 12/10- ceftriaxone + metronidazole; postop management per Surgery - tolerating diet enoxaparin Full code Thank you for this consultation. We will continue to follow the patient while they are admitted to your service. Quality Stroke Does the patient have a stroke diagnosis?: No VTE Prior VTE?: No VTE Risk Level:: Surgical - high VTE Device Contraindication: N/A - Device Ordered VTE Drug Contraindication: Treatment Not Indicated
[2024-12-16 03:26] VITALS: BP 148/64; PULSE 84; RESP 17; TEMP 36.3; O2SAT 97
[2024-12-16] MEDS: dilTIAZem HCL CD 180 MG CAP.ER.24H 360 MG PO (07:34)
[2024-12-16] MEDS: Carbamide Peroxide 6.5% Otic 15 ML DRPBTL 5 DROP EAR-BOTH (07:35)
[2024-12-16] MEDS: Furosemide 20 MG/2 ML VIAL IVPUSH (07:35)
[2024-12-16] MEDS: 0.9 % Sodium Chloride Flush 3 ML SYRINGE IVFLUSH (07:36)
[2024-12-16 07:49] VITALS: BP 172/68; PULSE 83; RESP 17; TEMP 36.8; O2SAT 95
[2024-12-16 08:16] VITALS: PULSE 90; RESP 18; O2SAT 99
--- NOTE | 2024-12-16 08:53 | PM.PNGS ---
Subjective Subjective Date of Service: 12/16/24 Interval history: Feels well Says she is ready to be discharged Tolerating diet Good pain control CHUY drain removed yesterday Physical Exam Vital Signs: Vital Signs: Last Vital Signs Temp 98.3 F 12/16/24 07:49 Pulse 90 12/16/24 08:16 Resp 18 12/16/24 08:16 BP 172/68 H 12/16/24 07:49 Pulse Ox 95 12/16/24 07:49 O2 Del Method Room Air 12/16/24 07:49 O2 Flow Rate 2 12/12/24 07:11 BMI result Body Mass Index 33.4 Const: General: comfortable and no acute distress Eyes: Other: Nonicteric Resp: Effort & Inspection: normal respiratory effort Cardio: Rate: regular rate GI: Other: Incisions clean Palpation (GI): Soft to palpation, not firm and nontender Objective Data Active Medications Acetaminophen (Acetaminophen 325 Mg Tablet) 650 mg PO Q6H PRN PRN Reason: Pain, Mild 1-3,fever,headache Last Admin: 12/15/24 18:27 Dose: 650 mg Documented By: NERIS Albuterol Sulfate (Albuterol Sulfate 90 Mcg 8 Gm Inhaler) 2 puff INHALE Q4H PRN PRN Reason: Wheezing Albuterol Sulfate (Albuterol Sulfate (0.042%) 1.25 Mg/3 Ml Vial.Neb) 2.5 mg INHALE Q4H PRN PRN Reason: Shortness Of Breath Or Wheezing Last Admin: 12/13/24 03:40 Dose: 2.5 mg Documented By: STACIE Amlodipine Besylate (Amlodipine Besylate 5 Mg Tablet) 5 mg PO DAILY [facility]; Protocol Last Admin: 12/16/24 07:34 Dose: 5 mg Documented By: NERIS Atorvastatin Calcium (Atorvastatin Calcium 80 Mg Tablet) 80 mg PO BEDTIME [facility] Last Admin: 12/15/24 19:57 Dose: 80 mg Documented By: SHANNAN Budesonide (Budesonide 0.5 Mg/2 Ml Ampul.Neb) 1 mg INHALE RBID [facility] Last Admin: 12/16/24 08:12 Dose: 1 mg Documented By: JIM Calcium Carbonate (Calcium Carbonate 750 Mg Tab.Chew) 750 mg PO Q4H PRN PRN Reason: Heartburn Carbamide Peroxide (Carbamide Peroxide 6.5% Otic 15 Ml Drpbtl) 5 drop EAR-BOTH Q12H [facility] Last Admin: 12/16/24 07:35 Dose: 5 drop Documented By: NERIS Ceftriaxone Sodium (Ceftriaxone Sodium 2 Gm Vial) 2 gm IVPUSH Q24H [facility] Last Admin: 12/15/24 12:02 Dose: 2 gm Documented By: NERIS Diltiazem HCl (Diltiazem Hcl Cd 180 Mg Cap.Er.24h) 360 mg PO DAILY [facility]; Protocol Last Admin: 12/16/24 07:34 Dose: 360 mg Documented By: NERIS Enoxaparin Sodium (Enoxaparin Sodium 40 Mg/0.4 Ml Syringe) 40 mg SUBCUT Q24H [facility] Last Admin: 12/15/24 12:02 Dose: 40 mg Documented By: NERIS Fluticasone Propionate (Fluticasone Propionate Nasal 16 Gm [place]) 1 spray NOSTRIL-B DAILY PRN PRN Reason: Nasal Congestion Fluticasone/Vilanterol (Fluticasone/Vilanterol 200/25 Blst.W.Dev) 1 puff INHALE RDAILY [facility] On Hold: 12/13/24 08:25 Last Admin: 12/13/24 08:53 Dose: Not Given Documented By: ARIN Non-Admin Reason: Physician Held Med Furosemide (Furosemide 20 Mg/2 Ml Vial) 20 mg IVPUSH DAILY [facility]; Protocol Last Admin: 12/16/24 07:35 Dose: 20 mg Documented By: NERIS Hydralazine HCl (Hydralazine Hcl 50 Mg Tablet) 100 mg PO TID [facility]; Protocol Last Admin: 12/16/24 07:34 Dose: 100 mg Documented By: NERIS Hydromorphone HCl (Hydromorphone Hcl 0.5 Mg/0.5 Ml Syringe) 0.5 mg IVPUSH Q3H PRN; Protocol PRN Reason: Pain, Severe (Pain Scale 7-10) Last Admin: 12/12/24 19:54 Dose: 0.5 mg Documented By: ODRISM Lorazepam (Lorazepam 1 Mg Tablet) 1 mg PO Q12H PRN PRN Reason: Anxiety Last Admin: 12/15/24 19:58 Dose: 1 mg Documented By: HO.BOURQC Magnesium Hydroxide (Milk Of Magnesia 30 Ml Oral.Susp) 30 ml PO DAILY PRN PRN Reason: Constipation Last Admin: 12/14/24 18:04 Dose: 30 ml Documented By: NERIS Melatonin (Melatonin 3 Mg Tablet) 6 mg PO BEDTIME PRN PRN Reason: Insomnia Last Admin: 12/15/24 19:58 Dose: 6 mg Documented By: SHANNAN Metronidazole (Metronidazole 500 Mg Tablet) 500 mg PO Q8H [facility] Last Admin: 12/16/24 03:23 Dose: 500 mg Documented By: SHANNAN Naloxone HCl (Naloxone Hcl 0.4 Mg/Ml Vial) 0.04 mg IVPUSH Q5M PRN PRN Reason: Excessive sedation or RR < 8 Omeprazole (Omeprazole 20 Mg Capsule.Dr) 20 mg PO DAILY@0630 [facility] Last Admin: 12/16/24 05:35 Dose: 20 mg Documented By: SHANNAN Ondansetron HCl (Ondansetron Hcl 4 Mg/2 Ml Vial) 4 mg IVPUSH Q8H PRN PRN Reason: Nausea and Vomiting Last Admin: 12/12/24 09:52 Dose: 4 mg Documented By: REMY Oxycodone HCl (Oxycodone Hcl Immed Release 5 Mg Tablet) 5 mg PO Q4H PRN PRN Reason: Pain, Moderate(Pain Scale 4-6) Last Admin: 12/13/24 19:16 Dose: 5 mg Documented By: MANDY Oxycodone HCl (Oxycodone Hcl Immed Release 5 Mg Tablet) 5 mg PO Q4H PRN PRN Reason: Pain, Moderate(Pain Scale 4-6) Last Admin: 12/13/24 08:50 Dose: 5 mg Documented By: EMILIE Oxycodone HCl (Oxycodone Hcl Immed Release 5 Mg Tablet) 10 mg PO Q4H PRN PRN Reason: Pain, Moderate(Pain Scale 4-6) Last Admin: 12/12/24 18:07 Dose: 10 mg Documented By: REMY Sodium Chloride (0.9 % Sodium Chloride Flush 3 Ml Syringe) 3 ml IVFLUSH [facility] Last Admin: 12/16/24 07:36 Dose: 3 ml Documented By: HO.DABA Vitamin D (Cholecalciferol (Vitamin D3) 25 Mcg Tablet) 25 mcg PO DAILY [facility] Last Admin: 12/16/24 07:35 Dose: 25 mcg Documented By: NERIS Labs 12/14/24 05:24 12/14/24 05:24 Procedures Date of Service Date of Service: 12/16/24 Progress Note: A&P Assessment and plan (1) Acute cholecystitis: Status: Acute Assessment and Plan: Status post lap tobin by Dr. Coronel Continues to do well Good pain control Good GI function Okay to DC home today We will see in the office for follow-up Discharge instructions reinforced with patient Time Spent With Patient Time: Total time managing care of this patient today ____ minutes. Quality Stroke Does the patient have a stroke diagnosis?: No VTE Prior VTE?: No VTE Risk Level:: Surgical - high VTE Device Contraindication: N/A - Device Ordered VTE Drug Contraindication: Treatment Not Indicated
--- NOTE | 2024-12-16 09:28 | MHC.CM.PN ---
PT TO DC HOME TODAY WITH NO SERVICES VIA FAMILY TRANSPORT
--- NOTE | 2024-12-20 12:47 | PM.DS ---
DS: Providers Provider Date of Service: 12/16/24 Date of admission: 12/10/24 10:59 Date of discharge: 12/16/24 Primary care physician: LEAH Peter Admitting clinician: Chanel Coronel Consults: 12/10/24 10:55 Consult to Hospitalist Routine Comment: planning lap choley later today. Consulting Provider: [facility] Hospitalists Reason For Exam: HTN, HOCM, Perioperative risk assesment Attending physician on discharge: Geovanny Conway DS: Diagnosis Discharge Diagnosis (1) Acute cholecystitis: Status: Acute DS: Summary Hospital Course Hospital Course: Admission HPI: Sara Deluna is a 79 year old female with history of HTN, HLD, hypertrophic obstructive cardiomyopathy, asthma, obesity presenting to the emergency department with complaint of right upper quadrant abdominal pain radiating to her back since 6:00 a.m. Rates the pain a 10/10, minimal improvement with morphine. She reports experiencing pain like this before but not as severe. Denies nausea, vomiting, fever, chills. Reports she deals with chronic constipation, about 1 BM per week, is on home bowel regimen. She states that her PCP informed her recently that she had gallstones. Patient had US in ED showing gravel sized gallstones, positive sonogrpahic colin sign, GB distention, wall thickening, and pericholecystic fluid. Labs show leukocytosis, 11.5, mildly elevated liver enzymes, bilirubin WNL. patient is severely hypertensive in the ED, report not taking her medication this morning. Denies headache, vision changes, chest pain. Surgical history includes tubal ligation, umbilical hernia repair. Endorses history of tobacco use, 20+ years ago. Deneis alcohol or recreational drug use. Allergies to penicillin, aspirin and lisinopril. Hospital course: Patient was admitted for management of acute cholecystitis, with laparoscopic cholecystectomy. Medicine was consulted to correct hypertension and clear the patient for surgical intervention. Laparoscopic cholecystectomy was performed on 12/11/2024 without complication, a CHUY drain was left in the right upper quadrant. Diet was advanced to regular diet on postop day 1. Otherwise she was doing well, CHUY had low output. Abdominal exam is soft and benign. Pain was well controlled. On postop day 2 patient is ambulating around the room passing flatus, no bowel movement. Abdominal exam remained soft and benign. Patient remained hypertensive, hospitalist managing asthma and hypertension. CHUY output remained low. POD 3, patient continued to do well still no bowel movement. Abdominal exam remains benign, CHUY intact low output. Incisions clean dry and intact. She is tolerating diet ambulation. She was given bowel regimen, which resulted in passing stools and next day. POD4 for patient doing well, patient cleared for discharge by Medicine. On POD 5, patient was discharge. CHUY drain was removed without complications. Dressing was placed. Her abdominal exam was soft and benign. Incision sites appear clean dry and intact patient was discharge in stable condition Status at Discharge Functional status at discharge: independent ambulation Overall status at discharge: patient is progressing back to baseline Time Attestation Discharge Coordination Time (in mins): 30 Quality: Safe Use of Opioids Does Pt have an Active Cancer Diagnosis on the Problem List?: No Quality: Stroke Does the patient have a stroke diagnosis?: No Physical Exam Vital Signs: Vital Signs: Last Vital Signs Temp 98.3 F 12/16/24 07:49 Pulse 90 12/16/24 08:16 Resp 18 12/16/24 08:16 BP 172/68 H 12/16/24 07:49 Pulse Ox 95 12/16/24 07:49 O2 Del Method Room Air 12/16/24 07:49 O2 Flow Rate 2 12/12/24 07:11 BMI result Body Mass Index 33.4 Const: General: comfortable and no acute distress Orientation/consciousness: patient oriented x3 Resp: Effort & Inspection: normal respiratory effort and able to speak in complete sentences GI: Inspection: No distended Palpation (GI): Soft to palpation, not firm, Tenderness to palpation present (GI) (Incision sites), no guarding and not rigid Neuro: General: patient oriented x3 DS: Data Data Completed and Pending Completed studies during hospitalization [Text1]: Pending at discharge 12/11/24 11:41 Surgical [PTH] Routine Discharge Plan Discharge Anticipated Discharge Date/Time: 12/16/24 08:52 Patient Disposition: Home, Self-Care Discharge Diagnosis: s/p laparoscopic cholecystectomy Referrals: José Miguel Atkins FNP-C [Primary Care Provider, Internal Medicine] - 1 Week Discharge Medications: New oxycodone 5 mg tablet 5 mg PO Q6H PRN (Reason: pain) Qty: 16 0RF Rx Instructions: Partial Fill upon patient request. Continued (DME) bedside commode Kit See Rx Instructions .Route Qty: 1 0RF Rx Instructions: As directed (DME) Shower Chair Misc See Rx Instructions .Route Qty: 1 0RF Rx Instructions: As directed hydralazine 100 mg tablet 100 mg PO BID Qty: 180 3RF fluticasone propion-salmeterol [Advair Diskus] 500-50 mcg/dose blister with device 1 ea PO BID Qty: 180 1RF hydroxyzine HCl 25 mg tablet 25 mg PO QID PRN (Reason: itching) Qty: 120 2RF albuterol sulfate [Ventolin HFA] 90 mcg/actuation HFA aerosol inhaler 2 puff PO Q4-6H PRN (Reason: wheezing) Qty: 8.5 3RF lidocaine HCl 2 % jelly in applicator 1 appl topical BID PRN (Reason: pain) 30 Days Qty: 60 3RF lorazepam 1 mg tablet 1 mg PO Q12H PRN (Reason: anxiety) Qty: 60 0RF ibuprofen [Advil] 200 mg Tablet 400 mg PO Q6H PRN (Reason: Pain) albuterol sulfate 1.25 mg/3 mL solution for nebulization 1.25 mg inhalation QID PRN (Reason: Shortness Of Breath Or Wheezing) omeprazole 20 mg capsule,delayed release(DR/EC) 20 mg PO DAILY@0630 fluticasone propionate 50 mcg/actuation spray,suspension 1 spray intranasal DAILY PRN (Reason: Nasal Congestion) (DME) diaper,brief,adult,disposable Misc See Rx Instructions .Route Qty: 126 8RF Rx Instructions: Change as needed (DME) underpads [Bed Underpads] Pad See Rx Instructions .Route Qty: 300 6RF Rx Instructions: As directed docusate sodium 100 mg capsule 200 mg PO BID 30 Days Qty: 120 2RF Debrox 6.5 % drops 5 drp otic (ears) Q12H 4 Days Qty: 15 0RF atorvastatin 80 mg tablet 80 mg PO BEDTIME Qty: 90 3RF cholecalciferol (vitamin D3) 25 mcg (1,000 unit) capsule 25 mcg PO DAILY Qty: 90 2RF No Action diltiazem HCl [Tiadylt ER] 360 mg capsule,extended release 24hr 360 mg PO DAILY Qty: 90 3RF Discharge Orders: Discharge Order (Routine); Ordered 07/03/25 Ordered By: Samuel Rajput Diet: Advance to usual diet Activity on Discharge: No heavy lifting Stand Alone Forms: Patient Portal Discharge page Print Language: Nigerien Activity Restrictions/Additional Instructions: If your incision site is sore, you may apply ice to the area for short periods of time (no more than 20 minutes at a time, followed by 20 minutes off). You were prescribed oxycodone to assist with pain management as needed. You can additionally use OTC ibuprofen or acetaminophen as needed for pain. You can remove the dressings at home after 2 days, they do not need to be redressed. Steri strips can remain in place and will likely fall on their own or in the shower. You may shower 2 days after discharge, clean incisions with warm water and gentle soap, pat dry. Do not submerge the incisions in any water, such as pools, tubs etc. No heavy lifting >15-20 pounds No strenuous activity. Do not use creams, lotion, ointment on the incision sites You will follow up with [facility] General Surgery in the office in 1-2 weeks, you can call the office to schedule the appointment ) Please reach out to the office or be seen at the emergency department if you develop: -Fever >101.5 -Increasing pain or swelling of the area -Increased bleeding from the incision site or the incision begins to separate -If you are concerned for incision site infection such as redness, warmth, discharge. Some yellow/pink tinged discharge is normal -You develop nausea or vomiting Care Plan Goals: Return to baseline level of health Health Concerns: s/p laparoscopic cholecystectomy post op pain HTN HLD HOCM Asthma Plan of Treatment: Pain control follow up in the office in 2 weeks Assessment: Patient doing well Discharge Date/Time: 12/16/24 11:40
== END 2024-12-16 11:40 | disposition home or self-care (01) | DRG 418 ==
LOC: HO.ED 10:21 → HO.EDOVER 11:08 → HO.S3 12:28
PROVIDERS: Family Medicine; Surgery; Emergency Provider Emergency Medicine
PROC: 0FT44ZZ Resection of Gallbladder, Percutaneous Endoscopic Approach (ICD-10-PCS; CPT 47562; principal; 2024-12-11 09:30)
DX: K80.12 Calculus of gallbladder with acute and chronic cholecystitis without obstruction (principal); I42.1 Obstructive hypertrophic cardiomyopathy; J45.41 Moderate persistent asthma with (acute) exacerbation; N17.9 Acute kidney failure, unspecified; I10 Essential (primary) hypertension; E78.5 Hyperlipidemia, unspecified; E66.812 Obesity, class 2; Z71.3 Dietary counseling and surveillance; Z68.33 Body mass index [BMI] 33.0-33.9, adult; Z79.51 Long term (current) use of inhaled steroids; Z79.899 Other long term (current) drug therapy
CPT/HCPCS: 47562; 36415; 71045; 76705; 80048; 80053; 83690; 83735; 83880; 85025; 85027; 88304; 92526; 92610; 93005; 93306; 94640; 97161; 99221; 99285; A4649; J0696; J1100; J1171; J1650; J1836; J1920; J1938; J2003; J2004; J2250; J2270; J2405; J2704; J2795; J3010; J7120; Q9957

== ENCOUNTER → 2024-12-10 06:58 | Outpatient (BNV) | payer MEDICARE, MEDICAID, SELFPAY | PROVIDERS: Emergency Provider Emergency Medicine; Visit Provider Internal Medicine | DX: R94.31 Abnormal electrocardiogram [ECG] [EKG] (principal); I10 Essential (primary) hypertension; R10.11 Right upper quadrant pain | CPT/HCPCS: 93010 ==

== ENCOUNTER → 2024-12-10 08:04 | Outpatient (BNV) | payer MEDICARE, MEDICAID, SELFPAY | PROVIDERS: Emergency Provider Emergency Medicine; Visit Provider Radiology Diagnostic Radiology | DX: K80.00 Calculus of gallbladder with acute cholecystitis without obstruction (principal); Z01.811 Encounter for preprocedural respiratory examination | CPT/HCPCS: 76705 ==

== ENCOUNTER 2024-12-10 10:59 | Outpatient (BNV) | payer MEDICARE, MEDICAID, SELFPAY | END 2024-12-13 16:00 | PROVIDERS: Emergency Provider Emergency Medicine; Visit Provider Internal Medicine Cardiovascular Disease | DX: I27.20 Pulmonary hypertension, unspecified (principal); I42.2 Other hypertrophic cardiomyopathy; I51.7 Cardiomegaly; I35.1 Nonrheumatic aortic (valve) insufficiency; I36.1 Nonrheumatic tricuspid (valve) insufficiency | CPT/HCPCS: 93306 ==

== ENCOUNTER 2024-12-10 10:59 | Outpatient (BNV) | payer MEDICARE, MEDICAID, SELFPAY | END 2024-12-12 10:50 | PROVIDERS: Emergency Provider Emergency Medicine; Visit Provider Radiology Diagnostic Radiology | DX: R06.00 Dyspnea, unspecified (principal) | CPT/HCPCS: 71045 ==

== ENCOUNTER → 2024-12-10 10:59 | Outpatient (BNV) | payer MEDICARE, MEDICAID, SELFPAY | PROVIDERS: Emergency Provider Emergency Medicine; Visit Provider Internal Medicine | DX: I10 Essential (primary) hypertension (principal) | CPT/HCPCS: 99232 ==

== ENCOUNTER → 2024-12-10 10:59 | Outpatient (BNV) | payer MEDICARE, MEDICAID, SELFPAY | PROVIDERS: Emergency Provider Emergency Medicine | DX: K81.0 Acute cholecystitis (principal) | CPT/HCPCS: 47562; 99024; 99222 ==

== ENCOUNTER 2024-12-19 23:44 | Emergency (ER) | payer MEDICARE, MEDICAID, SELFPAY ==
[2024-12-19 23:51] VITALS: BP 218/78; PULSE 89; O2SAT 98
[2024-12-19 23:53] VITALS: BP 217/70; PULSE 85; RESP 23; TEMP 37; O2SAT 98; BMI 33.7
--- NOTE | 2024-12-20 | ECG_ITS ---
Test Reason : hypertension Blood Pressure : */* mmHG Vent. Rate : 83 BPM Atrial Rate : 83 BPM P-R Int : 104 ms QRS Dur : 88 ms QT Int : 388 ms P-R-T Axes : 62 51 77 degrees QTcB Int : 455 ms Sinus rhythm with short MN Possible Left atrial enlargement Borderline ECG When compared with ECG of 10-Dec-2024 09:48, MN interval has decreased Referred By: Generic ED Physician Electronically Signed By: Laron May
--- NOTE | 2024-12-20 00:12 | ED.GENADULT ---
HPI - General Adult General Chief complaint: General Medical Stated complaint: HTN Time Seen by Provider: 12/20/24 00:09 History of Present Illness ED Provider: Shukri Cunningham MD HPI narrative: Presents with asymptomatic hypertension at home. Took BP meds at home. Arrival systolic to 10s Related Data Home Medications ?Medication ?Instructions ?Recorded ?Confirmed albuterol sulfate 1.25 mg/3 mL 1.25 mg inhalation QID PRN 12/10/24 12/10/24 solution for nebulization Shortness Of Breath Or Wheezing fluticasone propionate 50 1 spray intranasal DAILY PRN Nasal 12/10/24 12/10/24 mcg/actuation nasal Congestion spray,suspension ibuprofen 200 mg tablet (Advil) 400 mg PO Q6H PRN Pain 12/10/24 12/10/24 omeprazole 20 mg capsule,delayed 20 mg PO DAILY@0630 12/10/24 12/10/24 release Previous Rx's ?Medication ?Instructions ?Recorded Shower Chair #1 ea 03/12/22 commode (bedside commode) #1 ea 03/12/22 diaper,brief,adult,disposable #126 ea 03/22/22 underpads (Bed Underpads) #300 ea 03/22/22 hydralazine 100 mg tablet 100 mg PO BID #180 tabs 05/12/23 fluticasone 500 mcg-salmeterol 50 1 ea PO BID #180 ea 04/26/24 mcg/dose blistr powdr for inhalation (Advair Diskus) hydroxyzine HCl 25 mg tablet 25 mg PO QID PRN itching #120 tabs 06/04/24 albuterol sulfate 90 mcg/actuation 2 puff PO Q4-6H PRN wheezing #8.5 08/30/24 aerosol inhaler (Ventolin HFA) grams lidocaine HCl 2 % mucosal jelly in 1 appl topical BID PRN pain 30 09/15/24 applicator days #60 mL carbamide peroxide 6.5 % ear drops 5 drp otic (ears) Q12H 4 days #15 10/11/24 (Debrox) mL docusate sodium 100 mg capsule 200 mg (2 x 100 mg) PO BID 30 days 10/11/24 #120 caps atorvastatin 80 mg tablet 80 mg PO BEDTIME #90 tabs 10/12/24 cholecalciferol (vitamin D3) 25 25 mcg PO DAILY #90 caps 10/12/24 mcg (1,000 unit) capsule lorazepam 1 mg tablet 1 mg PO Q12H PRN anxiety #60 tabs 11/09/24 oxycodone 5 mg tablet 5 mg PO Q6H PRN pain #16 tabs 12/15/24 diltiazem HCl 360 mg capsule,24 360 mg PO DAILY Hypertension #90 12/20/24 hr,extended release (Tiadylt ER) caps Allergies Allergy/AdvReac Type Severity Reaction Status Date / Time Penicillins (PENICILLINS) Allergy Mild ITCHINESS Verified 12/19/24 23:54 aspirin (ASPIRIN) Allergy Unknown VOMITING Verified 12/19/24 23:54 Lisinopril AdvReac Severe Angioedema Uncoded 12/19/24 23:54 [facility] Past Medical History Medical History Fatigue PAC (premature atrial contraction) HTN (hypertension) Hypertensive heart disease Mild HOCM (hypertrophic obstructive cardiomyopathy) Asthma Surgical History History of left cataract surgery History of umbilical hernia repair History of tubal ligation Family History Family History Father No problems noted. Mother No problems noted. Social History Social History Household Members: Family Household Members Other:: grandson Housing: Apartment Do you presently have visiting nurse or other home services: No Unable to assess alcohol history related to: Unknown Alcohol intake: never Patient Tobacco Use Status: Never used Tobacco e-Cigarette/Vaping Use: Never Used Second Hand Smoke Exposure: No Advance Directives: No Advance Directives Information Provided: No service: No Current occupational status: retired Cognitive needs: Yes (cane) Hearing needs: No Vision needs: Yes Physical Exam ED Vital Signs: Vital Signs - 24 hr 12/19/24 23:53 12/20/24 00:17 12/20/24 01:02 Temperature 98.6 F Pulse Rate 85 84 Respiratory Rate 23 H 18 Blood Pressure 217/70 H 199/62 H 237/75 H Pulse Oximetry 98 99 Oxygen Delivery Method Room Air Room Air 12/20/24 01:33 12/20/24 01:48 Temperature 97.7 F Pulse Rate 84 84 Respiratory Rate 16 Blood Pressure 217/70 H 217/70 H Pulse Oximetry 99 99 Oxygen Delivery Method Room Air Room Air BMI result Body Mass Index 33.7 Const Other: EXAM: Gen: Alert, awake, well appearing, well hydrated. Head: Atraumatic Eyes: Anicteric, Normal conjunctiva. ENT: Moist mucosa, no pallor. ? Neck: Supple. Skin: ?No observable rash or bruising on exposed or examined skin Respiratory: Breathing comfortably, No distress.Clear to auscultation bilaterally, symmetric chest expansion, No wheeze, rales, ronchi. Cardiovascular: Regular rate and rhythm. 1/6 systolic murmur. Well perfused periphery, warm extremities. No edema. ? Abdominal: No focal tenderness. Soft, no objective distension. No palpable masses or obvious organomegaly. ?No guarding, no rebound tenderness or other peritoneal findings. : No flank tenderness. Neuro: Alert. Gross movement of all extremities intact. ? Psych: Calm. Cooperative. MSK: No grossly visible deformity. Vital signs: See flowsheet Medications Administered Discontinued Medications Generic Name Dose Route Start Last Admin Trade Name Freq PRN Reason Stop Dose Admin Hydralazine HCl 25 mg 12/20/24 00:11 12/20/24 00:17 Hydralazine Hcl 25 Mg Tablet PO 12/20/24 00:12 25 mg ONCE ONE Administration Protocol Hydralazine HCl 50 mg 12/20/24 01:04 12/20/24 01:08 Hydralazine Hcl 50 Mg Tablet PO 12/20/24 01:05 50 mg ONCE ONE Administration Protocol Lorazepam 1 mg 12/20/24 00:55 12/20/24 01:01 Lorazepam 1 Mg Tablet PO 12/20/24 00:56 1 mg ONCE ONE Administration Medical Decision Making Medical Decision Making MDM Narrative: Medical Decision Making: Asymptomatic hypertension took home meds.. Patient explicitly denies headache chest pain visual symptoms focal neurologic changes, shortness of breath. She took an additional dose of her home hydralazine and was nervous and came for evaluation. Preliminary Favored Differential Diagnosis: Asymptomatic hypertension, chronic hypertension, labile blood pressure among additional considered etiologies Testing Interpreted Independently: ECG: Sinus rhythm rate 83 QTC 455. No acute ischemic changes. Morphology consistent with previous ECG in our record system 12/10/2024. Radiology or Lab testing Results Reviewed: Not Applicable Consults: Not Applicable Independent Historians/External Chart Reviews: Not Applicable Social Determinants of Health Impacting MDM/Planning: Not Applicable Discharge Plan Discharge Clinical Impression: Hypertension Patient Disposition: Home, Self-Care Instructions: Hypertension (ED) Additional Instructions: DISCHARGE DIAGNOSES: Hypertension without symptoms HISTORY OF PRESENTATION: ?High blood pressure at home EMERGENCY DEPARTMENT COURSE,TESTS, TREATMENTS: While in the ED today your maximal systolic blood pressure was 2 10s. Given that you have no symptoms we do not feel he needed any significant workup in the emergency department and we did give you an additional dose of your home hydralazine DISCHARGE MEDICATIONS: ?[We have made no changes to your regular medication regimen] FOLLOW-UP: ?Call your primary or general physician soon as possible to discuss your symptoms, your ED visit and to discuss follow up plans Call your primary doctor for follow up INSTRUCTIONS ?& RETURN PRECAUTIONS: If any symptoms change first call your primary physician, if it is after-hours your primary doctors office should have a provider industrial technology education teacher you can speak with. If the symptoms are severe or very concerning to you then call 911 or return to the ED. If you do not have symptoms there was no indication or need to take your blood pressure regularly. However if you feel the need to take your blood pressure we recommend taking a morning, afternoon and evening right before bed blood pressure for at least 1 week to see a general trend. If you have no symptoms there was no reason to come to the emergency department for any specific number. Call your primary doctor Shukri Cunningham MD Emergency Physician [facility] Prescriptions: No Action (DME) bedside commode Kit See Rx Instructions .Route Qty: 1 0RF Rx Instructions: As directed (DME) Shower Chair Misc See Rx Instructions .Route Qty: 1 0RF Rx Instructions: As directed hydralazine 100 mg tablet 100 mg PO BID Qty: 180 3RF fluticasone propion-salmeterol [Advair Diskus] 500-50 mcg/dose blister with device 1 ea PO BID Qty: 180 1RF hydroxyzine HCl 25 mg tablet 25 mg PO QID PRN (Reason: itching) Qty: 120 2RF albuterol sulfate [Ventolin HFA] 90 mcg/actuation HFA aerosol inhaler 2 puff PO Q4-6H PRN (Reason: wheezing) Qty: 8.5 3RF lidocaine HCl 2 % jelly in applicator 1 appl topical BID PRN (Reason: pain) 30 Days Qty: 60 3RF lorazepam 1 mg tablet 1 mg PO Q12H PRN (Reason: anxiety) Qty: 60 0RF diltiazem HCl [Tiadylt ER] 360 mg capsule,extended release 24hr 360 mg PO DAILY Qty: 90 3RF ibuprofen [Advil] 200 mg Tablet 400 mg PO Q6H PRN (Reason: Pain) albuterol sulfate 1.25 mg/3 mL solution for nebulization 1.25 mg inhalation QID PRN (Reason: Shortness Of Breath Or Wheezing) omeprazole 20 mg capsule,delayed release(DR/EC) 20 mg PO DAILY@0630 fluticasone propionate 50 mcg/actuation spray,suspension 1 spray intranasal DAILY PRN (Reason: Nasal Congestion) oxycodone 5 mg tablet 5 mg PO Q6H PRN (Reason: pain) Qty: 16 0RF Rx Instructions: Partial Fill upon patient request. (DME) diaper,brief,adult,disposable Misc See Rx Instructions .Route Qty: 126 8RF Rx Instructions: Change as needed (DME) underpads [Bed Underpads] Pad See Rx Instructions .Route Qty: 300 6RF Rx Instructions: As directed docusate sodium 100 mg capsule 200 mg PO BID 30 Days Qty: 120 2RF Debrox 6.5 % drops 5 drp otic (ears) Q12H 4 Days Qty: 15 0RF atorvastatin 80 mg tablet 80 mg PO BEDTIME Qty: 90 3RF cholecalciferol (vitamin D3) 25 mcg (1,000 unit) capsule 25 mcg PO DAILY Qty: 90 2RF Interventions: ED Discharge Assessment Last Done: 12/20/24 01:48 Discharge Date/Time: 12/20/24 01:51 Print Language: Fijian
[2024-12-20 00:17] VITALS: BP 199/62
[2024-12-20 01:02] VITALS: BP 237/75; PULSE 84; RESP 18; O2SAT 99
[2024-12-20 01:33] VITALS: BP 217/70; PULSE 84; O2SAT 99
[2024-12-20 01:48] VITALS: BP 217/70; PULSE 84; RESP 16; TEMP 36.5; O2SAT 99
--- NOTE | 2024-12-20 02:06 | PC.NURSE ---
Blood pressure checked multiple times, MD aware. Verified with MD prior to d/c. Family questioning d/c. Spoke with MD and approved d/c stating if patient becomes symptomatic to return.
== END 2024-12-20 01:51 | disposition home or self-care (01) ==
PROVIDERS: Emergency Provider Emergency Medicine
DX: R94.31 Abnormal electrocardiogram [ECG] [EKG] (principal); I10 Essential (primary) hypertension
CPT/HCPCS: 93005; 99283; 99284

== ENCOUNTER → 2024-12-20 00:03 | Outpatient (BNV) | payer MEDICARE, MEDICAID, SELFPAY | PROVIDERS: Emergency Provider Emergency Medicine; Visit Provider Internal Medicine Cardiovascular Disease | DX: I10 Essential (primary) hypertension (principal) | CPT/HCPCS: 93010 ==

== ENCOUNTER 2024-12-31 13:52 | Outpatient (REF) | payer MEDICARE, MEDICAID, SELFPAY ==
[2024-12-31 15:35] LABS: MANUAL DIFF FLAG NO
[2024-12-31 16:09] LABS: Hematocrit 38.6 % (37.0-47.0); Hemoglobin 12.1 g/dl (12.0-16.0); Imm Gran Abs Auto 0.01 X10*3/uL (0.00-0.03); Imm Gran Pct Auto 0.1 % (0.0-0.4); Lymphocytes Absolute Auto 2.7 X10*3/uL (1.2-4.9); Mean Corpuscular HGB Conc 31.3 g/dl (31.0-35.0); Mean Corpuscular Hemoglobin 29.5 pg (27.0-33.0); Mean Corpuscular Volume 94.1 fL (80.0-98.0); NRBC Abs Auto 0.000 X10*3/uL (0.0-0.012); NRBC Pct Auto 0.0 /100WBC (0.0-0.2); Platelet Count 297 X10*3/uL (160-400); Red Blood Count 4.10 X10*6/uL (4.20-5.50); White Blood Count 8.2 X10*3/uL (4.8-10.8)
[2024-12-31 16:42] LABS: Alanine Aminotransferase 21 U/L (0-31); Albumin Level 4.8 g/dL (3.5-5.0); Alkaline Phosphatase 90 U/L (39-117); Anion Gap 15 (12-20); Aspartate Amino Transferase 21 U/L (5-31); Blood Urea Nitrogen 17 mg/dL (9-16); Calcium 9.9 mg/dL (8.4-10.2); Carbon Dioxide 24 mmol/L (22-29); Chloride 109 mmol/L (96-108); Estimated Glomerular Filt Rate 55; Potassium 3.8 mmol/L (3.3-5.1); Sodium 144 mmol/L (135-145); Total Protein 7.6 g/dL (6.5-8.0)
== END 2024-12-31 13:53 | disposition home or self-care (01) ==
LOC: HO.LAB 13:52
DX: I11.9 Hypertensive heart disease without heart failure (principal); R05.9 Cough, unspecified; R53.83 Other fatigue; H92.03 Otalgia, bilateral; F41.9 Anxiety disorder, unspecified; I42.1 Obstructive hypertrophic cardiomyopathy; Z79.899 Other long term (current) drug therapy; Z90.49 Acquired absence of other specified parts of digestive tract
CPT/HCPCS: 36415; 80053; 84443; 85025; 99212

== ENCOUNTER 2024-12-31 13:52 | Outpatient (AMB) | payer MEDICARE, MEDICAID, SELFPAY ==
--- OUTSIDE RECORDS SUMMARY | 2024-12-31 13:56 | XMS_ITS | Clinical Summary ---
Author Organization [facility] Facility Address [address] [address] Care Team Providers Care Ordnance Equipment Worker Name Role Phone Claude Hatch MD Primary Care Provider [phone] Allergies Active Allergy Reactions Criticality Noted Date [...] of 2 - PCV) 1964 Influenza Vaccine (#1) 2025 Hepatitis B Vaccine Aged Out No longe r eligible based on patient's age to complete this topic Insurance Medicare Medicaid [place] Care Teams Ordnance Equipment Worker Relationship Specialty Start Date End Date Claude Hatch MD [address] [place], [place] PCP - General Internal Medicine 04/22/22
--- NOTE | 2024-12-31 14:04 | A.OFFPC_ITS ---
Vital Signs 12/31/24 14:05 12/31/24 14:15 Height 5 ft 7 in Weight 202 lb BMI 31.6 BP 150/80 H 170/88 H Blood Pressure Location Lt brachial Lt brachial Position Sitting Pulse 85 Pulse Source Pulse Oximeter Temp 97.1 F Temp Source Temporal Artery Scan Pulse Oximetry (%) 97 Oxygen Delivery Method Room Air Int[place] [facility] [place] Intake Note: Patient is here for hospital discharge follow up. [place] was [place] [facility]. Batch Roller Operator Required: No Training Program Assistant: Present Accompanied by: Daughter Allergies Penicillins (PENICILLINS) Allergy (Mild, Verified 12/31/24 14:15) ITCHINESS aspirin (ASPIRIN) Allergy (Unknown, Verified 12/31/24 14:15) VOMITING Lisinopril Adverse Reaction (Severe, Uncoded 12/31/24 14:15) Angioedema Medication List - Last Reconciled 12/31/24 by LEAH Peter albuterol sulfate 1.25 mg inhalation QID PRN albuterol sulfate 90 mcg/actuation (Ventolin HFA) 2 puffs PO Q4-6H PRN atorvastatin 80 mg PO BEDTIME carbamide peroxide 6.5% (Debrox) 5 drps otic (ears) Q12H 4 days cholecalciferol (vitamin D3) 25 mcg PO DAILY commode (bedside commode) As directed diaper,brief,adult,disposable Change as needed diltiazem HCl ER (Tiadylt ER) 360 mg PO DAILY docusate sodium 200 mg (2 x 100 mg) PO BID 30 days fluticasone propion-salmeterol 500-50 mcg/dose (Advair Diskus) 1 ea PO BID fluticasone propionate 50 mcg/actuation 1 spray intranasal DAILY PRN hydralazine 100 mg PO BID hydroxyzine HCl 25 mg PO QID PRN lidocaine HCl 2% 1 appl topical BID PRN 30 days lorazepam 1 mg PO Q12H PRN omeprazole 20 mg PO DAILY@0630 Shower Chair As directed underpads (Bed Underpads) As directed Tobacco use date assessed: 12/31/24 Fall risk assessment: No Falls in past year Last assessed Fall Risk: 12/31/24 Dental Screening Dental Screen Date: 07/12/24 H[place] [facility] [place] HPI Details The is 79 year old female presenting for post hosp/surgery visit She was [place] [facility] [place]olecystitis, with laproscoopic cholecystectomy. Medicine was consulted to correct hypertension and cleared the patient for surgical intervention. Laparoscopic cholecystectomy was performed on 12/11/2024 without complication. Patient had a CHUY drain in the right upper quadrant during the days in the hospital post surgery. The patient had to be given bowel regimen in order to pass stool. On postop day 4 patient was doing well and cleared for discharge. On postop day 5 the patient was discharged to [facility]. CHUY drain was removed without complications. The patient is a 79-year-old female presenting with management of hypertension, postoperative pain, and chronic cough. The patient reports experiencing postoperative pain following a recent surgery, with persistent discomfort around the stitches. The pain is described as mild and localized to the area of the stitches, with no signs of infection noted during examination. The patient has a history of hypertension, with recent readings as high as 215/103 mmHg, leading to an emergency room visit. Current management includes antihypertensive medications, but blood pressure remains elevated at 170 mmHg systolic. The patient also reports dental issues and is unable to get tooth extraction due to high blood pressure, impacting her ability to eat comfortably. The patient describes a chronic cough associated with postnasal drip, which is worse at night and in the morning. The cough produces white phlegm, suggesting an allergic component rather than infection. However, nasal passages are noted with boggy, erythmatous turbinates, and purulent drainage. The patient reports ear discomfort, which was not addressed during her recent hospital stay. She has been using ear drops to manage the symptoms. Excessive cerumen noted in bilateral ears, debrox ear drops are recommended to soften harden wax in ear canal. The patient notes significant swelling in her feet, which has been persistent and requires further evaluation. The patient was encouraged to wear compression stockings and elevate her legs when she can. [facility] Medical History Fatigue PAC (premature atrial contraction) HTN (hypertension) Hypertensive heart disease Mild HOCM (hypertrophic obstructive cardiomyopathy) Asthma Surgical History History of cholecystectomy History of left cataract surgery History of umbilical hernia repair History of tubal ligation Family History Father No problems noted. Mother No problems noted. Social History Household Members: Family Household Members Other:: grandson Housing: Apartment Do you presently have visiting nurse or other home services: No Unable to assess alcohol history related to: Unknown Alcohol intake: never Patient Tobacco Use Status: Never used Tobacco e-Cigarette/Vaping Use: Never Used Second Hand Smoke Exposure: No service: No Current occupational status: retired Cognitive needs: Yes (cane) Hearing needs: No Vision needs: Yes Questionnaire Thrive Questionnaire Date Thrive assessed: 10/11/24 I am a: Patient What is your living situation today?: I have a steady place to live Within the past 12 months, did the food you bought not last and you didn't have the money to get more?: Never true Within the past 12 months, did you worry whether your food would run out before you got money to buy more?: Never true Do you have trouble paying for medicines?: No Do you have trouble getting transportation to medical appointments?: Yes Do you have trouble paying your heating and electricity bill?: No Do you have trouble taking care of your child, family member or friend?: No Do you have trouble with day-to-day activities such as bathing, preparing meals, shopping, managing finances, etc.?: No Are you currently unemployed and looking for a job?: Yes Are you interested in more education?: No Please select the resources that you would like help with: None Currently or been in a relationship where the following occur: No concerns reported THRIVE Score: 1 CARMENCITA-7 AMB Questionnaire CARMENCITA-7 Date CARMENCITA - 7 assessed: 10/11/24 Source: Developed by Drs. Jay Boggs, Jeanie Sheridan, Tal Marquis and colleagues, with an educational naty from [employer]. Review of Systems Const Denies body aches, Denies chills, Reports difficulty sleeping, Denies fever(s), Denies headache(s), Reports lethargy and Denies poor appetite Eyes Reports no additional complaints ENT Reports dental pain, Denies dysphagia, Denies dizziness, Reports otalgia (on and off), Denies headache(s), Denies hearing loss, Reports nasal congestion, Reports nasal discharge, Denies odynophagia, Reports post nasal drip and Denies tinnitus Card Denies chest pain, Denies syncope, Reports pedal edema, Denies edema, Denies irregular heart rhythm, Denies lightheadedness and Denies dyspnea Resp Reports cough (worse at night) and Denies dyspnea GI Reports abdominal pain (mild pain at incisional site), Denies constipation, Denies dysphagia, Denies diarrhea, Denies nausea, Denies odynophagia and Denies vomiting Reports no additional complaints Musc Reports no additional complaints and Denies abnormal gait Skin/Breast Reports system reviewed and no additional complaints, except as documented Neuro Denies abnormal gait, Denies dizziness, Denies syncope and Denies headache(s) Psych Reports no additional complaints Physical exam (Primary Care) Vital Signs: Last Vital Signs Temp 97.1 F 12/31/24 14:05 Pulse 85 12/31/24 14:05 BP 150/80 H 12/31/24 14:05 Pulse Ox 97 12/31/24 14:05 Oxygen Delivery Method Room Air 12/31/24 14:05 BMI result Body Mass Index 31.6 Tobacco/Smoking Status: Tobacco use Status Tobacco use date assessed 12/31/24 12/31/24 14:15 Patient Tobacco Use Status Never used Tobacco 12/31/24 14:15 e-Cigarette/Vaping Use Never Used 12/31/24 14:15 Thrive Assessment: Date of Thrive Assessment Date Thrive assessed 10/11/24 12/31/24 14:15 Currently or been in a relationship where the following occur: No concerns reported Const General: cooperative, healthy appearing, comfortable and no acute distress Orientation/consciousness: patient oriented x3 HENMT Head: Yes normocephalic Ears: Abnormal EAC present excessive cerumen bilateral General nose exam: Abnormal mucous membranes and turbinates present boggy bilateral and erythematous bilateral and Nasal discharge present purulent bilateral Face and sinus: Yes sinuses nontender Teeth and gingiva: poor dentition Eyes General: appearance normal, both eyes and all related structures Conjunctivae: conjunctivae normal Neck Neck: Yes full ROM and Yes no lymphadenopathy Resp Effort & Inspection: normal respiratory effort Auscultation: clear to auscultation bilaterally, no crackles, no rales, no rhonchi and no wheezes Cardio Rate: regular rate Rhythm: regular rhythm Heart sounds: S1 normal heart sound present, no gallops and no murmurs GI Inspection: Yes incision (three s/p entry points, two with steri strips in place) and Yes obesity General: Yes no CVA tenderness Back/Spine/Pelvis Back: no CVA tenderness Skin General skin exam: no rashes or lesions noted Neuro General: patient oriented x3 Gait exam (Neuro): Normal gait present Extrem General: Yes normal to inspection and Yes full ROM Right upper extremity: full ROM; no edema Left upper extremity: full ROM; no edema Right lower extremity: lower leg Details: non-pitting edema Details: 2+ Left lower extremity: lower leg Details: non-pitting edema Details: 2+ Psych Affect: normal affect Attitude: cooperative Insight: Good insight present (Psych) Judgement: Good judgement present (Psych) Coding Level of Care Code Est Pt Level 4 (67263) Diagnoses Hypertension, unspecified type I10 Hypertension type: unspecified S/P laparoscopic cholecystectomy Z90.49 Cough, unspecified type R05.9 Cough type: unspecified Fatigue, unspecified type R53.83 Fatigue type: unspecified Otalgia of both ears H92.03 Time Spent (min) 43 Assessment & Plan Assessment & Plan (1) HTN (hypertension): Code(s): I10 - Essential (primary) hypertension Category: Medical Qualifiers: Hypertension type: unspecified Qualified Code(s): I10 - Essential (primary) hypertension Plan: Ongoing longstanding elevated blood pressure. Patient is on diltiazem 360 mg daily, hydralazine 100 mg b.i.d., added hydrochlorothiazide 50 mg daily. Reinforced dash diet. CMP/CBC/TSH/urinalysis ordered to further evaluate the patient condition. Patient to return in 1 month for blood pressure evaluation. (2) S/P laparoscopic cholecystectomy: Code(s): Z90.49 - Acquired absence of other specified parts of digestive tract Category: Surgical Plan: Status post cholecystectomy. Continue to have mild abdominal pain at entry sites. Three sites noted, 2 of the sides still have Steri-Strips in place. Steri-Strips fell off the third site. No signs or symptoms of infection. The patient abdomen is healing appropriately. The patient reports normal bowel movements. (3) Cough: Code(s): R05 - Cough Category: Medical Qualifiers: Cough type: unspecified Qualified Code(s): R05.9 - Cough, unspecified Plan: Patient reports ongoing cough that is slightly worse during the nighttime. She has a history of asthma that is managed through albuterol sulfate nebulizer q.i.d. p.r.n., or albuterol sulfate inhaler q.4-6 hours p.r.n., Advair Diskus 1 puff b.i.d.. Patient also has intermittent nasal congestion, suspect postnasal drip triggering cough. She has been using Flonase inhaler as needed. Patient lungs clear and no shortness of breath. On exam bilateral turbinates boggy and erythematous with purulent drainage. The patient was started on azithromycin 500 mg daily x7 days and prednisone 20 mg x3 days. The patient to contact the office if symptoms worsen or persist (4) Fatigue: Code(s): R53.83 - Other fatigue Category: Medical Qualifiers: Fatigue type: unspecified Qualified Code(s): R53.83 - Other fatigue Plan: Patient reports that she has exhausted. She also reports that she is not sleeping. The patient is in office with her daughter who stated that the patient is snacking at nighttime. Reinforced sleep hygiene. (5) Otalgia of both ears: Code(s): H92.03 - Otalgia, bilateral Category: Medical Plan: Patient reports on and off ear pain. She has a history of bilateral ear impaction and has a used Debrox ear drops on and off. On exam the patient has excessive amount of cerumen in bilateral ear. Debrox ear drops was reordered for the patient to soften up the cerumen. Explained to the patient that she has a use Debrox for at least 4 days straight 2 times a day. The patient daughter we will flush her ears with the rubber bulb ear syringe that comes with the Debrox kit. Plan The patient to return in 1 month for blood pressure evaluation Orders: Orders Complete Blood Count Auto Diff 12/31/24 F41.9 - Anxiety disorder, unspecified, I10 - Essential (primary) hypertension, I11.9 - Hypertensive heart disease without heart failure, I42.1 - Obstructive hypertrophic cardiomyopathy, R53.83 - Other fatigue, Z90.49 - Acquired absence of other specified parts of digestive tract Comprehensive Met. Panel 12/31/24 F41.9 - Anxiety disorder, unspecified, I10 - Essential (primary) hypertension, I11.9 - Hypertensive heart disease without heart failure, I42.1 - Obstructive hypertrophic cardiomyopathy, R53.83 - Other fatigue, Z90.49 - Acquired absence of other specified parts of digestive tract UA CC w/rflx Micro + Cult 12/31/24 F41.9 - Anxiety disorder, unspecified, I10 - Essential (primary) hypertension, I11.9 - Hypertensive heart disease without heart failure, I42.1 - Obstructive hypertrophic cardiomyopathy, R53.83 - Other fatigue, Z90.49 - Acquired absence of other specified parts of digestive tract TSH reflex Free T4 12/31/24 F41.9 - Anxiety disorder, unspecified, I10 - Essential (primary) hypertension, I11.9 - Hypertensive heart disease without heart failure, I42.1 - Obstructive hypertrophic cardiomyopathy, R53.83 - Other fatigue, Z90.49 - Acquired absence of other specified parts of digestive tract Medications: New azithromycin 500 mg PO DAILY 7 tabs 0RF 7 days prednisone 20 mg PO DAILY 3 tabs 0RF 3 days hydrochlorothiazide 50 mg PO DAILY 30 tabs 2RF Refilled hydralazine 100 mg PO BID 180 tabs 3RF carbamide peroxide 6.5% (Debrox) 5 drps otic (ears) Q12H 15 mL 0RF 4 days H61.23 - Impacted cerumen, bilateral
[2024-12-31 14:05] VITALS: BP 150/80; PULSE 85; TEMP 36.2; O2SAT 97; BMI 31.6
[2024-12-31 14:15] VITALS: BP 170/88
== END 2024-12-31 14:56 | disposition home or self-care (01) ==
LOC: HO.HMCH 13:53
DX: I10 Essential (primary) hypertension (principal); Z90.49 Acquired absence of other specified parts of digestive tract; R05.9 Cough, unspecified; R53.83 Other fatigue; H92.03 Otalgia, bilateral

== ENCOUNTER 2025-02-11 15:40 | Outpatient (AMB) | payer MEDICARE, MEDICAID, SELFPAY ==
--- OUTSIDE RECORDS SUMMARY | 2025-02-11 15:43 | XMS_ITS | Clinical Summary ---
Author Organization [facility] Facility Address [address] [address] Care Team Providers Care Certified Ophthalmic Technologist Name Role Phone Claude Hatch MD Primary Care Provider [phone] Allergies Active Allergy Reactions Criticality Noted Date [...] [place] Care Teams Certified Ophthalmic Technologist Relationship Specialty Start Date End Date Claude Hatch MD [id number] [place], [place] PCP - General Internal Medicine 04/22/22
[2025-02-11 15:44] VITALS: BP 184/72; PULSE 90; RESP 18; TEMP 36.3; O2SAT 96; BMI 30.6
--- NOTE | 2025-02-11 15:44 | A.OFFPC_ITS ---
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 Required: No Accompanied by: Self / Same As Patient Allergies Penicillins (PENICILLINS) Allergy (Mild, Verified 02/11/25 16:02) ITCHINESS aspirin (ASPIRIN) Allergy (Unknown, Verified 02/11/25 16:02) VOMITING Lisinopril Adverse Reaction (Severe, Uncoded 02/11/25 16:02) Angioedema Medication List - Last Reconciled 02/11/25 by LEAH Peter albuterol sulfate 1.25 mg inhalation QID PRN albuterol sulfate 90 mcg/actuation (Ventolin HFA) 2 puffs PO Q4-6H PRN atorvastatin 80 mg PO BEDTIME carbamide peroxide 6.5% (Debrox) 5 drps otic (ears) Q12H 4 days cholecalciferol (vitamin D3) 25 mcg PO DAILY commode (bedside commode) As directed diaper,brief,adult,disposable Change as needed diltiazem HCl ER (Tiadylt ER) 360 mg PO DAILY docusate sodium 200 mg (2 x 100 mg) PO BID 30 days fluticasone propion-salmeterol 500-50 mcg/dose (Advair Diskus) 1 ea PO BID fluticasone propionate 50 mcg/actuation 1 spray intranasal DAILY PRN hydralazine 100 mg PO BID hydrochlorothiazide 50 mg PO DAILY hydroxyzine HCl 25 mg PO QID PRN lidocaine HCl 2% 1 appl topical BID PRN 30 days lorazepam 1 mg PO Q12H PRN omeprazole 20 mg PO DAILY@0630 Shower Chair As directed underpads (Bed Underpads) As directed Tobacco use date assessed: 02/11/25 Fall risk assessment: No Falls in past year Last assessed Fall Risk: 02/11/25 Dental Screening Dental Screen Date: 02/11/25 Did you have a dental visit in the last 12 months?: No Did you have a dental problem in the last 6 months where you did not have access to dental care?: No Was dental information given to patient?: Patient has dentist HPI 1 month HPI Details The patient is a 79-year-old female presenting with hypertension management. She reports not consistently taking her antihypertensive medication due to concerns about taking it on an empty stomach, which has led to fluctuating blood pressure readings. Her blood pressure has been recorded as high as 150s/80 mmHg at home with a target goal of 140 mmHg systolic. The patient also reports symptoms consistent with allergic rhinitis, including a persistent cough and post-nasal drip. She has not been taking any allergy medications regularly. Additionally, the patient has a history of vitamin D deficiency, which contributes to her feeling of sluggishness. She is currently not on vitamin D supplementation. Reports that she needed dental work done in the past, but the dentist refused to care for her due to her high blood pressure, and told her that she will need an oral surgeon to put her to sleep. Discussed with the patient that an oral surgeon will not work on her either if her blood pressure is not in control. FOR[facility]LY [facility] Medical History Fatigue PAC (premature atrial contraction) HTN (hypertension) Hypertensive heart disease Mild HOCM (hypertrophic obstructive cardiomyopathy) Asthma Surgical History History of cholecystectomy History of left cataract surgery History of umbilical hernia repair History of tubal ligation Family History Father No problems noted. Mother No problems noted. Social History Household Members: Family Household Members Other:: grandson Housing: Apartment Do you presently have visiting nurse or other home services: No Unable to assess alcohol history related to: Unknown Alcohol intake: never Patient Tobacco Use Status: Never used Tobacco e-Cigarette/Vaping Use: Never Used Second Hand Smoke Exposure: No service: No Current occupational status: retired Cognitive needs: Yes (cane) Hearing needs: No Vision needs: Yes Questionnaire PHQ-9 Over the last 2 weeks, how often have you been bothered by any of the following problems? 1. Little interest or pleasure in doing things: nearly every day 2. Feeling down, depressed, or hopeless: nearly every day 3. Trouble falling or staying asleep, or sleeping too much: nearly every day 4. Feeling tired or having little energy: nearly every day 5. Poor appetite or overeating: nearly every day 6. Feeling bad about yourself - or that you are a failure or have let yourself or your family down: nearly every day 7. Trouble concentrating on things, such as reading the newspaper or watching television: several days 8. Moving or speaking so slowly that other people could have noticed. Or the opposite - being so fidgety or restless that you have been moving around a lot more than usual: several days 9. Thoughts that you would be better off or of hurting yourself in some way: several days Total score: 21 Depression Screening Interpretation: Positive Depression Screening Done: Yes Source: Developed by Drs. Jay Boggs, Jeanie Sheridan, Tal Marquis and colleagues, with an educational naty from [employer]. Thrive Questionnaire Date Thrive assessed: 02/11/25 I am a: Patient What is your living situation today?: I have a steady place to live Within the past 12 months, did the food you bought not last and you didn't have the money to get more?: Never true Within the past 12 months, did you worry whether your food would run out before you got money to buy more?: Never true Do you have trouble paying for medicines?: No Do you have trouble getting transportation to medical appointments?: Yes Do you have trouble paying your heating and electricity bill?: No Do you have trouble taking care of your child, family member or friend?: No Do you have trouble with day-to-day activities such as bathing, preparing meals, shopping, managing finances, etc.?: No Are you currently unemployed and looking for a job?: Yes Are you interested in more education?: No Please select the resources that you would like help with: None Currently or been in a relationship where the following occur: No concerns reported THRIVE Score: 1 AUDIT C Alcohol Use Questionnaire (AUDIT-C) 1. How often do you have a drink containing alcohol?: Never Total Score: 0 CARMENCITA-7 AMB Questionnaire CARMENCITA-7 Date CARMENCITA - 7 assessed: 02/11/25 Feeling nervous, anxious, or on edge: 3 = Nearly every day Not being able to stop or control worryin = Several days Worrying too much about different things: 3 = Nearly every day Trouble relaxin = Nearly every day Being so restless that it is hard to sit still: 3 = Nearly every day Becoming easily annoyed or irritable: 3 = Nearly every day Feeling afraid as if something awful might happen: 3 = Nearly every day Total CARMENCITA-7 score (0-4 normal; 5-9 mild; 10-14 moderate; 15-21 severe): 19 Source: Developed by Drs. Jay Boggs, Jeanie Sheridan, Tal Marquis and colleagues, with an educational naty from [employer]. Review of Systems Const Denies headache(s) and Reports lethargy Eyes Denies loss of vision ENT Denies vertigo, Denies dizziness, Denies headache(s), Reports nasal congestion, Reports post nasal drip and Denies sore throat Card Denies chest pain, Denies leg edema and Denies lightheadedness Resp Denies cough, Denies hemoptysis and Denies wheezing GI Denies abdominal pain, Denies melena, Denies constipation, Denies diarrhea and Denies vomiting Denies urinary frequency, Denies dysuria and Denies urinary urgency Musc Denies arthralgias, Denies joint swelling, Denies numbness and Denies tingling Neuro Denies Abnormal speech present, Denies behavioral changes, Denies vertigo, Denies dizziness, Denies headache(s), Denies loss of vision, Denies memory loss, Denies numbness and Denies tingling Psych Denies anxiety, Denies behavioral changes, Denies depression, Denies memory loss and Denies panic attacks Yared/Lymph Denies easy bleeding and Denies easy bruising Aller/Immun Denies wheezing Physical exam (Primary Care) Vital Signs: Last Vital Signs Temp 97.3 F 02/11/25 15:44 Pulse 90 02/11/25 15:44 Resp 18 02/11/25 15:44 BP 184/72 H 02/11/25 15:44 Pulse Ox 96 02/11/25 15:44 Oxygen Delivery Method Room Air 02/11/25 15:44 BMI result Body Mass Index 30.6 Tobacco/Smoking Status: Tobacco use Status Tobacco use date assessed 02/11/25 02/11/25 15:54 Patient Tobacco Use Status Never used Tobacco 02/11/25 15:54 e-Cigarette/Vaping Use Never Used 02/11/25 15:54 PHQ-9: PHQ-9 Score PHQ-9: Total score 21 02/12/25 13:56 Depression Screening Interpretation: Positive Thrive Assessment: Date of Thrive Assessment Date Thrive assessed 02/11/25 02/11/25 15:54 Currently or been in a relationship where the following occur: No concerns reported Const General: healthy appearing, no acute distress, alert and awake Nutritional Appearance: well nourished Orientation/consciousness: oriented to person, oriented to place and oriented to time HENMT Ears: TM's normal bilaterally General nose exam: Abnormal mucous membranes and turbinates present erythematous bilateral Eyes Conjunctivae: conjunctivae normal Sclerae: sclerae normal Pupils: Equal, round and reactive pupils present Neck Neck: Yes no lymphadenopathy and Yes no JVD Thyroid: Thyroid normal Carotids: no bruits Resp Effort & Inspection: normal respiratory effort and not tachypneic Auscultation: no crackles, no rales, no rhonchi and no wheezes Cardio Rate: regular rate Rhythm: regular rhythm Heart sounds: no murmurs and normal S1 and S2 GI Palpation (GI): Soft to palpation, nontender, no hepatomegaly and no splenomegaly Auscultation: normal bowel sounds Skin General skin exam: no rashes or lesions noted and dry skin Neuro General: oriented to person, oriented to place and oriented to time Cranial nerves: Yes Equal, round and reactive pupils present Speech: No Abnormal speech present Gait exam (Neuro): Normal gait present Motor exam (neuro): no tremor noted Extrem Right upper extremity: full ROM Left upper extremity: full ROM Right lower extremity: full ROM; no edema Left lower extremity: full ROM; no edema Psych Mental Status: mental status grossly normal Speech and movement: Normal speech and movement present Affect: normal affect Attitude: cooperative Thought process: Normal thought process present Results Reviewed Results Reviewed: Laboratory Tests 12/31/24 15:34 WBC 8.2 RBC 4.10 L Hgb 12.1 Hct 38.6 MCV 94.1 MCH 29.5 MCHC 31.3 RDW 13.5 Plt Count 297 D Sodium 144 Potassium 3.8 Chloride 109 H Carbon Dioxide 24 Anion Gap 15 BUN 17 H Creatinine 0.97 Estim Creat Clear Calc Not Reportable Estimated GFR 55 Random Glucose 122 H Fasting Glucose 123 H Calcium 9.9 D Total Bilirubin 0.8 AST 21 ALT 21 Alkaline Phosphatase 90 Total Protein 7.6 Albumin 4.8 TSH 0.73 Coding Level of Care Code Est Pt Level 3 (61946) Diagnoses Hypertension, unspecified type I10 Hypertension type: unspecified Anxiety F41.9 Severe persistent asthma, unspecified whether complicated J45.50 Asthma complication type: unspecified Asthma persistence: persistent Asthma severity: severe Allergic rhinitis, unspecified seasonality, unspecified trigger J30.9 Allergic rhinitis seasonality: unspecified Allergic rhinitis trigger: unspecified Time Spent (min) 35 Assessment & Plan Assessment & Plan (1) HTN (hypertension): Code(s): I10 - Essential (primary) hypertension Category: Medical Qualifiers: Hypertension type: unspecified Qualified Code(s): I10 - Essential (primary) hypertension Plan: The patient is advised to consistently take her antihypertensive medication, even on an empty stomach, to prevent fluctuations in blood pressure. The target blood pressure is set at 140 mmHg, and adjustments to medication will be considered if this target is not met. A follow-up appointment is scheduled in two months to reassess blood pressure control and make necessary adjustments. (2) Anxiety: Code(s): F41.9 - Anxiety disorder, unspecified Category: Medical Plan: Encouraged CBT Continue lorazepam 1 mg q.12 p.r.n. denies SI/HI (3) Asthma: Code(s): J45.909 - Unspecified asthma, uncomplicated Category: Medical Qualifiers: Asthma complication type: unspecified Asthma persistence: persistent Asthma severity: severe Qualified Code(s): J45.50 - Severe persistent asthma, uncomplicated Plan: Denies shortness of breath continue albuterol sulfate via nebulizer treatment q.i.d. p.r.n., albuterol sulfate MDI Q 4-6 p.r.n., Advair Diskus 500-50 mcg/dose 1 ea p.o. b.i.d. (4) Allergic rhinitis: Code(s): J30.9 - Allergic rhinitis, unspecified Category: Medical Qualifiers: Allergic rhinitis seasonality: unspecified Allergic rhinitis trigger: unspecified Qualified Code(s): J30.9 - Allergic rhinitis, unspecified Plan: Limit exposure to allergens Air purifiers and dust filters Air conditioner in house, especially where sleeping Fluticasone propionate 50 mcg/actuation one spray intranasally daily p.r.n. for nasal congestion Delsym 10 mL q.12 hours p.r.n. for cough Medications: New dextromethorphan polistirex ER (Delsym 12 hour) 10 mL PO Q12H PRN 89 mL 0RF cough fluticasone propionate 50 mcg/actuation 1 spray intranasal DAILY PRN 16 grams 0RF Nasal Congestion Refilled cholecalciferol (vitamin D3) 25 mcg PO DAILY 90 caps 3RF albuterol sulfate 90 mcg/actuation (Ventolin HFA) 2 puffs PO Q4-6H PRN 8.5 grams 3RF wheezing lorazepam 1 mg PO Q12H PRN 60 tabs 0RF anxiety hydrochlorothiazide 50 mg PO DAILY 90 tabs 2RF fluticasone propion-salmeterol 500-50 mcg/dose (Advair Diskus) 1 ea PO BID 180 ea 3RF
== END 2025-02-11 16:44 | disposition home or self-care (01) ==
LOC: HO.HMCH 15:41
DX: I10 Essential (primary) hypertension (principal); F41.9 Anxiety disorder, unspecified; J45.50 Severe persistent asthma, uncomplicated; J30.9 Allergic rhinitis, unspecified

== ENCOUNTER → 2025-02-11 15:40 | Outpatient (BNVA) | payer MEDICARE, MEDICAID, SELFPAY | DX: I10 Essential (primary) hypertension (principal); F41.9 Anxiety disorder, unspecified; J45.50 Severe persistent asthma, uncomplicated; J30.9 Allergic rhinitis, unspecified | CPT/HCPCS: 99212 ==

== ENCOUNTER 2025-03-31 15:20 | Outpatient (AMB) | payer MEDICARE, MEDICAID, SELFPAY ==
[2025-03-31 15:49] VITALS: BP 150/60; PULSE 80; RESP 18; TEMP 36.2; O2SAT 97; BMI 31.1
--- NOTE | 2025-03-31 15:49 | MHC.PC.OV ---
Vital Signs 03/31/25 15:49 Height 5 ft 7 in Weight 198 lb 8 oz BMI 31.1 BP 150/60 H Blood Pressure Location Lt brachial Position Sitting Respiration 18 Pulse 80 Pulse Source Pulse Oximeter Temp 97.1 F Temp Source Temporal Artery Scan Pulse Oximetry (%) 97 Oxygen Delivery Method Room Air Intake Visit Reasons: htn/hld/asthma/cardiomyopathy Special Delivery Mail Carrier Required: No Accompanied by: Self / Same As Patient Allergies Penicillins (PENICILLINS) Allergy (Mild, Verified 03/31/25 16:17) ITCHINESS aspirin (ASPIRIN) Allergy (Unknown, Verified 03/31/25 16:17) VOMITING Lisinopril Adverse Reaction (Severe, Uncoded 03/31/25 16:17) Angioedema Medication List - Last Reconciled 03/31/25 by LEAH Peter albuterol sulfate 1.25 mg inhalation QID PRN albuterol sulfate 90 mcg/actuation (Ventolin HFA) 2 puffs PO Q4-6H PRN atorvastatin 80 mg PO BEDTIME carbamide peroxide 6.5% (Debrox) 5 drps otic (ears) Q12H 4 days cholecalciferol (vitamin D3) 25 mcg PO DAILY commode (bedside commode) As directed dextromethorphan polistirex ER (Delsym 12 hour) 10 mL PO Q12H PRN diaper,brief,adult,disposable Change as needed diltiazem HCl ER (Tiadylt ER) 360 mg PO DAILY docusate sodium 200 mg (2 x 100 mg) PO BID 30 days fluticasone propion-salmeterol 500-50 mcg/dose (Advair Diskus) 1 ea PO BID fluticasone propionate 50 mcg/actuation 1 spray intranasal DAILY PRN hydralazine 100 mg PO BID hydrochlorothiazide 50 mg PO DAILY hydroxyzine HCl 25 mg PO QID PRN lidocaine HCl 2% 1 appl topical BID PRN 30 days lorazepam 1 mg PO Q12H PRN omeprazole 20 mg PO DAILY@0630 Shower Chair As directed tramadol 50 mg PO BID PRN underpads (Bed Underpads) As directed Tobacco use date assessed: 03/31/25 Fall risk assessment: No Falls in past year Last assessed Fall Risk: 03/31/25 Dental Screening Dental Screen Date: 03/31/25 Did you have a dental visit in the last 12 months?: No Did you have a dental problem in the last 6 months where you did not have access to dental care?: No Was dental information given to patient?: No HPI htn/hld/asthma/cardiomyopathy HPI Details The patient is a 79-year-old female presenting with hypertension management, hip pain, and dental issues. Hypertension has been a persistent issue, with recent discussions focusing on adjusting medication to better control blood pressure. The patient has been taking hydralazine twice daily, but the plan is to increase the frequency to three times daily to achieve better control. The patient reports hip pain, particularly in the left hip, which affects her mobility and daily activities. She experiences difficulty lifting her leg and has noted some swelling in the area. An x-ray has been ordered to further investigate the cause of the pain. Dental issues have been ongoing, with the patient expressing difficulty eating due to dental discomfort. She has been advised to find a dentist and make an appointment for further evaluation and treatment. The patient also reports symptoms consistent with chronic sinusitis, including sinus drainage and swelling. She has been using Flonase and ear drops as part of her management plan. [facility] Medical History Fatigue PAC (premature atrial contraction) HTN (hypertension) Hypertensive heart disease Mild HOCM (hypertrophic obstructive cardiomyopathy) Asthma Surgical History History of cholecystectomy History of left cataract surgery History of umbilical hernia repair History of tubal ligation Family History Father No problems noted. Mother No problems noted. Social History Household Members: Family Household Members Other:: grandson Housing: Apartment Do you presently have visiting nurse or other home services: No Alcohol intake: never Patient Tobacco Use Status: Never used Tobacco e-Cigarette/Vaping Use: Never Used Second Hand Smoke Exposure: No service: No Current occupational status: retired Cognitive needs: Yes (cane) Hearing needs: No Vision needs: Yes Questionnaire Thrive Questionnaire Date Thrive assessed: 10/11/24 I am a: Patient What is your living situation today?: I have a steady place to live Within the past 12 months, did the food you bought not last and you didn't have the money to get more?: Never true Within the past 12 months, did you worry whether your food would run out before you got money to buy more?: Never true Do you have trouble paying for medicines?: No Do you have trouble getting transportation to medical appointments?: Yes Do you have trouble paying your heating and electricity bill?: No Do you have trouble taking care of your child, family member or friend?: No Do you have trouble with day-to-day activities such as bathing, preparing meals, shopping, managing finances, etc.?: No Are you currently unemployed and looking for a job?: Yes Are you interested in more education?: No Please select the resources that you would like help with: None Currently or been in a relationship where the following occur: No concerns reported THRIVE Score: 1 CARMENCITA-7 AMB Questionnaire CARMENCITA-7 Date CARMENCITA - 7 assessed: 02/11/25 Source: Developed by Drs. Jay Boggs, Jeanie Sheridan, Tal Marquis and colleagues, with an educational naty from [employer]. Review of Systems Const Denies headache(s) Eyes Denies loss of vision ENT Reports dental pain, Denies vertigo, Denies dizziness, Denies headache(s), Reports nasal congestion and Denies sore throat Card Denies chest pain, Reports leg edema and Denies lightheadedness Resp Reports cough (al), Denies hemoptysis and Denies wheezing GI Denies abdominal pain, Denies melena, Denies constipation, Denies diarrhea and Denies vomiting Denies urinary frequency, Denies dysuria and Denies urinary urgency Musc Denies arthralgias, Denies joint swelling, Denies numbness and Denies tingling Neuro Denies behavioral changes, Denies vertigo, Denies dizziness, Denies headache(s), Denies loss of vision, Denies memory loss, Denies numbness and Denies tingling Psych Denies anxiety, Denies behavioral changes, Denies depression, Denies memory loss and Denies panic attacks Yared/Lymph Denies easy bleeding and Denies easy bruising Aller/Immun Denies wheezing Physical exam (Primary Care) Vital Signs: Last Vital Signs Temp 97.1 F 03/31/25 15:49 Pulse 80 03/31/25 15:49 Resp 18 03/31/25 15:49 BP 150/60 H 03/31/25 15:49 Pulse Ox 97 03/31/25 15:49 Oxygen Delivery Method Room Air 03/31/25 15:49 BMI result Body Mass Index 31.1 Tobacco/Smoking Status: Tobacco use Status Tobacco use date assessed 03/31/25 03/31/25 15:57 Patient Tobacco Use Status Never used Tobacco 03/31/25 15:57 e-Cigarette/Vaping Use Never Used 03/31/25 15:57 Thrive Assessment: Date of Thrive Assessment Date Thrive assessed 10/11/24 03/31/25 15:57 Currently or been in a relationship where the following occur: No concerns reported Office Procedures Flu Questionnaire Does the patient have a severe egg allergy?: No Does the patient have severe life threatening allergies?: No Does the patient have a fever or illness today?: No Has the patient ever had Guillain-[place] Syndrome?: No Has the patient ever had any past reaction to a flu shot?: No Immunizations Fluarix [id number] (PF) 45 mcg (15 mcg x 3)/0.5 mL IM syringe Performing Provider: LEAH Peter [place] [facility] [place] [facility] Administered by: EMIL Barcenas on 03/31/25 16:39 Dose Route Admin Location Dispensed Lot Number Expiration Date [employer]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 0.5 mL IM Right Deltoid 0.5 mL [id number] 12/13/25 [id number] Spot Influence VIS Given Date VIS Provided VIS Publication Date 03/31/25 Single Vaccine 24 Eligibility Eligibility Date Funding Source Not [facility] Eligible 03/31/25 Private Coding Assessment & Plan Assessment & Plan Orders: Orders XR hip LT min 2V Today M25.552 - Pain in left hip UA CC w/rflx Micro + Cult Today E66.9 - Obesity, unspecified, E78.5 - Hyperlipidemia, unspecified, F41.9 - Anxiety disorder, unspecified, I10 - Essential (primary) hypertension, I11.9 - Hypertensive heart disease without heart failure, I42.1 - Obstructive hypertrophic cardiomyopathy, I49.1 - Atrial premature depolarization, J45.50 - Severe persistent asthma, uncomplicated, R06.02 - Shortness of breath TSH reflex Free T4 Today E66.9 - Obesity, unspecified, E78.5 - Hyperlipidemia, unspecified, F41.9 - Anxiety disorder, unspecified, I10 - Essential (primary) hypertension, I11.9 - Hypertensive heart disease without heart failure, I42.1 - Obstructive hypertrophic cardiomyopathy, I49.1 - Atrial premature depolarization, J45.50 - Severe persistent asthma, uncomplicated, R06.02 - Shortness of breath Comprehensive [place]. Panel Fast Today E66.9 - Obesity, unspecified, E78.5 - Hyperlipidemia, unspecified, F41.9 - Anxiety disorder, unspecified, I10 - Essential (primary) hypertension, I11.9 - Hypertensive heart disease without heart failure, I42.1 - Obstructive hypertrophic cardiomyopathy, I49.1 - Atrial premature depolarization, J45.50 - Severe persistent asthma, uncomplicated, R06.02 - Shortness of breath NT Pro B Type Natriuretic Pept Today E66.9 - Obesity, unspecified, E78.5 - Hyperlipidemia, unspecified, F41.9 - Anxiety disorder, unspecified, I10 - Essential (primary) hypertension, I11.9 - Hypertensive heart disease without heart failure, I42.1 - Obstructive hypertrophic cardiomyopathy, I49.1 - Atrial premature depolarization, J45.50 - Severe persistent asthma, uncomplicated, R06.02 - Shortness of breath Influenza [id number] Immunization Today Z23 - Encounter for immunization Vitamin D 25-OH Total Today E66.9 - Obesity, unspecified, E78.5 - Hyperlipidemia, unspecified, F41.9 - Anxiety disorder, unspecified, I10 - Essential (primary) hypertension, I11.9 - Hypertensive heart disease without heart failure, I42.1 - Obstructive hypertrophic cardiomyopathy, I49.1 - Atrial premature depolarization, J45.50 - Severe persistent asthma, uncomplicated, R06.02 - Shortness of breath Lipid Panel Today E66.9 - Obesity, unspecified, E78.5 - Hyperlipidemia, unspecified, F41.9 - Anxiety disorder, unspecified, I10 - Essential (primary) hypertension, I11.9 - Hypertensive heart disease without heart failure, I42.1 - Obstructive hypertrophic cardiomyopathy, I49.1 - Atrial premature depolarization, J45.50 - Severe persistent asthma, uncomplicated, R06.02 - Shortness of breath Complete Blood Count Auto Diff Today E66.9 - Obesity, unspecified, E78.5 - Hyperlipidemia, unspecified, F41.9 - Anxiety disorder, unspecified, I10 - Essential (primary) hypertension, I11.9 - Hypertensive heart disease without heart failure, I42.1 - Obstructive hypertrophic cardiomyopathy, I49.1 - Atrial premature depolarization, J45.50 - Severe persistent asthma, uncomplicated, R06.02 - Shortness of breath Medications: New azithromycin 500 mg PO DAILY 3 tabs 0RF 3 days Changed From hydralazine 100 mg PO BID 180 tabs 3RF To hydralazine 100 mg PO TID 270 tabs 3RF 90 days Refilled hydralazine 100 mg PO BID 180 tabs 3RF
== END 2025-03-31 17:04 | disposition home or self-care (01) ==
LOC: HO.HMCH 15:21
DX: Z23 Encounter for immunization (principal)

== ENCOUNTER → 2025-03-31 15:20 | Outpatient (BNVA) | payer MEDICARE, MEDICAID, SELFPAY | DX: I10 Essential (primary) hypertension (principal); M25.552 Pain in left hip; F41.9 Anxiety disorder, unspecified; J45.50 Severe persistent asthma, uncomplicated; J30.9 Allergic rhinitis, unspecified; K12.2 Cellulitis and abscess of mouth; Z23 Encounter for immunization | CPT/HCPCS: 90471; 90656; 99212 ==

== ENCOUNTER 2025-04-06 14:48 | Outpatient (REF) | payer MEDICARE, MEDICAID, SELFPAY ==
--- NOTE | ~2025-04-06 | XR_ITS ---
EXAMINATION: XR HIP, LEFT CLINICAL INFORMATION: M25.552 - Pain in left hip COMPARISON: 11/18/2014 TECHNIQUE: Two views of the left hip. FINDINGS: No fracture, dislocation, or suspicious bone lesion. There is normal alignment. Normal femoral head contour without evidence of AVN. There is very mild degenerative arthritis with superolateral acetabular spurring, but gross preservation of the joint space. No soft tissue abnormalities. XR/XR hip LT min 2V IMPRESSION: 1. No acute bony or soft tissue abnormalities. 2. 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 Electronically signed by: Alvin Rod MD 04/06/2025 03:26 PM EDT
[2025-04-06 15:34] LABS: Hemoglobin 11.3 g/dl (12.0-16.0); Imm Gran Abs Auto 0.01 X10*3/uL (0.00-0.03); Imm Gran Pct Auto 0.1 % (0.0-0.4); MANUAL DIFF FLAG SCAN; NRBC Abs Auto 0.000 X10*3/uL (0.0-0.012); NRBC Pct Auto 0.0 /100WBC (0.0-0.2); PLT CLUMP 1; SCAN SMEAR FLAG 1
[2025-04-06 15:36] LABS: Hematocrit 35.9 % (37.0-47.0); Lymphocytes Absolute Auto 3.0 X10*3/uL (1.2-4.9); Mean Corpuscular HGB Conc 31.5 g/dl (31.0-35.0); Mean Corpuscular Hemoglobin 29.6 pg (27.0-33.0); Mean Corpuscular Volume 94.0 fL (80.0-98.0); Red Blood Count 3.82 X10*6/uL (4.20-5.50)
[2025-04-06 15:43] LABS: Platelet Count 172 X10*3/uL (160-400); White Blood Count 7.0 X10*3/uL (4.8-10.8)
[2025-04-06 15:58] LABS: Appearance Urine Turbid; Glucose Urine UA Negative (Negative); PH 8.0 (5.0-9.0); Specific Gravity - Urine 1.025 (1.005-1.025)
[2025-04-06 16:09] LABS: Alanine Aminotransferase 12 U/L (0-31); Albumin Level 4.6 g/dL (3.5-5.0); Alkaline Phosphatase 69 U/L (39-117); Anion Gap 13 (12-20); Aspartate Amino Transferase 21 U/L (5-31); Blood Urea Nitrogen 25 mg/dL (9-16); Calcium 10.0 mg/dL (8.4-10.2); Carbon Dioxide 29 mmol/L (22-29); Chloride 105 mmol/L (96-108); Cholesterol 173 mg/dL (<200); Estimated Glomerular Filt Rate > 60; HDL Cholesterol 60 mg/dL (>40); Potassium 3.8 mmol/L (3.3-5.1); Sodium 143 mmol/L (135-145); Total Protein 7.4 g/dL (6.5-8.0); Triglycerides 80 mg/dL (<150)
[2025-04-06 16:12] LABS: NT Pro B Type Natriuretic Pept 97.4 pg/mL (<300)
== END 2025-04-06 14:49 | disposition home or self-care (01) ==
LOC: HO.XRAY 14:48
DX: I11.9 Hypertensive heart disease without heart failure (principal); I42.1 Obstructive hypertrophic cardiomyopathy; I49.1 Atrial premature depolarization; R06.02 Shortness of breath; E78.5 Hyperlipidemia, unspecified; E66.9 Obesity, unspecified; J45.50 Severe persistent asthma, uncomplicated; M25.552 Pain in left hip; F41.9 Anxiety disorder, unspecified
CPT/HCPCS: 36415; 73502; 80053; 80061; 81003; 82306; 83880; 84443; 85025

== ENCOUNTER → 2025-04-06 15:14 | Outpatient (BNV) | payer MEDICARE, MEDICAID, SELFPAY | PROVIDERS: Visit Provider Radiology Diagnostic Radiology | DX: M16.12 Unilateral primary osteoarthritis, left hip (principal) | CPT/HCPCS: 73502 ==